=== PATIENT | male | born 1965 | race Caucasian/White ===

== ENCOUNTER 2019-10-24 13:45 | Inpatient (IN) ==
--- OUTSIDE RECORDS SUMMARY | 2019-10-24 13:49 | External Medical Summary | Continuity of Care Document ---
:1965 Author Name Jessica M.D., Provider Address Unavailable Unavailable , Care Team Providers Name Role Phone Unavailable Unavailable Unavailable LYDIA HOGAN Unavailable Unavailable Unavailable Unavailable Unavailable Problems Hypertrophy of nasal turbinates (478.0) (J34.3) Acquired deviated nasal septum (470) (J34.2) Type 2 diabetes mellitus (250.00) (E11.9) Allergies and Adverse Reactions Naproxen TABS (Allergy) Medications Nitrostat 0.4 MG Sublingual Tablet Sublingual , M.D. Refills: 0 Aspirin 81 MG TABS , M.D. Refills: 0 HumaLOG 100 UNIT/ML Subcutaneous Solution , M.D. Refills: 0 Lipitor 20 MG Oral Tablet , M.D. Refills: 0 Gemfibrozil 600 MG Oral Tablet , M.D. Refills: 0 Metoprolol Succinate ER 25 MG Oral Tablet Extended Release 2 4 Hour , M.D. Refills: 0 hydrALAZINE HCl - 25 MG Oral Tablet , M.D. Refills: 0 Effexor XR 150 MG Oral Capsule Extended Release 24 Hour , M. D. Refills: 0 Ambien 10 MG Oral Tablet , M.D. Refills: 0 oxyCODONE HCl - 5 MG Oral Capsule , M.D. Refills: 0 Procedures History of Hernia Repair Status: Complet ed History of Shoulder Surgery Status: Comp leted History of Ankle Repair Status: Complete d History of Cath Stent Placement Status: Completed Immunizations Immunizations not documented Plan of Treatment Planned Observations Planned Goals not documented Results No Known Results Results not documented
[2019-10-24 14:17] LABS: Basophils # (auto) 0.05 K/uL (0-0.2); Basophils % (auto) 0.4 %; Eosinophils # (auto) 0.23 K/uL (0-0.5); Eosinophils % (auto) 1.9 %; Hematocrit (blood only) 43.4 % (42-52); Hemoglobin 15.4 g/dL (14.0-18.0); Immature Granulocytes # (auto) 0.04 K/uL (0.00-0.02); Immature Granulocytes % (auto) 0.3 %; Lymphocytes # (auto) 1.93 K/uL (1.2-3.4); Lymphocytes % (auto) 15.9 %; Mean Corpuscular Hemoglobin 33.6 pg (25-34); Mean Corpuscular Hgb Conc 35.5 g/dL (32-36); Mean Corpuscular Volume 94.8 fL (80-100); Mean Platelet Volume 10.6 fL (7.4-10.4); Monocytes # (auto) 1.13 K/uL (0.11-0.59); Monocytes % (auto) 9.3 %; Neutrophils # (auto) 8.74 K/uL (1.4-6.5); Neutrophils % (auto) 72.2 %; Nucleated RBC # (auto) 0.02 K/uL (0-0); Nucleated RBC % (auto) 0.1 %; Platelet Count 177 K/uL (130-400); RDW Standard Deviation 44.6 fL (36.4-46.3); Red Blood Count 4.58 M/uL (4.7-6.1); White Blood Count 12.12 K/uL (4.8-10.8)
[2019-10-24] MEDS ORDERED: HYDROmorphone INJ 0.5 MG/0.5 ML SYR IV STA (14:18)
[2019-10-24] MEDS ORDERED: ONDANSETRON INJ 2 MG/ML 2 ML VIAL IV STA (14:18)
[2019-10-24] MEDS ORDERED: ALBUT/IPRATROP 3MG/0.5MG NEB 3 ML VIAL NEB STA (14:20)
[2019-10-24] MEDS ORDERED: SODIUM CHLORIDE 0.9% 1000ML 1,000 ML IV ONE (14:22)
[2019-10-24 14:25] LABS: Alanine Aminotransferase 19 U/L (12-78); Aspartate Aminotransferase 15 U/L (15-37); BUN Creatinine Ratio 13.3 (10-20); Blood Urea Nitrogen 18 mg/dl (7-18); Calcium 9.3 mg/dl (8.5-10.1); Carbon Dioxide 22 mmol/L (21-32); Chloride 103 mmol/L (98-107); Est GFR (African American) 66.8; Est GFR (Non-African American) 57.7; Glucose 140 mg/dl (70-99); Lipase 550 U/L (73-393); Potassium 3.5 mmol/L (3.5-5.1); Sodium 136 mmol/L (136-145)
[2019-10-24 14:28] LABS: Alkaline Phosphatase 115 U/L (45-117); Bilirubin,Total 0.5 mg/dl (0.2-1); Globulin 3.9 gm/dl (2.5-4.0); Total Protein 7.9 gm/dl (6.4-8.2)
--- NOTE | 2019-10-24 14:36 | XRay Report ---
XR chest 1V portable CLINICAL HISTORY: 54 years-old Male presenting with mild sob, abdominal pain. TECHNIQUE: Portable upright AP view of the chest was obtained. COMPARISON: 12/22/2009. FINDINGS: Borderline enlargement of the cardiac silhouette. Mildly coarsened lung markings. Faint reticular bas ilar opacities may be present. No other focal opacity. No large effusion or pneumothorax. Lungs and p leural spaces clear. Osseous structures normal. Upper abdomen normal. IMPRESSION: 1. Faint basilar reticular infiltrates may be present versus artifact relating to vasculature and po rtable technique. Consider PA and lateral views for further assessment if there is clinical concern. 2. No focal infiltrate to suggest pneumonia. 3. Borderline cardiomegaly. ACT 112: Negative or not required by law. Electronically signed by: Deion Hill M.D. 10/24/2019 2:34 PM
[2019-10-24 14:59] LABS: Troponin I < 0.015 ng/ml (0-0.045)
[2019-10-24] MEDS ORDERED: IOVERSOL 100ml IV PRN (15:03)
[2019-10-24] MEDS ORDERED: HYDROmorphone INJ 1 MG/ML SYRINGE IV STA (15:17)
[2019-10-24] MEDS ORDERED: METOCLOPRAMIDE HCL INJ 5 MG/ML 2 ML VIAL IV STA (15:18)
--- NOTE | 2019-10-24 15:22 | CT Scan Report ---
ABDOMEN AND PELVIS CT WITH IV CONTRAST CT DOSE: 408.05 mGy.cm HISTORY: Generalized abdominal pain, n/v, pancreatitis TECHNIQUE: Multiaxial CT images of the abdomen and pelvis were performed following the use of intrave nous contrast. A dose lowering technique was utilized adhering to the principles of ALARA. COMPARISON STUDY: Abdomen and pelvis CT 12/24/2009. FINDINGS: The lung bases are clear. No pneumoperitoneum. No pneumatosis. Old, healed left-sided rib f ractures. No suspicious lytic or blastic osseous lesions. The liver, spleen, right adrenal gland, and kidneys are unremarkable. No hydronephrosis. There are 2 date stones within the gallbladder. No gall bladder wall thickening. The punctate calcification within the anterior pancreatic head. Mild edema a nd inflammatory change surrounding the pancreatic head consistent with acute pancreatitis. The main p ortal vein and splenic vein are patent. No evidence for pancreatic necrosis at this time. No loculate d fluid collections identified. The bladder is mildly distended. No bladder wall thickening. No evide nce for bowel obstruction. Normal appendix. No bowel wall thickening. IMPRESSION: 1. Acute pancreatitis involving the pancreatic head. No evidence for pancreatic necrosis or loculated peripancreatic fluid collections. 2. Cholelithiasis. 3. No bowel wall thickening or obstruction. 4. Normal appendix. 5. Distended bladder. ACT 112: Negative or not required by law. Electronically signed by: Baldemar Jorge M.D. 10/24/2019 3:21 PM
[2019-10-24] MEDS: NICOTINE 21 MG/24 HR TDSY TD SCH (17:31)
--- NOTE | 2019-10-24 17:38 | Emergency Department Note ---
Entered by Odette Sherman acting as a scribe for History of Present Illness General Chief complaint: Abdominal Pain Stated complaint: abd pain Time Seen by Provider: 10/24/19 14:13 Source: patient Mode of arrival: EMS History of Present Illness Onset (ago): day(s) 3 Location: abdomen Radiation: back Severity: severe and similar to prior episodes Pain Consistency: + other (worsening) Maximum Pain Intensity: 7 Quality: + other (abdominal pain ) Exacerbated By: + eating Associated symptoms: + cough, + loss of appetite, + nausea/vomiting, + shortness of breath and + other (Positive abdominal pain, back pain. Negative recent falls, abnormal bowel movements. ); no chest pain Treatments prior to arrival: other (morphine) The patient is a 54 year old male presenting to the Emergency Department via EMS complaining of worsening abdominal pain starting 3 days ago. The patient reports that he has severe abdominal pain that is radiating to his back. He states that he has lost his appetite and when he tries to eat food his abdominal pain worsens. He explains that he is nauseous and vomited. He notes that he is short of breath and has a cough. He adds that he has experienced these symptoms before and at that time he was diagnosed with pancreatitis. He states that he has been taking Ibuprofen at home which hasnt improved his abdominal pain. He explains that he received X from [facility] [employer]CH[employer]IC[employer]. He notes that he regularly smokes cigarettes and drinks alcohol. 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 The patient denies chest pain, recent falls, abnormal bowel movements and recent travel. Home Medications Home Medications Medication Instructions Recorded Confirmed Type albuterol sulfate [ProAir HFA] 2 puff INHALATION Q4H PRN 10/24/19 10/24/19 History aspirin 81 mg PO QAM 10/24/19 10/24/19 History bupropion HCl 300 mg PO QAM 10/24/19 10/24/19 History fluticasone propionate [Flonase 2 spray INTRANASAL DAILY PRN 10/24/19 10/24/19 History Allergy Relief] gemfibrozil 600 mg PO BID 10/24/19 10/24/19 History hydralazine 25 mg PO BID 10/24/19 10/24/19 History insulin aspart U-100 [Novolog See Rx Instructions .ROUTE .COMPLEX 10/24/19 10/24/19 History Flexpen U-100 Insulin] insulin glargine [Lantus Solostar 16 unit SUBCUT QAM 10/24/19 10/24/19 History U-100 Insulin] loratadine 10 mg PO DAILY PRN 10/24/19 10/24/19 History losartan 100 mg PO QAM 10/24/19 10/24/19 History metoprolol tartrate 50 mg PO BID 10/24/19 10/24/19 History rosuvastatin 40 mg PO DAILY 10/24/19 10/24/19 History trazodone 50 mg PO HS 10/24/19 10/24/19 History Allergies Allergy/AdvReac Type Severity Reaction Status Date / Time naproxen Allergy Unknown Hives Verified 10/24/19 16:09 tramadol Allergy Unknown Unknown Verified 10/24/19 16:09 Past Med/Surg History Medical History (Updated 10/24/19 @ 15:47 by Odette Sherman) COPD (chronic obstructive pulmonary disease) Depression GERD (gastroesophageal reflux disease) History of pancreatitis Surgical History History of nasal septoplasty Social History Feels Safe at Home: Yes Smoking Status: Heavy tobacco smoker Review of Systems See HPI for pertinent positives & negatives. and A total of 10 systems reviewed and were otherwise negative Physical Exam Vital Signs Vital Signs - 24 hr 10/24/19 14:02 10/24/19 14:50 10/24/19 15:31 Temperature 36.8 C Temperature Source Oral Pulse Rate 70 Pulse Rate [Radial] 66 83 Respiratory Rate 22 17 20 Respiratory Effort / Characteristics Non-Labored Spontaneous Non-Labored Spontaneous Non-Labored Spontaneous Respiratory Depth Normal Normal Respiratory Pattern Regular Blood Pressure 136/85 Blood Pressure [Right Arm] 138/88 Blood Pressure Mean 102 Blood Pressure Mean [Right Arm] 104 Blood Pressure Position Lying Blood Pressure Position [Right Arm] Lying Pulse Oximetry 95 97 96 Oxygen Delivery Method Room Air Room Air Room Air Sepsis Recent Fever Within 48 Hours No Sepsis Action Taken by Nursing No Action Required GENERAL: Patient appears fatigued. Awake, alert but appears uncomfortable HENT: Normocephalic, atraumatic. EYES: Normal conjunctiva. Sclera non-icteric. RESPIRATORY: Coarse lungs sounds with slight wheeze. Normal respiratory effort. CARDIAC: Normal rate. Normal rhythm. Extremities warm and well perfused. GI: Diffuse abdominal tenderness. Soft, non-distended. RECTAL: Deferred. MUSCULOSKELETAL: Atraumatic. Chest examination reveals no tenderness. LOWER EXTREMITIES: Calves are equal size bilaterally and non-tender. No edema NEURO: Normal sensorium. No sensory or motor deficits noted. No facial droop. SKIN: Warm and dry. No jaundice noted. Course Course 1416: The patient was evaluated in room C11B, and a complete history and physical examination were performed. 1531: I updated the patient on his imaging studies at this time. 1544: I discussed the patient's case with Cecille Sommer PA-C. Dr. [facility]. Administered Medications Ioversol (Optiray 320 100ml) 93 ml IV ONCE PRN PRN Reason: Interaction Checking Stop: 10/28/19 15:02 Last Admin: 10/24/19 15:03 Dose: 93 ml Documented by: [id number] Nicotine (Nicoderm Cq) 21 mg TD QAM ROSALES Stop: 11/23/19 17:14 Last Admin: 10/24/19 17:31 Dose: 21 mg Documented by: [id number] Discontinued Medications Albuterol (Duoneb) 3 ml NEB NOW STA Stop: 10/24/19 14:21 Last Admin: 10/24/19 14:49 Dose: 3 ml Documented by: [id number] Hydromorphone HCl (Dilaudid) 0.5 mg IV NOW STA Stop: 10/24/19 14:19 Last Admin: 10/24/19 14:30 Dose: 0.5 mg Documented by: [id number] Hydromorphone HCl (Dilaudid) 1 mg IV NOW STA Stop: 10/24/19 15:18 Last Admin: 10/24/19 15:28 Dose: 1 mg Documented by: [id number] Sodium Chloride (Nss 1000ml) 1,000 mls @ 999 mls/hr IV .Q1H1M ONE Stop: 10/24/19 15:22 Last Infusion: 10/24/19 15:34 Dose: 0 mls/hr Documented by: [id number] Admin: 10/24/19 14:30 Dose: 999 mls/hr Documented by: [id number] Metoclopramide HCl (Reglan) 10 mg IV NOW STA Stop: 10/24/19 15:19 Last Admin: 10/24/19 15:28 Dose: 10 mg Documented by: [id number] Ondansetron HCl (Zofran) 4 mg IV NOW STA Stop: 10/24/19 14:19 Last Admin: 10/24/19 14:30 Dose: 4 mg Documented by: [id number] Medical Decision Making Differential Diagnosis Differential diagnoses includes but is not limited to gastritis, peptic ulcer disease, GERD, gallbladder disease, pancreatitis, small bowel obstruction, acute coronary syndrome, pericarditis, ischemic bowel, irritable bowel disease, irritable bowel syndrome, appendicitis, diverticulitis, malignancy, hernia, urinary tract infection, torsion, perforation, trauma, infectious. Medical Records Attestation: I reviewed the patient's medical records. Home Medications Current Medication List: was personally reviewed by me Laboratory Data Attestation: I reviewed the patient's lab results. Result diagrams: 10/24/19 13:50 10/24/19 13:50 Lab Results 10/24/19 10/24/19 10/24/19 Range/Units 13:50 13:50 13:50 WBC 12.12 H (4.8-10.8) K/uL RBC 4.58 L (4.7-6.1) M/uL Hgb 15.4 (14.0-18.0) g/dL Hct 43.4 (42-52) % MCV 94.8 (80-100) fL MCH 33.6 (25-34) pg MCHC 35.5 (32-36) g/dL RDW Std Deviation 44.6 (36.4-46.3) fL RDW Coeff of Sonia 13.0 (11.5-14.5) % Plt Count 177 (130-400) K/uL MPV 10.6 H (7.4-10.4) fL Immature Gran % (Auto) 0.3 % Neut % (Auto) 72.2 % Lymph % (Auto) 15.9 % [place] % (Auto) 9.3 % Eos % (Auto) 1.9 % Baso % (Auto) 0.4 % Immature Gran # (Auto) 0.04 H (0.00-0.02) K/uL Neut # (Auto) 8.74 H (1.4-6.5) K/uL Lymph # (Auto) 1.93 (1.2-3.4) K/uL [place] # (Auto) 1.13 H (0.11-0.59) K/uL Eos # (Auto) 0.23 (0-0.5) K/uL Baso # (Auto) 0.05 (0-0.2) K/uL Absolute Nucleated RBC 0.02 H (0-0) K/uL Nucleated RBC % (auto) 0.1 % Sodium 136 (136-145) mmol/L Potassium 3.5 (3.5-5.1) mmol/L Chloride 103 (98-107) mmol/L Carbon Dioxide 22 (21-32) mmol/L Anion Gap 10.0 (3-11) BUN 18 (7-18) mg/dl Creatinine 1.37 (0.6-1.4) mg/dl Est Cr Clr Drug Dosing 57.0 ml/min Est GFR ( Amer) 66.8 Est GFR (Non-Af Amer) 57.7 BUN/Creatinine Ratio 13.3 (10-20) Glucose 140 H (70-99) mg/dl Calcium 9.3 (8.5-10.1) mg/dl Total Bilirubin 0.5 (0.2-1) mg/dl AST 15 (15-37) U/L ALT 19 (12-78) U/L Alkaline Phosphatase 115 (45-117) U/L Troponin I < 0.015 Cancelled (0-0.045) ng/ml Total Protein 7.9 (6.4-8.2) gm/dl Albumin 4.0 (3.4-5.0) gm/dl Globulin 3.9 (2.5-4.0) gm/dl Albumin/Globulin Ratio 1.0 (0.9-2) Triglycerides (0-150) mg/dl Lipase 550 H (73-393) U/L Ethyl Alcohol mg/dL (0-3) mg/dl 10/24/19 10/24/19 Range/Units 15:55 15:55 WBC (4.8-10.8) K/uL RBC (4.7-6.1) M/uL Hgb (14.0-18.0) g/dL Hct (42-52) % MCV (80-100) fL MCH (25-34) pg MCHC (32-36) g/dL RDW Std Deviation (36.4-46.3) fL RDW Coeff of Sonia (11.5-14.5) % Plt Count (130-400) K/uL MPV (7.4-10.4) fL Immature Gran % (Auto) % Neut % (Auto) % Lymph % (Auto) % [place] % (Auto) % Eos % (Auto) % Baso % (Auto) % Immature Gran # (Auto) (0.00-0.02) K/uL Neut # (Auto) (1.4-6.5) K/uL Lymph # (Auto) (1.2-3.4) K/uL [place] # (Auto) (0.11-0.59) K/uL Eos # (Auto) (0-0.5) K/uL Baso # (Auto) (0-0.2) K/uL Absolute Nucleated RBC (0-0) K/uL Nucleated RBC % (auto) % Sodium (136-145) mmol/L Potassium (3.5-5.1) mmol/L Chloride (98-107) mmol/L Carbon Dioxide (21-32) mmol/L Anion Gap (3-11) BUN (7-18) mg/dl Creatinine (0.6-1.4) mg/dl Est Cr Clr Drug Dosing ml/min Est GFR ( Amer) Est GFR (Non-Af Amer) BUN/Creatinine Ratio (10-20) Glucose (70-99) mg/dl Calcium (8.5-10.1) mg/dl Total Bilirubin (0.2-1) mg/dl AST (15-37) U/L ALT (12-78) U/L Alkaline Phosphatase (45-117) U/L Troponin I (0-0.045) ng/ml Total Protein (6.4-8.2) gm/dl Albumin (3.4-5.0) gm/dl Globulin (2.5-4.0) gm/dl Albumin/Globulin Ratio (0.9-2) Triglycerides 402 H (0-150) mg/dl Lipase (73-393) U/L Ethyl Alcohol mg/dL 122.1 H (0-3) mg/dl Imaging Data Radiologist's Impression: Radiology results as stated below per my review and the radiologist's interpretation: ABDOMEN AND PELVIS CT WITH IV CONTRAST CT DOSE: 408.05 mGy.cm HISTORY: Generalized abdominal pain, n/v, pancreatitis TECHNIQUE: Multiaxial CT images of the abdomen and pelvis were performed following the use of intravenous contrast. A dose lowering technique was utilized adhering to the principles of ALARA. COMPARISON STUDY: Abdomen and pelvis CT 12/24/2009. FINDINGS: The lung bases are clear. No pneumoperitoneum. No pneumatosis. Old, healed left-sided rib fractures. No suspicious lytic or blastic osseous lesions. The liver, spleen, right adrenal gland, and kidneys are unremarkable. No hydronephrosis. There are 2 date stones within the gallbladder. No gallbladder wall thickening. The punctate calcification within the anterior pancreatic head. Mild edema and inflammatory change surrounding the pancreatic head consistent with acute pancreatitis. The main portal vein and splenic vein are patent. No evidence for pancreatic necrosis at this time. No loculated fluid collections identified. The bladder is mildly distended. No bladder wall thickening. No evidence for bowel obstruction. Normal appendix. No bowel wall thickening. IMPRESSION: 1. Acute pancreatitis involving the pancreatic head. No evidence for pancreatic necrosis or loculated peripancreatic fluid collections. 2. Cholelithiasis. 3. No bowel wall thickening or obstruction. 4. Normal appendix. 5. Distended bladder. ACT 112: Negative or not required by law. Electronically signed by: Baldemar Jorge M.D. 10/24/2019 3:21 PM XR chest 1V portable CLINICAL HISTORY: 54 years-old Male presenting with mild sob, abdominal pain. TECHNIQUE: Portable upright AP view of the chest was obtained. COMPARISON: 12/22/2009. FINDINGS: Borderline enlargement of the cardiac silhouette. Mildly coarsened lung markings. Faint reticular basilar opacities may be present. No other focal opacity. No large effusion or pneumothorax. Lungs and pleural spaces clear. Osseous structures normal. Upper abdomen normal. IMPRESSION: 1. Faint basilar reticular infiltrates may be present versus artifact relating to vasculature and portable technique. Consider PA and lateral views for further assessment if there is clinical concern. 2. No focal infiltrate to suggest pneumonia. 3. Borderline cardiomegaly. ACT 112: Negative or not required by law. Electronically signed by: Deion Hill M.D. 10/24/2019 2:34 PM ECG Data Attestation: I personally reviewed and interpreted this ECG as follows: Indication: + abdominal pain Rate (beats per minute): 66 Rhythm: + normal sinus ECG Intervals/blocks: + Incomplete right bundle branch block ECG [place]: + Normal ECG ST segments: no ST depression and no ST elevation ECG Findings: no PVCs Blood Pressure Blood Pressure Findings: Elevated blood pressure Blood Pressure Disposition: further management by hospitalist ROSE Nguyen Patient is a 54-year-old gentleman with a past medical history including CAD, pancreatitis, hypertension, GERD, depression, tobacco use presenting today via ambulance with severe upper and right-sided abdominal pain radiating to the back. No trauma reported or fevers. Decreased oral intake. Some nausea and vomiting. Pains been worsening over the past 4 to 5 days and pain in the back since last night. Again no trauma reported. Diffuse abdominal tenderness. States it feels similar to prior pancreatitis. Does drink alcohol regularly including earlier today. Basic labs, EKG, troponin, chest x-ray, CT scan of the abdomen pelvis are completed. Complains of some mild shortness of breath but also given hypoxic here. Chest x-ray obtained without evidence of pneumonia pneumothorax. Somewhat wheezing given a DuoNeb here. Likely related underlying smoking. Did discuss with EMS prior to arrival and they administered 7 1/2 mg of morphine. Given additional Dilaudid and Zofran here for symptom control. He is diffusely tender. Laboratory studies are reassuring and troponin lipase not significantly elevated. CT scans does show evidence of inflammation around the head of the pancreas for acute pancreatitis. Patient given additional pain and nausea medication including Reglan. Patient require admission for pain control of his pancreatitis peer discussed with the patient and [facility] hospitalist. Impression & Plan Pancreatitis Discharge Plan Visit Data Chief Complaint: Abdominal Pain Stated Complaint: abd pain ED Provider: Logan García Discharge Problem: Pancreatitis Patient Disposition: Being Evaluated by Hospitalist Discharge Instructions Interventions: ED Discharge Assessment Last Done: 10/24/19 17:14 Forms Stand Alone Forms: Call Back Authorization, [place] Prescriptions Prescriptions: No Action trazodone 50 mg Tablet 50 mg PO HS RF: 0 hydralazine 25 mg Tablet 25 mg PO BID RF: 0 aspirin 81 mg Tablet,Delayed Release (Dr/Ec) 81 mg PO QAM RF: 0 gemfibrozil 600 mg Tablet 600 mg PO BID RF: 0 metoprolol tartrate 50 mg Tablet 50 mg PO BID RF: 0 albuterol sulfate [ProAir HFA] 90 mcg/actuation Hfa Aerosol Inhaler 2 puff INHALATION Q4H PRN (Reason: Wheezing) RF: 0 losartan 100 mg Tablet 100 mg PO QAM RF: 0 fluticasone propionate [Flonase Allergy Relief] 50 mcg/actuation [place],Suspension 2 spray INTRANASAL DAILY PRN (Reason: Allergy Symptoms) RF: 0 loratadine 10 mg Tablet 10 mg PO DAILY PRN (Reason: Allergy Symptoms) RF: 0 insulin aspart U-100 [Novolog Flexpen U-100 Insulin] 100 unit/mL (3 mL) Insulin Pen See Rx Instructions .ROUTE .COMPLEX RF: 0 bupropion HCl 300 mg Tablet Extended Release 24 Hr 300 mg PO QAM RF: 0 Lantus Solostar U-100 Insulin 100 unit/mL (3 mL) Insulin Pen 16 unit SUBCUT QAM RF: 0 rosuvastatin 40 mg Tablet 40 mg PO DAILY RF: 0 Referrals Referrals: Jennifer Monroe MD [Primary Care Provider] - Discharge Problem: Pancreatitis Qualifiers: Chronicity: acute Pancreatitis type: unspecified pancreatitis type Acute pancreatitis complication: unspecified Qualified Code(s): K85.90 - Acute pancreatitis without necrosis or infection, unspecified The scribe's documentation has been prepared under my direction and personally reviewed by me in its entirety. I confirm that the note above accurately ref lects all work, treatment, procedures, and medical decision making performed by me.
--- NOTE | 2019-10-24 18:04 | History & Physical Report ---
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; at that time, pancreatitis was felt to be multifactorial secondary to chronic alcohol use, hypertriglyceridemia, medications including venlafaxine and statin -Patient reports drinking 3-4 beers per day however blood alcohol level noted to be 122, therefore suspect use is much higher -Lipase 550 -Triglycerides 402 -Patient had self stopped his statin for about 4 years, this was resumed 07/2019 -Suspect acute pancreatitis today secondary to alcohol use however hypertriglyceridemia and statin may also be contributing factors -Supportive care with n.p.o., IVF, pain and nausea control -GI consult, input appreciated (2) Alcohol abuse: -Patient reports drinking 3-4 beers per day however blood alcohol level noted to be 122, therefore suspect use is much higher -Given nausea, will start patient on alcohol withdrawal protocol with lorazepam -Banana bag daily (3) Dyslipidemia: (4) Hypertriglyceridemia: -Holding statin due to pancreatitis -Triglycerides noted be 402 -Continue gemfibrozil (5) DM type 1 (diabetes mellitus, type 1): -Hgb A1c 7.3 07/2019 -Managed on Lantus and NovoLog at home -Glycemic pharmacy consulted (6) CAD (coronary artery disease): -Appears stable, no reports of chest pain -Continue aspirin, beta-beni, ARB -Holding statin as above (7) Hypertension: -BP controlled, continue metoprolol, hydralazine, and losartan (8) Anxiety: -Continue bupropion and trazodone (9) Tobacco abuse: -Patient counseled regarding tobacco cessation -Nicotine patch (10) DVT prophylaxis: -SCDs, ambulate History of Present Illness Chief Complaint: Abdominal pain Primary Care Provider: Jennifer Monroe MD 54-year-old male who presents the ED for evaluation of abdominal pain. Patient reports he developed nausea and " nothing tasted good" about 5 days ago. Yesterday, he developed epigastric pain with radiation to the back. He reports symptoms are very similar to when he had pancreatitis in 2009. He had one episode of vomiting this morning however he attributes that to chronic coughing. Denies hematemesis or coffee-ground emesis. No diarrhea, bright bleeding per rectum, dark tarry stools. Denies fevers and chills. In 2009, patient had necrotizing pancreatitis which was felt to be multifactorial secondary to hypertriglyceridemia, alcohol use, and medications including venlafaxine and statin. Since then, venlafaxine has been discontinued, triglycerides were controlled, and patient cut back on his alcohol however has not abstained. He reports drinking 3-4 beers per day. About 3 months ago, it was discovered the patient had self stopped his statin for about 4 years, this was resumed in 07/2019. No chest pain or shortness of breath. Denies lightheadedness, dizziness, diaphoresis, syncopal events. Reports chronic urinary hesitancy which is unchanged baseline. In the ED, CT ABD/pelvis is showing acute pancreatitis involving the pancreatic head. No evidence of necrosis or fluid collection. Lipase is 550. No leukocytosis, patient afebrile. Hemodynamically stable. He was given IVF, IV Zofran, IV Reglan, 2 doses of IV Dilaudid. Allergies Allergy/AdvReac Type Severity Reaction Status Date / Time naproxen Allergy Unknown Hives Verified 10/24/19 16:09 tramadol Allergy Unknown Unknown Verified 10/24/19 16:09 Home Medications Home Medications Medication Instructions Recorded Confirmed Type albuterol sulfate [ProAir HFA] 2 puff INHALATION Q4H PRN 10/24/19 10/24/19 History aspirin 81 mg PO QAM 10/24/19 10/24/19 History bupropion HCl 300 mg PO QAM 10/24/19 10/24/19 History fluticasone propionate [Flonase 2 spray INTRANASAL DAILY PRN 10/24/19 10/24/19 History Allergy Relief] gemfibrozil 600 mg PO BID 10/24/19 10/24/19 History hydralazine 25 mg PO BID 10/24/19 10/24/19 History insulin aspart U-100 [Novolog See Rx Instructions .ROUTE .COMPLEX 10/24/19 10/24/19 History Flexpen U-100 Insulin] insulin glargine [Lantus Solostar 16 unit SUBCUT QAM 10/24/19 10/24/19 History U-100 Insulin] loratadine 10 mg PO DAILY PRN 10/24/19 10/24/19 History losartan 100 mg PO QAM 10/24/19 10/24/19 History metoprolol tartrate 50 mg PO BID 10/24/19 10/24/19 History rosuvastatin 40 mg PO DAILY 10/24/19 10/24/19 History trazodone 50 mg PO HS 10/24/19 10/24/19 History Past Med/Surg History Medical History Alcohol abuse Anxiety CAD (coronary artery disease) 2009-stenting to left circumflex Chronic pancreatitis Depression DM type 1 (diabetes mellitus, type 1) Dyslipidemia GERD (gastroesophageal reflux disease) Hypertension Hypertriglyceridemia SATYA (obstructive sleep apnea) Tobacco abuse Surgical History H/O hernia repair H/O shoulder surgery History of nasal septoplasty S/P rotator cuff repair Family History Mother Heart disease Social History Preferred Language: Luxembourgish Communication Ability: Effective Batch Unit Treater Required: No Beliefs That Will Affect Care: None Current Living Situation: Significant Other Other Information That Helps Us Care for You: No Feels Safe at Home: Yes Safety Concerns: Feels Safe At This Time Smoking Status: Current every day smoker Tobacco Type: cigarettes ; Cigarettes Per Day: 1.5 packs/day ; Tobacco Cessation Education Requested by Patient: No Hx Alcohol Use: Yes Alcohol type: beer Alcohol type Comment: 3-4 beers per day Hx Substance Use: No Review of Systems Review of Systems: ROS per HPI, all other systems reviewed and negative Physical Exam Constitutional: WD/WN, vitals as above Eyes: PERRL, conjunctivae normal, anicteric sclerae ENMT: external ear and nose normal, oropharynx normal Respiratory: normal respiratory effort, lungs clear to auscultation Cardiovascular: Rate/Rhythm: regular rate and regular rhythm Vessels: normal peripheral pulses Extremities: no edema Gastrointestinal (Abdomen): Inspection/Auscultation: normal bowel sounds Percussion/Palpation: + abdomen tender (Epigastric) and abdomen soft; no hepatosplenomegaly Musculoskeletal: no cyanosis or clubbing, extremities motor strength 5/5 Skin: no rashes, warm and dry Neurologic: PERRL, EOMI, accommodation nl, no face palsy, no dysarthria Psychiatric: A+Ox3, euthymic affect Results & Data Vital Signs (Past 12 Hours) Vital Signs Temp Pulse Pulse Resp BP BP Pulse Ox 10/24/19 15:31 83 20 138/88 96 10/24/19 14:50 66 17 97 10/24/19 14:02 36.8 C 70 22 136/85 95 Laboratory Results Short CBC 10/24/19 Range/Units 13:50 WBC 12.12 H (4.8-10.8) K/uL Hgb 15.4 (14.0-18.0) g/dL Hct 43.4 (42-52) % Plt Count 177 (130-400) K/uL BMP 10/24/19 13:50 Sodium 136 Potassium 3.5 Chloride 103 Carbon Dioxide 22 BUN 18 Creatinine 1.37 Glucose 140 H Calcium 9.3 Cardiac Enzymes 10/24/19 10/24/19 Range/Units 13:50 13:50 Troponin I < 0.015 Cancelled (0-0.045) ng/ml Liver Function 10/24/19 Range/Units 13:50 Total Bilirubin 0.5 (0.2-1) mg/dl AST 15 (15-37) U/L ALT 19 (12-78) U/L Alkaline Phosphatase 115 (45-117) U/L Albumin 4.0 (3.4-5.0) gm/dl Diagnostic Findings CXR IMPRESSION: 1. Faint basilar reticular infiltrates may be present versus artifact relating to vasculature and portable technique. Consider PA and lateral views for further assessment if there is clinical concern. 2. No focal infiltrate to suggest pneumonia. 3. Borderline cardiomegaly. CT ABD/PELVIS IMPRESSION: 1. Acute pancreatitis involving the pancreatic head. No evidence for pancreatic necrosis or loculated peripancreatic fluid collections. 2. Cholelithiasis. 3. No bowel wall thickening or obstruction. 4. Normal appendix. 5. Distended bladder. Code Status & VTE Plan VTE Prophylaxis Plan VTE Prophylaxis will be ordered: Yes Supervising Physician Co-Signing Physician Notes HISTORY: Record reviewed. Patient interviewed and examined. Care coordinated with MARGARITA Castillo. Please refer to her documentation for complete history. Briefly, 54-year-old male with history of necrotizing pancreatitis several years ago. Contributing factors thought to be alcohol, hypertriglyceridemia, possible medications. Continues to drink at least a few beers per day. Presented to ED with epigastric pain, nausea, vomiting. EXAM: General- no distress Lungs- clear to auscultation; no respiratory distress Cardiovascular- RRR; no murmur; no gallop; no JVD; no pretibial edema Abdomen- slightly distended, quiet bowel sounds, moderate epigastric tenderness without rebound or guarding Extremities- no cyanosis; no calf tenderness Neuro- alert, oriented Skin- warm & dry DATA: Hemoglobin 15.4, white count 12,120, platelet count 177,000. Normal electrolytes, BUN 18, creatinine 1.37, random glucose 140. Total bilirubin 0.5, AST 15, ALT 19, alkaline phosphatase 115. Lipase 550. Triglycerides 402. Other lab studies as noted. Chest x-ray demonstrated poor borderline cardiomegaly, faint basilar reticular infiltrates versus artifact. CT of abdomen and pelvis consistent with acute pancreatitis involving the pancreatic head, no necrosis or abscess, cholelithiasis noted, but no choledocholithiasis or evidence of cholecystitis. EKG performed at 1435 reviewed and demonstrated normal sinus rhythm at 70/ minute, right bundle branch block, possible age-indeterminate inferior infarct.. Tracing compared to 04/25/2016-no significant change. ASSESSMENT AND PLAN: Recurrent pancreatitis. Cholelithiasis noted on CT, without choledocholithiasis or dilatation of common bile duct. Most likely etiology is alcohol use, but consider gallstone pancreatitis, hypertriglyceridemia, or medications as other possible etiologies. IV fluids, bowel rest, analgesics, antiemetics. Consult GI. Patient states that he drinks about 3 beers per day. Blood alcohol level in ED 122 mg/per deciliter (obtained about 2 hours after presentation to ED). Counseling regarding hazards of ongoing alcohol consumption. Monitor for signs/symptoms of alcohol withdrawal. Please refer to MAYA Sommer's documentation for discussion of other issues. (1) Pancreatitis Acute pancreatitis complication: unspecified Chronicity: acute Pancreatitis type: unspecified pancreatitis type Qualified Code(s): K85.90 - Acute pancreatitis without necrosis or infection, unspecified
[2019-10-24] MEDS ORDERED: HYDROmorphone INJ 0.5 MG/0.5 ML SYR IV ONE (18:30)
[2019-10-24] MEDS ORDERED: PROMETHAZINE HCL 12.5 MG in SODIUM CHLORIDE 0.9% 50 ML IV PRN (19:22)
[2019-10-24] MEDS ORDERED: ATIVAN IV ALCOHOL WITHDRAWL IV PRN (19:22)
[2019-10-24] MEDS ORDERED: ACETAMINOPHEN 325 MG TAB PO PRN (19:22)
[2019-10-24] MEDS ORDERED: LORazepam 2 MG/4 ML VIAL IV PRN (19:22)
[2019-10-24] MEDS ORDERED: LORazepam 1 MG/2 ML VIAL IV PRN (19:22)
[2019-10-24] MEDS ORDERED: HYDROmorphone INJ 0.5 MG/0.5 ML SYR IV PRN (19:22)
[2019-10-24] MEDS ORDERED: LORazepam 3 MG/6 ML VIAL IV PRN (19:22)
[2019-10-24] MEDS ORDERED: PHARMACY GLYCEMIC MGMT CONSULT PRN (19:38)
[2019-10-24] MEDS ORDERED: GLUCOSE 10 TABS/TUBE PO PRN (20:15)
[2019-10-24] MEDS ORDERED: GLUCAGON FOR INJ 1 MG VIAL IM PRN (20:15)
[2019-10-24] MEDS ORDERED: GLUCOSE 40% GEL 15 GM TUBE PO PRN (20:15)
[2019-10-24] MEDS ORDERED: CARBOHYDRATES FOR HYPOGLYCEMIA PO PRN (20:15)
[2019-10-24] MEDS ORDERED: DEXTROSE 50% 50 ML SYRINGE IV PRN (20:15)
[2019-10-24] MEDS: HYDROmorphone INJ 0.5 MG/0.5 ML SYR IV PRN ×2 (20:48→23:20)
[2019-10-24] MEDS: MULTI-VITAMIN INFUSION 10 ML, THIAMINE HCL 100 MG, FOLIC ACID 1 MG in SODIUM CHLORIDE 0... IV SCH (20:48)
--- NOTE | 2019-10-24 21:06 | Pharmacy Report ---
Glycemic Control Consultation - Date of Service October 24, 2019 - Scope Scope: Glycemic Pharmacist consulted by MARGARITA Castillo on 10/24/2019 for glycemic control and to write orders per [facility] inpatient glycemic control protocol - Objective Weight: 68.5 kg Accuchecks BSG (last 24hrs): 10/24/19 10/24/19 13:50 20:16 Glucose 140 H POC Glucose 138 H Laboratory Data (last 24hrs): 10/24/19 13:50 Potassium 3.5 Carbon Dioxide 22 Anion Gap 10.0 Creatinine 1.37 Est Cr Clr Drug Dosing 57.0 - Recent Pertinent Medications Outpatient Anti-diabetic Regimen: * Lantus 16 units SQ QAM * Novolog 10 units with breakfast, 10 units with lunch, 12 units with dinner plus CF 50 for BSG > 150 * A1c = 7.3% (07/16/19) Risk Factors for Insulin Resistance: * IVF: * MVI + Thiamine + Folic Acid daily * LR at 200 cc/hr * Diet: * NPO - Assessment & Plan Assessment & Plan: ASSESSMENT: * 54 yo M admitted for pancreatitis * Patient is currently NPO PLAN FOR INPATIENT GLYCEMIC CONTROL: * Basal insulin * Lantus 10 units SQ BID (50-80% reduction for being NPO) * Bolus insulin * NovoLog per scale ACHS or Q6hrs while NPO * Goal Range: Low 110 mg/dL - High 140 mg/dL * Correction Factor: 35 mg/dL/unit * Nutritional / Prandial insulin per carb ratio of 1 unit per 11 grams CHO consumed DISCHARGE RECOMMENDATIONS: * Pending at this time * Please note that the plan above was derived based on current level of insulin resistance and hospital stress. These recommendations are appropriate for inpatient admission only. Plan of care upon discharge will need to be reassessed to avoid potential outpatient hypo/hyperglycemia. Thank you.
[2019-10-24] MEDS: INSULIN ASPART 100 UNITS/ML 3 ML PEN SC SCH (21:08)
[2019-10-24] MEDS: gemfibroziL 600 MG TAB PO SCH (21:22)
[2019-10-24] MEDS: METOPROLOL TARTRATE 50 MG TAB PO SCH (21:23)
[2019-10-24] MEDS: TRAZODONE HCL 50 MG TAB PO SCH (21:23)
[2019-10-24] MEDS: LACTATED RINGER'S 1,000 ML IV SCH (23:20)
[2019-10-25] MEDS: HYDROmorphone INJ 0.5 MG/0.5 ML SYR IV PRN ×3 (02:59→11:11)
[2019-10-25] MEDS: INSULIN ASPART 100 UNITS/ML 3 ML PEN SC SCH ×6 (03:27→20:12)
[2019-10-25] MEDS: LACTATED RINGER'S 1,000 ML IV SCH ×4 (04:29→16:15)
--- NOTE | 2019-10-25 06:14 | Electrocardiogram Report ---
Test Reason : Blood Pressure : / mmHG Vent. Rate : 066 BPM Atrial Rate : 066 BPM P-R Int : 144 ms QRS Dur : 110 ms QT Int : 460 ms P-R-T Axes : 023 -05 022 degrees QTc Int : 482 ms Poor data quality, interpretation may be adversely affected Normal sinus rhythm Incomplete right bundle branch block Possible Inferior infarct Abnormal ECG When compared with ECG of 25-APR-2016 09:37, No significant change was found Confirmed by Xavier Pugh ([id number]) on 10/25/2019 6:14:15 AM Referred By: ED Confirmed By:Xavier Pugh
[2019-10-25 07:09] LABS: Hematocrit (blood only) 39.3 % (42-52); Hemoglobin 13.5 g/dL (14.0-18.0); Mean Corpuscular Hemoglobin 32.8 pg (25-34); Mean Corpuscular Hgb Conc 34.4 g/dL (32-36); Mean Corpuscular Volume 95.6 fL (80-100); Mean Platelet Volume 10.3 fL (7.4-10.4); Platelet Count 113 K/uL (130-400); RDW Coefficient of Variation 13.1 % (11.5-14.5); RDW Standard Deviation 45.3 fL (36.4-46.3); Red Blood Count 4.11 M/uL (4.7-6.1); White Blood Count 8.71 K/uL (4.8-10.8)
[2019-10-25 07:48] LABS: Albumin Level 3.2 gm/dl (3.4-5.0); BUN Creatinine Ratio 12.3 (10-20); Calcium 8.7 mg/dl (8.5-10.1); Creatinine Clr Calc Pharmacy 76.5 ml/min; Est GFR (African American) 95.5; Est GFR (Non-African American) 82.4; Potassium 4.1 mmol/L (3.5-5.1)
[2019-10-25 07:56] LABS: Bilirubin,Total 0.7 mg/dl (0.2-1); Globulin 3.3 gm/dl (2.5-4.0); Total Protein 6.5 gm/dl (6.4-8.2)
[2019-10-25 08:04] LABS: Estimated Average Glucose 131 mg/dl; Hemoglobin A1C 6.2 % (4.5-5.6)
[2019-10-25] MEDS: ASPIRIN 81 MG ECTAB PO SCH (08:37)
[2019-10-25] MEDS: BuPROPion XL 300 MG TABCR PO SCH (08:37)
[2019-10-25] MEDS: LOSARTAN POTASSIUM 50 MG TAB PO SCH (08:37)
[2019-10-25] MEDS: METOPROLOL TARTRATE 50 MG TAB PO SCH ×2 (08:37→20:10)
[2019-10-25] MEDS: gemfibroziL 600 MG TAB PO SCH ×2 (08:38→20:10)
[2019-10-25] MEDS: INSULIN GLARGINE SOLOSTAR 100 UNITS/ML 3 ML PEN SC SCH (08:46)
--- NOTE | 2019-10-25 09:43 | Hospitalist Progress Note ---
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 clinically is improving. abdomen is soft and nontender to palpation, patient reports some mild pain above umbilicus. patient denies back pain today as back pain is resolved. -continue LR IV fluids, and start liquid diet, can transfer from telemetry to medical surgical arechiga on 10/25/2019 (2) Alcohol abuse: -Patient reports drinking 3-4 beers per day however blood alcohol level noted to be 122, therefore suspect use is much higher on admission -Patient was started on alcohol withdrawal protocol with lorazepam on admission; Banana bag -no clinical signs of alcohol withdrawal -patient counseled to cut down on alcohol use as this is risk factor for pancreatitis (3) Dyslipidemia: (4) Hypertriglyceridemia: -Holding statin due to pancreatitis -Triglycerides noted be 402 on presentation -Continue gemfibrozil -will recheck triglycerides (5) DM type 1 (diabetes mellitus, type 1): -Hgb A1c 7.3 07/2019 -Managed on Lantus and NovoLog at home -Glycemic pharmacy consulted (6) CAD (coronary artery disease): -Appears stable, no reports of chest pain -Continue aspirin, beta-beni, ARB -Holding statin as above (7) Hypertension: -BP controlled, continue metoprolol, hydralazine, and losartan (8) Anxiety: -Continue bupropion and trazodone (9) Tobacco abuse: -Patient counseled regarding tobacco cessation -Nicotine patch (10) DVT prophylaxis: -SCDs, ambulate Subjective abdomen is soft and nontender to palpation, patient reports some mild pain above umbilicus. patient denies back pain today as back pain is resolved. no chest pain. no shortness of breath. no nausea. no vomiting. no dizziness. no headache. Review of Systems Review of Systems: All systems reviewed & are unremarkable except as noted in HPI & below Physical Exam Constitutional: comfortable Eyes: PERRL, conjunctivae normal, anicteric sclerae EOM intact bilaterally ENMT: external ear and nose normal, oropharynx normal Neck: trachea midline, no thyromegaly Respiratory: normal respiratory effort, lungs clear to auscultation Cardiovascular: RRR, no murmur, no edema Gastrointestinal (Abdomen): Inspection/Auscultation: abdomen normal to inspection and normal bowel sounds Percussion/Palpation: abdomen soft abdomen is soft and nontender to palpation, patient reports some mild pain above umbilicus Musculoskeletal: no cyanosis or clubbing, extremities motor strength 5/5 Head/Neck/Chest: normocephalic and head atraumatic Neurologic: PERRL, EOMI, accommodation nl, no face palsy, no dysarthria CN's II-XI intact bilaterally Psychiatric: A+Ox3, euthymic affect Results & Data Vital Signs (Past 12 Hours) Vital Signs Temp Pulse Pulse Resp BP BP Pulse Ox 10/25/19 07:40 36.7 C 76 18 155/79 H 97 10/25/19 03:04 36.8 C 70 22 159/81 H 93 10/25/19 00:00 71 10/24/19 23:37 37.1 C 71 18 166/91 H 97 (1) Pancreatitis Acute pancreatitis complication: unspecified Chronicity: acute Pancreatitis type: unspecified pancreatitis type Qualified Code(s): K85.90 - Acute chung creatitis without necrosis or infection, unspecified
[2019-10-25] MEDS: NICOTINE 21 MG/24 HR TDSY TD SCH (09:50)
[2019-10-25] MEDS ORDERED: Nursing to Pharmacy Communication ONE (10:04)
--- NOTE | 2019-10-25 11:16 | Gastrointestinal Consultation ---
Date of Consultation October 25, 2019 Assessment & Plan (1) Pancreatitis: (2) Alcohol abuse: (3) Dyslipidemia: (4) Hypertriglyceridemia: Pt is a 54 y/o admitted with likely ETOH pancreatitis. Hx of necrotizing pancreatitis in 2009 w pseudocyst formation. Hasn't had any more pancreatitis e pisode since then till now. He continues to drink ETOH, smokes tobacco. Some non compliance with Crestor, on Gemfibrozil as well. Though has cholelithiasis, doesn't have any indication of biliary obstruction and LFTs are normal. He is clinically improved. - Lower LR IVF rate to 100ml/hr - CL diet, advance as tolerated to eventually low fat diet - ETOH & tobacco cessation advised - Symptomatic management with antiemetics and analgesics on prn basis otherwise - Please recall GI over the weekend as needed Attg add: I interviewed and examined pt, reviewed chart and labs. Pt is alcoholic with h/o pancreatitis now with upper abd pain, increased lipase, and imaging evidence of pancreatitis on admit. Mild hemoconcentration on admission. He is now much improved. LFT's WNL. On exam, abd is non tender but mildly distended. Alcoholic pancreatitis - He appears to have alcoholic pancreatitis (ddx = hyertriglyceridemia?). No evidence of biliary panc by labs. Cont fluids, diet as tolerated. Alcohol cessation, compliance with lipemic therapy encouraged. Please call with questions. History of Present Illness Reason for Consultation: Pancreatitis Requesting Physician: Dr. Mal Wall Attending Physician: Dr. Preston Ly History of Present Illness Pt is a 54 y/o male, who presented yesterday w c/o upper abd pain, nausea, poor appetite x 3 days. Denies any associated fever, chills, CP, SOB, bowel habit changes. He felt symptoms are similar to when he had pancreatitis episode back in 2009 (necrotizing pancreatitis 2/2 ETOH, hypertriglyceridemia, w pseudocysts formation). On eval, he is noted to have elevated Lipase and CT indication of acute pancreatitis involving pancreatic head w/o fluid collection or necrosis. LFTs are normal. He does have cholelithiasis. He admits to drink 2 beers a day + liquor "a few shots" a week. ETOH level 122 on admission. Smoke tobacco 1.5 PPD, denies any marijuana uses. New med includes Wellbutrin. He has hx of dyslipidemia, on Crestor and Gemfibrozil. He does admit to stop his Crestor for a while due to costs reasons but restarted it back in Jul 2019. He is doing well this AM, tolerating CL diet, denies much abd pain and no n/v overnight. Lipase had normalized. Allergies Allergy/AdvReac Type Severity Reaction Status Date / Time naproxen Allergy Unknown Hives Verified 10/24/19 16:09 tramadol Allergy Unknown Unknown Verified 10/24/19 16:09 Home Medications Home Medications Medication Instructions Recorded Confirmed Type albuterol sulfate [ProAir HFA] 2 puff INHALATION Q4H PRN 10/24/19 10/24/19 History aspirin 81 mg PO QAM 10/24/19 10/24/19 History bupropion HCl 300 mg PO QAM 10/24/19 10/24/19 History fluticasone propionate [Flonase 2 spray INTRANASAL DAILY PRN 10/24/19 10/24/19 History Allergy Relief] gemfibrozil 600 mg PO BID 10/24/19 10/24/19 History hydralazine 25 mg PO BID 10/24/19 10/24/19 History insulin aspart U-100 [Novolog See Rx Instructions .ROUTE .COMPLEX 10/24/19 10/24/19 History Flexpen U-100 Insulin] insulin glargine [Lantus Solostar 16 unit SUBCUT QAM 10/24/19 10/24/19 History U-100 Insulin] loratadine 10 mg PO DAILY PRN 10/24/19 10/24/19 History losartan 100 mg PO QAM 10/24/19 10/24/19 History metoprolol tartrate 50 mg PO BID 10/24/19 10/24/19 History rosuvastatin 40 mg PO DAILY 10/24/19 10/24/19 History trazodone 50 mg PO HS 10/24/19 10/24/19 History Patient History Medical History Alcohol abuse Anxiety CAD (coronary artery disease) 2009-stenting to left circumflex Chronic pancreatitis Depression DM type 1 (diabetes mellitus, type 1) Dyslipidemia GERD (gastroesophageal reflux disease) Hypertension Hypertriglyceridemia SATYA (obstructive sleep apnea) Tobacco abuse Surgical History H/O hernia repair H/O shoulder surgery History of nasal septoplasty S/P rotator cuff repair Family History Mother Heart disease Social History Preferred Language: Azeri Communication Ability: Effective Electrical Continuity Inspector Required: No Beliefs That Will Affect Care: None Current Living Situation: Significant Other Other Information That Helps Us Care for You: No Feels Safe at Home: Yes Safety Concerns: Feels Safe At This Time Smoking Status: Current every day smoker Tobacco Type: cigarettes ; Cigarettes Per Day: 1.5 packs/day ; Tobacco Cessation Education Requested by Patient: No Hx Alcohol Use: Yes Alcohol type: beer Alcohol type Comment: 3-4 beers per day Hx Substance Use: No Review of Systems Review of Systems: All systems reviewed & are unremarkable except as noted in HPI & below Physical Exam Constitutional: WD/WN, vitals as above well groomed, cooperative and comfortable Eyes: PERRL, conjunctivae normal, anicteric sclerae ENMT: external ear and nose normal, oropharynx normal Respiratory: normal respiratory effort, lungs clear to auscultation Cardiovascular: RRR, no murmur, no edema Gastrointestinal (Abdomen): normal bowel sounds, soft, nontender, no hepatosplenomegaly Skin: no rashes, warm and dry no jaundice Psychiatric: A+Ox3, euthymic affect Lymphatic: no lymphedema Results & Data Vital Signs (Past 12 Hours) Vital Signs Temp Pulse Pulse Pulse Resp BP BP 10/25/19 10:21 36.8 C 67 67 18 156/85 H 10/25/19 07:40 36.7 C 76 18 155/79 H 10/25/19 03:04 36.8 C 70 22 159/81 H 10/25/19 00:00 71 10/24/19 23:37 37.1 C 71 18 166/91 H Pulse Ox 10/25/19 10:21 100 10/25/19 07:40 97 10/25/19 03:04 93 10/25/19 00:00 10/24/19 23:37 97 (1) Pancreatitis Acute pancreatitis complication: unspecified Chronicity: acute Pancreatitis type: unspecified pancreatitis type Qualified Code(s): K85.90 - Acute pancreatitis without necrosis or infection, unspecified
[2019-10-25] MEDS ORDERED: PNEUMOCOCCAL Polysaccharide Vaccine 25mcg/0.5mL vial/Syr IM ONE (12:00)
--- NOTE | 2019-10-25 14:24 | Pharmacy Report ---
Pharmacy Glycemic Short Note 2 - Date of Service October 25, 2019 - Glycemic Short BSG Results (Last 24 hours): 10/24/19 10/24/19 10/25/19 13:50 20:16 03:01 Glucose 140 H POC Glucose 138 H 138 H 10/25/19 10/25/19 10/25/19 06:36 08:46 11:22 Glucose 119 H POC Glucose 115 H 103 H OUTPATIENT ANTIDIABETIC REGIMEN: * Lantus 16 units SQ QAM * Novolog 10 units with breakfast, 10 units with lunch, 12 units with dinner plus CF 50 for BSG > 150 * A1c = 7.3% (07/16/19) ASSESSMENT: * 54yo T1DM male admitted for pancreatitis * Outpatient control of DM seems reasonable based on A1c of 6.2%, however, this is down from 7.3% in July - patient may be experiencing hypoglycemia as an outpatient * Pt initially NPO therefore reduced outpatient basal insulin dose given this morning, {do not hold basal insulin for type 1DM} * Diet advanced this afternoon. May need to increase basal insulin dose tomorrow. Hesitant to give more today since patient may be experiencing hypo with outpatient dosing- dose reduction may be warranted in house with controlled CHO intake. Will re-evaluate tomorrow. * CF/CR per weight based dosing- will re-assess tomorrow after patient tolerates diet PLAN FOR INPATIENT GLYCEMIC CONTROL: * Basal insulin * Lantus 10 units SQ daily in AM - may need to increase tomorrow * Bolus insulin * NovoLog per scale ACHS or Q6hrs while NPO. Will do additional checks/coverage at 0000 & 0400 tonight since patient received reduced basal insulin dosing * Goal Range: Low 110 mg/dL - High 140 mg/dL * Correction Factor: 35 mg/dL/unit * Nutritional / Prandial insulin per carb ratio of 1 unit per 11 grams CHO consumed PLAN FOR DISCHARGE: * TBD
[2019-10-25] MEDS: bisacodyL 5 MG TABEC PO SCH (18:13)
[2019-10-25] MEDS: MULTI-VITAMIN INFUSION 10 ML, THIAMINE HCL 100 MG, FOLIC ACID 1 MG in SODIUM CHLORIDE 0... IV SCH (20:02)
[2019-10-25] MEDS: TRAZODONE HCL 50 MG TAB PO SCH (20:10)
[2019-10-26] MEDS: INSULIN ASPART 100 UNITS/ML 3 ML PEN SC SCH ×3 (00:20→08:19)
[2019-10-26] MEDS: LACTATED RINGER'S 1,000 ML IV SCH (04:23)
[2019-10-26 06:20] LABS: Basophils # (auto) 0.02 K/uL (0-0.2); Basophils % (auto) 0.3 %; Eosinophils # (auto) 0.11 K/uL (0-0.5); Eosinophils % (auto) 1.8 %; Hematocrit (blood only) 34.5 % (42-52); Hemoglobin 11.9 g/dL (14.0-18.0); Immature Granulocytes # (auto) 0.01 K/uL (0.00-0.02); Immature Granulocytes % (auto) 0.2 %; Lymphocytes # (auto) 0.93 K/uL (1.2-3.4); Lymphocytes % (auto) 14.8 %; Mean Corpuscular Hemoglobin 32.9 pg (25-34); Mean Corpuscular Hgb Conc 34.5 g/dL (32-36); Mean Corpuscular Volume 95.3 fL (80-100); Mean Platelet Volume 10.5 fL (7.4-10.4); Monocytes # (auto) 0.45 K/uL (0.11-0.59); Monocytes % (auto) 7.2 %; Neutrophils # (auto) 4.75 K/uL (1.4-6.5); Neutrophils % (auto) 75.7 %; Platelet Count 103 K/uL (130-400); RDW Standard Deviation 44.7 fL (36.4-46.3); Red Blood Count 3.62 M/uL (4.7-6.1); White Blood Count 6.27 K/uL (4.8-10.8)
[2019-10-26 06:54] LABS: Albumin Level 2.7 gm/dl (3.4-5.0); BUN Creatinine Ratio 9.4 (10-20); Calcium 8.8 mg/dl (8.5-10.1); Creatinine Clr Calc Pharmacy 72.9 ml/min; Est GFR (African American) 90.1; Est GFR (Non-African American) 77.7; Potassium 3.9 mmol/L (3.5-5.1)
[2019-10-26 06:57] LABS: Albumin Globulin Ratio 0.8 (0.9-2); Bilirubin,Total 0.4 mg/dl (0.2-1); Globulin 3.3 gm/dl (2.5-4.0)
[2019-10-26] MEDS: METOPROLOL TARTRATE 50 MG TAB PO SCH (07:44)
[2019-10-26] MEDS: BuPROPion XL 300 MG TABCR PO SCH (07:45)
[2019-10-26] MEDS: LOSARTAN POTASSIUM 50 MG TAB PO SCH (07:45)
[2019-10-26] MEDS: ASPIRIN 81 MG ECTAB PO SCH (07:45)
[2019-10-26] MEDS: bisacodyL 5 MG TABEC PO SCH (07:45)
[2019-10-26] MEDS: gemfibroziL 600 MG TAB PO SCH (07:46)
[2019-10-26] MEDS: NICOTINE 21 MG/24 HR TDSY TD SCH (07:46)
--- NOTE | 2019-10-26 07:47 | Hospitalist Progress Note ---
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 clinically is improving. abdomen is soft and nontender to palpation, patient reports some mild pain above umbilicus. patient denies back pain today as back pain is resolved; continue LR IV fluids, diet advanced and transferred from telemetry to medical surgical arechiga on 10/25/2019 -10/26/2019: Patient seen and examined in AM. no further abdominal pain. IV fluids stopped. Blood pressure still systolic of 160. Patient [facility]. Patient declines new medication changes to home regimen of blood pressure medications. Patient should be on low fat diet and to avoid smoking and avoid alcohol to prevent re-occurrence of acute pancreatitis and follow up with clinic doctors including primary care doctor for re-evaluation of blood pressure control (systolic blood pressure of 160s noted during hospital stay but patient prefers re-evaluation with primary care doctor before any new medication adjustments) 10/29/2019 9:40 AM Provider Dotty Freire MD Department Internal Medicine [facility] Any further outpatient management of recurrent pancreatitis can be referred to [facility] gastroenterology locally in [place] who have evaluated patient during the hospital stay Other appointments 11/05/2019 10:00 AM Provider MARGARITA Pink Department Pulmonary Medicine, [facility] 11/28/2019 8:30 AM Provider Jimmy Brown DO Department Cardiology [facility] Prescription of nicotine patches sent electronically to [facility] [address] [place] [id number] (2) Alcohol abuse: -Patient reports drinking 3-4 beers per day however blood alcohol level noted to be 122, therefore suspect use is much higher on admission -Patient was started on alcohol withdrawal protocol with lorazepam on admission; Banana bag -no clinical signs of alcohol withdrawal -patient counseled to cut down on alcohol use as this is risk factor for pancreatitis (3) Dyslipidemia: (4) Hypertriglyceridemia: -Holding statin due to pancreatitis during hospital stay -Triglycerides noted be 402 on presentation -Continue gemfibrozil -triglycerides have normalized with IV fluids -patient may resume statin (5) DM type 1 (diabetes mellitus, type 1): Diabetes mellitus Type 1 with terminal make up operator current use of insulin -Hgb A1c 7.3 07/2019 -Managed on Lantus and NovoLog at home -Glycemic pharmacy consulted during hospital stay -patient may resume home dose insulin on discharge (6) CAD (coronary artery disease): -Appears stable, no reports of chest pain -Continue aspirin, beta-beni, ARB -resume statin as outpatient (7) Hypertension: -metoprolol, hydralazine, and losartan (8) Anxiety: -Continue bupropion and trazodone (9) Tobacco abuse: -Patient counseled regarding tobacco cessation -Nicotine patch (10) DVT prophylaxis: -SCDs, ambulate Discharge Diagnosis: Alcohol abuse, Acute Pancreatitis (likely from alcohol induced pancreatitis and without infection and without necrosis), Diabetes mellitus Type 1 with residential current use of insulin, Hypertension, Coronary Artery Disease in [place] artery, Hypertriglyceridemia, Tobacco abuse Subjective Patient seen and examined in AM. no further abdominal pain. IV fluids stopped. Blood pressure still systolic of 160. Patient prefers hospital discharge and go to [facility] for re-evaluation of hypertension. Patient declines new medication changes to home regimen of blood pressure medications. no chest pain. no abdominal pain. no back pain. no dizziness. no lightheadedness. no shortness of breath. no nausea. no vomiting Review of Systems Review of Systems: All systems reviewed & are unremarkable except as noted in HPI & below Physical Exam Constitutional: comfortable Eyes: PERRL, conjunctivae normal, anicteric sclerae EOM intact bilaterally ENMT: external ear and nose normal, oropharynx normal Neck: trachea midline, no thyromegaly Respiratory: normal respiratory effort, lungs clear to auscultation Cardiovascular: RRR, no murmur, no edema Gastrointestinal (Abdomen): Inspection/Auscultation: abdomen normal to inspection and normal bowel sounds Percussion/Palpation: abdomen soft Musculoskeletal: no cyanosis or clubbing, extremities motor strength 5/5 Head/Neck/Chest: normocephalic and head atraumatic Neurologic: PERRL, EOMI, accommodation nl, no face palsy, no dysarthria CN's II-XI intact bilaterally Psychiatric: A+Ox3, euthymic affect Results & Data Vital Signs (Past 12 Hours) Vital Signs Temp Pulse Resp BP BP Pulse Ox 10/25/19 22:39 37.2 C 81 21 168/91 H 96 10/25/19 21:20 37.3 C 69 20 162/86 H 10/25/19 20:30 66 162/86 H 10/25/19 20:06 66 161/88 H (1) Pancreatitis Acute pancreatitis complication: unspecified Chronicity: acute Pancreatitis type: unspecified pancreatitis type Qualified Code(s): K85.90 - Acute pancreatitis without necrosis or infection, unspecified
--- NOTE | 2019-10-26 08:02 | Discharge Summary ---
Date of Service October 26, 2019 Admission HPI Per Admitting Provider 54-year-old male who presents the ED for evaluation of abdominal pain. Patient reports he developed nausea and " nothing tasted good" about 5 days ago. Yesterday, he developed epigastric pain with radiation to the back. He reports symptoms are very similar to when he had pancreatitis in 2009. He had one episode of vomiting this morning however he attributes that to chronic coughing. Denies hematemesis or coffee-ground emesis. No diarrhea, bright bleeding per rectum, dark tarry stools. Denies fevers and chills. In 2009, patient had necrotizing pancreatitis which was felt to be multifactorial secondary to hypertriglyceridemia, alcohol use, and medications including venlafaxine and statin. Since then, venlafaxine has been discontinued, triglycerides were controlled, and patient cut back on his alcohol however has not abstained. He reports drinking 3-4 beers per day. About 3 months ago, it was discovered the patient had self stopped his statin for about 4 years, this was resumed in 07/2019. No chest pain or shortness of breath. Denies lightheadedness, dizziness, diaphoresis, syncopal events. Reports chronic urinary hesitancy which is unchanged baseline. In the ED, CT ABD/pelvis is showing acute pancreatitis involving the pancreatic head. No evidence of necrosis or fluid collection. Lipase is 550. No leukocytosis, patient afebrile. Hemodynamically stable. He was given IVF, IV Zofran, IV Reglan, 2 doses of IV Dilaudid. Admission Exam Per Admitting Provider Constitutional: WD/WN, vitals as above Eyes: PERRL, conjunctivae normal, anicteric sclerae ENMT: external ear and nose normal, oropharynx normal Respiratory: normal respiratory effort, lungs clear to auscultation Cardiovascular: Rate/Rhythm: regular rate and regular rhythm Vessels: normal peripheral pulses Extremities: no edema Gastrointestinal (Abdomen): Inspection/Auscultation: normal bowel sounds Percussion/Palpation: + abdomen tender (Epigastric) and abdomen soft; no hepatosplenomegaly Musculoskeletal: no cyanosis or clubbing, extremities motor strength 5/5 Skin: no rashes, warm and dry Neurologic: PERRL, EOMI, accommodation nl, no face palsy, no dysarthria Psychiatric: A+Ox3, euthymic affect Principal Diagnosis Alcohol abuse, Acute Pancreatitis (likely from alcohol induced pancreatitis and without infection and without necrosis), Diabetes mellitus Type 1 with keno terminal operator current use of insulin, Hypertension, Coronary Artery Disease in [place] artery, Hypertriglyceridemia, Tobacco abuse Discharge Exam Constitutional comfortable Eyes PERRL, conjunctivae normal, anicteric sclerae EOM intact bilaterally ENMT external ear and nose normal, oropharynx normal Neck trachea midline, no thyromegaly Respiratory normal respiratory effort, lungs clear to auscultation Cardiovascular RRR, no murmur, no edema Gastrointestinal (Abdomen) Inspection/Auscultation: abdomen normal to inspection and normal bowel sounds Percussion/Palpation: abdomen soft Musculoskeletal no cyanosis or clubbing, extremities motor strength 5/5 Head/Neck/Chest: normocephalic and head atraumatic Neurologic PERRL, EOMI, accommodation nl, no face palsy, no dysarthria CN's II-XI intact bilaterally Psychiatric A+Ox3, euthymic affect Discharge Data Allergies Allergy/AdvReac Type Severity Reaction Status Date / Time naproxen Allergy Unknown Hives Verified 10/24/19 16:09 tramadol Allergy Unknown Unknown Verified 10/24/19 16:09 Consultations 10/24/19 15:45 ED Decision to Admit Stat 10/24/19 19:22 Consult Gastroenterology Routine Ordered Studies 10/24/19 14:18 CT abd pelvis IV con only Stat Hospital Course (1) Pancreatitis: Acute Pancreatitis (likely from alcohol induced pancreatitis and without infection and without necrosis) -Patient presenting from home with reports of nausea and epigastric pain and back pain -In the ED, CT ABD/pelvis showing signs of acute pancreatitis, no signs of necrosis or fluid collection -History of chronic pancreatitis 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 clinically is improving. abdomen is soft and nontender to palpation, patient reports some mild pain above umbilicus. patient denies back pain today as back pain is resolved; continue LR IV fluids, diet advanced and transferred from telemetry to medical surgical arechiga on 10/25/2019 -10/26/2019: Patient seen and examined in AM. no further abdominal pain. IV fluids stopped. Blood pressure still systolic of 160. Patient prefers hospital discharge and go to [facility] for re-evaluation of hypertension. Patient declines new medication changes to home regimen of blood pressure medications. Patient should be on low fat diet and to avoid smoking and avoid alcohol to prevent re-occurrence of acute pancreatitis and follow up with clinic doctors including primary care doctor for re-evaluation of blood pressure control (systolic blood pressure of 160s noted during hospital stay but patient prefers re-evaluation with primary care doctor before any new medication adjustments) 10/29/2019 9:40 AM Provider Dotty Freire MD Department Internal Medicine [facility] Any further outpatient management of recurrent pancreatitis can be referred to [facility] gastroenterology locally in [place] who have evaluated patient during the hospital stay Other appointments 11/05/2019 10:00 AM Provider MARGARITA Pink Department Pulmonary Medicine, [facility] 11/28/2019 8:30 AM Provider Jimmy Brown DO Department Cardiology [facility] Prescription of nicotine patches sent electronically to [facility] [address] [place] [id number] (2) Alcohol abuse: -Patient reports drinking 3-4 beers per day however blood alcohol level noted to be 122, therefore suspect use is much higher on admission -Patient was started on alcohol withdrawal protocol with lorazepam on admission; Banana bag -no clinical signs of alcohol withdrawal -patient counseled to cut down on alcohol use as this is risk factor for pancreatitis (3) Dyslipidemia: (4) Hypertriglyceridemia: -Holding statin due to pancreatitis during hospital stay -Triglycerides noted be 402 on presentation -Continue gemfibrozil -triglycerides have normalized with IV fluids -patient may resume statin (5) DM type 1 (diabetes mellitus, type 1): Diabetes mellitus Type 1 with fdc current use of insulin -Hgb A1c 7.3 07/2019 -Managed on Lantus and NovoLog at home -Glycemic pharmacy consulted during hospital stay -patient may resume home dose insulin on discharge (6) CAD (coronary artery disease): -Appears stable, no reports of chest pain -Continue aspirin, beta-beni, ARB -resume statin as outpatient (7) Hypertension: -metoprolol, hydralazine, and losartan (8) Anxiety: -Continue bupropion and trazodone (9) Tobacco abuse: -Patient counseled regarding tobacco cessation -Nicotine patch (10) DVT prophylaxis: -SCDs, ambulate Discharge Diagnosis: Alcohol abuse, Acute Pancreatitis (likely from alcohol induced pancreatitis and without infection and without necrosis), Diabetes mellitus Type 1 with keno terminal operator current use of insulin, Hypertension, Coronary Artery Disease in [place] artery, Hypertriglyceridemia, Tobacco abuse Total Time Total Time Spent Total Time Spent (In Minutes): 40 minutes Total Time Includes: Examination of the Patient, Discharge Planning, Medication Reconciliation and Communication With Other Providers Discharge Plan Discharge Items Patient Disposition: Home - Self-Care Reason For Visit: PANCREATITIS Discharge Diagnosis: Alcohol abuse, Acute Pancreatitis (likely from alcohol induced pancreatitis and without infection and without necrosis), Diabetes mellitus Type 1 with fdc current use of insulin, Hypertension, Coronary Artery Disease in [place] artery, Hypertriglyceridemia, Tobacco abuse Condition on Discharge: Good Activity: Resume your previous activity Non-emergency contact: Primary Care Provider Call non-emergency contact if: you have any medication questions Follow-up/Referrals: Jennifer Monroe MD [Primary Care Provider] - Diet: Low Fat Addtl Attending Provider Instructions: Patient should be on low fat diet and to avoid smoking and avoid alcohol to prevent re-occurrence of acute pancreatitis and follow up with clinic doctors including primary care doctor for re-evaluation of blood pressure control (systolic blood pressure of 160s noted during hospital stay but patient prefers re-evaluation with primary care doctor before any new medication adjustments) 10/29/2019 9:40 AM Provider Dotty Freire MD Department Internal Medicine [facility] Any further outpatient management of recurrent pancreatitis can be referred to [facility] gastroenterology locally in [place] who have evaluated patient during the hospital stay Other appointments 11/05/2019 10:00 AM Provider MARGARITA Pink Department Pulmonary Medicine, [facility] 11/28/2019 8:30 AM Provider Jimmy Brown DO Department Cardiology [facility] Prescription of nicotine patches sent electronically to [facility] [address] [place] [address], [place] [id number] Pending Studies at Discharge: No Stand-Alone Forms: Call Back Authorization, My [facility], Smoking Cessation Medications and DC Order Prescriptions: New nicotine [Nicoderm CQ] 21 mg/24 hr Patch 24 Hour 21 mg transdermal QAM 30 Days Qty: 30 RF: 0 Continued trazodone 50 mg Tablet 50 mg PO HS RF: 0 hydralazine 25 mg Tablet 25 mg PO BID RF: 0 aspirin 81 mg Tablet,Delayed Release (Dr/Ec) 81 mg PO QAM RF: 0 gemfibrozil 600 mg Tablet 600 mg PO BID RF: 0 metoprolol tartrate 50 mg Tablet 50 mg PO BID RF: 0 albuterol sulfate [ProAir HFA] 90 mcg/actuation Hfa Aerosol Inhaler 2 puff INHALATION Q4H PRN (Reason: Wheezing) RF: 0 losartan 100 mg Tablet 100 mg PO QAM RF: 0 fluticasone propionate [Flonase Allergy Relief] 50 mcg/actuation [place],Suspension 2 spray INTRANASAL DAILY PRN (Reason: Allergy Symptoms) RF: 0 loratadine 10 mg Tablet 10 mg PO DAILY PRN (Reason: Allergy Symptoms) RF: 0 insulin aspart U-100 [Novolog Flexpen U-100 Insulin] 100 unit/mL (3 mL) Insulin Pen See Rx Instructions .ROUTE .COMPLEX RF: 0 bupropion HCl 300 mg Tablet Extended Release 24 Hr 300 mg PO QAM RF: 0 Lantus Solostar U-100 Insulin 100 unit/mL (3 mL) Insulin Pen 16 unit SUBCUT QAM RF: 0 rosuvastatin 40 mg Tablet 40 mg PO DAILY RF: 0 Discharge Orders: Discharge Order (Routine); Ordered 10/26/19 Ordered By: Mal Wall Admission Data Admit Date/Time: 10/24/19 16:35 Attending Provider: Mal Wall Admit Provider: Cristi Alfredo Primary Care Provider: Jennifer Monroe Other Providers: Cristi Alfredo ; Preston Ly
[2019-10-26] MEDS: INSULIN GLARGINE SOLOSTAR 100 UNITS/ML 3 ML PEN SC SCH (08:17)
[2019-10-26] MEDS ORDERED: POLYETHYLENE (MIRALAX) 17 GM PACK PO SCH (09:00)
== END 2019-10-26 09:40 | disposition home or self-care (01) | DRG 440 ==
LOC: ED 13:45 → SUATTDRO 16:35 → 2S 16:35 → 4W 10-25 09:19

== ENCOUNTER 2020-02-28 12:53 | Inpatient (IN) ==
[~2020-02-28 12:53] MED LIST: FOLIC ACID 1 MG in SYRINGE 9.8 ML IV SCH
--- NOTE | 2020-02-28 13:14 | Emergency Department Note ---
Impression & Plan Alcohol withdrawal, Acute alcoholic gastritis, Metabolic acidosis, Dehydration, Acute renal insufficiency, Ketosis ED Provider Note NAME: AMARI KAYE AGE: 54 SEX: M ARRIVES VIA: Ambulance INFORMANT: Patient, ED PROVIDER(S): Santosh Leblanc MD CHIEF COMPLAINT: Cough, nausea and vomiting PLAN: Disposition: Admit MEDICAL DECISION MAKING: The patient is a pleasant 54-year-old gentleman with a past medical history of CAD, hyperlipidemia, pancreatitis, IDDM 1, tobacco use abuse, alcohol abuse/dependence who presents emergency department with constellation of complaints including cough with posttussive emesis as well as nausea and vomiting without any bloody emesis but does report sometimes it appears dark brown but this is in the setting of his smoking, report of upper abdominal pain and cramping with poor oral intake. Patient did have a negative COVID-19 test done 2 days ago. The patient reports he only has several beers and 2 shots of hard liquor a day and denies any history of alcohol withdrawal but cannot remember the last time he is gone more than several days without drinking any alcohol. On arrival the patient is tremulous and uncomfortable appearing, afebrile, tachycardic with hypertension in the 170s/90s and vital signs otherwise stable. Patient appears clinically dry. He has mild upper abdominal discomfort without discrete tenderness. He is mildly tremulous on exam. EKG without overt acute ischemia. Chest x-ray negative for acute process. WBC 14.7, nonspecific in the setting of the patient's nausea and vomiting. Hemoglobin and platelets within normal limits. INR 1.0. VBG with mild alkalo sis likely secondary to hyperventilation in the setting of alcohol withdrawal. Chemistry with bicarb of 20 and anion gap of 13 with creatinine of 1.5 consistent with the patient's clinically dry appearance. Knees and 1.7 and electrolytes LFTs otherwise unremarkable. Troponin negative/undetectable. Lipase within normal limits. Beta hydroxybutyrate 8.2 in the setting of the patient's poor oral intake and diabetes, given no significant anion gap unlikely to represent DKA at this time CT abdomen pelvis was performed and demonstrates evidence of esophagitis and otherwise no acute process. Given the patient's metabolic abnormalities in the setting of his persistent symptoms and evidence of alcohol withdrawal and mild metabolic acidosis reasonable admit the patient for further management. Patient was somewhat improved appearing however still exhibiting tremulousness and tachycardia after IV Ativan and so repeat dose of 2 mg was provided in addition to close monitoring on CIWA. Additionally the patient was given IV fluid hydration including banana bag and additional thiamine. Patient is agreeable with this. Resident, Dr. Mendosa, discussed the case with Ana Cristina Castillo, [facility] who will evaluate the patient for admission. This patient was managed with the assistance of resident, Dr. Mendosa. I discussed the case with the resident, examined the patient, and confirm the findings and plan as documented in this note. Triage Nursing notes reviewed and agree them. Prior medical records reviewed Vital Signs: reviewed and remarkable for hypertension. Differential diagnosis: Viral syndrome, otitis, pharyngitis, pneumonia, influenza, meningitis, urinary tract infection, sepsis, bacteremia, as well as other pathologies. ER treatment provided: See below. Diagnostics interpreted by me: ECG: Sinus tachycardia with occasional PVCs, 103 bpm, left axis deviation, incomplete right bundle branch block, ST abnormalities but no overt ST elevation or depression, QTC 497, QRS 102. Cardiac Monitoring: An order for continuous cardiac monitoring was placed and demonstrated sinus tachycardia, 1 to 3 bpm, occasional PVCs. Laboratory studies: See below Imaging studies: XR chest 1V portable CLINICAL HISTORY: 54 years-old Male presenting with shortness of breath, cough. TECHNIQUE: Portable upright AP view of the chest was obtained. COMPARISON: 10/24/2019. FINDINGS: Cardiac silhouette mildly enlarged. Slightly decreased prominence of lung markings at the lung bases. Minimal bibasilar opacities may be present though these are less prominent than on prior. No pleural effusion or pneumothorax. Degenerative changes of the thoracic spine. IMPRESSION: 1. Minimal if any bibasilar atelectasis. No convincing evidence of acute cardiopulmonary disease. 2. Mild cardiomegaly may be present. -- ABDOMEN AND PELVIS CT WITHOUT CONTRAST CT DOSE: 576.48 mGycm HISTORY: Acute nausea and vomiting 2 weeks nausea/vomiting TECHNIQUE: Multiaxial CT images of the abdomen and pelvis were performed without contrast. A dose lowering technique was utilized adhering to the principles of ALARA. COMPARISON STUDY: CT abdomen and pelvis 10/24/2019 FINDINGS: Clear lung bases. No pneumatosis or pneumoperitoneum. The imaged inferior cardiac chambers are unremarkable. A few calcifications are again noted involving the pancreatic head. 1.3 cm left adrenal gland lesion with Hounsfield unit of 16 is indeterminate and unchanged in size. Mild adrenal gland hyperplasia. Mild gallbladder distention with cholelithiasis. No definite gallbladder wall thickening or pericholecystic fluid. Unremarkable appearance of the liver. 1.3 cm hypodense focus of the left hepatic lobe adjacent to the falciform ligament is unchanged and suggests probable focal fatty infiltration. Mild nonspecific bilateral perinephric stranding. No renal or ureteral calculi. Moderate urinary bladder distention. There is mild prostamegaly. Moderate c alcified plaque of the abdominal aorta. Nonspecific distal esophageal wall thickening with mild periesophageal stranding. There is no bowel obstruction. Normal appendix. No ascites or mesenteric inflammation. The soft tissues are unremarkable. Bones appear intact. IMPRESSION: 1. Distal esophageal wall thickening with mild periesophageal inflammation is suspicious for esophagitis. These findings could be correlated with endoscopy. 2. No bowel obstruction or bowel wall thickening. Normal appendix. 3. Cholelithiasis. 4. Moderate urinary bladder distention with prostamegaly. 5. Additional findings as above. Consultation(s): Ana Cristina Castillo, with Dr. Wall [facility] hospitalist who will evaluate the patient for admission. HPI: The patient is a pleasant 54-year-old gentleman with a past medical history of CAD, hyperlipidemia, pancreatitis, IDDM 1, tobacco use abuse, alcohol abuse/dependence who presents emergency department with constellation of complaints including cough with posttussive emesis as well as nausea and vomitin g without any bloody emesis but does report sometimes it appears dark brown but this is in the setting of his smoking, report of upper abdominal pain and cramping with poor oral intake. Patient did have a negative COVID-19 test done 2 days ago. The patient reports he only has several beers and 2 shots of hard liquor a day and denies any history of alcohol withdrawal but cannot remember the last time he is gone more than several days without drinking any alcohol. ROS: See above HPI for pertinent positives & negatives. A total of 10 systems reviewed and were otherwise negative. PAST MEDICAL HISTORY:See Below PAST SURGICAL HISTORY:See Below FAMILY HISTORY:See Below SOCIAL HISTORY:See Below HOME MEDICATIONS:See Below ALLERGIES:See Below VITALS:See Below PHYSICAL EXAMINATION: GENERAL: Awake, alert, fatigued uncomfortable appearing-appearing, in no dis tress HENT: Normocephalic, atraumatic. Oropharynx with dry mucous membranes and otherwise unremarkable. EYES: Normal conjunctiva. Sclera non-icteric. EOMI. No nystamgus. PEARRL. NECK: Supple. No nuchal rigidity. FROM. No JVD. RESPIRATORY: Clear to auscultation. CARDIAC: Tachycardic rate, normal rhythm. Extremities warm and well perfused. Pulses equal. ABDOMEN: Soft, non-distended. Mild epigastric discomfort without discrete tenderness to palpation. No rebound or guarding. No masses. RECTAL: Deferred. MUSCULOSKELETAL: Chest examination reveals no tenderness. The back is symmetrical on inspection without obvious abnormality. There is no CVA tenderness to palpation. No joint edema. LOWER EXTREMITIES: Calves are equal size bilaterally and non-tender. No edema. No discoloration. NEURO: Normal sensorium. No sensory or motor deficits noted. Mildly tremulous. 5/5 strength and SILT x 4 extremities. Intact [id number]. SKIN: No rash or jaundice noted. ED COURSE: Critical Care: I have personally spent greater than 75 minutes of critical care time in the direct management of this patient. This includes bedside care, interpretation of diagnostic studies, and testing, discussion with consultants, patient, and family members, and other required patient management activities. This 75 minutes is in excess of all separately billable procedures. 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 Beliefs That Will Affect Care: None Current Living Situation: Significant Other Feels Safe at Home: Yes Smoking Status: Current every day smoker Tobacco Type: cigarettes ; Cigarettes Per Day: 1.5 packs/day ; Hx Alcohol Use: Yes Alcohol type: beer Alcohol type Comment: 3-4 beers per day Hx Substance Use: No Allergies Allergies Allergy/AdvReac Type Severity Reaction Status Date / Time naproxen Allergy Unknown Hives Verified 10/24/19 16:09 tramadol Allergy Unknown Unknown Verified 10/24/19 16:09 Home Meds Home Medications Medication Instructions Recorded Confirmed Lantus Solostar U-100 Insulin 16 unit SUBCUT DAILY 10/24/19 02/28/20 albuterol sulfate [ProAir HFA] 2 puff INHALATION Q4H PRN 10/24/19 02/28/20 aspirin 81 mg PO DAILY 10/24/19 02/28/20 bupropion HCl 300 mg PO HS 10/24/19 02/28/20 gemfibrozil 600 mg PO BID 10/24/19 02/28/20 hydralazine 25 mg PO QID 10/24/19 02/28/20 insulin aspart U-100 [Novolog See Rx Instructions .ROUTE .COMPLEX 10/24/19 02/28/20 Flexpen U-100 Insulin] losartan 100 mg PO DAILY 10/24/19 02/28/20 metoprolol tartrate 50 mg PO BID 10/24/19 02/28/20 rosuvastatin 40 mg PO DAILY 10/24/19 02/28/20 trazodone 50 mg PO HS 10/24/19 02/28/20 amoxicillin-pot clavulanate 1 tab PO BID 02/28/20 02/28/20 benzonatate 100 mg PO TID PRN 02/28/20 02/28/20 ondansetron HCl 4 mg PO UD PRN 02/28/20 02/28/20 sertraline 25 mg PO DAILY 02/28/20 02/28/20 Results & Data (ED) Vital Signs Vital Signs - 24 hr 02/28/20 13:16 02/28/20 13:58 02/28/20 15:02 Temperature 37.0 C Temperature Source Oral Pulse Rate 102 H 101 H 110 H Pulse Rate from SpO2 Sensor 102 H Respiratory Rate 20 14 Respiratory Depth Normal Blood Pressure 181/102 H 164/102 H 177/99 H Blood Pressure Mean 128 113 125 Blood Pressure Position Lying Pulse Oximetry 99 98 Oxygen Delivery Method Room Air Sepsis Recent Fever Within 48 Hours No Sepsis Action Taken by Nursing No Action Required 02/28/20 15:05 Temperature Temperature Source Pulse Rate 108 H Pulse Rate from SpO2 Sensor Respiratory Rate Respiratory Depth Blood Pressure Blood Pressure Mean Blood Pressure Position Pulse Oximetry Oxygen Delivery Method Sepsis Recent Fever Within 48 Hours Sepsis Action Taken by Nursing Laboratory Data Attestation: I reviewed the patient's lab results. Result diagrams: 02/28/20 13:00 02/28/20 13:00 Lab Results 02/28/20 02/28/20 02/28/20 Range/Units 13:00 13:00 13:00 WBC 14.79 H (4.8-10.8) K/uL RBC 4.32 L (4.7-6.1) M/uL Hgb 14.3 (14.0-18.0) g/dL Hct 40.4 L (42-52) % MCV 93.5 (80-100) fL MCH 33.1 (25-34) pg MCHC 35.4 (32-36) g/dL RDW Std Deviation 45.6 (36.4-46.3) fL RDW Coeff of Sonia 13.2 (11.5-14.5) % Plt Count 181 (130-400) K/uL MPV 10.3 (7.4-10.4) fL Immature Gran % (Auto) 0.3 % Neut % (Auto) 89.6 % Lymph % (Auto) 4.3 % Waller % (Auto) 5.4 % Eos % (Auto) 0.3 % Baso % (Auto) 0.1 % Immature Gran # (Auto) 0.04 H (0.00-0.02) K/uL Neut # (Auto) 13.25 H (1.4-6.5) K/uL Lymph # (Auto) 0.63 L (1.2-3.4) K/uL Waller # (Auto) 0.80 H (0.11-0.59) K/uL Eos # (Auto) 0.05 (0-0.5) K/uL Baso # (Auto) 0.02 (0-0.2) K/uL PT (9.0-12.0) Seconds INR (0.9-1.1) VBG pH (7.36-7.41) VBG pCO2 (38-50) mmHg VBG pO2 mmHg VBG HCO3 mmol/L VBG O2 Saturation % VBG Base Excess mEq/L Barometric Pressure mm/Hg Sodium 138 (136-145) mmol/L Potassium 3.6 (3.5-5.1) mmol/L Chloride 105 (98-107) mmol/L Carbon Dioxide 20 L (21-32) mmol/L Anion Gap 13.0 H (3-11) BUN 20 H (7-18) mg/dl Creatinine 1.52 H (0.6-1.4) mg/dl Est Cr Clr Drug Dosing 51.3 ml/min Est GFR ( Amer) 58.9 Est GFR (Non-Af Amer) 50.8 BUN/Creatinine Ratio 12.9 (10-20) Glucose 113 H (70-99) mg/dl Osmolality (280-300) mOsm/kg Calcium 9.0 (8.5-10.1) mg/dl Phosphorus 2.6 (2.5-4.9) mg/dl Magnesium 1.7 L (1.8-2.4) mg/dl Total Bilirubin 0.5 (0.2-1) mg/dl AST 20 (15-37) U/L ALT 18 (12-78) U/L Alkaline Phosphatase 122 H (45-117) U/L Troponin I < 0.015 (0-0.045) ng/ml Total Protein 7.6 (6.4-8.2) gm/dl Albumin 3.6 (3.4-5.0) gm/dl Globulin 4.0 (2.5-4.0) gm/dl Albumin/Globulin Ratio 0.9 (0.9-2) Lipase 148 (73-393) U/L Folate (>5.38) ng/ml Beta-Hydroxybutyric Acd 8.26 H (0.2-2.81) mg/dl 02/28/20 02/28/20 02/28/20 Range/Units 13:00 13:00 14:31 WBC (4.8-10.8) K/uL RBC (4.7-6.1) M/uL Hgb (14.0-18.0) g/dL Hct (42-52) % MCV (80-100) fL MCH (25-34) pg MCHC (32-36) g/dL RDW Std Deviation (36.4-46.3) fL RDW Coeff of Sonia (11.5-14.5) % Plt Count (130-400) K/uL MPV (7.4-10.4) fL Immature Gran % (Auto) % Neut % (Auto) % Lymph % (Auto) % Waller % (Auto) % Eos % (Auto) % Baso % (Auto) % Immature Gran # (Auto) (0.00-0.02) K/uL Neut # (Auto) (1.4-6.5) K/uL Lymph # (Auto) (1.2-3.4) K/uL Waller # (Auto) (0.11-0.59) K/uL Eos # (Auto) (0-0.5) K/uL Baso # (Auto) (0-0.2) K/uL PT 10.7 (9.0-12.0) Seconds INR 1.0 (0.9-1.1) VBG pH (7.36-7.41) VBG pCO2 (38-50) mmHg VBG pO2 mmHg VBG HCO3 mmol/L VBG O2 Saturation % VBG Base Excess mEq/L Barometric Pressure mm/Hg Sodium (136-145) mmol/L Potassium (3.5-5.1) mmol/L Chloride (98-107) mmol/L Carbon Dioxide (21-32) mmol/L Anion Gap (3-11) BUN (7-18) mg/dl Creatinine (0.6-1.4) mg/dl Est Cr Clr Drug Dosing ml/min Est GFR ( Amer) Est GFR (Non-Af Amer) BUN/Creatinine Ratio (10-20) Glucose (70-99) mg/dl Osmolality 295 (280-300) mOsm/kg Calcium (8.5-10.1) mg/dl Phosphorus (2.5-4.9) mg/dl Magnesium (1.8-2.4) mg/dl Total Bilirubin (0.2-1) mg/dl AST (15-37) U/L ALT (12-78) U/L Alkaline Phosphatase (45-117) U/L Troponin I (0-0.045) ng/ml Total Protein (6.4-8.2) gm/dl Albumin (3.4-5.0) gm/dl Globulin (2.5-4.0) gm/dl Albumin/Globulin Ratio (0.9-2) Lipase (73-393) U/L Folate > 24.00 (>5.38) ng/ml Beta-Hydroxybutyric Acd (0.2-2.81) mg/dl 02/28/20 Range/Units 14:31 WBC (4.8-10.8) K/uL RBC (4.7-6.1) M/uL Hgb (14.0-18.0) g/dL Hct (42-52) % MCV (80-100) fL MCH (25-34) pg MCHC (32-36) g/dL RDW Std Deviation (36.4-46.3) fL RDW Coeff of Sonia (11.5-14.5) % Plt Count (130-400) K/uL MPV (7.4-10.4) fL Immature Gran % (Auto) % Neut % (Auto) % Lymph % (Auto) % Waller % (Auto) % Eos % (Auto) % Baso % (Auto) % Immature Gran # (Auto) (0.00-0.02) K/uL Neut # (Auto) (1.4-6.5) K/uL Lymph # (Auto) (1.2-3.4) K/uL Waller # (Auto) (0.11-0.59) K/uL Eos # (Auto) (0-0.5) K/uL Baso # (Auto) (0-0.2) K/uL PT (9.0-12.0) Seconds INR (0.9-1.1) VBG pH 7.44 H (7.36-7.41) VBG pCO2 34 L (38-50) mmHg VBG pO2 30 mmHg VBG HCO3 23 mmol/L VBG O2 Saturation < 60.0 % VBG Base Excess -0.7 mEq/L Barometric Pressure 729.3 mm/Hg Sodium (136-145) mmol/L Potassium (3.5-5.1) mmol/L Chloride (98-107) mmol/L Carbon Dioxide (21-32) mmol/L Anion Gap (3-11) BUN (7-18) mg/dl Creatinine (0.6-1.4) mg/dl Est Cr Clr Drug Dosing ml/min Est GFR ( Amer) Est GFR (Non-Af Amer) BUN/Creatinine Ratio (10-20) Glucose (70-99) mg/dl Osmolality (280-300) mOsm/kg Calcium (8.5-10.1) mg/dl Phosphorus (2.5-4.9) mg/dl Magnesium (1.8-2.4) mg/dl Total Bilirubin (0.2-1) mg/dl AST (15-37) U/L ALT (12-78) U/L Alkaline Phosphatase (45-117) U/L Troponin I (0-0.045) ng/ml Total Protein (6.4-8.2) gm/dl Albumin (3.4-5.0) gm/dl Globulin (2.5-4.0) gm/dl Albumin/Globulin Ratio (0.9-2) Lipase (73-393) U/L Folate (>5.38) ng/ml Beta-Hydroxybutyric Acd (0.2-2.81) mg/dl Administered Medications Discontinued Medications Sodium Chloride (Nss 1000ml) 1,000 mls @ 999 mls/hr IV .Q1H1M ROSALES Stop: 02/28/20 14:30 Last Infusion: 02/28/20 15:14 Dose: 0 mls/hr Documented by: [id number] Admin: 02/28/20 14:08 Dose: 999 mls/hr Documented by: [id number] Multivitamins 10 ml/ Thiamine HCl 100 mg/ Folic Acid 1 mg/Sodium Chloride 1,011.2 mls @ 500 mls/hr IV .Q2H2M ONE Stop: 02/28/20 15:29 Last Infusion: 02/28/20 16:31 Dose: 0 mls/hr Documented by: [id number] Admin: 02/28/20 14:27 Dose: 500 mls/hr Documented by: [id number] Folic Acid 1 mg/ Syringe 10 mls @ 5 mls/min IV QAM ROSALES Stop: 03/29/20 08:59 Last Admin: 02/28/20 14:21 Dose: 5 mls/min Documented by: [id number] Thiamine HCl 300 mg/ Syringe 12 mls @ 2 mls/min IV TID [facility] Stop: 02/29/20 09:05 Last Admin: 02/28/20 14:32 Dose: Not Given Documented by: [id number] Prochlorperazine 10 mg/ (Syringe) 10 mls @ 5 mls/min IV UD PRN PRN Reason: Nausea And Vomiting Stop: 03/29/20 13:45 Last Admin: 02/28/20 14:08 Dose: 5 mls/min Documented by: [id number] Thiamine HCl 300 mg/ Sodium (Chloride) 53 mls @ 210 mls/hr IV ONE ONE Stop: 02/28/20 14:15 Last Infusion: 02/28/20 14:39 Dose: 0 mls/hr Documented by: [id number] Admin: 02/28/20 14:23 Dose: 210 mls/hr Documented by: [id number] Lorazepam (Ativan) 1 mg in 2 mls @ 2 mls/min IV ONE PRN; Protocol PRN Reason: EtoH Withdrawal AWSS 6-10 Stop: 03/29/20 13:58 Last Admin: 02/28/20 14:10 Dose: 2 mls/min Documented by: [id number] Lorazepam (Ativan) 2 mg in 4 mls @ 4 mls/min IV NOW STA Stop: 02/28/20 15:51 Last Admin: 02/28/20 16:01 Dose: 4 mls/min Documented by: [id number] Magnesium Sulfate/Dextrose (Magnesium Sulfate / D5w) 1 gm in 100 mls @ 200 mls/hr IV Q30M ROSALES Stop: 02/28/20 16:49 Last Admin: 02/28/20 18:31 Dose: 200 mls/hr Documented by: [id number] Infusion: 02/28/20 16:31 Dose: 0 mls/hr Documented by: [id number] Admin: 02/28/20 16:01 Dose: 200 mls/hr Documented by: [id number] Lorazepam (Ativan) Confirm Administered Dose 2 mg .ROUTE .STK-MED ONE Stop: 02/28/20 14:03 Last Admin: 02/28/20 14:11 Dose: Not Given Documented by: [id number] Prochlorperazine (Compazine) Confirm Administered Dose 10 mg .ROUTE .STK-MED ONE Stop: 02/28/20 14:07 Last Admin: 02/28/20 14:11 Dose: Not Given Documented by: [id number] Blood Pressure Blood Pressure Findings: Elevated blood pressure Blood Pressure Disposition: further management by hospitalist Discharge Plan Visit Data *Final* Discharge Date/Time: 02/28/20 17:24 Chief Complaint: Illness ED Provider: Santosh Leblanc ED Midlevel Provider: Deion Mendosa Discharge Problem: Alcohol withdrawal, Acute alcoholic gastritis, Metabolic acidosis, Dehydration, Acute renal insufficiency, Ketosis Patient Disposition: Admitted As Inpatient Discharge Instructions Interventions: ED Discharge Assessment Last Done: 02/28/20 17:24 Discharge Problem: Alcohol withdrawal Qualifiers: Complication of substance-induced condition: with unspecified complication Qualified Code(s): F10.239 - Alcohol dependence with withdrawal, unspecified Acute alcoholic gastritis Qualifiers: Gastritis bleeding: without bleeding Qualified Code(s): K29.20 - Alcoholic gastritis without bleeding
[2020-02-28 13:20] LABS: Basophils # (auto) 0.02 K/uL (0-0.2); Basophils % (auto) 0.1 %; Eosinophils # (auto) 0.05 K/uL (0-0.5); Eosinophils % (auto) 0.3 %; Hematocrit (blood only) 40.4 % (42-52); Hemoglobin 14.3 g/dL (14.0-18.0); Immature Granulocytes # (auto) 0.04 K/uL (0.00-0.02); Immature Granulocytes % (auto) 0.3 %; Lymphocytes # (auto) 0.63 K/uL (1.2-3.4); Lymphocytes % (auto) 4.3 %; Mean Corpuscular Hemoglobin 33.1 pg (25-34); Mean Corpuscular Hgb Conc 35.4 g/dL (32-36); Mean Corpuscular Volume 93.5 fL (80-100); Mean Platelet Volume 10.3 fL (7.4-10.4); Monocytes % (auto) 5.4 %; Neutrophils # (auto) 13.25 K/uL (1.4-6.5); Neutrophils % (auto) 89.6 %; Platelet Count 181 K/uL (130-400); RDW Coefficient of Variation 13.2 % (11.5-14.5); RDW Standard Deviation 45.6 fL (36.4-46.3); Red Blood Count 4.32 M/uL (4.7-6.1); White Blood Count 14.79 K/uL (4.8-10.8)
[2020-02-28] MEDS ORDERED: MULTI-VITAMIN INFUSION 10 ML, THIAMINE HCL 100 MG, FOLIC ACID 1 MG in SODIUM CHLORIDE 0... IV ONE (13:28)
[2020-02-28] MEDS ORDERED: SODIUM CHLORIDE 0.9% 1000ML 1,000 ML IV SCH (13:30)
[2020-02-28 13:43] LABS: Albumin Globulin Ratio 0.9 (0.9-2); Albumin Level 3.6 gm/dl (3.4-5.0); BUN Creatinine Ratio 12.9 (10-20); Bilirubin,Total 0.5 mg/dl (0.2-1); Creatinine Clr Calc Pharmacy 51.3 ml/min; Est GFR (African American) 58.9; Est GFR (Non-African American) 50.8; Potassium 3.6 mmol/L (3.5-5.1); Total Protein 7.6 gm/dl (6.4-8.2)
[2020-02-28] MEDS ORDERED: PROCHLORPERAZINE 10 MG in SYRINGE 8 ML IV PRN (13:46)
[2020-02-28] MEDS ORDERED: LORazepam 1 MG/2 ML VIAL IV PRN (13:59)
[2020-02-28] MEDS ORDERED: THIAMINE HCL 300 MG in SODIUM CHLORIDE 0.9% 50 ML IV ONE (14:00)
[2020-02-28] MEDS ORDERED: THIAMINE HCL 300 MG in SYRINGE 9 ML IV SCH (14:00)
[2020-02-28 14:02] LABS: Prothrombin Time 10.7 Seconds (9.0-12.0)
[2020-02-28] MEDS ORDERED: LORazepam 2 MG/4 ML VIAL ONE (14:02)
[2020-02-28] MEDS ORDERED: PROCHLORPERAZINE 5 MG/ML 2 ML VIAL ONE (14:06)
[2020-02-28 14:13] LABS: Beta-Hydroxybutyrate 8.26 mg/dl (0.2-2.81); Lipase 148 U/L (73-393); Magnesium 1.7 mg/dl (1.8-2.4); Phosphorus 2.6 mg/dl (2.5-4.9); Troponin I < 0.015 ng/ml (0-0.045)
--- NOTE | 2020-02-28 14:13 | XRay Report ---
XR chest 1V portable CLINICAL HISTORY: 54 years-old Male presenting with shortness of breath, cough. TECHNIQUE: Portable upright AP view of the chest was obtained. COMPARISON: 10/24/2019. FINDINGS: Cardiac silhouette mildly enlarged. Slightly decreased prominence of lung markings at the lung bases. Minimal bibasilar opacities may be present though these are less prominent than on prior. No pleural effusion or pneumothorax. Degenerative changes of the thoracic spine. IMPRESSION: 1. Minimal if any bibasilar atelectasis. No convincing evidence of acute cardiopulmonary disease. 2. Mild cardiomegaly may be present. ACT 112: Negative or not required by law. Electronically signed by: Deion Hill M.D. 02/28/2020 2:11 PM
[2020-02-28] MEDS ORDERED: LANTUS PER UNIT CHARGE SQ STA (14:41)
[2020-02-28 14:47] LABS: Base Excess VBG -0.7 mEq/L; HCO3 VBG 23 mmol/L; Oxygen Saturation VBG < 60.0 %; PCO2 VBG 34 mmHg (38-50); PO2 VBG 30 mmHg; pH VBG 7.44 (7.36-7.41)
--- NOTE | 2020-02-28 15:12 | CT Scan Report ---
ABDOMEN AND PELVIS CT WITHOUT CONTRAST CT DOSE: 576.48 mGycm HISTORY: Acute nausea and vomiting 2 weeks nausea/vomiting TECHNIQUE: Multiaxial CT images of the abdomen and pelvis were performed without contrast. A dose lo wering technique was utilized adhering to the principles of ALARA. COMPARISON STUDY: CT abdomen and pelvis 10/24/2019 FINDINGS: Clear lung bases. No pneumatosis or pneumoperitoneum. The imaged inferior cardiac chambers are unrema rkable. A few calcifications are again noted involving the pancreatic head. 1.3 cm left adrenal gland lesion with Hounsfield unit of 16 is indeterminate and unchanged in size. Mild adrenal gland hyperpl ana paula. Mild gallbladder distention with cholelithiasis. No definite gallbladder wall thickening or per icholecystic fluid. Unremarkable appearance of the liver. 1.3 cm hypodense focus of the left hepatic lobe adjacent to the falciform ligament is unchanged and suggests probable focal fatty infiltration. Mild nonspecific bilateral perinephric stranding. No renal or ureteral calculi. Moderate urinary blad kacy distention. There is mild prostamegaly. Moderate calcified plaque of the abdominal aorta. Nonspec ific distal esophageal wall thickening with mild periesophageal stranding. There is no bowel obstruct ion. Normal appendix. No ascites or mesenteric inflammation. The soft tissues are unremarkable. Bones appear intact. IMPRESSION: 1. Distal esophageal wall thickening with mild periesophageal inflammation is suspicious for esophagi tis. These findings could be correlated with endoscopy. 2. No bowel obstruction or bowel wall thickening. Normal appendix. 3. Cholelithiasis. 4. Moderate urinary bladder distention with prostamegaly. 5. Additional findings as above. ACT 112: Negative or not required by law. The above report was generated using voice recognition software. It may contain grammatical, syntax o r spelling errors. Electronically signed by: Epifanio Ceron M.D. 02/28/2020 3:10 PM
--- NOTE | 2020-02-28 15:12 | Emergency Department Note ---
ED Visit Note I contributed to the care of this patient under the supervision of . See his note for full documentation. . Resident Activity Tracking Resident Involvement: Resident Care Provided Care Provided: Adult ED
[2020-02-28] MEDS ORDERED: LORazepam 2 MG/4 ML VIAL IV STA (15:50)
[2020-02-28] MEDS: MAGNESIUM SULFATE / D5W 1 GM/100 ML BAG IV SCH ×2 (16:01→18:31)
--- NOTE | 2020-02-28 16:53 | History & Physical Report ---
Date of Service February 28, 2020 Assessment & Plan (1) Esophagitis: -admit to med/surg with tele -patient presenting from home with cough and what seems to be post tussive emesis -CT abd/pelvis suggesting distal esophagitis -chronic alcohol use likely contributing as well -clear liquids, NPO after midnight for possible procedure -start IV PPI, Nystatin (2) Bronchitis: -CXR negative for acute pulmonary findings -conitnue Augmentin as prescribed as an outpatient (3) Alcohol abuse: -drinks 3-4 beers and 2-3 shots/day -last drink last evening around 5pm -banana bag, alcohol withdrawal protocol with gabapentin (4) CAD (coronary artery disease): -stable, no reports of chest pain -continue ASA, statin, and beta beni (5) DM type 1 (diabetes mellitus, type 1): -hgb a1c 6.2 10/2019 -managed with Novolog and Lantus at home -glycemic pharmacy consult (6) Hypertension: -BP elevated, early alcohol withdrawal possibly contributing -continue losartan, metoprolol, and hydralazine (7) Dyslipidemia: (8) Hypertriglyceridemia: -continue statin and gemfibrozil (9) Anxiety: -continue home meds (10) DVT prophylaxis: -SCDs for now History of Present Illness Chief Complaint: Cough, Nausea/Vomiting Primary Care Provider: Jennifer Monroe MD 54 year old male with PMH DM type I, CAD, pancreatitis, alcohol abuse, and other problems listed below who presents to the ED with reports of persistent cough, nausea, and vomiting. Patient reports symptoms have been present for two weeks. He was tested for COVID-19 on 02/24 which was negative. Patient was given Augmentin and tessalon pearls a couple of days ago and reports some improvement. Patient reports vomiting mostly associated with severe coughing episodes, some not associated with coughing. Reports cough has been productive for white/yellow sputum. Denies hematemesis and coffee ground emesis. No abdominal pain or diarrhea. Appetite has been poor. Reports blood sugars have been well controlled. Denies chest pain and shortness of breath. No fevers or chills. Denies lightheadedness, dizziness, diaphoresis, and syncopal events. No urinary symptoms. In the ED, patient is hypertensive and slightly tachycardic. Labs are remarkable for WBC 14K and creat 1.5 (up from baseline ~ 1.0). Patient was given folic acid, lorazapem 1mg IV X 2, IV Mg+, banana bag, IV prochlorperazine, IV Thiamine. CXR negative for acute cardiopulmonary findings. CT abd/pelvis suggestting distal esophagitis. Allergies Allergy/AdvReac Type Severity Reaction Status Date / Time naproxen Allergy Unknown Hives Verified 10/24/19 16:09 tramadol Allergy Unknown Unknown Verified 10/24/19 16:09 Home Medications Home Medications Medication Instructions Recorded Confirmed Type Lantus Solostar U-100 Insulin 16 unit SUBCUT DAILY 10/24/19 02/28/20 History albuterol sulfate [ProAir HFA] 2 puff INHALATION Q4H PRN 10/24/19 02/28/20 History aspirin 81 mg PO DAILY 10/24/19 02/28/20 History bupropion HCl 300 mg PO HS 10/24/19 02/28/20 History gemfibrozil 600 mg PO BID 10/24/19 02/28/20 History hydralazine 25 mg PO QID 10/24/19 02/28/20 History insulin aspart U-100 [Novolog See Rx Instructions .ROUTE .COMPLEX 10/24/19 02/28/20 History Flexpen U-100 Insulin] losartan 100 mg PO DAILY 10/24/19 02/28/20 History metoprolol tartrate 50 mg PO BID 10/24/19 02/28/20 History rosuvastatin 40 mg PO DAILY 10/24/19 02/28/20 History trazodone 50 mg PO HS 10/24/19 02/28/20 History amoxicillin-pot clavulanate 1 tab PO BID 02/28/20 02/28/20 History benzonatate 100 mg PO TID PRN 02/28/20 02/28/20 History ondansetron HCl 4 mg PO UD PRN 02/28/20 02/28/20 History sertraline 25 mg PO DAILY 02/28/20 02/28/20 History Past Med/Surg History Medical History Alcohol abuse Anxiety CAD (coronary artery disease) 2009-stenting to left circumflex Chronic pancreatitis Depression DM type 1 (diabetes mellitus, type 1) Dyslipidemia GERD (gastroesophageal reflux disease) Hypertension Hypertriglyceridemia SATYA (obstructive sleep apnea) Tobacco abuse Surgical History H/O hernia repair H/O shoulder surgery History of nasal septoplasty S/P rotator cuff repair Family History Mother Heart disease Social History Preferred Language: Albanian Communication Ability: Effective Clean Out Driller Helper Required: No Beliefs That Will Affect Care: None Current Living Situation: Significant Other Feels Safe at Home: Yes Smoking Status: Current every day smoker Tobacco Type: cigarettes ; Cigarettes Per Day: 1.5 packs/day ; Hx Alcohol Use: Yes Alcohol type: beer Alcohol type Comment: 3-4 beers per day Hx Substance Use: No Review of Systems Review of Systems: ROS per HPI, all other systems reviewed and negative Physical Exam Constitutional: WD/WN, vitals as above Eyes: PERRL, conjunctivae normal, anicteric sclerae ENMT: external ear and nose normal, oropharynx normal Respiratory: normal respiratory effort, lungs clear to auscultation + cough (dry, non productive ) Cardiovascular: Rate/Rhythm: regular rhythm; + abnormal rate (slightly tachycardic) Vessels: normal peripheral pulses Extremities: no edema Gastrointestinal (Abdomen): normal bowel sounds, soft, nontender, no hepatosplenomegaly Musculoskeletal: no cyanosis or clubbing, extremities motor strength 5/5 Skin: no rashes, warm and dry Neurologic: PERRL, EOMI, accommodation nl, no face palsy, no dysarthria Psychiatric: A+Ox3, euthymic affect Results & Data Results & Data ([facility]) Vital Signs (Past 12 Hours) Vital Signs Temp Pulse Resp BP Pulse Ox 02/28/20 15:05 108 H 02/28/20 15:02 110 H 177/99 H 02/28/20 13:58 101 H 14 164/102 H 98 02/28/20 13:16 37.0 C 102 H 20 181/102 H 99 Laboratory Results Short CBC 02/28/20 Range/Units 13:00 WBC 14.79 H (4.8-10.8) K/uL Hgb 14.3 (14.0-18.0) g/dL Hct 40.4 L (42-52) % Plt Count 181 (130-400) K/uL BMP 02/28/20 13:00 Sodium 138 Potassium 3.6 Chloride 105 Carbon Dioxide 20 L BUN 20 H Creatinine 1.52 H Glucose 113 H Calcium 9.0 Cardiac Enzymes 02/28/20 Range/Units 13:00 Troponin I < 0.015 (0-0.045) ng/ml Liver Function 02/28/20 Range/Units 13:00 Total Bilirubin 0.5 (0.2-1) mg/dl AST 20 (15-37) U/L ALT 18 (12-78) U/L Alkaline Phosphatase 122 H (45-117) U/L Albumin 3.6 (3.4-5.0) gm/dl Diagnostic Findings CXR IMPRESSION: 1. Minimal if any bibasilar atelectasis. No convincing evidence of acute cardiopulmonary disease. 2. Mild cardiomegaly may be present. CT ABD/PELVIS IMPRESSION: 1. Distal esophageal wall thickening with mild periesophageal inflammation is suspicious for esophagitis. These findings could be correlated with endoscopy. 2. No bowel obstruction or bowel wall thickening. Normal appendix. 3. Cholelithiasis. 4. Moderate urinary bladder distention with prostamegaly. 5. Additional findings as above. Code Status & VTE Plan Code Status Patient is a full code as per my discussion with him. VTE Prophylaxis Plan VTE Prophylaxis will be ordered: Yes Supervising Physician Co-Signing Physician Notes I, Dr. Mal Wall, have seen and examined the patient Nikita Bolton with nurse practitioner and would like to comment that On Physical Exam General: no acute distress Neck: no tenderness of the neck on palpation Heart: regular rate Lungs: clear to auscultation, no wheezing Abdomen: soft, nontender, positive bowel sounds Extremities: moves the extremities ASSESSMENT AND PLAN ESOPHAGITIS ALCOHOL ABUSE TOBACCO USE BRONCHITIS HYPERTENSION TYPE 1 DIABETES MELLITUS ACUTE KIDNEY INJURY -This is a patient with chronic and tobacco use who presents with throat pain. Given his history of alcohol use or smoking, and while there is strong possibility of esophagitis as per CT scan and will request gastroenterology consult to see if any role of direct visualization to rule out other possibilities such as esophageal varices or chris or tumor. Patient to be given PPI, cepacol throat spray, oral nystatin. bronchitis and coughing could get better by smoking cessation but patient does not appear to be ready to cut back on tobacco use -agree with other assessment and plans as per nurse practitioner including management of Type 1 diabetes mellitus and treatment of Acute Kidney Injury with IV fluids and monitor the hypertension with blood pressure medications - My colleague Dr. Schilling will be taking over the care of the patient as hospitalist starting on 02/29/2020
[2020-02-28] MEDS ORDERED: ATIVAN IV ALCOHOL WITHDRAWL IV PRN (18:22)
[2020-02-28] MEDS ORDERED: LORazepam 3 MG/6 ML VIAL IV PRN (18:22)
[2020-02-28] MEDS ORDERED: CHLORASEPTIC 1.4% SOLN 180 ML BTL MT PRN (18:22)
[2020-02-28] MEDS ORDERED: GABAPENTIN 1200MG ALCOHOL WITHDRAWAL LOAD PO STA (18:22)
[2020-02-28] MEDS ORDERED: ACETAMINOPHEN 325 MG TAB PO PRN (18:22)
[2020-02-28] MEDS ORDERED: LORazepam 2 MG/4 ML VIAL IV PRN (18:22)
[2020-02-28] MEDS ORDERED: PHARMACY GLYCEMIC MGMT CONSULT PRN (18:39)
[2020-02-28] MEDS ORDERED: LABETALOL HCL IV 5 MG/ML 20ML IV STA (18:42)
[2020-02-28] MEDS ORDERED: LABETALOL HCL IV 5 MG/ML 20ML IV PRN (18:43)
[2020-02-28 18:45] LABS: Appearance Urine Cloudy (Clear); Bacteria Urine Automated Negative (Negative); Bilirubin Urine Negative (Negative); Blood Urine 1+ (Negative); Color Urine Yellow; Epithelial Cell Urine Auto >30 /lpf (0-5); Glucose Urine UA Trace (Negative); Ketones Urine 1+ (Negative); Leukocyte Esterase Urine Negative (Negative); Nitrite Urine Negative (Negative); Protein Urine 2+ (Negative); RBC Urine Automated 0-4 /hpf (0-4); Specific Gravity Urine 1.019 (1.000-1.030); Urobilinogen Urine Negative (Negative)
[2020-02-28] MEDS ORDERED: GABAPENTIN 600 MG TAB PO SCH (18:45)
[2020-02-28] MEDS: PANTOprazole 40 MG in SYRINGE 0 ML IV SCH (19:33)
[2020-02-28] MEDS: NYSTATIN SUSP 500,000 U/5 ML UDC PO SCH ×2 (19:33→20:20)
[2020-02-28] MEDS: SODIUM CHLORIDE 0.9% 1000ML 1,000 ML IV SCH (19:34)
[2020-02-28] MEDS: AMOXICILLIN/CLAVULANATE 875 MG TAB PO SCH (19:51)
[2020-02-28] MEDS ORDERED: GLUCAGON FOR INJ 1 MG VIAL IM PRN (20:45)
[2020-02-28] MEDS ORDERED: DEXTROSE 50% 50 ML SYRINGE IV PRN (20:45)
[2020-02-28] MEDS ORDERED: CARBOHYDRATES FOR HYPOGLYCEMIA PO PRN (20:45)
[2020-02-28] MEDS ORDERED: GLUCOSE 10 TABS/TUBE PO PRN (20:45)
[2020-02-28] MEDS ORDERED: GLUCOSE 40% GEL 15 GM TUBE PO PRN (20:45)
[2020-02-28] MEDS: TRAZODONE HCL 50 MG TAB PO SCH (21:50)
[2020-02-28] MEDS: NICOTINE 21 MG/24 HR TDSY TD SCH (21:50)
[2020-02-28] MEDS: BuPROPion XL 300 MG TABCR PO SCH (21:50)
[2020-02-28] MEDS: gemfibroziL 600 MG TAB PO SCH (21:50)
[2020-02-28] MEDS: METOPROLOL TARTRATE 50 MG TAB PO SCH (21:50)
[2020-02-29] MEDS: GABAPENTIN 600 MG TAB PO SCH ×4 (00:24→20:39)
[2020-02-29] MEDS: INSULIN ASPART 100 UNITS/ML 3 ML PEN SC SCH ×6 (00:34→19:59)
[2020-02-29] MEDS: SODIUM CHLORIDE 0.9% 1000ML 1,000 ML IV SCH ×2 (05:14→15:49)
[2020-02-29 05:58] LABS: Hematocrit (blood only) 34.5 % (42-52); Hemoglobin 11.5 g/dL (14.0-18.0); Mean Corpuscular Hemoglobin 32.5 pg (25-34); Mean Corpuscular Hgb Conc 33.3 g/dL (32-36); Mean Corpuscular Volume 97.5 fL (80-100); Mean Platelet Volume 9.5 fL (7.4-10.4); Platelet Count 112 K/uL (130-400); RDW Coefficient of Variation 13.5 % (11.5-14.5); RDW Standard Deviation 48.2 fL (36.4-46.3); Red Blood Count 3.54 M/uL (4.7-6.1)
[2020-02-29 06:22] LABS: Calcium 7.8 mg/dl (8.5-10.1); Creatinine Clr Calc Pharmacy 62.9 ml/min; Est GFR (African American) 75.4; Magnesium 2.4 mg/dl (1.8-2.4); Potassium 3.6 mmol/L (3.5-5.1)
[2020-02-29 07:03] LABS: Estimated Average Glucose 126 mg/dl
[2020-02-29] MEDS: PANTOprazole 40 MG in SYRINGE 0 ML IV SCH (08:20)
[2020-02-29] MEDS: NYSTATIN SUSP 500,000 U/5 ML UDC PO SCH ×4 (08:20→20:40)
[2020-02-29] MEDS: AMOXICILLIN/CLAVULANATE 875 MG TAB PO SCH ×2 (08:21→17:44)
[2020-02-29] MEDS: SERTRALINE HCL 50 MG TABLET PO SCH (08:22)
[2020-02-29] MEDS: METOPROLOL TARTRATE 50 MG TAB PO SCH ×2 (08:22→20:38)
[2020-02-29] MEDS: ROSUVASTATIN CALCIUM 20 MG TAB PO SCH (08:22)
[2020-02-29] MEDS: ASPIRIN 81 MG ECTAB PO SCH (08:23)
[2020-02-29] MEDS: LOSARTAN POTASSIUM 50 MG TAB PO SCH (08:23)
[2020-02-29] MEDS: gemfibroziL 600 MG TAB PO SCH ×2 (08:24→20:40)
[2020-02-29] MEDS ORDERED: MULTI-VITAMIN INFUSION 10 ML, THIAMINE HCL 100 MG, FOLIC ACID 1 MG in SODIUM CHLORIDE 0... IV SCH (09:00)
[2020-02-29] MEDS ORDERED: INSULIN GLARGINE SOLOSTAR 100 UNITS/ML 3 ML PEN SC SCH (09:00)
[2020-02-29] MEDS: MULTI-VITAMIN INFUSION 10 ML, THIAMINE HCL 100 MG, FOLIC ACID 1 MG in SODIUM CHLORIDE 0... IV SCH (09:11)
[2020-02-29] MEDS: BENZONATATE 100 MG CAPSULE PO PRN ×2 (09:18→20:52)
--- NOTE | 2020-02-29 09:50 | Pharmacy Report ---
Glycemic Control Consultation - Date of Service February 29, 2020 - Scope Scope: Glycemic Pharmacist consulted for glycemic control and to write orders per [facility] inpatient glycemic control protocol. - Objective Weight: 69.7 kg Accuchecks BSG (last 24hrs): 02/28/20 02/28/20 02/28/20 13:00 18:19 20:18 Glucose 113 H POC Glucose 137 H 179 H 02/29/20 02/29/20 02/29/20 00:29 05:44 06:08 Glucose 94 POC Glucose 94 95 02/29/20 07:39 Glucose POC Glucose 99 Laboratory Data (last 24hrs): 02/28/20 02/28/20 02/28/20 13:00 13:00 13:00 Potassium 3.6 Carbon Dioxide 20 L Anion Gap 13.0 H Creatinine 1.52 H Est Cr Clr Drug Dosing 51.3 Osmolality 295 Beta-Hydroxybutyric Acd 8.26 H 02/29/20 05:44 Potassium 3.6 Carbon Dioxide 24 Anion Gap 6.0 Creatinine 1.24 Est Cr Clr Drug Dosing 62.9 Osmolality Beta-Hydroxybutyric Acd HbA1c: Hemoglobin A1c 6.0 % (4.5-5.6) H 02/29/20 05:44 - Recent Pertinent Medications Outpatient Anti-diabetic Regimen: * Lantus 16 units daily * Novolog sliding scale * A1c = 6 % 02/29/20 Risk Factors for Insulin Resistance: * Infection: PO Augmentin * Diet: NPO - Assessment & Plan Assessment & Plan: ASSESSMENT: * 54 year old male with PMH DM type I, CAD, pancreatitis, alcohol abuse, admitted with persistent cough, nausea, and vomiting x 2 weeks. He was tested for COVID-19 on 02/24 which was negative. Patient was given Augmentin and tessalon pearls a couple of days ago and reports some improvement. * Patient had 16 units of Lantus yesterday WET END TESTER, NPO today, reduced dose in half. CF/CR based on patient's previous admission, and stressors, patient euglycemic. PLAN FOR INPATIENT GLYCEMIC CONTROL: * Basal insulin * Lantus 8 units SQ QAM today for NPO status * Bolus insulin * NovoLog per scale ACHS or Q6hrs while NPO * Goal Range: Low 110 mg/dL - High 140 mg/dL * Correction Factor: 35 mg/dL/unit * Nutritional / Prandial insulin per carb ratio of 1 unit per 11 grams CHO consumed * Please note that the plan above was derived based on current level of insulin resistance and hospital stress. These recommendations are appropriate for inpatient admission only. Plan of care upon discharge will need to be reassessed to avoid potential outpatient hypo/hyperglycemia. Thank you.
[2020-02-29] MEDS ORDERED: LORazepam 1 MG/2 ML VIAL IV STA (10:09)
--- NOTE | 2020-02-29 10:46 | Electrocardiogram Report ---
Test Reason : Blood Pressure : / mmHG Vent. Rate : 103 BPM Atrial Rate : 103 BPM P-R Int : 136 ms QRS Dur : 102 ms QT Int : 380 ms P-R-T Axes : 067 -30 046 degrees QTc Int : 497 ms Sinus tachycardia with occasional Premature ventricular complexes Possible Left atrial enlargement Left axis deviation Incomplete right bundle branch block Inferior infarct (cited on or before 23-DEC-2009) Abnormal ECG When compared with ECG of 24-OCT-2019 14:35, Premature ventricular complexes are now Present Vent. rate has increased BY 37 BPM Confirmed by Pacheco Chavez ([id number]) on 02/29/2020 10:45:46 AM Referred By: REFERRED SELF Confirmed By:Cyril Chavez
--- NOTE | 2020-02-29 13:53 | Gastrointestinal Consultation ---
Date of Consultation February 29, 2020 Assessment & Plan (1) GERD (gastroesophageal reflux disease): No dysphagia or alarm symptoms, In view of CT scan findings, he will need EGD electively as OP along with EUS as previously recommended few months ago when he was admitted with pancreatitis. Diet as tolerated. PO PPI BID. Recall GI if needed. History of Present Illness Attending Physician: Annita Blandon MD 54 years old male patient with CAD, DM, DLP, Recent Alcoholic pancreatitis few months ago, presented with nausea and cough, had CT scan abdomen in the ED showing gallstones and thickening of the distal esophagus suggestive of esophagitis, he feels fine now and denies any symptoms other than his respiratory symptoms related to his bronchitis. No diarrhea, constipation, fever or rectal bleeding. No prior EGD. Allergies Allergy/AdvReac Type Severity Reaction Status Date / Time naproxen Allergy Unknown Hives Verified 10/24/19 16:09 tramadol Allergy Unknown Unknown Verified 10/24/19 16:09 Home Medications Home Medications Medication Instructions Recorded Confirmed Type Lantus Solostar U-100 Insulin 16 unit SUBCUT DAILY 10/24/19 02/28/20 History albuterol sulfate [ProAir HFA] 2 puff INHALATION Q4H PRN 10/24/19 02/28/20 History aspirin 81 mg PO DAILY 10/24/19 02/28/20 History bupropion HCl 300 mg PO HS 10/24/19 02/28/20 History gemfibrozil 600 mg PO BID 10/24/19 02/28/20 History hydralazine 25 mg PO QID 10/24/19 02/28/20 History insulin aspart U-100 [Novolog See Rx Instructions .ROUTE .COMPLEX 10/24/19 02/28/20 History Flexpen U-100 Insulin] losartan 100 mg PO DAILY 10/24/19 02/28/20 History metoprolol tartrate 50 mg PO BID 10/24/19 02/28/20 History rosuvastatin 40 mg PO DAILY 10/24/19 02/28/20 History trazodone 50 mg PO HS 10/24/19 02/28/20 History amoxicillin-pot clavulanate 1 tab PO BID 02/28/20 02/28/20 History benzonatate 100 mg PO TID PRN 02/28/20 02/28/20 History ondansetron HCl 4 mg PO UD PRN 02/28/20 02/28/20 History sertraline 25 mg PO DAILY 02/28/20 02/28/20 History Patient History Medical History Alcohol abuse Anxiety CAD (coronary artery disease) 2009-stenting to left circumflex Chronic pancreatitis Depression DM type 1 (diabetes mellitus, type 1) Dyslipidemia GERD (gastroesophageal reflux disease) Hypertension Hypertriglyceridemia SATYA (obstructive sleep apnea) Tobacco abuse Surgical History H/O hernia repair H/O shoulder surgery History of nasal septoplasty S/P rotator cuff repair Family History Mother Heart disease Social History Preferred Language: Indonesian Communication Ability: Effective Imaging Analyst Required: No Beliefs That Will Affect Care: None Current Living Situation: Significant Other Other Information That Helps Us Care for You: No Feels Safe at Home: Yes Safety Concerns: Feels Safe At This Time Smoking Status: Current every day smoker Tobacco Type: cigarettes ; Cigarettes Per Day: 1.5 packs/day ; Do You Dip or Chew Tobacco: No ; Second Hand Exposure: Yes ; Tobacco Cessation Education Requested by Patient: No Hx Alcohol Use: Yes Alcohol type: beer Alcohol type Comment: 3-4 beers per day Hx Substance Use: No Review of Systems Constitutional: no fever, no chills, no fatigue and no weight loss Eyes: no eye pain and no worsening vision Ear, Nose, Mouth, Throat: no tinnitus, no dizziness, no nasal discharge and no epistaxis Respiratory: no cough, no dyspnea, no dyspnea on exertion and no wheezing Cardiovascular: no chest pain, no orthopnea, no palpitations and no edema Gastrointestinal: as per Subjective / HPI Musculoskeletal: no stiffness and no myalgia Neurologic: no localized weakness, no paralysis, no tremor(s) and no headache(s) Endocrine: no polydipsia and no polyuria Hematologic / Lymphatic: no easy bleeding and no night sweats Physical Exam Constitutional: + well hydrated, cooperative and comfortable Eyes: PERRL, conjunctivae normal, anicteric sclerae ENMT: external ear and nose normal, oropharynx normal Neck: normal visual inspection and trachea midline Respiratory: normal respiratory effort, lungs clear to auscultation Auscultation: no wheezes Cardiovascular: RRR, no murmur, no edema Gastrointestinal (Abdomen): normal bowel sounds, soft, nontender, no hepatosplenomegaly Musculoskeletal: no cyanosis or clubbing, extremities motor strength 5/5 Skin: no rashes, warm and dry Neurologic: awake; no focal motor deficits Motor/Sensory: no tremor Results & Data ([facility]) Vital Signs (Past 12 Hours) Vital Signs Temp Pulse Pulse Resp BP Pulse Ox 02/29/20 11:57 36.8 C 65 18 143/84 H 100 02/29/20 07:23 36.5 C 71 18 144/73 H 92 02/29/20 06:14 36.5 C 64 16 153/87 H 98 02/29/20 04:08 65 18 98 02/29/20 03:03 36.4 C L 60 18 141/89 H 100 02/29/20 02:00 36.3 C L 61 16 152/85 H 99 Laboratory Results Laboratory Results - last 24 hr 02/28/20 02/28/20 02/28/20 13:00 13:00 13:00 WBC RBC Hgb Hct MCV MCH MCHC RDW Std Deviation RDW Coeff of Sonia Plt Count MPV PT 10.7 INR 1.0 VBG pH VBG pCO2 VBG pO2 VBG HCO3 VBG O2 Saturation VBG Base Excess Barometric Pressure Sodium Potassium Chloride Carbon Dioxide Anion Gap BUN Creatinine Est Cr Clr Drug Dosing Est GFR ( Amer) Est GFR (Non-Af Amer) BUN/Creatinine Ratio Glucose POC Glucose Estimat Average Glucose Hemoglobin A1c Osmolality 295 Calcium Phosphorus 2.6 Magnesium 1.7 L Troponin I < 0.015 Lipase 148 Folate Beta-Hydroxybutyric Acd 8.26 H Urine Color Urine Appearance Urine pH Ur Specific [place] Urine Protein Urine Glucose (UA) Urine Ketones Urine Blood Urine Nitrite Urine Bilirubin Urine Urobilinogen Ur Leukocyte Esterase Urine WBC (Auto) Urine RBC (Auto) U Hyaline Cast (Auto) U Epithel Cells (Auto) Urine Bacteria (Auto) Ur Renal Epithelial Cell Granular Casts WBC Casts Ethyl Alcohol mg/dL Hepatitis C Ab Screen 02/28/20 02/28/20 02/28/20 14:31 14:31 14:31 WBC RBC Hgb Hct MCV MCH MCHC RDW Std Deviation RDW Coeff of Sonia Plt Count MPV PT INR VBG pH 7.44 H VBG pCO2 34 L VBG pO2 30 VBG HCO3 23 VBG O2 Saturation < 60.0 VBG Base Excess -0.7 Barometric Pressure 729.3 Sodium Potassium Chloride Carbon Dioxide Anion Gap BUN Creatinine Est Cr Clr Drug Dosing Est GFR ( Amer) Est GFR (Non-Af Amer) BUN/Creatinine Ratio Glucose POC Glucose Estimat Average Glucose Hemoglobin A1c Osmolality Calcium Phosphorus Magnesium Troponin I Lipase Folate > 24.00 Beta-Hydroxybutyric Acd Urine Color Urine Appearance Urine pH Ur Specific [place] Urine Protein Urine Glucose (UA) Urine Ketones Urine Blood Urine Nitrite Urine Bilirubin Urine Urobilinogen Ur Leukocyte Esterase Urine WBC (Auto) Urine RBC (Auto) U Hyaline Cast (Auto) U Epithel Cells (Auto) Urine Bacteria (Auto) Ur Renal Epithelial Cell Granular Casts WBC Casts Ethyl Alcohol mg/dL Hepatitis C Ab Screen Neg 02/28/20 02/28/20 02/28/20 16:25 18:14 18:19 WBC RBC Hgb Hct MCV MCH MCHC RDW Std Deviation RDW Coeff of Sonia Plt Count MPV PT INR VBG pH VBG pCO2 VBG pO2 VBG HCO3 VBG O2 Saturation VBG Base Excess Barometric Pressure Sodium Potassium Chloride Carbon Dioxide Anion Gap BUN Creatinine Est Cr Clr Drug Dosing Est GFR ( Amer) Est GFR (Non-Af Amer) BUN/Creatinine Ratio Glucose POC Glucose 137 H Estimat Average Glucose Hemoglobin A1c Osmolality Calcium Phosphorus Magnesium Troponin I Lipase Folate Beta-Hydroxybutyric Acd Urine Color Yellow Urine Appearance Cloudy A Urine pH 5.0 Ur Specific [place] 1.019 Urine Protein 2+ H Urine Glucose (UA) Trace H Urine Ketones 1+ H Urine Blood 1+ H Urine Nitrite Negative Urine Bilirubin Negative Urine Urobilinogen Negative Ur Leukocyte Esterase Negative Urine WBC (Auto) 1-5 Urine RBC (Auto) 0-4 U Hyaline Cast (Auto) 5-10 H U Epithel Cells (Auto) >30 H Urine Bacteria (Auto) Negative Ur Renal Epithelial Cell Not Reportable Granular Casts 1-5 H WBC Casts 1-5 H Ethyl Alcohol mg/dL < 3.0 Hepatitis C Ab Screen 02/28/20 02/29/20 02/29/20 20:18 00:29 05:44 WBC 6.00 RBC 3.54 L Hgb 11.5 L Hct 34.5 L MCV 97.5 MCH 32.5 MCHC 33.3 RDW Std Deviation 48.2 H RDW Coeff of Sonia 13.5 Plt Count 112 L MPV 9.5 PT INR VBG pH VBG pCO2 VBG pO2 VBG HCO3 VBG O2 Saturation VBG Base Excess Barometric Pressure Sodium Potassium Chloride Carbon Dioxide Anion Gap BUN Creatinine Est Cr Clr Drug Dosing Est GFR ( Amer) Est GFR (Non-Af Amer) BUN/Creatinine Ratio Glucose POC Glucose 179 H 94 Estimat Average Glucose Hemoglobin A1c Osmolality Calcium Phosphorus Magnesium Troponin I Lipase Folate Beta-Hydroxybutyric Acd Urine Color Urine Appearance Urine pH Ur Specific [place] Urine Protein Urine Glucose (UA) Urine Ketones Urine Blood Urine Nitrite Urine Bilirubin Urine Urobilinogen Ur Leukocyte Esterase Urine WBC (Auto) Urine RBC (Auto) U Hyaline Cast (Auto) U Epithel Cells (Auto) Urine Bacteria (Auto) Ur Renal Epithelial Cell Granular Casts WBC Casts Ethyl Alcohol mg/dL Hepatitis C Ab Screen 02/29/20 02/29/20 02/29/20 05:44 05:44 06:08 WBC RBC Hgb Hct MCV MCH MCHC RDW Std Deviation RDW Coeff of Sonia Plt Count MPV PT INR VBG pH VBG pCO2 VBG pO2 VBG HCO3 VBG O2 Saturation VBG Base Excess Barometric Pressure Sodium 141 Potassium 3.6 Chloride 111 H Carbon Dioxide 24 Anion Gap 6.0 BUN 17 Creatinine 1.24 Est Cr Clr Drug Dosing 62.9 Est GFR ( Amer) 75.4 Est GFR (Non-Af Amer) 65.0 BUN/Creatinine Ratio 14.0 Glucose 94 POC Glucose 95 Estimat Average Glucose 126 Hemoglobin A1c 6.0 H Osmolality Calcium 7.8 L Phosphorus Magnesium 2.4 Troponin I Lipase Folate Beta-Hydroxybutyric Acd Urine Color Urine Appearance Urine pH Ur Specific [place] Urine Protein Urine Glucose (UA) Urine Ketones Urine Blood Urine Nitrite Urine Bilirubin Urine Urobilinogen Ur Leukocyte Esterase Urine WBC (Auto) Urine RBC (Auto) U Hyaline Cast (Auto) U Epithel Cells (Auto) Urine Bacteria (Auto) Ur Renal Epithelial Cell Granular Casts WBC Casts Ethyl Alcohol mg/dL Hepatitis C Ab Screen 02/29/20 02/29/20 07:39 11:37 WBC RBC Hgb Hct MCV MCH MCHC RDW Std Deviation RDW Coeff of Sonia Plt Count MPV PT INR VBG pH VBG pCO2 VBG pO2 VBG HCO3 VBG O2 Saturation VBG Base Excess Barometric Pressure Sodium Potassium Chloride Carbon Dioxide Anion Gap BUN Creatinine Est Cr Clr Drug Dosing Est GFR ( Amer) Est GFR (Non-Af Amer) BUN/Creatinine Ratio Glucose POC Glucose 99 77 Estimat Average Glucose Hemoglobin A1c Osmolality Calcium Phosphorus Magnesium Troponin I Lipase Folate Beta-Hydroxybutyric Acd Urine Color Urine Appearance Urine pH Ur Specific [place] Urine Protein Urine Glucose (UA) Urine Ketones Urine Blood Urine Nitrite Urine Bilirubin Urine Urobilinogen Ur Leukocyte Esterase Urine WBC (Auto) Urine RBC (Auto) U Hyaline Cast (Auto) U Epithel Cells (Auto) Urine Bacteria (Auto) Ur Renal Epithelial Cell Granular Casts WBC Casts Ethyl Alcohol mg/dL Hepatitis C Ab Screen
[2020-02-29] MEDS: LORazepam 1 MG/2 ML VIAL IV PRN ×2 (18:27→21:03)
--- NOTE | 2020-02-29 19:37 | Hospitalist Progress Note ---
Date of Service February 29, 2020 Assessment & Plan (1) Esophagitis: -presented with cough , followed by post tussive emesis symptom has resolved -CT abd/pelvis suggesting distal esophagitis -appreciate input from GI recommends out pt EGD and EUS ok to advance diet , PPI change to po 40 mg BID (2) Bronchitis: -CXR negative for acute pulmonary findings -conitnue Augmentin as prescribed as an outpatient improvement of cough no fever or chills (3) Alcohol abuse: -drinks 3-4 beers and 2-3 shots/day -no sign of alcohol withdrawal -banana bag, alcohol withdrawal protocol with gabapentin (4) CAD (coronary artery disease): -stable, no reports of chest pain -continue ASA, statin, and beta beni (5) DM type 1 (diabetes mellitus, type 1): -hgb a1c 6.2 10/2019 -managed with Novolog and Lantus at home -glycemic pharmacy consult -appreciated (6) Hypertension: - -continue losartan, metoprolol, and hydralazine (7) Dyslipidemia: (8) Hypertriglyceridemia: -continue statin and gemfibrozil (9) Anxiety: -continue home meds (10) DVT prophylaxis: -SCDs for now DISPOSITION : discharge home in next 1-2 days when medically stable Admission and Anticipated Discharge Date Admission Date: February 28, 2020 Subjective no episode of hematemesis or coughing out blood no nausea or vomiting no abdominal pain diet advanced , tolerating well Physical Exam Constitutional: WD/WN, vitals as above + ill appearing; no acute distress Eyes: PERRL, conjunctivae normal, anicteric sclerae ENMT: external ear and nose normal, oropharynx normal Neck: trachea midline, no thyromegaly Respiratory: normal respiratory effort, lungs clear to auscultation Cardiovascular: RRR, no murmur, no edema Gastrointestinal (Abdomen): normal bowel sounds, soft, nontender, no hepatosplenomegaly Musculoskeletal: no cyanosis or clubbing, extremities motor strength 5/5 Skin: no rashes, warm and dry Neurologic: PERRL, EOMI, accommodation nl, no face palsy, no dysarthria Psychiatric: A+Ox3, euthymic affect Results & Data Results & Data ([facility]) Vital Signs (Past 12 Hours) Vital Signs Temp Pulse Pulse Resp BP Pulse Ox 02/29/20 19:34 88 18 99 05/16/20 19:00 36.6 C 80 19 147/81 H 99 02/29/20 16:08 36.6 C 63 18 145/84 H 98 02/29/20 11:57 36.8 C 65 18 143/84 H 100
[2020-02-29] MEDS: NICOTINE 21 MG/24 HR TDSY TD SCH (20:37)
[2020-02-29] MEDS: BuPROPion XL 300 MG TABCR PO SCH (20:38)
[2020-02-29] MEDS: PANTOprazole 40 MG TAB PO SCH (20:39)
[2020-02-29] MEDS: TRAZODONE HCL 50 MG TAB PO SCH (20:39)
[2020-03-01] MEDS: SODIUM CHLORIDE 0.9% 1000ML 1,000 ML IV SCH ×3 (01:00→12:02)
[2020-03-01] MEDS: LORazepam 1 MG/2 ML VIAL IV PRN ×4 (02:39→21:22)
[2020-03-01] MEDS: GABAPENTIN 600 MG TAB PO SCH ×2 (05:27→17:53)
--- NOTE | 2020-03-01 08:50 | Pharmacy Report ---
Pharmacy Glycemic Short Note 2 - Date of Service March 01, 2020 - Glycemic Short BSG Results (Last 24 hours): 02/29/20 02/29/20 02/29/20 11:37 15:48 19:41 POC Glucose 77 108 H 99 03/01/20 07:30 POC Glucose 151 H OUTPATIENT ANTIDIABETIC REGIMEN: * Lantus 16 units daily * Novolog sliding scale * A1c = 6 % 02/29/20 ASSESSMENT: 03/01/20 * Blood sugars ranging 73-151mg/dl over past 24 hours, patient eating diet, will resume home basal dose. 02/29/20 * 54 year old male with PMH DM type I, CAD, pancreatitis, alcohol abuse, admitted with persistent cough, nausea, and vomiting x 2 weeks. He was tested for COVID-19 on 02/24 which was negative. Patient was given Augmentin and tessalon pearls a couple of days ago and reports some improvement. * Patient had 16 units of Lantus yesterday [employer], NPO today, reduced dose in half. CF/CR based on patient's previous admission, and stressors, patient euglycemic . PLAN FOR INPATIENT GLYCEMIC CONTROL: * Basal insulin * Lantus 16 units SQ QAM * Bolus insulin * NovoLog per scale ACHS or Q6hrs while NPO * Goal Range: Low 110 mg/dL - High 140 mg/dL * Correction Factor: 35 mg/dL/unit * Nutritional / Prandial insulin per carb ratio of 1 unit per 11 grams CHO consumed PLAN FOR DISCHARGE: * A1c 6%, continue outpatient regimen.
[2020-03-01] MEDS: PANTOprazole 40 MG TAB PO SCH ×2 (09:10→20:43)
[2020-03-01] MEDS: METOPROLOL TARTRATE 50 MG TAB PO SCH ×2 (09:10→20:43)
[2020-03-01] MEDS: SERTRALINE HCL 50 MG TABLET PO SCH (09:11)
[2020-03-01] MEDS: LOSARTAN POTASSIUM 50 MG TAB PO SCH (09:12)
[2020-03-01] MEDS: ROSUVASTATIN CALCIUM 20 MG TAB PO SCH (09:12)
[2020-03-01] MEDS: AMOXICILLIN/CLAVULANATE 875 MG TAB PO SCH ×2 (09:13→17:50)
[2020-03-01] MEDS: ASPIRIN 81 MG ECTAB PO SCH (09:13)
[2020-03-01] MEDS: NYSTATIN SUSP 500,000 U/5 ML UDC PO SCH ×4 (09:14→20:42)
[2020-03-01] MEDS: gemfibroziL 600 MG TAB PO SCH ×2 (09:14→20:42)
[2020-03-01] MEDS: BENZONATATE 100 MG CAPSULE PO PRN (09:16)
[2020-03-01] MEDS: INSULIN ASPART 100 UNITS/ML 3 ML PEN SC SCH ×4 (09:18→21:34)
[2020-03-01] MEDS: INSULIN GLARGINE SOLOSTAR 100 UNITS/ML 3 ML PEN SC SCH (09:19)
[2020-03-01] MEDS: MULTI-VITAMIN INFUSION 10 ML, THIAMINE HCL 100 MG, FOLIC ACID 1 MG in SODIUM CHLORIDE 0... IV SCH (09:53)
--- NOTE | 2020-03-01 18:40 | Hospitalist Progress Note ---
Date of Service March 01, 2020 Assessment & Plan (1) Esophagitis: -presented with cough , followed by post tussive emesis symptom has resolved -CT abd/pelvis suggesting distal esophagitis -appreciate input from GI recommends out pt EGD and EUS ok to advance diet , PPI change to po 40 mg BID (2) Bronchitis: -CXR negative for acute pulmonary findings -conitnue Augmentin as prescribed as an outpatient improvement of cough no fever or chills (3) Alcohol abuse: -drinks 3-4 beers and 2-3 shots/day -no sign of alcohol withdrawal -on , alcohol withdrawal protocol with gabapentin (4) CAD (coronary artery disease): -stable, no reports of chest pain -continue ASA, statin, and beta beni (5) DM type 1 (diabetes mellitus, type 1): -hgb a1c 6.2 10/2019 -managed with Novolog and Lantus at home -glycemic pharmacy consult -appreciated (6) Hypertension: - -continue losartan, metoprolol, and hydralazine (7) Dyslipidemia: (8) Hypertriglyceridemia: -continue statin and gemfibrozil (9) Anxiety: pt reports of severe anxiety episodes /panic attack required PRN ativan pt is counselled due to addiction risk he will not be prescribed any BDZ on discharge willing to D/w Psych for option adjusting his antidpressants to help with anxiety episodes Psych eval requested (10) DVT prophylaxis: -SCDs for now DISPOSITION : discharge home tomorrow after Psych consult Admission and Anticipated Discharge Date Admission Date: February 28, 2020 Subjective no complain of nausea /vomiting cough has improved complains of intermittent panic attack and anxiety mentions he gets these episodes at home as well intermittent Ativan helps no s/s of ETOH withdrawl Physical Exam Constitutional: WD/WN, vitals as above + ill appearing; no acute distress Eyes: PERRL, conjunctivae normal, anicteric sclerae ENMT: external ear and nose normal, oropharynx normal Neck: trachea midline, no thyromegaly Respiratory: normal respiratory effort, lungs clear to auscultation Cardiovascular: RRR, no murmur, no edema Gastrointestinal (Abdomen): normal bowel sounds, soft, nontender, no hepatosplenomegaly Musculoskeletal: no cyanosis or clubbing, extremities motor strength 5/5 Skin: no rashes, warm and dry Neurologic: PERRL, EOMI, accommodation nl, no face palsy, no dysarthria Psychiatric: A+Ox3, euthymic affect Results & Data Results & [facility] ([facility]) Vital Signs (Past 12 Hours) Vital Signs Temp Pulse Resp BP BP Pulse Ox 03/01/20 16:02 76 18 152/83 H 96 03/01/20 11:55 36.8 C 65 18 161/89 H 100 03/01/20 07:21 36.4 C L 58 L 18 158/80 H 96
[2020-03-01] MEDS ORDERED: ALBUTEROL HFA 8 GM INHALER INH PRN (19:20)
[2020-03-01] MEDS: NICOTINE 21 MG/24 HR TDSY TD SCH (20:42)
[2020-03-01] MEDS: TRAZODONE HCL 50 MG TAB PO SCH (20:42)
[2020-03-01] MEDS: BuPROPion XL 300 MG TABCR PO SCH (20:43)
[2020-03-02] MEDS: GABAPENTIN 600 MG TAB PO SCH (05:27)
[2020-03-02] MEDS: LORazepam 1 MG/2 ML VIAL IV PRN ×3 (05:28→17:51)
[2020-03-02] MEDS: METOPROLOL TARTRATE 50 MG TAB PO SCH ×2 (07:37→19:55)
[2020-03-02] MEDS: ASPIRIN 81 MG ECTAB PO SCH (07:37)
[2020-03-02] MEDS: ROSUVASTATIN CALCIUM 20 MG TAB PO SCH (07:37)
[2020-03-02] MEDS: PANTOprazole 40 MG TAB PO SCH ×2 (07:37→19:57)
[2020-03-02] MEDS: LOSARTAN POTASSIUM 50 MG TAB PO SCH (07:37)
[2020-03-02] MEDS: SERTRALINE HCL 50 MG TABLET PO SCH (07:38)
[2020-03-02] MEDS: NYSTATIN SUSP 500,000 U/5 ML UDC PO SCH ×4 (07:38→19:54)
[2020-03-02] MEDS: AMOXICILLIN/CLAVULANATE 875 MG TAB PO SCH ×2 (07:38→16:55)
[2020-03-02] MEDS: INSULIN GLARGINE SOLOSTAR 100 UNITS/ML 3 ML PEN SC SCH (08:35)
[2020-03-02] MEDS: INSULIN ASPART 100 UNITS/ML 3 ML PEN SC SCH ×4 (08:36→20:31)
[2020-03-02] MEDS: gemfibroziL 600 MG TAB PO SCH ×2 (08:39→19:55)
--- NOTE | 2020-03-02 11:40 | Psychiatric Consultation ---
Date of Consultation March 02, 2020 Impression / Recommendations Impression Dr. Beti Majano was directly involved in review and discussion of the patient's case and participated in medical decision making regarding treatment recommendations. RECOMMENDATIONS: 03/02 - Pt does report non-specific anxiety at baseline, admitting to episodes of anxiety awaking him from sleep (described as panic attacks, though patient reports SOB with this anxiety and utilizes a CPAP at night). Pt is requesting medication adjustments to assist with anxiety. Reiterated that lorazepam is utilized to manage withdrawal symptoms and that the medication would not be prescribed on discharge. - Given somewhat complex antidepressant medication history, and potential for discharge as early as today, would suggest that any changes to his current regimen occur in the outpatient setting with the providers who are most familiar with his clinical history and response to treatment. - Considerations include: - Reduction in dosage of bupropion - as this medication can contribute to increased anxiety; there is also consider that this medication can increase seizure risk by lowering seizure threshold, which is especially in the setting of alcohol abuse/withdrawal. - Further titration of sertraline beyond low-dose of 25mg or trial of an alternative SSRI/SNRI. Pt reports only other trial of medication was venlafaxine in the past. - In regard to poor sleep and racing thoughts at night, patient may benefit from titration of trazodone to 100mg qHS. - Pt reports he believes he is allergic to hydroxyzine (reporting throat swelling, though not listed on allergy list). Would not endorse continuation of lorazepam outside of utilizing for alcohol withdrawal, given addictive potential of the medication and concern for abuse. - Inpatient D&A rehabilitation was recommended, and patient declined. He admits he is interested in "slowing down" with regard to alcohol use, but is declining referrals for outpatient D&A counseling, IOP, or outpatient psychiatric medication management. - He denies active SI or other safety concerns at this time. No indication for inpatient psychiatric hospitalization. Please reach out to our service with any additional questions or updates. Risk Factors Assessment Do You Have Access To A Gun?: Yes Psych History Identifying Data 54-year-old male admitted medically on 02/28/2020 after presenting to the ED with complaints of cough, nausea, and vomiting. Pt has been treated on the medical floor for esophagitis, bronchitis, and symptoms of alcohol withdrawal. Psychiatric consultation was requested to evaluate patient for anxiety after patient admitted to panic attacks. Chief Complaint "Not too bad now. I was coughing real bad before, throwing up." History of Present Illness Nikita Bolton is a 54-year-old male admitted medically on 02/28/2020 after presenting to the ED with complaints of cough, nausea, and vomiting. Pt has been treated for bronchitis and esophagitis. PMH is also significant for GERD, hypertension, CAD, dyslipidemia, T1DM, and history of pancreatitis. While hospitalized, the patient began to demonstrate symptoms of alcohol withdrawal and has been treated for that with a gabapentin taper and prn lorazepam. Psychiatric consultation was requested to evaluate patient for anxiety after he had disclosed episodes of panic/severe anxiety. Pt was cooperative with psychiatric evaluation. He states that he is feeling better at this point in his stay, admitting his cough and nausea has improved." Pt states he sought out a COVID-19 test when these symptoms first presented; however, the test was negative. Pt states he has been hospitalized in the past for pancreatitis and was concerned about his symptoms. Pt states "I do think this stuff has a lot to do with my drinking." Pt admits to drinking 3-4 beers and 2-3 shots every day after work. On his days off, he reports consuming 4-5 beer and "a few" shots as early as 7:00am - then repeating this amount of consumption in the afternoon after a brief nap. Pt states he has been drinking in this pattern for the past 6 years, and states he alcohol use was heavier prior to that as "I was still going out to bars 6 or 7 years ago, I don't do that anymore." Pt denies history of withdrawal, stating he would occasionally go a few days without drinking, but would consume alcohol again once he began to notice tremors of his hands. Pt denies history of inpatient D&A rehabilitation or outpatient D&A treatment. Pt does endorse what he believes to be anxiety, admitting to stressors of work, finances, his physical health, and recent changes surrounding COVID-19 restrictions. Pt states that he also experiences anxiety that wakes him from sleep. He describes these episodes as shortness of breath from panic attacks that occur in the middle of the night. Pt does admit to utilizing a CPAP, which has helped to improve his sleep. Pt denies any concerns related to his appetite. Pt states that he has been working with his PCP for medication adjustments. He states he had been on 200mg of sertraline in the past, but that this medication was discontinued and replaced with bupropion about 7-8 months ago. Pt states the medication was not particularly helpful, so a low-dose of sertraline was added again. Pt states the trazodone has been helpful to improve his sleep, but still reports only sleeping about 6-7 hours a night. Pt does state that the medication he has been receiving here (lorazepam) has been helpful for anxiety, but was reminded again that the medication is being utilized for alcohol withdrawal and would not be provided to him on discharge. Pt believes he is allergic to hydroxyzine as well. We discussed several medication adjustments; however, patient reported he is hopeful for discharge home today. This provider suggested the considerations be forwarded to his PCP, whom the patient states he is scheduled to see on 03/04/2020 for hospital follow- up visit. Pt denies SI, HI, SIB, A/V hallucinations, paranoia, kaleb/hypomania, other symptoms more suggestive of a bipolar presentation, OCD, PTSD, eating disorder, and other specific psychiatric symptoms. Past Psychiatric History Outpatient Services: Medications are being prescribed by the patient's PCP. Previous Psych Admissions: Denied Do You Have Access To A Gun?: Yes History of Previous Suicide Attempt: Yes (reports cutting his wrists in the "80's" ) Past Medication Trials: Per patient report: 1. Zoloft 2. Effexor 3. Wellbutrin 4. Trazodone Allergies Allergy/AdvReac Type Severity Reaction Status Date / Time naproxen Allergy Unknown Hives Verified 10/24/19 16:09 tramadol Allergy Unknown Unknown Verified 10/24/19 16:09 Home Medications Home Medications Medication Instructions Recorded Confirmed Type Lantus Solostar U-100 Insulin 16 unit SUBCUT DAILY 10/24/19 02/28/20 History albuterol sulfate [ProAir HFA] 2 puff INHALATION Q4H PRN 10/24/19 02/28/20 History aspirin 81 mg PO DAILY 10/24/19 02/28/20 History bupropion HCl 300 mg PO HS 10/24/19 02/28/20 History gemfibrozil 600 mg PO BID 10/24/19 02/28/20 History hydralazine 25 mg PO QID 10/24/19 02/28/20 History insulin aspart U-100 [Novolog See Rx Instructions .ROUTE .COMPLEX 10/24/19 02/28/20 History Flexpen U-100 Insulin] losartan 100 mg PO DAILY 10/24/19 02/28/20 History metoprolol tartrate 50 mg PO BID 10/24/19 02/28/20 History rosuvastatin 40 mg PO DAILY 10/24/19 02/28/20 History trazodone 50 mg PO HS 10/24/19 02/28/20 History amoxicillin-pot clavulanate 1 tab PO BID 02/28/20 02/28/20 History benzonatate 100 mg PO TID PRN 02/28/20 02/28/20 History ondansetron HCl 4 mg PO UD PRN 02/28/20 02/28/20 History sertraline 25 mg PO DAILY 02/28/20 02/28/20 History Family History Pt denies known family history of mental health conditions. Substance Abuse History Pt admits to smoking tobacco. He endorses overuse of alcohol. Generally, patient reports consuming 3-4 beers and 2-3 shots of liquor after coming home from work. On his days off, patient states he may begin drinking as early as 7:00am. Pt states he will drink 4-5 beers and "a few" shots, take a 2 hour nap, and then repeat the same amount in the afternoon/evening. Pt admits to having stopped drinking for "a few days" in the past, but would begin drinking again after developing tremors. Pt denies history of inpatient rehab or outpatient D&A treatment. Pt denies use of illicit substances. Personal History Living Arrangements: Home (with girlfriend) Highest Grade Completed: High School Graduate and Some College Marital Status: Living w/ Signif. Other Number Of Children: 2 sons Beliefs That Will Affect Care: None History of Legal Problems: denied Psychological Trauma History Comment: denied Patient History Medical History Alcohol abuse Anxiety CAD (coronary artery disease) 2009-stenting to left circumflex Chronic pancreatitis Depression DM type 1 (diabetes mellitus, type 1) Dyslipidemia GERD (gastroesophageal reflux disease) Hypertension Hypertriglyceridemia SATYA (obstructive sleep apnea) Tobacco abuse Surgical History H/O hernia repair H/O shoulder surgery History of nasal septoplasty S/P rotator cuff repair Family History Mother Heart disease Social History Preferred Language: Telugu Communication Ability: Effective 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 Beliefs That Will Affect Care: None Current Living Situation: Significant Other Other Information That Helps Us Care for You: No Feels Safe at Home: Yes Safety Concerns: Feels Safe At This Time Smoking Status: Current every day smoker Tobacco Type: cigarettes ; Cigarettes Per Day: 1.5 packs/day ; Do You Dip or Chew Tobacco: No ; Second Hand Exposure: Yes ; Tobacco Cessation Education Requested by Patient: No Hx Alcohol Use: Yes Alcohol type: beer Alcohol type Comment: 3-4 beers per day Hx Substance Use: No Physical Exam Psychiatric: Orientation: alert, oriented x 3 and cooperative Apperance: appropriately dressed, appropriately groomed and appeared stated age Eye Contact: good eye contact Motor Behavior: + tremor tremor in hands most notably, but fine tremor also intermittently observed to affect his entire upper body. Speech: normal rate/rhythm/volume of speech Affect: + blunted affect; no anxious affect Mood: + anxious mood Thought Process: goal directed thought process, clear/coherent thought process and + concrete thought process Thought Content: reality based without delusions; no hopelessness and no worthlessness Suicidal Thoughts: denies suicidal thoughts, denies suicidal plan and denies suicidal intent Homicidal Thoughts: denies homicidal thoughts Hallucinations: no auditory hallucinations and no visual hallucinations Cognition: attention grossly intact and language grossly intact Insight: + fair insight Judgement: + fair judgement Vital Signs (Past 24 Hours): Last Vital Signs Temp 36.4 C L 03/02/20 10:00 Pulse 66 03/02/20 10:00 Resp 20 03/02/20 10:00 BP 156/84 H 03/02/20 10:00 Pulse Ox 100 03/02/20 10:00 Review of Systems Constitutional: reports difficulty sleeping Cardiovascular: denied Respiratory: denied Gastrointestinal: denied Neurological: denied Psychiatric: denies symptoms other than stated above Total of at least 10 systems reviewed, pertinent positives as above and in HPI. Results & Data (PSY) Medications Administered Amoxicillin/Clavulanate Potassium (Augmentin 875mg) 1 tab PO BIDM [facility]; Protocol Stop: 03/06/20 19:59 Last Admin: 03/02/20 07:38 Dose: 1 tab Documented by: [id number] Admin: 03/01/20 17:50 Dose: 1 tab Documented by: [id number] Admin: 03/01/20 09:13 Dose: 1 tab Documented by: [id number] Admin: 02/29/20 17:44 Dose: 1 tab Documented by: [id number] Admin: 02/29/20 08:21 Dose: 1 tab Documented by: [id number] Admin: 02/28/20 19:51 Dose: 1 tab Documented by: [id number] Aspirin (Ecotrin Ectab) 81 mg PO DAILY [facility] Stop: 03/30/20 08:59 Last Admin: 03/02/20 07:37 Dose: 81 mg Documented by: [id number] Admin: 03/01/20 09:13 Dose: 81 mg Documented by: [id number] Admin: 02/29/20 08:23 Dose: 81 mg Documented by: [id number] Benzonatate (Tessalon Perle) 100 mg PO TID PRN PRN Reason: Cough Stop: 03/29/20 18:21 Last Admin: 03/01/20 09:16 Dose: 100 mg Documented by: [id number] Admin: 02/29/20 20:52 Dose: 100 mg Documented by: [id number] Admin: 02/29/20 09:18 Dose: 100 mg Documented by: [id number] Bupropion HCl (Wellbutrin-Xl) 300 mg PO HS [facility] Stop: 03/29/20 20:59 Last Admin: 03/01/20 20:43 Dose: 300 mg Documented by: [id number] Admin: 02/29/20 20:38 Dose: 300 mg Documented by: [id number] Admin: 02/28/20 21:50 Dose: 300 mg Documented by: [id number] Gemfibrozil (Lopid) 600 mg PO BID [facility] Stop: 03/29/20 20:59 Last Admin: 03/02/20 08:39 Dose: 600 mg Documented by: [id number] Admin: 03/01/20 20:42 Dose: 600 mg Documented by: [id number] Admin: 03/01/20 09:14 Dose: 600 mg Documented by: [id number] Admin: 02/29/20 20:40 Dose: 600 mg Documented by: [id number] Admin: 02/29/20 08:24 Dose: 600 mg Documented by: [id number] Admin: 02/28/20 21:50 Dose: 600 mg Documented by: [id number] Hydralazine HCl (Apresoline) 25 mg PO QID [facility] Stop: 03/29/20 18:21 Last Admin: 03/02/20 07:37 Dose: 25 mg Documented by: [id number] Admin: 03/01/20 20:43 Dose: 25 mg Documented by: [id number] Admin: 03/01/20 17:51 Dose: 25 mg Documented by: [id number] Admin: 03/01/20 12:34 Dose: 25 mg Documented by: [id number] Admin: 03/01/20 09:13 Dose: 25 mg Documented by: [id number] Admin: 02/29/20 20:40 Dose: 25 mg Documented by: [id number] Admin: 02/29/20 17:43 Dose: 25 mg Documented by: [id number] Admin: 02/29/20 13:05 Dose: 25 mg Documented by: [id number] Admin: 02/29/20 08:21 Dose: 25 mg Documented by: [id number] Admin: 02/28/20 20:21 Dose: Not Given Documented by: [id number] Admin: 02/28/20 19:50 Dose: 25 mg Documented by: [id number] Lorazepam (Ativan) 1 mg in 2 mls @ 2 mls/min IV UD PRN; Protocol PRN Reason: EtOH Withdrawl AWSS Score 6,7 Stop: 03/29/20 18:21 Last Admin: 03/02/20 05:28 Dose: 2 mls/min Documented by: [id number] Admin: 03/01/20 21:22 Dose: 2 mls/min Documented by: [id number] Admin: 03/01/20 15:25 Dose: 2 mls/min Documented by: [id number] Admin: 03/01/20 09:52 Dose: 2 mls/min Documented by: [id number] Admin: 03/01/20 02:39 Dose: 2 mls/min Documented by: [id number] Admin: 02/29/20 21:03 Dose: 1 mls/min Documented by: [id number] Admin: 02/29/20 18:27 Dose: 2 mls/min Documented by: [id number] Lorazepam (Ativan) 2 mg in 4 mls @ 4 mls/min IV UD PRN; Protocol PRN Reason: EtOH Withdrawl AWSS Score 8,9 Stop: 03/29/20 18:21 Last Admin: 02/29/20 14:24 Dose: 4 mls/min Documented by: [id number] Lorazepam (Ativan) 1 mg in 2 mls @ 2 mls/min IV Q8 PRN PRN Reason: Anxiety Stop: 03/31/20 18:29 Last Admin: 03/02/20 11:26 Dose: 2 mls/min Documented by: [id number] Insulin Aspart (Novolog Flexpen) 0 units SC ACHS [facility]; Protocol Stop: 03/30/20 13:59 Last Admin: 03/02/20 08:36 Dose: 8 units Documented by: [id number] Cosigned by: [id number] Admin: 03/01/20 21:34 Dose: Not Given Documented by: [id number] Cosigned by: [id number] Admin: 03/01/20 17:54 Dose: 6 units Documented by: [id number] Cosigned by: [id number] Admin: 03/01/20 12:33 Dose: 6 units Documented by: [id number] Cosigned by: [id number] Admin: 03/01/20 09:18 Dose: 6 units Documented by: [id number] Cosigned by: [id number] Admin: 02/29/20 19:59 Dose: Not Given Documented by: [id number] Cosigned by: [id number] Admin: 02/29/20 17:46 Dose: 6 units Documented by: [id number] Cosigned by: [id number] Admin: 02/29/20 16:07 Dose: Not Given Documented by: [id number] Cosigned by: [id number] Insulin Glargine ([facility]us Solostar Pen) [facility] [place]; Protocol Stop: 03/31/20 08:59 Last Admin: 03/02/20 08:35 Dose: 16 units Documented by: [id number] Cosigned by: [id number] Admin: 03/01/20 09:19 Dose: 16 units Documented by: [id number] Cosigned by: [id number] Labetalol HCl (Normodyne) 5 mg IV Q8H PRN PRN Reason: SYSTOLIC BP >160 Stop: 03/29/20 18:42 Last Admin: 03/01/20 03:50 Dose: 5 mg Documented by: [id number] Cosigned by: [id number] Losartan Potassium (Cozaar) 100 mg PO DAILY [facility] Stop: 03/30/20 08:59 Last Admin: 03/02/20 07:37 Dose: 100 mg Documented by: [id number] Admin: 03/01/20 09:12 Dose: 100 mg Documented by: [id number] Admin: 02/29/20 08:23 Dose: 100 mg Documented by: [id number] Metoprolol Tartrate (Lopressor) 50 mg PO BID [facility] Stop: 03/29/20 20:59 Last Admin: 03/02/20 07:37 Dose: 50 mg Documented by: [id number] Admin: 03/01/20 20:43 Dose: 50 mg Documented by: [id number] Admin: 03/01/20 09:10 Dose: 50 mg Documented by: [id number] Admin: 02/29/20 20:38 Dose: 50 mg Documented by: [id number] Admin: 02/29/20 08:22 Dose: 50 mg Documented by: [id number] Admin: 02/28/20 21:50 Dose: 50 mg Documented by: [id number] Miscellaneous (Remove Nicoderm Patch) 1 ea N/A DAILY@2058 [facility] Stop: 03/30/20 20:58 Last Admin: 03/01/20 20:42 Dose: 1 ea Documented by: [id number] Admin: 02/29/20 20:40 Dose: 1 ea Documented by: [id number] Nicotine (Nicoderm Cq) 21 mg TD HS [facility] Stop: 03/29/20 20:34 Last Admin: 03/01/20 20:42 Dose: 21 mg Documented by: [id number] Admin: 02/29/20 20:37 Dose: 21 mg Documented by: [id number] Admin: 02/28/20 21:50 Dose: 21 mg Documented by: [id number] Nystatin (Mycostatin) 5 ml PO QID [facility] Stop: 03/09/20 18:21 Last Admin: 03/02/20 07:38 Dose: 5 ml Documented by: [id number] Admin: 03/01/20 20:42 Dose: 5 ml Documented by: [id number] Admin: 03/01/20 17:50 Dose: 5 ml Documented by: [id number] Admin: 03/01/20 12:34 Dose: 5 ml Documented by: [id number] Admin: 03/01/20 09:14 Dose: 5 ml Documented by: [id number] Admin: 02/29/20 20:40 Dose: 5 ml Documented by: [id number] Admin: 02/29/20 17:43 Dose: 5 ml Documented by: [id number] Admin: 02/29/20 13:33 Dose: 5 ml Documented by: [id number] Admin: 02/29/20 08:20 Dose: 5 ml Documented by: [id number] Admin: 02/28/20 20:20 Dose: Not Given Documented by: [id number] Admin: 02/28/20 19:33 Dose: 5 ml Documented by: [id number] Pantoprazole Sodium (Protonix) 40 mg PO BID [facility] Stop: 03/30/20 20:59 Last Admin: 03/02/20 07:37 Dose: 40 mg Documented by: [id number] Admin: 03/01/20 20:43 Dose: 40 mg Documented by: [id number] Admin: 03/01/20 09:10 Dose: 40 mg Documented by: [id number] Admin: 02/29/20 20:39 Dose: 40 mg Documented by: [id number] Rosuvastatin Calcium (Crestor) 40 mg PO DAILY [facility] Stop: 03/30/20 08:59 Last Admin: 03/02/20 07:37 Dose: 40 mg Documented by: [id number] Admin: 03/01/20 09:12 Dose: 40 mg Documented by: [id number] Admin: 02/29/20 08:22 Dose: 40 mg Documented by: [id number] Sertraline HCl (Zoloft) 25 mg PO DAILY [facility] Stop: 03/30/20 08:59 Last Admin: 03/02/20 07:38 Dose: 25 mg Documented by: [id number] Admin: 03/01/20 09:11 Dose: 25 mg Documented by: [id number] Admin: 02/29/20 08:22 Dose: 25 mg Documented by: [id number] Trazodone HCl (Desyrel) 50 mg PO HS [facility] Stop: 03/29/20 20:59 Last Admin: 03/01/20 20:42 Dose: 50 mg Documented by: [id number] Admin: 02/29/20 20:39 Dose: 50 mg Documented by: [id number] Admin: 02/28/20 21:50 Dose: 50 mg Documented by: [id number] Coding Level of Care Code 60284 U Intl Hosp Care Lvl 2
--- NOTE | 2020-03-02 17:15 | Hospitalist Progress Note ---
Date of Service March 02, 2020 Assessment & Plan (1) Alcohol withdrawal: noted to have tremors , anxiety attack continue to assess withdrawal protocol and PRN ativan as needed for symptom control due to addictive potential and ETOH abuse pt should not be discharged on any BDZ or narcotics ordered for tele monitoring (2) Esophagitis: -presented with cough , followed by post tussive emesis symptom has resolved -CT abd/pelvis suggesting distal esophagitis -appreciate input from GI recommends out pt EGD and EUS tolerating solid diet no complain of nausea /vomiting PPI change to po 40 mg BID (3) Bronchitis: -CXR negative for acute pulmonary findings -conitnue Augmentin as prescribed as an outpatient improvement of cough no fever or chills (4) Alcohol abuse: -drinks 3-4 beers and 2-3 shots/day - -on , alcohol withdrawal protocol with gabapentin (5) CAD (coronary artery disease): -stable, no reports of chest pain -continue ASA, statin, and beta beni (6) DM type 1 (diabetes mellitus, type 1): -hgb a1c 6.2 10/2019 -managed with Novolog and Lantus at home -glycemic pharmacy consult -appreciated (7) Hypertension: - -continue losartan, metoprolol, and hydralazine (8) Dyslipidemia: (9) Hypertriglyceridemia: -continue statin and gemfibrozil (10) Anxiety: pt reports of severe anxiety episodes /panic attack required PRN ativan pt is counselled due to addiction risk he will not be prescribed any BDZ on discharge Psych eval appreciated Zoloft dose increased to 50 mg daily /decrease dose of wellbutrin to 150 Trazodone 100 mg hs continue to monitor no suicidal ideation SATYA : uses CPAP at night nocturnal pulse oximetry to assess night time 02 need FULL CODE DISPOSITION: discharge home when medically stable (11) DVT prophylaxis: -SCDs for now DISPOSITION : discharge home tomorrow after Psych consult Admission and Anticipated Discharge Date Admission Date: February 28, 2020 Subjective complains of panic attack visible tremors noted no hallucination /delusion or confusion Review of Systems Review of Systems: All systems reviewed & are unremarkable except as noted in HPI & below Physical Exam Constitutional: WD/WN, vitals as above + ill appearing; no acute distress Eyes: PERRL, conjunctivae normal, anicteric sclerae ENMT: external ear and nose normal, oropharynx normal Neck: trachea midline, no thyromegaly Respiratory: normal respiratory effort, lungs clear to auscultation Cardiovascular: RRR, no murmur, no edema Gastrointestinal (Abdomen): normal bowel sounds, soft, nontender, no hepatosplenomegaly Musculoskeletal: no cyanosis or clubbing, extremities motor strength 5/5 Skin: no rashes, warm and dry Neurologic: PERRL, EOMI, accommodation nl, no face palsy, no dysarthria Psychiatric: A+Ox3, euthymic affect Results & Data Results & Data ([facility]) Vital Signs (Past 12 Hours) Vital Signs Temp Pulse Resp BP BP Pulse Ox 03/02/20 16:18 36.6 C 75 18 123/88 100 03/02/20 14:00 37.2 C 68 18 153/80 H 98 03/02/20 10:00 36.4 C L 66 20 156/84 H 100 03/02/20 08:06 37.2 C 61 18 131/77 96 (1) Alcohol withdrawal Complication of substance-induced condition: with unspecified complication Qualified Code(s): F10.239 - Alcohol dependence with withdrawal, unspecified
[2020-03-02] MEDS: BENZONATATE 100 MG CAPSULE PO PRN (19:27)
[2020-03-02] MEDS: TRAZODONE HCL 100 MG TAB PO SCH (19:58)
[2020-03-02] MEDS: NICOTINE 21 MG/24 HR TDSY TD SCH (20:30)
[2020-03-02] MEDS ORDERED: BuPROPion XL 150 MG TABCR PO SCH (21:00)
[2020-03-03] MEDS ORDERED: CALCIUM CARBONATE 500 MG CHEWABLE TAB PO PRN (00:10)
[2020-03-03] MEDS: LORazepam 1 MG/2 ML VIAL IV PRN (03:39)
[2020-03-03 05:49] LABS: Basophils # (auto) 0.02 K/uL (0-0.2); Basophils % (auto) 0.2 %; Eosinophils # (auto) 0.11 K/uL (0-0.5); Eosinophils % (auto) 1.4 %; Hematocrit (blood only) 32.9 % (42-52); Hemoglobin 11.2 g/dL (14.0-18.0); Immature Granulocytes # (auto) 0.02 K/uL (0.00-0.02); Immature Granulocytes % (auto) 0.2 %; Lymphocytes # (auto) 1.15 K/uL (1.2-3.4); Lymphocytes % (auto) 14.3 %; Mean Corpuscular Hemoglobin 32.7 pg (25-34); Mean Corpuscular Volume 95.9 fL (80-100); Mean Platelet Volume 10.3 fL (7.4-10.4); Monocytes # (auto) 0.58 K/uL (0.11-0.59); Monocytes % (auto) 7.2 %; Neutrophils # (auto) 6.15 K/uL (1.4-6.5); Neutrophils % (auto) 76.7 %; Platelet Count 120 K/uL (130-400); RDW Coefficient of Variation 13.6 % (11.5-14.5); RDW Standard Deviation 47.1 fL (36.4-46.3); Red Blood Count 3.43 M/uL (4.7-6.1); White Blood Count 8.03 K/uL (4.8-10.8)
[2020-03-03] MEDS ORDERED: GABAPENTIN 600 MG TAB PO SCH (06:00)
[2020-03-03 06:22] LABS: BUN Creatinine Ratio 10.3 (10-20); Calcium 8.9 mg/dl (8.5-10.1); Creatinine Clr Calc Pharmacy 61.9 ml/min; Est GFR (African American) 73.9; Est GFR (Non-African American) 63.8; Magnesium 1.8 mg/dl (1.8-2.4); Potassium 3.7 mmol/L (3.5-5.1)
[2020-03-03] MEDS: gemfibroziL 600 MG TAB PO SCH ×2 (07:55→20:17)
[2020-03-03] MEDS: SERTRALINE HCL 50 MG TABLET PO SCH (07:55)
[2020-03-03] MEDS: ASPIRIN 81 MG ECTAB PO SCH (07:56)
[2020-03-03] MEDS: METOPROLOL TARTRATE 50 MG TAB PO SCH ×2 (07:56→20:17)
[2020-03-03] MEDS: AMOXICILLIN/CLAVULANATE 875 MG TAB PO SCH ×2 (07:57→17:06)
[2020-03-03] MEDS: ROSUVASTATIN CALCIUM 20 MG TAB PO SCH (07:58)
[2020-03-03] MEDS: LOSARTAN POTASSIUM 50 MG TAB PO SCH (07:58)
[2020-03-03] MEDS: NYSTATIN SUSP 500,000 U/5 ML UDC PO SCH ×4 (07:59→20:17)
[2020-03-03] MEDS: PANTOprazole 40 MG TAB PO SCH ×2 (07:59→20:27)
[2020-03-03] MEDS: BENZONATATE 100 MG CAPSULE PO PRN (08:01)
[2020-03-03] MEDS ORDERED: ONDANSETRON INJ 2 MG/ML 2 ML VIAL IV PRN (08:23)
[2020-03-03] MEDS ORDERED: POLYETHYLENE (MIRALAX) 17 GM PACK PO PRN (08:23)
[2020-03-03] MEDS ORDERED: POLYETHYLENE (MIRALAX) 17 GM PACK PO ONE (08:25)
[2020-03-03] MEDS: INSULIN GLARGINE SOLOSTAR 100 UNITS/ML 3 ML PEN SC SCH (08:43)
[2020-03-03] MEDS: INSULIN ASPART 100 UNITS/ML 3 ML PEN SC SCH ×4 (08:44→20:20)
[2020-03-03] MEDS: BuPROPion XL 150 MG TABCR PO SCH (09:28)
--- NOTE | 2020-03-03 16:42 | Hospitalist Progress Note ---
Date of Service March 03, 2020 Assessment & Plan (1) Alcohol withdrawal: noted to have tremors , anxiety attack continue to assess withdrawal protocol and PRN ativan as needed for symptom control due to addictive potential and ETOH abuse pt should not be discharged on any BDZ or narcotics ordered for tele monitoring (2) Esophagitis: -presented with cough , followed by post tussive emesis symptom has resolved -CT abd/pelvis suggesting distal esophagitis -appreciate input from GI recommends out pt EGD and EUS tolerating solid diet no complain of nausea /vomiting PPI change to po 40 mg BID (3) Bronchitis: -CXR negative for acute pulmonary findings -conitnue Augmentin as prescribed as an outpatient improvement of cough no fever or chills (4) Alcohol abuse: -drinks 3-4 beers and 2-3 shots/day - -on , alcohol withdrawal protocol with gabapentin (5) CAD (coronary artery disease): -stable, no reports of chest pain -continue ASA, statin, and beta beni (6) DM type 1 (diabetes mellitus, type 1): -hgb a1c 6.2 10/2019 -managed with Novolog and Lantus at home -glycemic pharmacy consult -appreciated (7) Hypertension: - -continue losartan, metoprolol, and hydralazine (8) Dyslipidemia: (9) Hypertriglyceridemia: -continue statin and gemfibrozil (10) Anxiety: pt reports of severe anxiety episodes /panic attack required PRN ativan pt is counselled due to addiction risk he will not be prescribed any BDZ on discharge Psych eval appreciated Zoloft dose increased to 50 mg daily /decrease dose of wellbutrin to 150 Trazodone 100 mg hs continue to monitor no suicidal ideation SATYA : uses CPAP at night nocturnal pulse oximetry to assess night time 02 need FULL CODE DISPOSITION: discharge home when medically stable (11) DVT prophylaxis: -SCDs for now DISPOSITION : discharge home tomorrow after Psych consult Admission and Anticipated Discharge Date Admission Date: February 28, 2020 Subjective complains of nausea , abdominal pain anxiety and tremor improved no fever or chills Physical Exam Constitutional: WD/WN, vitals as above + ill appearing; no acute distress Eyes: PERRL, conjunctivae normal, anicteric sclerae ENMT: external ear and nose normal, oropharynx normal Neck: trachea midline, no thyromegaly Respiratory: normal respiratory effort, lungs clear to auscultation Cardiovascular: RRR, no murmur, no edema Gastrointestinal (Abdomen): normal bowel sounds, soft, nontender, no hepatosplenomegaly Musculoskeletal: no cyanosis or clubbing, extremities motor strength 5/5 Skin: no rashes, warm and dry Neurologic: PERRL, EOMI, accommodation nl, no face palsy, no dysarthria Psychiatric: A+Ox3, euthymic affect Results & Data Results & Data ([facility]) Vital Signs (Past 12 Hours) Vital Signs Temp Pulse Pulse Resp BP Pulse Ox 03/03/20 15:24 36.8 C 64 18 147/83 H 96 03/03/20 14:20 68 03/03/20 11:14 37.1 C 64 18 175/90 H 97 03/03/20 09:01 60 161/84 H 03/03/20 06:45 37.0 C 66 18 184/90 H 99 (1) Alcohol withdrawal Complication of substance-induced condition: with unspecified complication Qualified Code(s): F10.239 - Alcohol dependence with withdrawal, unspecified
[2020-03-03] MEDS: TRAZODONE HCL 100 MG TAB PO SCH (20:18)
[2020-03-03] MEDS: NICOTINE 21 MG/24 HR TDSY TD SCH (20:20)
[2020-03-04] MEDS: AMOXICILLIN/CLAVULANATE 875 MG TAB PO SCH (07:46)
[2020-03-04] MEDS: PANTOprazole 40 MG TAB PO SCH (07:46)
[2020-03-04] MEDS: NYSTATIN SUSP 500,000 U/5 ML UDC PO SCH (07:46)
[2020-03-04] MEDS: SERTRALINE HCL 50 MG TABLET PO SCH (07:47)
[2020-03-04] MEDS: BuPROPion XL 150 MG TABCR PO SCH (07:48)
[2020-03-04] MEDS: ROSUVASTATIN CALCIUM 20 MG TAB PO SCH (07:48)
[2020-03-04] MEDS: gemfibroziL 600 MG TAB PO SCH (07:49)
[2020-03-04] MEDS: METOPROLOL TARTRATE 50 MG TAB PO SCH (07:49)
[2020-03-04] MEDS: LOSARTAN POTASSIUM 50 MG TAB PO SCH (07:49)
[2020-03-04] MEDS: ASPIRIN 81 MG ECTAB PO SCH (07:50)
[2020-03-04] MEDS: INSULIN GLARGINE SOLOSTAR 100 UNITS/ML 3 ML PEN SC SCH (08:41)
[2020-03-04] MEDS: INSULIN ASPART 100 UNITS/ML 3 ML PEN SC SCH ×2 (08:44→12:37)
--- NOTE | 2020-03-04 12:12 | Discharge Summary ---
Date of Service March 04, 2020 Admission HPI Per Admitting Provider 54 year old male with PMH DM type I, CAD, pancreatitis, alcohol abuse, and other problems listed below who presents to the ED with reports of persistent cough, nausea, and vomiting. Patient reports symptoms have been present for two weeks. He was tested for COVID-19 on 02/24 which was negative. Patient was given Augmentin and tessalon pearls a couple of days ago and reports some improvement. Patient reports vomiting mostly associated with severe coughing episodes, some not associated with coughing. Reports cough has been productive for white/yellow sputum. Denies hematemesis and coffee ground emesis. No abdominal pain or diarrhea. Appetite has been poor. Reports blood sugars have been well controlled. Denies chest pain and shortness of breath. No fevers or chills. Denies lightheadedness, dizziness, diaphoresis, and syncopal events. No urinary symptoms. In the ED, patient is hypertensive and slightly tachycardic. Labs are remarkable for WBC 14K and creat 1.5 (up from baseline ~ 1.0). Patient was given folic acid, lorazapem 1mg IV X 2, IV Mg+, banana bag, IV prochlorperazine, IV Thiamine. CXR negative for acute cardiopulmonary findings. CT abd/pelvis suggestting distal esophagitis. Admission Exam Per Admitting Provider Constitutional: WD/WN, vitals as above Eyes: PERRL, conjunctivae normal, anicteric sclerae ENMT: external ear and nose normal, oropharynx normal Respiratory: normal respiratory effort, lungs clear to auscultation + cough (dry, non productive ) Cardiovascular: Rate/Rhythm: regular rhythm; + abnormal rate (slightly tachycardic) Vessels: normal peripheral pulses Extremities: no edema Gastrointestinal (Abdomen): normal bowel sounds, soft, nontender, no hepatosplenomegaly Musculoskeletal: no cyanosis or clubbing, extremities motor strength 5/5 Skin: no rashes, warm and dry Neurologic: PERRL, EOMI, accommodation nl, no face palsy, no dysarthria Psychiatric: A+Ox3, euthymic affect Principal Diagnosis ESOPHAGITIS /ALCOHOL ABUSE / TONG Alcohol withdrawal Anxiety Discharge Exam Constitutional: Middle-aged male sitting up in bed, in no acute distress, WD/WN Vital signs: Blood pressure 114/71, heart rate 59, respirations 20/min , temperature 36.4 C, O2 sats 92% on room air Eyes: EOMI, PERRL, conjunctivae normal, anicteric sclerae ENMT: external ear and nose normal, oropharynx normal Neck: trachea midline, no thyromegaly Respiratory: normal respiratory effort, lungs clear to auscultation b/l, no wheezing, rhonchi or crackles noted Cardiovascular: RRR, no murmur, no edema Gastrointestinal (Abdomen): normal bowel sounds, soft, nontender to palpation, nondistended Musculoskeletal: no cyanosis or clubbing, extremities motor strength 5/5 Skin: no rashes, warm and dry Neurologic: PERRL, EOMI, accommodation nl, no face palsy, no dysarthria, moves extremities spontaneously Psychiatric: A+Ox3, euthymic affect Discharge Data Allergies Allergy/AdvReac Type Severity Reaction Status Date / Time naproxen Allergy Unknown Hives Verified 10/24/19 16:09 tramadol Allergy Unknown Unknown Verified 10/24/19 16:09 Consultations 02/28/20 15:30 ED Decision to Admit Stat 02/28/20 18:22 Consult Gastroenterology Routine 03/01/20 18:33 Consult Psychiatry Routine Ordered Studies 02/28/20 13:46 CT abd pelvis wo con Stat IMPRESSION: 1. Distal esophageal wall thickening with mild periesophageal inflammation is suspicious for esophagitis. These findings could be correlated with endoscopy. 2. No bowel obstruction or bowel wall thickening. Normal appendix. 3. Cholelithiasis. 4. Moderate urinary bladder distention with prostamegaly. CXR 02/28/20 IMPRESSION: 1. Minimal if any bibasilar atelectasis. No convincing evidence of acute cardiopulmonary disease. 2. Mild cardiomegaly may be present. Hospital Course (1) Alcohol withdrawal: noted to have tremors , anxiety attack - on withdrawal protocol and PRN ativan as needed for symptom control - due to addictive potential and ETOH abuse pt should not be discharged on any BDZ or narcotics - tele monitoring -Discussed with the patient and nursing, currently no signs or symptoms of alco hol withdrawal, patient denies any hallucinations, vital signs normal, patient is inquiring about going home -Counseled pt about alcohol abstinence, patient agrees to be abstinent from alcohol -Advised to discuss further with primary care provider regarding psychiatry/psychology counseling and follow-up (2) Esophagitis: - presented with cough, followed by post tussive emesis - symptom has resolved -CT abd/pelvis suggesting distal esophagitis -appreciate input from GI - recommends out pt EGD and EUS - pt is tolerating solid diet - no complain of nausea /vomiting - PPI change to po 40 mg BID (3) Bronchitis: -CXR negative for acute pulmonary findings -cont. Augmentin as prescribed as an outpatient - improvement of cough - no fever or chills (4) Alcohol abuse: -drinks 3-4 beers and 2-3 shots/day -while inpt, alcohol withdrawal protocol with gabapentin -Currently no signs or symptoms of alcohol withdrawal, plan to discharge patient home today -Recommend continued outpatient counseling -Counseled patient on alcohol abstinence while inpatient (5) CAD (coronary artery disease): -stable, no reports of chest pain -continue ASA, statin, and beta beni (6) DM type 1 (diabetes mellitus, type 1): -hgb a1c 6.2 % 10/2019 -managed with Novolog and Lantus at home (7) Hypertension: -continue losartan, metoprolol, and hydralazine (8) Dyslipidemia: (9) Hypertriglyceridemia: -continue statin and gemfibrozil (10) Anxiety: pt reported severe anxiety episodes /panic attack required PRN ativan pt counselled due to addiction risk he will not be prescribed any BDZ on discharge Psychiatry consulted Zoloft dose increased to 50 mg daily /decrease dose of wellbutrin to 150 mg daily Trazodone 100 mg hs - no suicidal ideation -Currently feels well, denies any anxiety, says the medication change seems to be helpful, plan to discharge home with his SATYA : uses CPAP at night nocturnal pulse oximetry obtained, no need for supplemental O2 FULL CODE DISPOSITION: discharge home today with his Follow-up with primary care provider on March 06 Total Time Total Time Spent Total Time Spent (In Minutes): 40 Total Time Includes: Examination of the Patient, Discharge Planning, Medication Reconciliation and Communication With Other Providers Discharge Plan Discharge Items Patient Disposition: Home - Self-Care Reason For Visit: TONG,ESOPHAGITIS Discharge Diagnosis: ESOPHAGITIS /ALCOHOL ABUSE / TONG Alcohol withdrawal Anxiety Activity: Resume your previous activity Non-emergency contact: Primary Care Provider Call non-emergency contact if: you have any medication questions Follow-up/Referrals: Jennifer Monroe MD [Primary Care Provider] - 03/06/20 9:00 am (03/06/2020 9:00 AM Dotty Freire MD Internal Medicine [facility] ) Diet: Heart Healthy Addtl Attending Provider Instructions: Follow up with your primary care doctor on March 06. Complete abstinence from alcohol is crucial for you. Discuss with your primary care doctor if you would benefit from further psychiatry/psychology evaluation and counseling. You were evaluated by psychiatry here, for your anxiety, and it was recommended that Zoloft is increased to 50 mg daily, Wellbutrin decreased to 150 mg daily and trazodone increased to 100 mg nightly. For further evaluation of your esophagitis, you will need to follow-up with the gastroenterology, plan for outpatient EGD and EUS studies. Take pantoprazole 40 mg twice a day until instructed differently from gastroenterology or primary care doctor. Discuss with the primary care provider at your next appointment when it is appro priate for you to return to work. Do not recommend to return to work until you see your primary care doctor. Pending Studies at Discharge: Yes Stand-Alone Forms: My [facility], Work/School Release (Inpt), Smoking Cessation Medications and DC Order Prescriptions: New bupropion HCl 150 mg Tablet Extended Release 24 Hr 150 mg PO QAM 10 Days Qty: 10 RF: 0 sertraline 50 mg Tablet 50 mg PO DAILY 10 Days Qty: 10 RF: 0 pantoprazole 40 mg Tablet,Delayed Release (Dr/Ec) 40 mg PO BID 30 Days Qty: 60 RF: 0 trazodone 100 mg Tablet 100 mg PO HS 10 Days Qty: 10 RF: 0 Continued ondansetron HCl 4 mg tablet 4 mg PO UD PRN (Reason: Nausea) RF: 0 benzonatate 100 mg capsule 100 mg PO TID PRN (Reason: Cough) RF: 0 amoxicillin-pot clavulanate 875-125 mg tablet 1 tab PO BID RF: 0 hydralazine 25 mg Tablet 25 mg PO QID RF: 0 aspirin 81 mg Tablet,Delayed Release (Dr/Ec) 81 mg PO DAILY RF: 0 gemfibrozil 600 mg Tablet 600 mg PO BID RF: 0 metoprolol tartrate 50 mg Tablet 50 mg PO BID RF: 0 albuterol sulfate [ProAir HFA] 90 mcg/actuation Hfa Aerosol Inhaler 2 puff INHALATION Q4H PRN (Reason: Wheezing) RF: 0 losartan 100 mg Tablet 100 mg PO DAILY RF: 0 insulin aspart U-100 [Novolog Flexpen U-100 Insulin] 100 unit/mL (3 mL) Insulin Pen See Rx Instructions .ROUTE .COMPLEX RF: 0 Lantus Solostar U-100 Insulin 100 unit/mL (3 mL) Insulin Pen 16 unit SUBCUT DAILY RF: 0 rosuvastatin 40 mg Tablet 40 mg PO DAILY RF: 0 Discontinued sertraline 25 mg tablet 25 mg PO DAILY RF: 0 trazodone 50 mg Tablet 50 mg PO HS RF: 0 bupropion HCl 300 mg Tablet Extended Release 24 Hr 300 mg PO HS RF: 0 Discharge Orders: Discharge Order (Routine); Ordered 03/04/20 Ordered By: Hernando Curtis/Other Patient Handouts: Alcoholism Resources, Addiction Alcohol, Anxiety Disorder Admission Data Admit Date/Time: 02/28/20 16:04 Attending Provider: Hernando Melendez Admit Provider: Mal Wall Primary Care Provider: Jennifer Monroe Other Providers: Mal Wall ; Susie Stevens ; Beti Majano ; Annita Blandon
--- NOTE | 2020-03-04 12:23 | Hospitalist Progress Note ---
Date of Service March 04, 2020 Assessment & Plan (1) Alcohol withdrawal: noted to have tremors , anxiety attack - on withdrawal protocol and PRN ativan as needed for symptom control - due to addictive potential and ETOH abuse pt should not be discharged on any BDZ or narcotics - tele monitoring -Discussed with the patient and nursing, currently no signs or symptoms of alcohol withdrawal, patient denies any hallucinations, vital signs normal, patient is inquiring about going home -Counseled pt about alcohol abstinence, patient agrees to be abstinent from alcohol -Advised to discuss further with primary care provider regarding psychiatry/psychology counseling and follow-up (2) Esophagitis: -presented with cough , followed by post tussive emesis - symptom has resolved -CT abd/pelvis suggesting distal esophagitis -appreciate input from GI - recommends out pt EGD and EUS - pt is tolerating solid diet - no complain of nausea /vomiting - PPI change to po 40 mg BID (3) Bronchitis: -CXR negative for acute pulmonary findings -cont. Augmentin as prescribed as an outpatient - improvement of cough - no fever or chills (4) Alcohol abuse: -drinks 3-4 beers and 2-3 shots/day -while inpt, alcohol withdrawal protocol with gabapentin -Currently no signs or symptoms of alcohol withdrawal, plan to discharge patient home today -Recommend continued outpatient counseling -Counseled patient on alcohol abstinence while inpatient (5) CAD (coronary artery disease): -stable, no reports of chest pain -continue ASA, statin, and beta beni (6) DM type 1 (diabetes mellitus, type 1): -hgb a1c 6.2 10/2019 -managed with Novolog and Lantus at home -glycemic pharmacy consult -appreciated (7) Hypertension: -continue losartan, metoprolol, and hydralazine (8) Dyslipidemia: (9) Hypertriglyceridemia: -continue statin and gemfibrozil (10) Anxiety: pt reported severe anxiety episodes /panic attack required PRN ativan pt counselled due to addiction risk he will not be prescribed any BDZ on discharge Psychiatry eval appreciated Zoloft dose increased to 50 mg daily /decrease dose of wellbutrin to 150 mg daily Trazodone 100 mg hs continue to monitor no suicidal ideation -Currently feels well, denies any anxiety, says the medication change seems to be helpful, plan to discharge home with his SATYA : uses CPAP at night nocturnal pulse oximetry obtained, no need for supplemental O2 FULL CODE DISPOSITION: discharge home today with his Follow-up with primary care provider on March 06 Admission and Anticipated Discharge Date Admission Date: February 28, 2020 Subjective No acute events overnight. Patient is sitting up in bed, in no acute distress, inquiring about going home. He denies any tremors, hallucinations visual or tactile. No nausea or vomiting, tolerates diet well. Also denies any abdominal pain, fevers chills, cough, shortness of breath or chest pain. Says that previously he had bad cough but that has resolved now. States that his will be picking him up earlier if possible as she has to go to work. Discussed alcohol cessation and follow-up with primary care provider as well as follow-up with gastroenterology. Patient is aware and understands. Plans to follow-up with primary care doctor this Monday and agrees to alcohol abstinence. Discussed medication changes by psychiatry, patient is well aware as well, tolerated changes well. Review of Systems Review of Systems: All systems reviewed & are unremarkable except as noted in HPI & below Constitutional: no fever and no chills Respiratory: no cough and no dyspnea Cardiovascular: no chest pain, no palpitations and no edema Gastrointestinal: no abdominal pain, no nausea and no vomiting Genitourinary: no dysuria Neurologic: no tremor(s) Psychiatric: no hallucinations, no auditory hallucinations and no tactile hallucinations Physical Exam Physical Exam: Constitutional: Middle-aged male sitting up in bed, in no acute distress, WD/WN Eyes: EOMI, PERRL, conjunctivae normal, anicteric sclerae ENMT: external ear and nose normal, oropharynx normal Neck: trachea midline, no thyromegaly Respiratory: normal respiratory effort, lungs clear to auscultation b/l, no wheezing, rhonchi or crackles noted Cardiovascular: RRR, no murmur, no edema Gastrointestinal (Abdomen): normal bowel sounds, soft, nontender to palpation, nondistended Musculoskeletal: no cyanosis or clubbing, extremities motor strength 5/5 Skin: no rashes, warm and dry Neurologic: PERRL, EOMI, accommodation nl, no face palsy, no dysarthria, moves extremities spontaneously Psychiatric: A+Ox3, euthymic affect Results & Data Results & Data ([facility]) Vital Signs (Past 12 Hours) Vital Signs Temp Pulse Resp BP BP Pulse Ox 03/04/20 11:44 36.4 C L 59 L 20 114/71 92 03/04/20 07:23 37.1 C 63 20 153/84 H 93 03/04/20 03:41 37.1 C 75 20 114/62 98 Laboratory Results 03/04/20 03/04/20 03/03/20 Range/Units 11:45 07:35 20:08 POC Glucose 164 H 171 H 150 H (70-99) mg/dl 03/03/20 Range/Units 16:34 POC Glucose 205 H (70-99) mg/dl Medications Administered Current Inpatient Medications Acetaminophen (Tylenol) 650 mg PO Q4H PRN PRN Reason: pain/fever Stop: 03/29/20 18:21 Last Admin: 03/02/20 15:32 Dose: 650 mg Documented by: Albuterol (Ventolin Hfa) 2 puffs INH Q4H PRN; Protocol PRN Reason: Wheezing Stop: 03/31/20 19:19 Amoxicillin/Clavulanate Potassium (Augmentin 875mg) 1 tab PO BIDM [facility]; Protocol Stop: 03/06/20 19:59 Last Admin: 03/04/20 07:46 Dose: 1 tab Documented by: Aspirin (Ecotrin Ectab) 81 mg PO DAILY [facility] Stop: 03/30/20 08:59 Last Admin: 03/04/20 07:50 Dose: 81 mg Documented by: Benzonatate (Tessalon Perle) 100 mg PO TID PRN PRN Reason: Cough Stop: 03/29/20 18:21 Last Admin: 03/03/20 08:01 Dose: 100 mg Documented by: Bupropion HCl (Wellbutrin-Xl) 150 mg PO QAM [facility] Stop: 04/02/20 08:59 Last Admin: 03/04/20 07:48 Dose: 150 mg Documented by: Calcium Carbonate (Tums) 500 mg PO BID PRN PRN Reason: Indigestion Stop: 04/02/20 00:09 Last Admin: 03/03/20 00:53 Dose: 500 mg Documented by: Dextrose (Dextrose 50%) 25 - 50 ml IV UD PRN; Protocol PRN Reason: Hypoglycemia Protocol Stop: 03/29/20 20:44 Gemfibrozil (Lopid) 600 mg PO BID [facility] Stop: 03/29/20 20:59 Last Admin: 03/04/20 07:49 Dose: 600 mg Documented by: Glucagon (Glucagen) 1 mg IM UD PRN; Protocol PRN Reason: Hypoglycemia Protocol Stop: 03/29/20 20:44 Glucose (Glucose 40%) 15 - 30 gm PO UD PRN; Protocol PRN Reason: Hypoglycemia Protocol Stop: 03/29/20 20:44 Glucose (Dex4 Glucose) 4 - 8 tabs PO UD PRN; Protocol PRN Reason: Hypoglycemia Protocol Stop: 03/29/20 20:44 Hydralazine HCl (Apresoline) 25 mg PO QID [facility] Stop: 03/29/20 18:21 Last Admin: 03/04/20 07:48 Dose: 25 mg Documented by: Lorazepam (Ativan) 1 mg in 2 mls @ 2 mls/min IV UD PRN; Protocol PRN Reason: EtOH Withdrawl AWSS Score 6,7 Stop: 03/29/20 18:21 Last Admin: 03/02/20 17:51 Dose: 2 mls/min Documented by: Lorazepam (Ativan) 2 mg in 4 mls @ 4 mls/min IV UD PRN; Protocol PRN Reason: EtOH Withdrawl AWSS Score 8,9 Stop: 03/29/20 18:21 Last Admin: 02/29/20 14:24 Dose: 4 mls/min Documented by: Lorazepam (Ativan) 3 mg in 6 mls @ 4 mls/min IV ONCE PRN; Protocol PRN Reason: EtOH Withdrawl AWSS Score >=10 Stop: 03/29/20 18:21 Lorazepam (Ativan) 1 mg in 2 mls @ 2 mls/min IV Q8 PRN PRN Reason: Anxiety Stop: 03/31/20 18:29 Last Admin: 03/03/20 03:39 Dose: 2 mls/min Documented by: Insulin Aspart (Novolog Flexpen) 0 units SC ACHS [facility]; Protocol Stop: 03/30/20 13:59 Last Admin: 03/04/20 08:44 Dose: 4 units Documented by: Insulin Glargine (Lantus Solostar Pen) [facility] [place]; Protocol Stop: 03/31/20 08:59 Last Admin: 03/04/20 08:41 Dose: 16 units Documented by: Labetalol HCl (Normodyne) 5 mg IV Q8H PRN PRN Reason: SYSTOLIC BP >160 Stop: 03/29/20 18:42 Last Admin: 03/01/20 03:50 Dose: 5 mg Documented by: Losartan Potassium (Cozaar) 100 mg PO DAILY [facility] Stop: 03/30/20 08:59 Last Admin: 03/04/20 07:49 Dose: 100 mg Documented by: Metoprolol Tartrate (Lopressor) 50 mg PO BID [facility] Stop: 03/29/20 20:59 Last Admin: 03/04/20 07:49 Dose: 50 mg Documented by: Miscellaneous (Carbohydrates For Hypoglycemia) 15 - 30 gm PO UD PRN PRN Reason: Hypoglycemia Treatment Stop: 03/29/20 20:44 Miscellaneous (Remove Nicoderm Patch) 1 ea N/A DAILY@2058 [facility] Stop: 03/30/20 20:58 Last Admin: 03/03/20 20:19 Dose: 1 ea Documented by: Nicotine (Nicoderm Cq) 21 mg TD HS [facility] Stop: 03/29/20 20:34 Last Admin: 03/03/20 20:20 Dose: 21 mg Documented by: Nystatin (Mycostatin) 5 ml PO QID [facility] Stop: 03/09/20 18:21 Last Admin: 03/04/20 07:46 Dose: 5 ml Documented by: Ondansetron HCl (Zofran) 4 mg IV Q6H PRN PRN Reason: Nausea Stop: 04/02/20 08:22 Last Admin: 03/03/20 08:52 Dose: 4 mg Documented by: Pantoprazole Sodium (Protonix) 40 mg PO BID [facility] Stop: 03/30/20 20:59 Last Admin: 03/04/20 07:46 Dose: 40 mg Documented by: Phenol (Chloraseptic 1.4% [place]) 2 sprays MT Q2H PRN PRN Reason: throat pain Stop: 03/29/20 18:21 Polyethylene Glycol (Miralax Powder Packet) 17 gm PO DAILY PRN PRN Reason: Constipation Stop: 04/02/20 08:22 Rosuvastatin Calcium (Crestor) 40 mg PO DAILY [facility] Stop: 03/30/20 08:59 Last Admin: 03/04/20 07:48 Dose: 40 mg Documented by: Sertraline HCl (Zoloft) 50 mg PO DAILY [facility] Stop: 04/02/20 08:59 Last Admin: 03/04/20 07:47 Dose: 50 mg Documented by: Trazodone HCl (Desyrel) 100 mg PO [facility] Stop: 04/01/20 20:59 Last Admin: 03/03/20 20:18 Dose: 100 mg Documented by: (1) Alcohol withdrawal Complication of substance-induced condition: with unspecified complication Qualified Code(s): F10.239 - Alcohol dependence with withdrawal, unspecified
== END 2020-03-04 13:53 | disposition home or self-care (01) | DRG 202 ==
LOC: ED 12:53 → SUATTDRO 16:04 → 2N 16:04

== ENCOUNTER 2020-03-25 10:33 | Inpatient (IN) ==
[2020-03-25] MEDS ORDERED: SODIUM CHLORIDE 0.9% 1000ML 1,000 ML IV ONE ×2 (11:46→14:24)
[2020-03-25] MEDS ORDERED: METOCLOPRAMIDE HCL INJ 5 MG/ML 2 ML VIAL IV ONE (11:46)
[2020-03-25] MEDS ORDERED: DiphenhydrAMINE HCL 50 MG/ML VIAL IV STA (11:46)
[2020-03-25 12:03] LABS: Basophils # (auto) 0.01 K/uL (0-0.2); Basophils % (auto) 0.1 %; Eosinophils # (auto) 0.04 K/uL (0-0.5); Eosinophils % (auto) 0.3 %; Hematocrit (blood only) 36.3 % (42-52); Hemoglobin 13.5 g/dL (14.0-18.0); Immature Granulocytes # (auto) 0.07 K/uL (0.00-0.02); Immature Granulocytes % (auto) 0.5 %; Lymphocytes # (auto) 0.21 K/uL (1.2-3.4); Lymphocytes % (auto) 1.5 %; Mean Corpuscular Hemoglobin 32.7 pg (25-34); Mean Corpuscular Hgb Conc 37.2 g/dL (32-36); Mean Corpuscular Volume 87.9 fL (80-100); Mean Platelet Volume 10.6 fL (7.4-10.4); Monocytes # (auto) 0.22 K/uL (0.11-0.59); Monocytes % (auto) 1.6 %; Neutrophils # (auto) 13.22 K/uL (1.4-6.5); Platelet Count 146 K/uL (130-400); RDW Coefficient of Variation 12.8 % (11.5-14.5); RDW Standard Deviation 41.4 fL (36.4-46.3); Red Blood Count 4.13 M/uL (4.7-6.1); White Blood Count 13.77 K/uL (4.8-10.8)
[2020-03-25 12:13] LABS: INR 0.9 (0.9-1.1); Partial Thromboplastin Ratio 0.9; Partial Thromboplastin Time 24.5 Seconds (21.0-31.0); Prothrombin Time 9.9 Seconds (9.0-12.0)
[2020-03-25 12:25] LABS: D Dimer 2490 ug/L FEU (0-500)
--- NOTE | 2020-03-25 12:34 | XRay Report ---
CHEST AND ABDOMEN 2 VIEWS HISTORY: epigastric pain. Vomiting. COMPARISON: Chest 02/28/2020. Abdomen and pelvis CT 02/28/2020. FINDINGS: The lungs are clear. The heart is normal in size. No pleural effusions. No pneumothorax. Ol d, healed left lower rib fractures. No pneumoperitoneum. No pneumatosis. A few nondilated gas-filled loops of large and small bowel are seen throughout the abdomen. No evidence for bowel obstruction. Ca lcifications within the left deep pelvis favor phleboliths. There are 2 calcifications within the rig ht upper quadrant measuring 3 mm. These are consistent with gallstones. No definite renal or ureteral calculi. IMPRESSION: No acute cardiopulmonary process. No evidence for bowel obstruction. Cholelithiasis. ACT 112: Negative or not required by law. Electronically signed by: Baldemar Jorge M.D. 03/25/2020 12:33 PM
[2020-03-25 12:39] LABS: Alanine Aminotransferase 18 U/L (12-78); Albumin Level 3.1 gm/dl (3.4-5.0); Alkaline Phosphatase 155 U/L (45-117); Aspartate Aminotransferase 32 U/L (15-37); BUN Creatinine Ratio 6.7 (10-20); Bilirubin Direct 0.1 mg/dl (0-0.2); Bilirubin,Total 0.3 mg/dl (0.2-1); Blood Urea Nitrogen 81 mg/dl (7-18); Calcium 7.7 mg/dl (8.5-10.1); Carbon Dioxide 14 mmol/L (21-32); Chloride 87 mmol/L (98-107); Creatinine Clr Calc Pharmacy 6.5 ml/min; Est GFR (African American) 4.8; Est GFR (Non-African American) 4.2; Glucose 49 mg/dl (70-99); Lipase 23630 U/L (73-393); Potassium 3.7 mmol/L (3.5-5.1); Sodium 122 mmol/L (136-145); Total Protein 7.1 gm/dl (6.4-8.2); Troponin I < 0.015 ng/ml (0-0.045)
[2020-03-25] MEDS ORDERED: LORazepam 1 MG/2 ML VIAL IV STA ×2 (12:44→15:35)
[2020-03-25] MEDS ORDERED: DEXTROSE 50% 50 ML SYRINGE IV ONE ×3 (12:45→17:28)
--- NOTE | 2020-03-25 12:47 | Emergency Department Note ---
History of Present Illness General Chief complaint: Abdominal Pain Time Seen by Provider: 03/25/20 11:28 History of Present Illness Provider complaint: Abdominal pain Onset (ago): week(s) 1 Location: abdomen Severity: severe Pain Consistency: + constant Maximum Pain Intensity: 9 Current Pain Intensity: 9 Quality: + stabbing and + sharp Relieved By: + none Exacerbated By: + none Associated symptoms: + nausea/vomiting; no chest pain, no cough, no fever/chills, no headaches and no shortness of breath 54-year-old male presents emergency department abdominal pain. Pain is located in the epigastric area. He describes pain as stabbing and sharp 9 out of 10. No radiation. He does report nausea and vomiting. No hematemesis, coffee- ground emesis, or bilious vomiting. No melena hematochezia. No fevers. No cough. No chest pain or difficulty breathing. No headaches. No loss of taste or smell. No hematuria or dysuria. Patient was tested for COVID-19 on February 27 and did test negative. Patient states he is not been drinking alcohol recently. Home Medications Home Medications Medication Instructions Recorded Confirmed Type Lantus Solostar U-100 Insulin 16 unit SUBCUT DAILY 10/24/19 03/25/20 History albuterol sulfate [ProAir HFA] 2 puff INHALATION Q4H PRN 10/24/19 03/25/20 History aspirin 81 mg PO QAM 10/24/19 03/25/20 History gemfibrozil 600 mg PO BID 10/24/19 03/25/20 History hydralazine 25 mg PO QID 10/24/19 03/25/20 History insulin aspart U-100 [Novolog 1 unit SUBCUT DIRECTED 10/24/19 03/25/20 History Flexpen U-100 Insulin] losartan 100 mg PO QAM 10/24/19 03/25/20 History metoprolol tartrate 50 mg PO BID 10/24/19 03/25/20 History rosuvastatin 40 mg PO PM 10/24/19 03/25/20 History benzonatate 100 mg PO TID PRN 02/28/20 03/25/20 History ondansetron HCl 4 mg PO UD PRN 02/28/20 03/25/20 History pantoprazole 40 mg PO BID 30 Days #60 tab 03/04/20 03/25/20 Rx Allergies Allergy/AdvReac Type Severity Reaction Status Date / Time naproxen Allergy Unknown Hives Verified 03/25/20 11:22 tramadol Allergy Unknown Unknown Verified 03/25/20 11:22 moxifloxacin [From Avelox] AdvReac Unknown Verified 03/25/20 15:53 ramipril AdvReac Unknown Verified 03/25/20 15:53 Past Med/Surg History Medical History Alcohol abuse Anxiety CAD (coronary artery disease) 2009-stenting to left circumflex Chronic pancreatitis Depression DM type 1 (diabetes mellitus, type 1) Dyslipidemia GERD (gastroesophageal reflux disease) Hypertension Hypertriglyceridemia SATYA (obstructive sleep apnea) Tobacco abuse Surgical History H/O hernia repair H/O shoulder surgery History of nasal septoplasty S/P rotator cuff repair Family History Mother Heart disease Social History (Updated 03/25/20 @ 15:55 by Ne Person PA-C) Preferred Language: Angolan Communication Ability: Effective 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 Beliefs That Will Affect Care: None Current Living Situation: Significant Other Other Information That Helps Us Care for You: No Feels Safe at Home: Yes Safety Concerns: Feels Safe At This Time Smoking Status: Current every day smoker Tobacco Type: cigarettes ; Years Smoked: 25 ; Cigarettes Per Day: 20 ; Do You Dip or Chew Tobacco: No ; Second Hand Exposure: Yes ; Hx Alcohol Use: Yes Alcohol type: beer, wine and hard liquor Alcohol type Comment: 6 beers/day Hx Substance Use: No Review of Systems A total of 10 systems reviewed and were otherwise negative Physical Exam Vital Signs Vital Signs - 24 hr 03/25/20 10:40 03/25/20 10:42 03/25/20 10:44 Temperature 36.6 C Temperature Source Oral Pulse Rate 66 67 66 Pulse Rate from SpO2 Sensor 66 66 Respiratory Rate 15 18 16 Blood Pressure 140/88 140/88 Blood Pressure Mean 98 105 Pulse Oximetry 100 100 100 Oxygen Delivery Method Room Air Sepsis Recent Fever Within 48 Hours No Sepsis New/Unexplained Change in Mental Status No Sepsis Action Taken by Nursing No Action Required 03/25/20 10:51 03/25/20 11:00 03/25/20 11:04 Temperature Temperature Source Pulse Rate 66 65 Pulse Rate from SpO2 Sensor 66 64 Respiratory Rate 13 17 Blood Pressure 135/85 Blood Pressure Mean 95 Pulse Oximetry 100 100 100 Oxygen Delivery Method Room Air Sepsis Recent Fever Within 48 Hours Sepsis New/Unexplained Change in Mental Status Sepsis Action Taken by Nursing 03/25/20 11:05 03/25/20 11:30 03/25/20 11:37 Temperature Temperature Source Pulse Rate 64 63 65 Pulse Rate from SpO2 Sensor 64 Respiratory Rate 16 18 16 Blood Pressure 151/98 H Blood Pressure Mean 118 Pulse Oximetry 100 Oxygen Delivery Method Sepsis Recent Fever Within 48 Hours Sepsis New/Unexplained Change in Mental Status Sepsis Action Taken by Nursing 03/25/20 11:40 03/25/20 12:54 03/25/20 13:00 Temperature Temperature Source Pulse Rate 87 85 Pulse Rate from SpO2 Sensor Respiratory Rate 18 16 Blood Pressure Blood Pressure Mean Pulse Oximetry 95 Oxygen Delivery Method Room Air Sepsis Recent Fever Within 48 Hours Sepsis New/Unexplained Change in Mental Status Sepsis Action Taken by Nursing 03/25/20 13:42 03/25/20 13:52 03/25/20 14:00 Temperature Temperature Source Pulse Rate 84 81 77 Pulse Rate from SpO2 Sensor 80 77 Respiratory Rate 22 16 17 Blood Pressure 116/75 124/78 Blood Pressure Mean 79 86 Pulse Oximetry 100 100 Oxygen Delivery Method Sepsis Recent Fever Within 48 Hours Sepsis New/Unexplained Change in Mental Status Sepsis Action Taken by Nursing 03/25/20 14:01 03/25/20 14:30 03/25/20 14:31 Temperature Temperature Source Pulse Rate 76 80 79 Pulse Rate from SpO2 Sensor 76 Respiratory Rate 20 21 17 Blood Pressure 130/80 Blood Pressure Mean 95 Pulse Oximetry 100 Oxygen Delivery Method Sepsis Recent Fever Within 48 Hours Sepsis New/Unexplained Change in Mental Status Sepsis Action Taken by Nursing 03/25/20 15:00 03/25/20 15:01 03/25/20 15:30 Temperature Temperature Source Pulse Rate 90 90 92 H Pulse Rate from SpO2 Sensor Respiratory Rate 20 21 15 Blood Pressure 151/97 H 153/89 H Blood Pressure Mean 122 109 Pulse Oximetry 98 Oxygen Delivery Method Room Air Sepsis Recent Fever Within 48 Hours Sepsis New/Unexplained Change in Mental Status Sepsis Action Taken by Nursing 03/25/20 15:31 03/25/20 16:00 03/25/20 16:01 Temperature Temperature Source Pulse Rate 91 H 89 88 Pulse Rate from SpO2 Sensor Respiratory Rate 13 19 18 Blood Pressure 132/81 Blood Pressure Mean 85 Pulse Oximetry Oxygen Delivery Method Sepsis Recent Fever Within 48 Hours Sepsis New/Unexplained Change in Mental Status Sepsis Action Taken by Nursing 03/25/20 16:30 03/25/20 16:31 Temperature Temperature Source Pulse Rate 92 H 91 H Pulse Rate from SpO2 Sensor Respiratory Rate 19 23 Blood Pressure 131/80 Blood Pressure Mean 98 Pulse Oximetry Oxygen Delivery Method Sepsis Recent Fever Within 48 Hours Sepsis New/Unexplained Change in Mental Status Sepsis Action Taken by Nursing Physical Exam GENERAL: He is oriented to person, place, and time. He appears well-developed and well-nourished. He does not appear distressed. HENT: Exam performed. - Head: Normocephalic and atraumatic. - Right Ear: External ear normal. No mastoid tenderness. - Left Ear: External ear normal. No mastoid tenderness. - Mouth/Throat: The oropharynx is clear and moist. No trismus in the jaw. No dental abscesses or uvula swelling. No oropharyngeal exudate or tonsillar abscesses. EYES: Conjunctivae and EOM are normal. Pupils are equal, round, and reactive to light. Right eye exhibits no discharge. Left eye exhibits no discharge. No scleral icterus. NECK: Normal range of motion. Neck supple. No JVD present. No spinous process tenderness present. No carotid bruit present. No rigidity. No tracheal deviation and normal range of motion present. No Brudzinski's sign and no Kernig's sign noted. CV: Normal rate, regular rhythm, normal heart sounds and intact distal pulses. There is no peripheral edema. Palpable radial pulses bue. PULM/CHEST: Effort normal and breath sounds normal. No respiratory distress. No stridor. He has no wheezes. He has no rales. - Chest Wall: He exhibits no tenderness. ABD: The abdomen is soft. Bowel sounds are normal. He has no distension. No mass is present. There is tenderness to palpation of the epigastric area. There is no rebound, no guarding, no Martin's sign and no tenderness at McBurney's point. Rovsig negative. MUSC/SKEL: Normal range of motion. There is no peripheral edema, tenderness or deformity. LYMPH: No cervical adenopathy. NEURO: He is alert and oriented to person, place, and time. He has normal str ength. No cranial nerve deficit or sensory deficit. Coordination and gait normal. GCS eye subscore is 4. GCS verbal subscore is 5. GCS motor subscore is 6. Cerebellar tests wnl. SKIN: Skin is warm and dry. He is not diaphoretic. PSYCH: He has a normal mood and affect. Behavior is normal. Judgment and thought content normal. Course Course 1130: The patient was evaluated in room C3. A complete history and physical exam was performed. 1245: Critical lab reports given to me by nursing. Patient's creatinine is 12. Sodium 122. Glucose 49. Lipase 23,630. D-dimer 2490. Patient is not a dialysis patient. Given the patient's elevated creatinine level, no CT of the chest will be performed at this time. Patient not tachycardic or hypoxic, PE less likely. Patient is now reporting that he is having bad tinnitus in both ears. He does state that he takes ibuprofen regularly but states he only took 2 tablets each day for last 2 days. He does state he drinks alcohol quite a bit. We will conduct serum salicylate, Tylenol, osmolality, and alcohol level. Patient will be given 1 amp of D50. He also be given 1 mg of Ativan as he is starting to shake possibly due to DTs. 1427: Vital signs stable. CT shows no obstruction. Serum osmolality still pending. Salicylate level within normal limits. Spoke with Dr. Sousa nephrology who agrees that there is no need to emergently dialyze this patient's potassium was within normal limits, BUN is less than 100, and the patient is making urine. He recommends continued fluid hydration as well as adding on a CK. Discussed with Ne De La Paz who states to admit to Dr. Trinidad. 1530: Vital signs stable. Patient's osmolar gap is within normal limits. Administered Medications Discontinued Medications Aspirin (Aspirin) 324 mg PO NOW STA Stop: 03/25/20 14:51 Last Admin: 03/25/20 15:46 Dose: Not Given Documented by: [id number] Dextrose (Dextrose 50%) Confirm Administered Dose 50 ml IV .STK-MED ONE Stop: 03/25/20 12:46 Last Admin: 03/25/20 12:48 Dose: Not Given Documented by: [id number] Dextrose (Dextrose 50%) 50 ml IV NOW ONE Stop: 03/25/20 12:46 Last Admin: 03/25/20 12:48 Dose: 50 ml Documented by: [id number] Diphenhydramine HCl (Benadryl) 25 mg IV NOW STA Stop: 03/25/20 11:47 Last Admin: 03/25/20 11:52 Dose: 25 mg Documented by: [id number] Sodium Chloride (Nss 1000ml) 1,000 mls @ 999 mls/hr IV .Q1H1M ONE Stop: 03/25/20 12:46 Last Infusion: 03/25/20 14:43 Dose: 0 mls/hr Documented by: [id number] Admin: 03/25/20 11:52 Dose: 999 mls/hr Documented by: [id number] Lorazepam (Ativan) 1 mg in 2 mls @ 2 mls/min IV NOW STA Stop: 03/25/20 12:45 Last Admin: 03/25/20 12:47 Dose: 2 mls/min Documented by: [id number] Sodium Chloride (Nss 1000ml) 1,000 mls @ 999 mls/hr IV .Q1H1M ONE Stop: 03/25/20 15:24 Last Infusion: 03/25/20 15:46 Dose: 0 mls/hr Documented by: [id number] Admin: 03/25/20 14:43 Dose: 999 mls/hr Documented by: [id number] Lorazepam (Ativan) 1 mg in 2 mls @ 2 mls/min IV NOW STA Stop: 03/25/20 15:36 Last Admin: 03/25/20 15:44 Dose: 2 mls/min Documented by: [id number] Metoclopramide HCl (Reglan) 5 mg IV ONE ONE Stop: 03/25/20 11:47 Last Admin: 03/25/20 11:52 Dose: 5 mg Documented by: [id number] Critical Care Time Critical Care Time: Yes Total Critical Care Time: 125 I have personally spent greater than 125 minutes of critical care time in the direct management of this patient. This includes bedside care, interpretation of diagnostic studies, and testing, discussion with consultants, patient, and family members, and other required patient management activities. This 125 minutes is in excess of all separately billable procedures. Medical Decision Making Laboratory Data Result diagrams: 03/25/20 11:50 03/25/20 11:40 Lab Results 03/25/20 03/25/20 03/25/20 Range/Units 11:40 11:40 11:40 WBC (4.8-10.8) K/uL RBC (4.7-6.1) M/uL Hgb (14.0-18.0) g/dL Hct (42-52) % MCV (80-100) fL MCH (25-34) pg MCHC (32-36) g/dL RDW Std Deviation (36.4-46.3) fL RDW Coeff of Sonia (11.5-14.5) % Plt Count (130-400) K/uL MPV (7.4-10.4) fL Immature Gran % (Auto) % Neut % (Auto) % Lymph % (Auto) % [place] % (Auto) % Eos % (Auto) % Baso % (Auto) % Immature Gran # (Auto) (0.00-0.02) K/uL Neut # (Auto) (1.4-6.5) K/uL Lymph # (Auto) (1.2-3.4) K/uL Morgan # (Auto) (0.11-0.59) K/uL Eos # (Auto) (0-0.5) K/uL Baso # (Auto) (0-0.2) K/uL PT 9.9 (9.0-12.0) Seconds INR 0.9 (0.9-1.1) APTT 24.5 (21.0-31.0) Seconds PTT Ratio 0.9 D-Dimer 2490 H* (0-500) ug/L FEU Sodium 122 L (136-145) mmol/L Potassium 3.7 (3.5-5.1) mmol/L Chloride 87 L (98-107) mmol/L Carbon Dioxide 14 L (21-32) mmol/L Anion Gap 21.0 H (3-11) BUN 81 H (7-18) mg/dl Creatinine 12.00 H* (0.6-1.4) mg/dl Est Cr Clr Drug Dosing 6.5 ml/min Est GFR ( Amer) 4.8 Est GFR (Non-Af Amer) 4.2 BUN/Creatinine Ratio 6.7 L (10-20) Glucose 49 L* (70-99) mg/dl POC Glucose (70-99) mg/dl Osmolality (280-300) mOsm/kg Lactate (0.4-2.0) mmol/L Calcium 7.7 L (8.5-10.1) mg/dl Phosphorus (2.5-4.9) mg/dl Magnesium (1.8-2.4) mg/dl Total Bilirubin 0.3 (0.2-1) mg/dl Direct Bilirubin 0.1 (0-0.2) mg/dl AST 32 (15-37) U/L ALT 18 (12-78) U/L Alkaline Phosphatase 155 H (45-117) U/L Total Creatine Kinase 122 (39-308) U/L Troponin I < 0.015 (0-0.045) ng/ml Total Protein 7.1 (6.4-8.2) gm/dl Albumin 3.1 L (3.4-5.0) gm/dl Lipase 61247 H (73-393) U/L Urine Color Urine Appearance (Clear) Urine pH (4.5-7.5) Ur Specific [place] (1.000-1.030) Urine Protein (Negative) Urine Glucose (UA) (Negative) Urine Ketones (Negative) Urine Blood (Negative) Urine Nitrite (Negative) Urine Bilirubin (Negative) Urine Urobilinogen (Negative) Ur Leukocyte Esterase (Negative) Urine RBC (0-4) /hpf Urine WBC (0-5) /hpf Ur Epithelial Cells (0-5) /lpf Urine Bacteria (Negative) Granular Casts (0) /lpf Urine Osmolality (500-800) mOsm/kg Ur Random Sodium mmol/L Salicylates (2.8-20) mg/dl Acetaminophen (10-30) ug/ml Ethyl Alcohol mg/dL (0-3) mg/dl COVID-19 PCR (Negative) 03/25/20 03/25/20 03/25/20 Range/Units 11:40 11:50 11:50 WBC 13.77 H (4.8-10.8) K/uL RBC 4.13 L (4.7-6.1) M/uL Hgb 13.5 L (14.0-18.0) g/dL Hct 36.3 L (42-52) % MCV 87.9 (80-100) fL MCH 32.7 (25-34) pg MCHC 37.2 H (32-36) g/dL RDW Std Deviation 41.4 (36.4-46.3) fL RDW Coeff of Sonia 12.8 (11.5-14.5) % Plt Count 146 (130-400) K/uL MPV 10.6 H (7.4-10.4) fL Immature Gran % (Auto) 0.5 % Neut % (Auto) 96.0 % Lymph % (Auto) 1.5 % Morgan % (Auto) 1.6 % Eos % (Auto) 0.3 % Baso % (Auto) 0.1 % Immature Gran # (Auto) 0.07 H (0.00-0.02) K/uL Neut # (Auto) 13.22 H (1.4-6.5) K/uL Lymph # (Auto) 0.21 L (1.2-3.4) K/uL Morgan # (Auto) 0.22 (0.11-0.59) K/uL Eos # (Auto) 0.04 (0-0.5) K/uL Baso # (Auto) 0.01 (0-0.2) K/uL PT (9.0-12.0) Seconds INR (0.9-1.1) APTT (21.0-31.0) Seconds PTT Ratio D-Dimer (0-500) ug/L FEU Sodium (136-145) mmol/L Potassium (3.5-5.1) mmol/L Chloride (98-107) mmol/L Carbon Dioxide (21-32) mmol/L Anion Gap (3-11) BUN (7-18) mg/dl Creatinine (0.6-1.4) mg/dl Est Cr Clr Drug Dosing ml/min Est GFR ( Amer) Est GFR (Non-Af Amer) BUN/Creatinine Ratio (10-20) Glucose (70-99) mg/dl POC Glucose (70-99) mg/dl Osmolality (280-300) mOsm/kg Lactate 1.0 (0.4-2.0) mmol/L Calcium (8.5-10.1) mg/dl Phosphorus 8.6 H (2.5-4.9) mg/dl Magnesium 2.1 (1.8-2.4) mg/dl Total Bilirubin (0.2-1) mg/dl Direct Bilirubin (0-0.2) mg/dl AST (15-37) U/L ALT (12-78) U/L Alkaline Phosphatase (45-117) U/L Total Creatine Kinase (39-308) U/L Troponin I (0-0.045) ng/ml Total Protein (6.4-8.2) gm/dl Albumin (3.4-5.0) gm/dl Lipase (73-393) U/L Urine Color Urine Appearance (Clear) Urine pH (4.5-7.5) Ur Specific [place] (1.000-1.030) Urine Protein (Negative) Urine Glucose (UA) (Negative) Urine Ketones (Negative) Urine Blood (Negative) Urine Nitrite (Negative) Urine Bilirubin (Negative) Urine Urobilinogen (Negative) Ur Leukocyte Esterase (Negative) Urine RBC (0-4) /hpf Urine WBC (0-5) /hpf Ur Epithelial Cells (0-5) /lpf Urine Bacteria (Negative) Granular Casts (0) /lpf Urine Osmolality (500-800) mOsm/kg Ur Random Sodium mmol/L Salicylates (2.8-20) mg/dl Acetaminophen (10-30) ug/ml Ethyl Alcohol mg/dL (0-3) mg/dl COVID-19 PCR (Negative) 03/25/20 03/25/20 03/25/20 Range/Units 12:54 12:54 12:54 WBC (4.8-10.8) K/uL RBC (4.7-6.1) M/uL Hgb (14.0-18.0) g/dL Hct (42-52) % MCV (80-100) fL MCH (25-34) pg MCHC (32-36) g/dL RDW Std Deviation (36.4-46.3) fL RDW Coeff of Sonia (11.5-14.5) % Plt Count (130-400) K/uL MPV (7.4-10.4) fL Immature Gran % (Auto) % Neut % (Auto) % Lymph % (Auto) % Morgan % (Auto) % Eos % (Auto) % Baso % (Auto) % Immature Gran # (Auto) (0.00-0.02) K/uL Neut # (Auto) (1.4-6.5) K/uL Lymph # (Auto) (1.2-3.4) K/uL Morgan # (Auto) (0.11-0.59) K/uL Eos # (Auto) (0-0.5) K/uL Baso # (Auto) (0-0.2) K/uL PT (9.0-12.0) Seconds INR (0.9-1.1) APTT (21.0-31.0) Seconds PTT Ratio D-Dimer (0-500) ug/L FEU Sodium (136-145) mmol/L Potassium (3.5-5.1) mmol/L Chloride (98-107) mmol/L Carbon Dioxide (21-32) mmol/L Anion Gap (3-11) BUN (7-18) mg/dl Creatinine (0.6-1.4) mg/dl Est Cr Clr Drug Dosing ml/min Est GFR ( Amer) Est GFR (Non-Af Amer) BUN/Creatinine Ratio (10-20) Glucose (70-99) mg/dl POC Glucose (70-99) mg/dl Osmolality 285 (280-300) mOsm/kg Lactate (0.4-2.0) mmol/L Calcium (8.5-10.1) mg/dl Phosphorus (2.5-4.9) mg/dl Magnesium (1.8-2.4) mg/dl Total Bilirubin (0.2-1) mg/dl Direct Bilirubin (0-0.2) mg/dl AST (15-37) U/L ALT (12-78) U/L Alkaline Phosphatase (45-117) U/L Total Creatine Kinase (39-308) U/L Troponin I (0-0.045) ng/ml Total Protein (6.4-8.2) gm/dl Albumin (3.4-5.0) gm/dl Lipase (73-393) U/L Urine Color Urine Appearance (Clear) Urine pH (4.5-7.5) Ur Specific [place] (1.000-1.030) Urine Protein (Negative) Urine Glucose (UA) (Negative) Urine Ketones (Negative) Urine Blood (Negative) Urine Nitrite (Negative) Urine Bilirubin (Negative) Urine Urobilinogen (Negative) Ur Leukocyte Esterase (Negative) Urine RBC (0-4) /hpf Urine WBC (0-5) /hpf Ur Epithelial Cells (0-5) /lpf Urine Bacteria (Negative) Granular Casts (0) /lpf Urine Osmolality (500-800) mOsm/kg Ur Random Sodium mmol/L Salicylates < 1.7 L (2.8-20) mg/dl Acetaminophen < 2 L (10-30) ug/ml Ethyl Alcohol mg/dL < 3.0 (0-3) mg/dl COVID-19 PCR (Negative) 03/25/20 03/25/20 03/25/20 Range/Units 13:02 13:26 13:26 WBC (4.8-10.8) K/uL RBC (4.7-6.1) M/uL Hgb (14.0-18.0) g/dL Hct (42-52) % MCV (80-100) fL MCH (25-34) pg MCHC (32-36) g/dL RDW Std Deviation (36.4-46.3) fL RDW Coeff of Sonia (11.5-14.5) % Plt Count (130-400) K/uL MPV (7.4-10.4) fL Immature Gran % (Auto) % Neut % (Auto) % Lymph % (Auto) % Morgan % (Auto) % Eos % (Auto) % Baso % (Auto) % Immature Gran # (Auto) (0.00-0.02) K/uL Neut # (Auto) (1.4-6.5) K/uL Lymph # (Auto) (1.2-3.4) K/uL Morgan # (Auto) (0.11-0.59) K/uL Eos # (Auto) (0-0.5) K/uL Baso # (Auto) (0-0.2) K/uL PT (9.0-12.0) Seconds INR (0.9-1.1) APTT (21.0-31.0) Seconds PTT Ratio D-Dimer (0-500) ug/L FEU Sodium (136-145) mmol/L Potassium (3.5-5.1) mmol/L Chloride (98-107) mmol/L Carbon Dioxide (21-32) mmol/L Anion Gap (3-11) BUN (7-18) mg/dl Creatinine (0.6-1.4) mg/dl Est Cr Clr Drug Dosing ml/min Est GFR ( Amer) Est GFR (Non-Af Amer) BUN/Creatinine Ratio (10-20) Glucose (70-99) mg/dl POC Glucose 182 H (70-99) mg/dl Osmolality (280-300) mOsm/kg Lactate (0.4-2.0) mmol/L Calcium (8.5-10.1) mg/dl Phosphorus (2.5-4.9) mg/dl Magnesium (1.8-2.4) mg/dl Total Bilirubin (0.2-1) mg/dl Direct Bilirubin (0-0.2) mg/dl AST (15-37) U/L ALT (12-78) U/L Alkaline Phosphatase (45-117) U/L Total Creatine Kinase (39-308) U/L Troponin I (0-0.045) ng/ml Total Protein (6.4-8.2) gm/dl Albumin (3.4-5.0) gm/dl Lipase (73-393) U/L Urine Color Red Urine Appearance Cloudy A (Clear) Urine pH 5.5 (4.5-7.5) Ur Specific [place] 1.010 (1.000-1.030) Urine Protein 2+ H (Negative) Urine Glucose (UA) Negative (Negative) Urine Ketones Negative (Negative) Urine Blood 3+ H (Negative) Urine Nitrite Negative (Negative) Urine Bilirubin Negative (Negative) Urine Urobilinogen Negative (Negative) Ur Leukocyte Esterase Negative (Negative) Urine RBC >30 H (0-4) /hpf Urine WBC >30 H (0-5) /hpf Ur Epithelial Cells 5-10 H (0-5) /lpf Urine Bacteria 1+ H (Negative) Granular Casts 1-5 H (0) /lpf Urine Osmolality 189 L (500-800) mOsm/kg Ur Random Sodium mmol/L Salicylates (2.8-20) mg/dl Acetaminophen (10-30) ug/ml Ethyl Alcohol mg/dL (0-3) mg/dl COVID-19 PCR (Negative) 06/10/20 06/10/20 06/10/20 Range/Units 13:26 13:53 15:48 WBC (4.8-10.8) K/uL RBC (4.7-6.1) M/uL Hgb (14.0-18.0) g/dL Hct (42-52) % MCV (80-100) fL MCH (25-34) pg MCHC (32-36) g/dL RDW Std Deviation (36.4-46.3) fL RDW Coeff of Sonia (11.5-14.5) % Plt Count (130-400) K/uL MPV (7.4-10.4) fL Immature Gran % (Auto) % Neut % (Auto) % Lymph % (Auto) % Morgan % (Auto) % Eos % (Auto) % Baso % (Auto) % Immature Gran # (Auto) (0.00-0.02) K/uL Neut # (Auto) (1.4-6.5) K/uL Lymph # (Auto) (1.2-3.4) K/uL Morgan # (Auto) (0.11-0.59) K/uL Eos # (Auto) (0-0.5) K/uL Baso # (Auto) (0-0.2) K/uL PT (9.0-12.0) Seconds INR (0.9-1.1) APTT (21.0-31.0) Seconds PTT Ratio D-Dimer (0-500) ug/L FEU Sodium (136-145) mmol/L Potassium (3.5-5.1) mmol/L Chloride (98-107) mmol/L Carbon Dioxide (21-32) mmol/L Anion Gap (3-11) BUN (7-18) mg/dl Creatinine (0.6-1.4) mg/dl Est Cr Clr Drug Dosing ml/min Est GFR ( Amer) Est GFR (Non-Af Amer) BUN/Creatinine Ratio (10-20) Glucose (70-99) mg/dl POC Glucose 154 H (70-99) mg/dl Osmolality (280-300) mOsm/kg Lactate (0.4-2.0) mmol/L Calcium (8.5-10.1) mg/dl Phosphorus (2.5-4.9) mg/dl Magnesium (1.8-2.4) mg/dl Total Bilirubin (0.2-1) mg/dl Direct Bilirubin (0-0.2) mg/dl AST (15-37) U/L ALT (12-78) U/L Alkaline Phosphatase (45-117) U/L Total Creatine Kinase (39-308) U/L Troponin I (0-0.045) ng/ml Total Protein (6.4-8.2) gm/dl Albumin (3.4-5.0) gm/dl Lipase (73-393) U/L Urine Color Urine Appearance (Clear) Urine pH (4.5-7.5) Ur Specific [place] (1.000-1.030) Urine Protein (Negative) Urine Glucose (UA) (Negative) Urine Ketones (Negative) Urine Blood (Negative) Urine Nitrite (Negative) Urine Bilirubin (Negative) Urine Urobilinogen (Negative) Ur Leukocyte Esterase (Negative) Urine RBC (0-4) /hpf Urine WBC (0-5) /hpf Ur Epithelial Cells (0-5) /lpf Urine Bacteria (Negative) Granular Casts (0) /lpf Urine Osmolality (500-800) mOsm/kg Ur Random Sodium 42 mmol/L Salicylates (2.8-20) mg/dl Acetaminophen (10-30) ug/ml Ethyl Alcohol mg/dL (0-3) mg/dl COVID-19 PCR NEGATIVE (Negative) Imaging Data Radiologist's Impression: ABDOMEN AND PELVIS CT WITHOUT CONTRAST CT DOSE: 841.25 mGycm HISTORY: Acute kidney injury with difficulty urinating tong difficulty urinating TECHNIQUE: Multiaxial CT images of the abdomen and pelvis were performed without contrast. A dose lowering technique was utilized adhering to the principles of ALARA. COMPARISON STUDY: CT abdomen and pelvis 02/28/2020 FINDINGS: Clear lung bases. No pneumatosis or pneumoperitoneum. The imaged inferior cardiac chambers are unremarkable. The spleen and right adrenal gland are unremarkable. Unchanged 1.3 center left adrenal gland lesion with Hounsfield unit of 19. Unremarkable appearance of the liver. Gallbladder distention with cholelithiasis. No definite biliary ductal dilation. Unchanged 8 mm linear calcification within the pancreatic head. There is moderate interstitial and peripancreatic edema with trace free fluid. No drainable fluid collection. No significant pancreatic ductal dilation. There is a prominent 1.4 x 0.9 cm lymph node within the abdominal right upper quadrant inferior to the gallbladder, image 183 of series 3. Mildly enlarged periportal lymph nodes measure up to 11 mm in short axis. Mild nonspecific bilateral perinephric stranding. Prostamegaly. Urinary bladder wall thickening suggestive of chronic bladder outlet obstruction. Calcified plaque of the abdominal aorta. Mild wall thickening of the duodenum. Fatty attenuating focus involves the third portion of the duodenum, 1.3 cm suggestive of a lipoma versus ingested material. No bowel obstruction. Mild wall thickening of the ascending colon is likely reactive. Normal appendix. Degenerative changes of the spine and pelvis. IMPRESSION: 1. Findings compatible with moderate acute pancreatitis. No acute peripancreatic fluid collection. 2. Cholelithiasis with gallbladder distention. No biliary ductal dilation or choledocholithiasis identified. There is an unchanged linear calcification within the pancreatic head. 3. Mild wall thickening of the duodenum and ascending colon is likely on a reactive basis. No bowel obstruction. 4. Additional findings as above. ACT 112: Negative or not required by law. The above report was generated using voice recognition software. It may contain grammatical, syntax or spelling errors. Electronically signed by: Epifanio Ceron M.D. 03/25/2020 2:03 PM Dictated: 03/25/20 1344 Transcribed: 03/25/20 1344 CHEST AND ABDOMEN 2 VIEWS HISTORY: epigastric pain. Vomiting. COMPARISON: Chest 02/28/2020. Abdomen and pelvis CT 02/28/2020. FINDINGS: The lungs are clear. The heart is normal in size. No pleural effusions. No pneumothorax. Old, healed left lower rib fractures. No pneumop eritoneum. No pneumatosis. A few nondilated gas-filled loops of large and small bowel are seen throughout the abdomen. No evidence for bowel obstruction. Calcifications within the left deep pelvis favor phleboliths. There are 2 calcifications within the right upper quadrant measuring 3 mm. These are consistent with gallstones. No definite renal or ureteral calculi. IMPRESSION: No acute cardiopulmonary process. No evidence for bowel obstruction. Cholelithiasis. ACT 112: Negative or not required by law. Electronically signed by: Baldemar Jorge M.D. 03/25/2020 12:33 PM Dictated: 03/25/20 1226 Transcribed: 03/25/20 1226 ECG Data Indication: + abdominal pain Rate (beats per minute): 65 Rhythm: + normal sinus ECG Intervals/blocks: + Normal QRS, + Prolonged QT and + Normal WA ECG ST segments: + Normal ST segments MDM Narrative 1130: The patient was evaluated in room C3. A complete history and physical exam was performed. 1245: Critical lab reports given to me by nursing. Patient's creatinine is 12. Sodium 122. Glucose 49. Lipase 23,630. D-dimer 2490. Patient is not a dialysis patient. Given the patient's elevated creatinine level, no CT of the chest will be performed at this time. Patient not tachycardic or hypoxic, PE less likely. Patient is now reporting that he is having bad tinnitus in both ears. He does state that he takes ibuprofen regularly but states he only took 2 tablets each day for last 2 days. He does state he drinks alcohol quite a bit. We will conduct serum salicylate, Tylenol, osmolality, and alcohol level. Patient will be given 1 amp of D50. He also be given 1 mg of Ativan as he is starting to shake possibly due to DTs. 1427: Vital signs stable. CT shows no obstruction. Serum osmolality still pending. Salicylate level within normal limits. Spoke with Dr. Sousa nephrology who agrees that there is no need to emergently dialyze this patient's potassium was within normal limits, BUN is less than 100, and the patient is making urine. He recommends continued fluid hydration as well as adding on a CK. Discussed with Ne De La Paz who states to admit to Dr. Trinidad. 1530: Vital signs stable. Patient's osmolar gap is within normal limits. Impression & Plan Pancreatitis, Alcohol abuse, Hypoglycemia, TONG (acute kidney injury), Prolonged QT interval Discharge Plan Visit Data Chief Complaint: Abdominal Pain ED Provider: Sonu Huerta Discharge Problem: Pancreatitis, Alcohol abuse, Hypoglycemia, TONG (acute kidney injury), Prolonged QT interval Patient Disposition: Admitted As Inpatient Forms Stand Alone Forms: My [facility] Prescriptions Prescriptions: No Action ondansetron HCl 4 mg tablet 4 mg PO UD PRN (Reason: Nausea) RF: 0 benzonatate 100 mg capsule 100 mg PO TID PRN (Reason: Cough) RF: 0 pantoprazole 40 mg Tablet,Delayed Release (Dr/Ec) 40 mg PO BID 30 Days Qty: 60 RF: 0 hydralazine 25 mg Tablet 25 mg PO QID RF: 0 aspirin 81 mg Tablet,Delayed Release (Dr/Ec) 81 mg PO QAM RF: 0 gemfibrozil 600 mg Tablet 600 mg PO BID RF: 0 metoprolol tartrate 50 mg Tablet 50 mg PO BID RF: 0 albuterol sulfate [ProAir HFA] 90 mcg/actuation Hfa Aerosol Inhaler 2 puff INHALATION Q4H PRN (Reason: Wheezing) RF: 0 losartan 100 mg Tablet 100 mg PO QAM RF: 0 insulin aspart U-100 [Novolog Flexpen U-100 Insulin] 100 unit/mL (3 mL) Insulin Pen 1 unit subcut DIRECTED RF: 0 Lantus Solostar U-100 Insulin 100 unit/mL (3 mL) Insulin Pen 16 unit SUBCUT DAILY RF: 0 rosuvastatin 40 mg Tablet 40 mg PO PM RF: 0 Referrals Referrals: Jennifer Monroe MD [Primary Care Provider] - Discharge Problem: Pancreatitis Qualifiers: Chronicity: acute Pancreatitis type: unspecified pancreatitis type Acute pancreatitis complication: unspecified Qualified Code(s): K85.90 - Acute pancreatitis without necrosis or infection, unspecified
[2020-03-25 13:48] LABS: Appearance Urine Cloudy (Clear); Bilirubin Urine Negative (Negative); Blood Urine 3+ (Negative); Color Urine Red; Glucose Urine UA Negative (Negative); Ketones Urine Negative (Negative); Leukocyte Esterase Urine Negative (Negative); Nitrite Urine Negative (Negative); Protein Urine 2+ (Negative); Urobilinogen Urine Negative (Negative); pH Urine 5.5 (4.5-7.5)
[2020-03-25 13:48] LABS: Acetaminophen < 2 ug/ml (10-30); Salicylate < 1.7 mg/dl (2.8-20)
[2020-03-25 13:54] LABS: Bacteria Urine 1+ (Negative); RBC Urine >30 /hpf (0-4); WBC Urine >30 /hpf (0-5)
--- NOTE | 2020-03-25 14:04 | CT Scan Report ---
ABDOMEN AND PELVIS CT WITHOUT CONTRAST CT DOSE: 841.25 mGycm HISTORY: Acute kidney injury with difficulty urinating elham difficulty urinating TECHNIQUE: Multiaxial CT images of the abdomen and pelvis were performed without contrast. A dose lo wering technique was utilized adhering to the principles of ALARA. COMPARISON STUDY: CT abdomen and pelvis 02/28/2020 FINDINGS: Clear lung bases. No pneumatosis or pneumoperitoneum. The imaged inferior cardiac chambers are unrema rkable. The spleen and right adrenal gland are unremarkable. Unchanged 1.3 center left adrenal gland lesion with Hounsfield unit of 19. Unremarkable appearance of the liver. Gallbladder distention with cholelithiasis. No definite biliary ductal dilation. Unchanged 8 mm linear calcification within the p ancreatic head. There is moderate interstitial and peripancreatic edema with trace free fluid. No brenda inable fluid collection. No significant pancreatic ductal dilation. There is a prominent 1.4 x 0.9 cm lymph node within the abdominal right upper quadrant inferior to the gallbladder, image 183 of serie s 3. Mildly enlarged periportal lymph nodes measure up to 11 mm in short axis. Mild nonspecific bilateral perinephric stranding. Prostamegaly. Urinary bladder wall thickening sugge stive of chronic bladder outlet obstruction. Calcified plaque of the abdominal aorta. Mild wall thick ening of the duodenum. Fatty attenuating focus involves the third portion of the duodenum, 1.3 cm sug gestive of a lipoma versus ingested material. No bowel obstruction. Mild wall thickening of the ascen ding colon is likely reactive. Normal appendix. Degenerative changes of the spine and pelvis. IMPRESSION: 1. Findings compatible with moderate acute pancreatitis. No acute peripancreatic fluid collection. 2. Cholelithiasis with gallbladder distention. No biliary ductal dilation or choledocholithiasis iden tified. There is an unchanged linear calcification within the pancreatic head. 3. Mild wall thickening of the duodenum and ascending colon is likely on a reactive basis. No bowel o bstruction. 4. Additional findings as above. ACT 112: Negative or not required by law. The above report was generated using voice recognition software. It may contain grammatical, syntax o r spelling errors. Electronically signed by: Epifanio Ceron M.D. 03/25/2020 2:03 PM
[2020-03-25] MEDS ORDERED: ASPIRIN CHEW 324 MG PO STA (14:50)
[2020-03-25 16:00] LABS: Magnesium 2.1 mg/dl (1.8-2.4); Phosphorus 8.6 mg/dl (2.5-4.9)
--- NOTE | 2020-03-25 16:06 | History & Physical Report ---
Date of Service March 25, 2020 Assessment & Plan (1) Pancreatitis: This is a 54-year-old male who has significant PMH of type 1 diabetes mellitus, CAD with history of stent, HTN, HLD, history of pancreatitis, alcohol abuse, SATYA on CPAP, depression with anxiety who presents to ED with complaint of abdominal pain and cough times several days. In ED patient remained hemodynamically stable. Lab work notable for leukocytosis 13.7, H&H 13.5 and 36.3, platelet 146, d-dimer 2490, sodium 122, K3.7, chloride 87, CO2 14, AG 21, BUN 81, creatinine 12, lactate 1.0, CK 122, lipase 23,630. CT scan abdomen pelvis concerning for moderate pancreatitis. ETOH level WNL. UA + rbc, protein, granular cast. He received 2L of IV while in ED along with 1mg IV ativan, reglan. Pt with acute pancreatitis likely in setting of alcoholism; however CT abd/pelvis revealed cholelithiasis with gallbladder distention. No biliary ductal dilation or choledocholithiasis identified therefore gallbladder pathology can't be ruled out admit to PCU continue NPO LR 200cc/hr antiemetics/pain control consult GI serial bmp q8hr repeat cbc, cmp, lipase in a.m. lipid panel in a.m. ETOH cessation recommended (2) Acute renal failure: baseline cr 1-1.5 bun/cr 81 and 12.0 today ARF likely 2/2 to poor po intake, vomiting and alcohol abuse continue IVF BMP q8hr obtain urine na, serum osm nephrology consulted (3) High anion gap metabolic acidosis: (4) Alcohol withdrawal: Patient with active alcohol withdrawal, last drink approximately 48 hours ago Placed on IV Ativan active protocol Unfortunately unable to use gabapentin given acute renal failure Monitor closely Placed on IV thiamine and folic acid until able to tolerate p.o. Likely will need discussion for alcohol rehab once more medically stable (5) Cough: pt reports dry cough for several days admits to SOB when he coughs no documented fever, lost of taste or smell he does have GI sx of N/V and loose stool - likely 2/2 to pancreatitis no +covid19 contacts given hx of cough and recent hospitalization will order rapid covid he did have outpt covid test 02/24 which was negative (6) Elevated d-dimer: d-dimer elevated 2,490 likely nonspecific and pt without c/o of chest pain, SOB, tachycardia will order VQ scan for completeness but low suspicion no ecg changes (7) DM type 1 (diabetes mellitus, type 1): Well-controlled type I diabetic Lantus/NovoLog as outpatient Given current n.p.o. status will consult glycemic pharmacist -appreciate their management Last A1c 6.0 on 02/29/2020 - given pt comorbidities with alcoholism may be too tightly controlled (8) CAD (coronary artery disease): History of BMS to left circumflex in 2009 On ASA, statin, metoprolol, losartan as outpatient Hold statin and losartan for now (9) Hypertension: Blood pressure elevated in ED, likely secondary to withdrawal Continue metoprolol, hydralazine with appropriate parameters Hold losartan given TONG (10) Esophagitis: Continue PPI twice daily (11) Dyslipidemia: hold statin and fibrate for now check lipid panel in am. CK WNL (12) Tobacco abuse: Nicotine patch ordered Encourage smoking cessation (13) DVT prophylaxis: SQ Heparin Disposition: admit to PCU, case management consulted, will need to discuss rehab when patient condition improves Follow up: PCP Dr. Monroe upon discharge Pt was seen and examined in collaboration with Dr. Schilling, please see addendum History of Present Illness Chief Complaint: Abdominal pain and cough times several days. Primary Care P elvia: Jennifer Monroe MD This is a 54-year-old male who has significant PMH of type 1 diabetes mellitus, CAD with history of stent, HTN, HLD, history of pancreatitis, alcohol abuse, SATYA on CPAP, depression with anxiety who presents to ED with complaint of abdominal pain and cough times several days. He states his symptoms started approximately 1 week ago. He complains of dry cough, epigastric abdominal pain, nausea, emesis of álvarez/white color, phonophobia, tinnitus, tremors, and intermittent chills/sweats. He admits to approximately, "100 episodes of vomiting yesterday," and 5-8 episodes of vomiting today. He is a chronic alcoholic and drinks 6 beers daily along with liquor and wine. His last alcoholic beverage was 1 beer 2 days ago. He has been unable to tolerate p.o. intake secondary to nausea and vomiting. He denies any documented fever, lightheadedness but does admit to dizziness. He further denies any chest pain, palpitations, hemoptysis, hematemesis, melena, hematochezia, dysuria, increased urgency or frequency with urination, hematuria. He does admit to a few episodes of loose stool yesterday along with shortness of breath when he coughs. He is a chronic 1 pack/day smoker. He denies any decrease in urine production. He denies any sick contacts with covid 19. Lives at home with his girlfriend. Denies loss of taste/smell. In ED patient remained hemodynamically stable. Lab work notable for leukocytosis 13.7, H&H 13.5 and 36.3, platelet 146, d-dimer 2490, sodium 122, K3.7, chloride 87, CO2 14, AG 21, BUN 81, creatinine 12, lactate 1.0, CK 122, lipase 23,630. CT scan abdomen pelvis concerning for moderate pancreatitis. ETOH level WNL. UA + rbc, protein, granular cast. He received 2L of IV while in ED along with 1mg IV ativan, reglan. Allergies Allergy/AdvReac Type Severity Reaction Status Date / Time naproxen Allergy Unknown Hives Verified 03/25/20 11:22 tramadol Allergy Unknown Unknown Verified 03/25/20 11:22 moxifloxacin [From Avelox] AdvReac Unknown Verified 03/25/20 15:53 ramipril AdvReac Unknown Verified 03/25/20 15:53 Home Medications Home Medications Medication Instructions Recorded Confirmed Type Lantus Solostar U-100 Insulin 16 unit SUBCUT DAILY 10/24/19 03/25/20 History albuterol sulfate [ProAir HFA] 2 puff INHALATION Q4H PRN 10/24/19 03/25/20 History aspirin 81 mg PO QAM 10/24/19 03/25/20 History gemfibrozil 600 mg PO BID 10/24/19 03/25/20 History hydralazine 25 mg PO QID 10/24/19 03/25/20 History insulin aspart U-100 [Novolog 1 unit SUBCUT DIRECTED 10/24/19 03/25/20 History Flexpen U-100 Insulin] losartan 100 mg PO QAM 10/24/19 03/25/20 History metoprolol tartrate 50 mg PO BID 10/24/19 03/25/20 History rosuvastatin 40 mg PO PM 10/24/19 03/25/20 History benzonatate 100 mg PO TID PRN 02/28/20 03/25/20 History ondansetron HCl 4 mg PO UD PRN 02/28/20 03/25/20 History pantoprazole 40 mg PO BID 30 Days #60 tab 03/04/20 03/25/20 Rx Past Med/Surg History Medical History Alcohol abuse Anxiety CAD (coronary artery disease) 2009-stenting to left circumflex Chronic pancreatitis Depression DM type 1 (diabetes mellitus, type 1) Dyslipidemia GERD (gastroesophageal reflux disease) Hypertension Hypertriglyceridemia SATYA (obstructive sleep apnea) Tobacco abuse Surgical History H/O hernia repair H/O shoulder surgery History of nasal septoplasty S/P rotator cuff repair Family History Mother Heart disease Social History (Updated 03/25/20 @ 15:55 by Ne Person PA-C) Preferred Language: Latvian Communication Ability: Effective Medical Technologist Chemistry Required: No Beliefs That Will Affect Care: None Current Living Situation: Significant Other Other Information That Helps Us Care for You: No Feels Safe at Home: Yes Safety Concerns: Feels Safe At This Time Smoking Status: Current every day smoker Tobacco Type: cigarettes ; Years Smoked: 25 ; Cigarettes Per Day: 20 ; Do You Dip or Chew Tobacco: No ; Second Hand Exposure: Yes ; Hx Alcohol Use: Yes Alcohol type: beer, wine and hard liquor Alcohol type Comment: 6 beers/day Hx Substance Use: No Review of Systems Review of Systems: All systems reviewed & are unremarkable except as noted in HPI & below Physical Exam Physical Exam: Please refer to Dr. Schilling addendum for details regarding assessment and plan. Results & Data Results & Data ([facility]) Vital Signs (Past 12 Hours) Vital Signs Temp Pulse Resp BP Pulse Ox 03/25/20 15:01 90 21 03/25/20 15:00 90 20 151/97 H 03/25/20 14:31 79 17 03/25/20 14:30 80 21 130/80 03/25/20 14:01 76 20 100 03/25/20 14:00 77 17 124/78 100 03/25/20 13:52 81 16 116/75 100 03/25/20 13:42 84 22 03/25/20 13:00 85 16 03/25/20 12:54 87 18 03/25/20 11:40 95 03/25/20 11:37 65 16 151/98 H 03/25/20 11:30 63 18 03/25/20 11:05 64 16 100 03/25/20 11:04 65 17 135/85 100 03/25/20 11:00 66 13 100 03/25/20 10:51 100 03/25/20 10:44 66 16 100 03/25/20 10:42 36.6 C 67 18 140/88 100 03/25/20 10:40 66 15 140/88 100 Laboratory Results Short CBC 03/25/20 Range/Units 11:50 WBC 13.77 H (4.8-10.8) K/uL Hgb 13.5 L (14.0-18.0) g/dL Hct 36.3 L (42-52) % Plt Count 146 (130-400) K/uL BMP 03/25/20 11:40 Sodium 122 L Potassium 3.7 Chloride 87 L Carbon Dioxide 14 L BUN 81 H Creatinine 12.00 H* Glucose 49 L* Calcium 7.7 L Cardiac Enzymes 03/25/20 03/25/20 Range/Units 11:40 11:40 Total Creatine Kinase 122 (39-308) U/L Troponin I < 0.015 (0-0.045) ng/ml Liver Function 03/25/20 Range/Units 11:40 Total Bilirubin 0.3 (0.2-1) mg/dl Direct Bilirubin 0.1 (0-0.2) mg/dl AST 32 (15-37) U/L ALT 18 (12-78) U/L Alkaline Phosphatase 155 H (45-117) U/L Albumin 3.1 L (3.4-5.0) gm/dl Urine 03/25/20 Range/Units 13:26 Urine Color Red Urine Appearance Cloudy A (Clear) Urine pH 5.5 (4.5-7.5) Ur Specific [place] 1.010 (1.000-1.030) Urine Protein 2+ H (Negative) Urine Glucose (UA) Negative (Negative) Diagnostic Findings CXR: IMPRESSION: No acute cardiopulmonary process. No evidence for bowel obstruction. Cholelithiasis. CT Abd/pelvis: IMPRESSION: 1. Findings compatible with moderate acute pancreatitis. No acute peripancreatic fluid collection. 2. Cholelithiasis with gallbladder distention. No biliary ductal dilation or choledocholithiasis identified. There is an unchanged linear calcification within the pancreatic head. 3. Mild wall thickening of the duodenum and ascending colon is likely on a reactive basis. No bowel obstruction. 4. Additional findings as above. Medications Administered Discontinued Medications Aspirin (Aspirin) 324 mg PO NOW STA Stop: 03/25/20 14:51 Last Admin: 03/25/20 15:46 Dose: Not Given Documented by: [id number] Dextrose (Dextrose 50%) Confirm Administered Dose 50 ml IV .STK-MED ONE Stop: 03/25/20 12:46 Last Admin: 03/25/20 12:48 Dose: Not Given Documented by: [id number] Dextrose (Dextrose 50%) 50 ml IV NOW ONE Stop: 03/25/20 12:46 Last Admin: 03/25/20 12:48 Dose: 50 ml Documented by: [id number] Diphenhydramine HCl (Benadryl) 25 mg IV NOW STA Stop: 03/25/20 11:47 Last Admin: 03/25/20 11:52 Dose: 25 mg Documented by: [id number] Sodium Chloride (Nss 1000ml) 1,000 mls @ 999 mls/hr IV .Q1H1M ONE Stop: 03/25/20 12:46 Last Infusion: 03/25/20 14:43 Dose: 0 mls/hr Documented by: [id number] Admin: 03/25/20 11:52 Dose: 999 mls/hr Documented by: [id number] Lorazepam (Ativan) 1 mg in 2 mls @ 2 mls/min IV NOW STA Stop: 03/25/20 12:45 Last Admin: 03/25/20 12:47 Dose: 2 mls/min Documented by: [id number] Sodium Chloride (Nss 1000ml) 1,000 mls @ 999 mls/hr IV .Q1H1M ONE Stop: 03/25/20 15:24 Last Infusion: 03/25/20 15:46 Dose: 0 mls/hr Documented by: [id number] Admin: 06/10/20 14:43 Dose: 999 mls/hr Documented by: [id number] Lorazepam (Ativan) 1 mg in 2 mls @ 2 mls/min IV NOW STA Stop: 03/25/20 15:36 Last Admin: 03/25/20 15:44 Dose: 2 mls/min Documented by: [id number] Metoclopramide HCl (Reglan) 5 mg IV ONE ONE Stop: 03/25/20 11:47 Last Admin: 03/25/20 11:52 Dose: 5 mg Documented by: [id number] ECG Rate (beats per minute): 65 Rhythm: normal sinus Findings: + Q waves (Inferior) and + prolonged QT (517ms) Code Status & VTE Plan Code Status Full Code VTE Prophylaxis Plan VTE Prophylaxis will be ordered: Yes Supervising Physician Co-Signing Physician Notes History significant for 54-year-old man with history of alcohol abuse, pancreatitis, DM who presented to ER complaining of abd pain, Nausea, vomiting and diarrhea over the past few days. Patient had not reported cough to ER provider and RN. However, he reported dry cough during our evaluation. Reported increased sensitivity to sound, tactile hallucinations, tremors, an episode of blacking out at home Last drink was a few days ago. Usually drinks at least 6 pack beer +/- liqor daily. On Physical exam General: Dehydrated, tremulous, no acute distress Eyes: PERRL, conjunctivae normal, not pale, anicteric sclerae, EOM intact bilaterally ENMT: Had tissue paper in both ears which he stated he put in to reduce sound sensitivity Respiratory: Normal respiratory effort, no respiratory distress, lungs clear to auscultation, no crackles and no wheezes Cardiovascular: Pulse is RRR.S1-2; no murmurs, no pedal edema Chest (Breasts): Chest: normal inspection of chest Gastrointestinal (Abdomen): Abdomen is not distended, soft,+epigastric tenderness, no guarding, no palpable hepatosplenomegaly, normal bowel sounds Musculoskeletal: No cyanosis or clubbing, all extremities motor strength 5/5 Skin: Some bruise over right shoulder blade and right knee (reported that was from fall when he blacked out at home. Denied any head trauma) Neurologic: Alert and oriented x 3, +Tremors, no focal motor or sensory deficits Psychiatric: Alert and oriented x 3, +mild anxiety Lab is significant for W[place] 13.7[place] [address], Na 122, Cr of 12 (from 1.26 on 03/03/20), bicarb of 14, Cl 87, Ca 7.7 (corrected for albumin is 8.4), Alk phos 155, Ethyl alcohol level of <3 CXR is unremarkable Abd/Pelvic CT show moderate acute pancreatitis, cholelithiasis with gall bladder distention -Acute pancreatitis -Hyponatremia -Acute kidney injury -Alcohol withdrawal Acute pancreatitis likely causes include alcohol. Gall stones are also a possibility considering CT scan findings IV LR 200cc/h Serum osm is 285. Get Urine osm Mild leukocytosis likely reactive. Monitor for now Due to report of dry cough, will get COVID19 test for rule out Monitor Na q8H to avoid precipitous rise Pain control Monitor Cr GI consult Nephrology consult May consider cholecystectomy based on CT findings D dimer is elevated. Low suspicion for PE. Can get VQ scan to rule out health practice manager consult for alcohol rehab. Patient stated he is considering this Alcohol withdrawal management per protocol. Hold gabapentin for now considering TONG and CrCl QTc is 517. Monitor and avoid QT prolonging meds NPO for now. Monitor blood glucose and manage with insulin per protocol Other plans as detailed in Ne Person's note (1) Alcohol withdrawal Complication of substance-induced condition: with unspecified complication Qualified Code(s): F10.239 - Alcohol dependence with withdrawal, unspecified (2) Pancreatitis Acute pancreatitis complication: unspecified Chronicity: acute Pancreatitis type: unspecified pancreatitis type Qualified Code(s): K85.90 - Acute pancreatitis without necrosis or infection, unspecified
--- NOTE | 2020-03-25 16:22 | Communication Note ---
Date of Service: March 25, 2020 History and physical exam performed by me. History significant for 54-year-old man with history of alcohol abuse, pancreatitis, DM who presented to ER complaining of abd pain, Nausea, vomiting and diarrhea over the past few days. Patient had not reported cough to ER provider and RN. However, he reported dry cough during our evaluation. Reported increased sensitivity to sound, tactile hallucinations, tremors, an episode of blacking out at home Last drink was a few days ago. Usually drinks at least 6 pack beer +/- liqor daily. On Physical exam General: Dehydrated, tremulous, no acute distress Eyes: PERRL, conjunctivae normal, not pale, anicteric sclerae, EOM intact bilaterally ENMT: Had tissue paper in both ears which he stated he put in to reduce sound sensitivity Respiratory: Normal respiratory effort, no respiratory distress, lungs clear to auscultation, no crackles and no wheezes Cardiovascular: Pulse is RRR.S1-2; no murmurs, no pedal edema Chest (Breasts): Chest: normal inspection of chest Gastrointestinal (Abdomen): Abdomen is not distended, soft,+epigastric tenderness, no guarding, no palpable hepatosplenomegaly, normal bowel sounds Musculoskeletal: No cyanosis or clubbing, all extremities motor strength 5/5 Skin: Some bruise over right shoulder blade and right knee (reported that was from fall when he blacked out at home. Denied any head trauma) Neurologic: Alert and oriented x 3, +Tremors, no focal motor or sensory deficits Psychiatric: Alert and oriented x 3, +mild anxiety Lab is significant for W[place] 13.7[place] [address], Na 122, Cr of 12 (from 1.26 on 03/03/20), bicarb of 14, Cl 87, Ca 7.7 (corrected for albumin is 8.4), Alk phos 155, Ethyl alcohol level of <3 CXR is unremarkable Abd/Pelvic CT show moderate acute pancreatitis, cholelithiasis with gall bladder distention -Acute pancreatitis -Hyponatremia -Acute kidney injury -Alcohol withdrawal Acute pancreatitis likely causes include alcohol. Gall stones are also a possibility considering CT scan findings IV LR 200cc/h Serum osm is 285. Get Urine osm Mild leukocytosis likely reactive. Monitor for now Due to report of dry cough, will get COVID19 test for rule out Monitor Na q8H to avoid precipitous rise Pain control Monitor Cr GI consult Nephrology consult May consider cholecystectomy based on CT findings D dimer is elevated. Low suspicion for PE. Can get VQ scan to rule out manager intelligence consult for alcohol rehab. Patient stated he is considering this Alcohol withdrawal management per protocol. Hold gabapentin for now considering TONG and CrCl QTc is 517. Monitor and avoid QT prolonging meds Other plans as detailed in Ne Person's note
[2020-03-25] MEDS ORDERED: D5W AND NSS 1,000 ML IV SCH ×2 (17:30→21:45)
[2020-03-25 17:49] LABS: BUN Creatinine Ratio 6.9 (10-20); Calcium 6.7 mg/dl (8.5-10.1); Creatinine Clr Calc Pharmacy 6.7 ml/min; Est GFR (Non-African American) 4.3; Potassium 3.7 mmol/L (3.5-5.1)
[2020-03-25] MEDS ORDERED: ACETAMINOPHEN 325 MG TAB PO PRN (18:06)
[2020-03-25] MEDS ORDERED: GLUCAGON FOR INJ 1 MG VIAL SQ PRN (18:06)
[2020-03-25] MEDS ORDERED: ATIVAN IV ALCOHOL WITHDRAWL IV PRN (18:06)
[2020-03-25] MEDS ORDERED: LORazepam 1 MG/2 ML VIAL IV PRN (18:06)
[2020-03-25] MEDS ORDERED: GLUCOSE 10 TABS/TUBE PO PRN (18:06)
[2020-03-25] MEDS ORDERED: GLUCOSE 40% GEL 15 GM TUBE PO PRN (18:06)
[2020-03-25] MEDS ORDERED: CARBOHYDRATES FOR HYPOGLYCEMIA PO PRN (18:06)
[2020-03-25] MEDS ORDERED: PHARMACY GLYCEMIC MGMT CONSULT PRN (18:25)
[2020-03-25] MEDS: OXYCODONE HCL IR 5 MG TAB (IMMEDIATE RELEASE) PO PRN (18:41)
[2020-03-25] MEDS: LACTATED RINGER'S 1,000 ML IV SCH ×2 (18:43→23:35)
[2020-03-25] MEDS: FOLIC ACID 1 MG in SYRINGE 9.8 ML IV SCH (19:11)
[2020-03-25] MEDS: THIAMINE HCL 100 MG in SYRINGE 9 ML IV SCH (19:11)
[2020-03-25] MEDS: NICOTINE 21 MG/24 HR TDSY TD SCH (19:12)
[2020-03-25] MEDS: DEXTROSE 50% 50 ML SYRINGE IV PRN (21:21)
[2020-03-25] MEDS ORDERED: PIPERACILL/TAZOBAC CONSULT ACTIVE PRN (21:39)
[2020-03-25] MEDS ORDERED: PIPERACILLIN/TAZOBACTAM 3.375 GM in DEXTROSE 5% 100 ML IV SCH (22:00)
[2020-03-25] MEDS: HEPARIN SOD 5,000 UNIT/0.5 ML VIAL SQ SCH (22:10)
[2020-03-25] MEDS: METOPROLOL TARTRATE 50 MG TAB PO SCH (22:10)
[2020-03-25] MEDS: PANTOprazole 40 MG TAB PO SCH (22:10)
[2020-03-25] MEDS ORDERED: SODI CHLOR 2.5MEQ/ML 14.6% 77 MEQ in DEXTROSE 10% 1,000 ML IV SCH (23:00)
[2020-03-25 23:04] LABS: BUN Creatinine Ratio 6.7 (10-20); Calcium 7.1 mg/dl (8.5-10.1); Creatinine Clr Calc Pharmacy 6.6 ml/min; Est GFR (African American) 4.9; Est GFR (Non-African American) 4.3; Potassium 3.7 mmol/L (3.5-5.1)
[2020-03-25] MEDS: PROMETHAZINE HCL 12.5 MG in SODIUM CHLORIDE 0.9% 50 ML IV PRN (23:29)
[2020-03-26] MEDS: OXYCODONE HCL IR 5 MG TAB (IMMEDIATE RELEASE) PO PRN ×2 (01:25→09:20)
[2020-03-26] MEDS: DEXTROSE 50% 50 ML SYRINGE IV PRN (04:40)
[2020-03-26] MEDS: PIPERACILLIN/TAZOBACTAM 3.375 GM in DEXTROSE 5% 100 ML IV SCH ×2 (04:57→18:15)
[2020-03-26] MEDS: LACTATED RINGER'S 1,000 ML IV SCH ×2 (05:52→12:57)
[2020-03-26] MEDS: HEPARIN SOD 5,000 UNIT/0.5 ML VIAL SQ SCH ×3 (05:53→21:02)
[2020-03-26] MEDS: INSULIN ASPART 100 UNITS/ML 3 ML PEN SC SCH ×3 (05:53→18:11)
--- NOTE | 2020-03-26 05:59 | Electrocardiogram Report ---
Test Reason : Blood Pressure : / mmHG Vent. Rate : 065 BPM Atrial Rate : 065 BPM P-R Int : 152 ms QRS Dur : 114 ms QT Int : 498 ms P-R-T Axes : 068 -11 011 degrees QTc Int : 517 ms Normal sinus rhythm Incomplete right bundle branch block Possible Inferior infarct (cited on or before 23-DEC-2009) Prolonged QT Abnormal ECG When compared with ECG of 28-FEB-2020 13:02, Premature ventricular complexes are no longer Present Vent. rate has decreased BY 38 BPM Inverted T waves have replaced nonspecific T wave abnormality in Inferior leads Confirmed by Xavier Pugh ([id number]) on 03/26/2020 5:58:51 AM Referred By: Confirmed By:Xavier Pugh
[2020-03-26] MEDS: PROMETHAZINE HCL 12.5 MG in SODIUM CHLORIDE 0.9% 50 ML IV PRN ×2 (06:06→22:38)
[2020-03-26 07:10] LABS: Albumin Globulin Ratio 0.7 (0.9-2); Albumin Level 2.3 gm/dl (3.4-5.0); BUN Creatinine Ratio 6.7 (10-20); Bilirubin,Total 0.3 mg/dl (0.2-1); Calcium 6.9 mg/dl (8.5-10.1); Creatinine Clr Calc Pharmacy 6.7 ml/min; Est GFR (Non-African American) 4.4; Globulin 3.3 gm/dl (2.5-4.0); Phosphorus 8.3 mg/dl (2.5-4.9); Potassium 3.8 mmol/L (3.5-5.1); Total Protein 5.6 gm/dl (6.4-8.2)
[2020-03-26 07:12] LABS: Hematocrit (blood only) 29.2 % (42-52); Hemoglobin 10.3 g/dL (14.0-18.0); Mean Corpuscular Hemoglobin 31.9 pg (25-34); Mean Corpuscular Hgb Conc 35.3 g/dL (32-36); Mean Corpuscular Volume 90.4 fL (80-100); Mean Platelet Volume 10.9 fL (7.4-10.4); Platelet Count 104 K/uL (130-400); RDW Standard Deviation 42.9 fL (36.4-46.3); Red Blood Count 3.23 M/uL (4.7-6.1); White Blood Count 13.71 K/uL (4.8-10.8)
[2020-03-26 07:13] LABS: Basophils # (auto) 0.01 K/uL (0-0.2); Basophils % (auto) 0.1 %; Eosinophils # (auto) 0.23 K/uL (0-0.5); Eosinophils % (auto) 1.7 %; Immature Granulocytes # (auto) 0.04 K/uL (0.00-0.02); Immature Granulocytes % (auto) 0.3 %; Lymphocytes # (auto) 0.41 K/uL (1.2-3.4); Monocytes # (auto) 0.64 K/uL (0.11-0.59); Monocytes % (auto) 4.7 %; Neutrophils # (auto) 12.38 K/uL (1.4-6.5); Neutrophils % (auto) 90.2 %; Platelet Estimate Decreased (Normal)
--- NOTE | 2020-03-26 08:32 | Nuclear Medicine Report ---
NM pul perfusion CLINICAL HISTORY: elevated dimer cough. Hypertension. Shortness of breath. COMPARISON STUDY: Chest x-ray dated 03/25/2020 FINDINGS: The patient was injected with 5.7 mCi of technetium 99m MAA. Anterior posterior and oblique imaging was performed. Ventilation studies are not being performed at this time due to the Covid-19 pandemic. There are small perfusion defects within the right lung peripherally as well as within the left lower lobe posteriorly. This examination is indeterminate for pulmonary embolism given the lack of a venti lation study. CT angiography could be obtained in follow-up as deemed clinically appropriate. IMPRESSION: 1. Indeterminate study with small nonspecific perfusion defects. Correlation with leg ultrasonography , or CT angiography could be obtained as deemed clinically appropriate ACT 112: Negative or not required by law. Electronically signed by: Truong Joshi M.D. 03/26/2020 8:31 AM
[2020-03-26] MEDS: METOPROLOL TARTRATE 50 MG TAB PO SCH ×2 (09:09→21:00)
[2020-03-26] MEDS: ASPIRIN 81 MG ECTAB PO SCH (09:10)
[2020-03-26] MEDS: PANTOprazole 40 MG TAB PO SCH ×2 (09:10→21:00)
[2020-03-26] MEDS: FOLIC ACID 1 MG in SYRINGE 9.8 ML IV SCH (09:12)
[2020-03-26] MEDS: THIAMINE HCL 100 MG in SYRINGE 9 ML IV SCH (09:12)
--- NOTE | 2020-03-26 09:30 | Gastrointestinal Consultation ---
Date of Consultation March 26, 2020 Assessment & Plan (1) Pancreatitis: (2) DM type 1 (diabetes mellitus, type 1): (3) Alcohol abuse: (4) ARF (acute renal failure): Pt is a 54 y/o male w hx of DM I, ongoing ETOH abuse, currently admitted w suspected ETOH pancreatitis, and ARF. Gallbladder in place w stones but w/o obvious signs of cholecystitis or choledocholithiasis - Keep NPO ; continue PPI - Continue IVF hydration w LR - Nephrology consulted, monitor UOP - Symptomatic management w antiemetics and analgesics prn - Plan for EUS eval in about 4-6 week's time (will postpone originally scheduled procedures on 03/31) Supervising Physician Co-Signing Physician Notes I have seen and examined the patient with MARGARITA Urbano whose note reflects our findings and plan. Patient with ETOH history and admission in December with pancreatitis in now with pancreatitis. Aggressive IVF hydration. Follow labs. Bowel rest. PRN analgesia and anti-emetics. Bladder problems per primary service. Abd mildly tender. History of Present Illness Reason for Consultation: Pancreatitis Requesting Physician: Dr. Annita Blandon Attending Physician: Dr. Madelin Alcocer History of Present Illness Pt is a 54 y/o male who presented yesterday w c/o coughin, n/v, abd pain. He reports last few weeks he was coughing so hard he may have some blood tinge in sputum. He was also having n/v, last episode this AM but denies any hematemesis, or coffee ground emesis. Having abd pain mostly on epigastric area. Bowels move regularly, last this AM w/o signs of dark tarry stools or rectal bleeding. On eval, he was noted to have leukocytosis, anemia, ARF w hyponatremia, hypocalcemia , hyperphosphotemia. LFTs normal, lipase up at 23K. CT abd/pelvis consistent w acute pancreatitis w/o flud collection. + gallstone w/o signs of cholecystitis, ductal dilation or choledocholithiasis. His Ddimer was up, VQ scan indeterminate He has hx of DM I on insulin. Last night had an episode of hypoglycemia, seizure episode and currently on D50. He has hx of ETOH abuse, continues to drink 6 pack a day. Last drink about a week ago. + cigarette use, denies any illegal substances. TG level 100s. Allergies Allergy/AdvReac Type Severity Reaction Status Date / Time naproxen Allergy Unknown Hives Verified 03/25/20 11:22 tramadol Allergy Unknown Unknown Verified 03/25/20 11:22 moxifloxacin [From Avelox] AdvReac Unknown Verified 03/25/20 15:53 ramipril AdvReac Unknown Verified 03/25/20 15:53 Home Medications Home Medications Medication Instructions Recorded Confirmed Type Lantus Solostar U-100 Insulin 16 unit SUBCUT DAILY 10/24/19 03/25/20 History albuterol sulfate [ProAir HFA] 2 puff INHALATION Q4H PRN 10/24/19 03/25/20 History aspirin 81 mg PO QAM 10/24/19 03/25/20 History gemfibrozil 600 mg PO BID 10/24/19 03/25/20 History hydralazine 25 mg PO QID 10/24/19 03/25/20 History insulin aspart U-100 [Novolog 1 unit SUBCUT DIRECTED 10/24/19 03/25/20 History Flexpen U-100 Insulin] losartan 100 mg PO QAM 10/24/19 03/25/20 History metoprolol tartrate 50 mg PO BID 10/24/19 03/25/20 History rosuvastatin 40 mg PO PM 10/24/19 03/25/20 History benzonatate 100 mg PO TID PRN 02/28/20 03/25/20 History ondansetron HCl 4 mg PO UD PRN 02/28/20 03/25/20 History pantoprazole 40 mg PO BID 30 Days #60 tab 03/04/20 03/25/20 Rx Patient History Medical History Alcohol abuse (Acute) Anxiety CAD (coronary artery disease) 2009-stenting to left circumflex Chronic pancreatitis Depression DM type 1 (diabetes mellitus, type 1) Dyslipidemia GERD (gastroesophageal reflux disease) Hypertension Hypertriglyceridemia SATYA (obstructive sleep apnea) Tobacco abuse Surgical History H/O hernia repair H/O shoulder surgery History of nasal septoplasty S/P rotator cuff repair Family History Mother Heart disease Social History Preferred Language: Yi Communication Ability: Effective Manager Animation Required: No Beliefs That Will Affect Care: None Current Living Situation: Significant Other Other Information That Helps Us Care for You: No Feels Safe at Home: Yes Safety Concerns: Feels Safe At This Time Smoking Status: Current every day smoker Tobacco Type: cigarettes ; Years Smoked: 25 ; Cigarettes Per Day: 20 ; Do You Dip or Chew Tobacco: No ; Second Hand Exposure: Yes ; Hx Alcohol Use: Yes Alcohol type: beer, wine and hard liquor Alcohol type Comment: 6 beers/day Hx Substance Use: No Review of Systems Review of Systems: All systems reviewed & are unremarkable except as noted in HPI & below Physical Exam Constitutional: WD/WN, vitals as above well groomed, cooperative and comfortable Eyes: PERRL, conjunctivae normal, anicteric sclerae ENMT: external ear and nose normal, oropharynx normal Respiratory: normal respiratory effort, lungs clear to auscultation Cardiovascular: RRR, no murmur, no edema Gastrointestinal (Abdomen): Inspection/Auscultation: + hypoactive bowel sounds Percussion/Palpation: + abdomen tender (upper abd ) and abdomen soft Skin: no rashes, warm and dry no jaundice Neurologic: No tremors on hands Psychiatric: A+Ox3, euthymic affect Genitourinary: Morales draining pink colored urine Lymphatic: no lymphedema Results & Data ([facility]) Vital Signs (Past 12 Hours) Vital Signs Temp Pulse Pulse Pulse Resp BP Pulse Ox 03/26/20 09:08 86 128/77 98 03/26/20 08:04 37.1 C 75 20 127/77 100 03/26/20 04:52 77 129/79 99 03/26/20 02:45 37.1 C 109 H 21 136/76 99 03/26/20 00:00 84 03/25/20 23:16 73 18 100 03/25/20 23:15 36.5 C 78 20 132/81 98 03/25/20 22:34 99 H 22 138/66 97 Pulse Ox 03/26/20 09:08 03/26/20 08:04 03/26/20 04:52 03/26/20 02:45 03/26/20 00:00 98 03/25/20 23:16 03/25/20 23:15 03/25/20 22:34 (1) Pancreatitis Acute pancreatitis complication: unspecified Chronicity: acute Pancreatitis type: unspecified pancreatitis type Qualified Code(s): K85.90 - Acute pancreatitis without necrosis or infection, unspecified
[2020-03-26] MEDS ORDERED: CALCIUM CHLORIDE 10% 1,000 MG in SODIUM CHLORIDE 0.9% 50 ML IV STA (11:11)
[2020-03-26] MEDS: LORazepam 2 MG/4 ML VIAL IV PRN ×3 (11:38→22:46)
[2020-03-26 11:59] LABS: BUN Creatinine Ratio 6.4 (10-20); Calcium 6.8 mg/dl (8.5-10.1); Creatinine Clr Calc Pharmacy 6.7 ml/min; Est GFR (Non-African American) 4.3; Potassium 4.7 mmol/L (3.5-5.1)
[2020-03-26] MEDS ORDERED: MoRPHine SULFATE 2 MG/ML CARP IV PRN (12:17)
--- NOTE | 2020-03-26 12:24 | Consultation Report ---
DATE OF CONSULTATION: 03/26/2020 NEPHROLOGY CONSULTATION NOTE REASON FOR CONSULT: Acute renal failure in a patient with pancreatitis. HISTORY OF PRESENT ILLNESS: The patient is a 54-year-old male who presented to the Emergency Department yesterday with nausea, poor appetite, abdominal pain which started about 2 weeks ago. He was also complaining of cough. He was taking ibuprofen most of the days few times. He was having some episodes of diarrhea. He does have history of smoking and history of alcohol use. The patient was discharged just recently from the hospital with the diagnoses of esophagitis and alcohol abuse as well as TONG. During that admission, he had reasonable renal function and on the day of discharge, which was 03/03/2020, his creatinine was actually 1.26. yesterday on the workup, he was found to have very elevated creatinine of 12 as well as findings of pancreatitis both on the CT scan as well as very elevated lipase. Since admission, he has received IV fluids with Ringer lactate and, with that, he is making some urine. However, creatinine has not changed much as of now and it is still 11.60. Overnight, the patient also had an episode of severe hypoglycemia with glucose dropping down to 26 and even had some seizure-like episode. After which, he was placed on 10% dextrose drip and had a Morales catheter placed. CT scan did not show any evidence of obstructive uropathy, but it appears he does have some prostate enlargement with bladder outlet obstruction. Despite very abnormal labs, his vital signs actually look fairly normal even now as well as at the time of admission. PAST MEDICAL AND SURGICAL HISTORY: Type 1 diabetes, history of alcohol abuse, history of acute renal failure, history of gallstone, coronary artery disease with stenting, depression, dyslipidemia, GERD, anxiety, depression, hypertriglyceridemia, obstructive sleep apnea, hernia surgery, shoulder surgery, nasal septoplasty, rotator cuff surgery. FAMILY HISTORY: Positive for heart disease in mother. No renal disease or dialysis. SOCIAL HISTORY: He lives with his girlfriend in his home. History of heavy alcohol use as well as current every day smoking. REVIEW OF SYSTEMS: Other than significant GI symptoms as detailed in HPI, 12 systems reviewed and is otherwise negative. ALLERGIES: LIST WAS REVIEWED FROM THE H AND P. HOME MEDICATIONS: List was also reviewed in detail. He does take losartan. He is not on any diuretics. On top of his prescription medication, he was also taking frequent ibuprofen for abdominal pain. PHYSICAL EXAMINATION: GENERAL: A middle-aged white male who does not appear to be in severe respiratory distress at this time. He does feel a little restless and is complaining a lot about Morales catheter hurting him. HEENT: Atraumatic, normocephalic. Mucous membrane is moist. NECK: Supple. No jugular venous distention. RESPIRATORY: Normal respiratory effort. Lungs clear to auscultation. CARDIOVASCULAR: Regular rate and rhythm. No murmur or gallop. ABDOMEN: Diffuse tenderness in the belly. EXTREMITIES: Show no edema. NEUROLOGICAL: No tremors. Awake, alert, oriented x3, moving all 4 extremities. VITAL SIGNS: Blood pressure 122/71, pulse 88, respiratory rate 20, temperature 36.9, 97% on room air. LABORATORY TESTS: From this morning show sodium 125, potassium 3.8, bicarbonate 16, chloride 95, anion gap 14, BUN 78, creatinine 11.6, calcium 6.9, phosphorus 8.3. CT scan of the abdomen was reviewed and shows nonspecific perinephric stranding, but no hydronephrosis. Findings of prostate enlargement with chronic bladder outlet obstruction. Main finding was pancreatitis. Chest x-ray does not show evidence of CHF. ASSESSMENT AND PLAN: 1. Acute pancreatitis: At this time, patient is n.p.o. and has been seen by Gastrointestinal. At this time, the plan is conservative management. 2. Acute renal failure: This is quite severe with a creatinine of around 12; however, it does not appear to be a simple case of volume depletion. He has been getting significant IV fluids already and so far creatinine has not gone down, most likely it started as volume depletion, but definitely progressed to acute tubular necrosis. He does not have any severe electrolyte imbalance or evidence of fluid overload. Does not need dialysis at this time. We can wait for the spontaneous renal recovery to happen in the coming days. Continue to maintain a good hemodynamic status with good blood pressure and oxygen. Avoid nephrotoxic agents including nonsteroidal anti-inflammatory drugs, angiotensin-converting enzyme, angiotensin-receptor blockers, or contrast agents. I did explain to the patient that there is a chance he may need dialysis in the coming days. At this time, he is complaining a lot about Morales catheter. As long as we can document urine output, it is not mandatory to have a Morales catheter. ----D/c Current iv fluids and use D5NS at 150/hr till tomorrow AM. If urine Does not grape picker will have to Lower the fluid rate to avoid going into Pulm edema with ATN. 3. Hypoglycemia: It is not unusual to have hypoglycemic episodes in the midst of renal failure given drastically decreased insulin clearance. Be very cautious with insulin use. use D5NS at 150/hr to give both salt and Dextrose. MTDD
[2020-03-26] MEDS: D5W AND NSS 1,000 ML IV SCH ×2 (12:56→19:15)
--- NOTE | 2020-03-26 14:28 | Pharmacy Report ---
Pharmacy Glycemic Short Note 2 - Date of Service March 26, 2020 - Glycemic Short BSG Results (Last 24 hours): 03/25/20 03/25/20 03/25/20 13:53 17:17 17:24 Glucose 40 L* POC Glucose 154 H 48 L* 03/25/20 03/25/20 03/25/20 17:52 18:03 21:18 Glucose POC Glucose 182 H 145 H 26 L* 03/25/20 03/25/20 03/25/20 21:27 21:42 22:16 Glucose POC Glucose 178 H 126 H 98 03/25/20 03/25/20 03/25/20 22:27 22:40 23:00 Glucose 64 L POC Glucose 79 89 03/26/20 03/26/20 03/26/20 00:12 00:59 02:04 Glucose POC Glucose 75 74 77 03/26/20 03/26/20 03/26/20 02:59 04:06 04:09 Glucose POC Glucose 74 67 L* 66 L* 03/26/20 03/26/20 03/26/20 04:37 04:39 04:57 Glucose POC Glucose 65 L* 59 L* 127 H 03/26/20 03/26/20 03/26/20 05:53 06:03 07:00 Glucose 68 L POC Glucose 87 81 03/26/20 03/26/20 03/26/20 07:56 11:00 11:32 Glucose 70 POC Glucose 82 82 OUTPATIENT ANTIDIABETIC REGIMEN: * Lantus 16 units SQ qAM * Novolog SS * A1c = 6% ASSESSMENT: * Nikita is a 54 yo T1DM admitted with pancreatitis, acute renal failure, and hypoglycemia * Patient's last dose of insulin was 6 AM (Lantus 16 units). He has received no insulin since time of admission due to persistent hypoglycemia. He was initially treated with a D10 infusion. This has been changed to D5NS @ 150 ml/hr. Patient is NPO. * Continue to hold basal insulin until evidence of BSG recovery is seen (BSG > 140 mg/dL x 2). When resumed, patient will require reduced doses until renal function returns to baseline. * Continue Novolog for correctional insulin only PLAN FOR INPATIENT GLYCEMIC CONTROL: * Basal insulin * hold * Bolus insulin * NovoLog per scale ACHS or Q6hrs while NPO * Goal Range: Low 120 mg/dL - High 160 mg/dL * Correction Factor: 35 mg/dL/unit PLAN FOR DISCHARGE: * A1c = 6% (02/29/20) * A1c indicates adequate glycemic control * d/c plan TBD
--- NOTE | 2020-03-26 17:03 | Hospitalist Progress Note ---
Date of Service March 26, 2020 Assessment & Plan (1) Pancreatitis: ETOH induced pancreatitis Lipase level > 23 k hx of ETOH abuse , multiple admissions in past with ETOH withdrawl GI eval appreciated cont supportive care with bowel rest , IV fluid strict abstinence from ETOH out pt EUS (2) Acute renal failure: ATN -acute tubular necrosis with oligoura presented with Cr > 12 due to poor po intake, vomiting and alcohol abuse for past several weeks ( pt was discharged from [facility] on 03/11 ) baseline cr 1-1.5 neurology consulted cont IVF for now caution for vol overload if urine out put still remains low , need to cut down IVF to prevent pulm edema , anasarca no indication for dialysis today monitor vol status closely HYPOGLYCEMIA : possible due to ATN causing poor clearance of Lantus -pt taken 16 U home dose prior to admission all hypoglycemics kept on hold IV with Dextrose pharmacy following for glycemic managment HYPONATREMIA : due to dehydration , chronic ETOH abuse IVF with NSS close follow up BMP to prevent rapid over correction nephrology following (3) High anion gap metabolic acidosis: due to ATN /renal failure cont IV fluids monitor electrolytes closely (4) Alcohol withdrawal: Patient with active alcohol withdrawal, last drink approximately 48 hours ago Placed on IV Ativan active protocol Unfortunately unable to use gabapentin given acute renal failure Monitor closely Placed on IV thiamine and folic acid until able to tolerate p.o. Likely will need discussion for alcohol rehab once more medically stable (5) Cough: pt reports dry cough for several days admits to SOB when he coughs no documented fever, lost of taste or smell he does have GI sx of N/V and loose stool - likely 2/2 to pancreatitis no +covid19 contacts given hx of cough and recent hospitalization will order rapid covid he did have outpt covid test 02/24 which was negative (6) Elevated d-dimer: d-dimer elevated 2,490 likely nonspecific and pt without c/o of chest pain, SOB, tachycardia VQ scan non conclusive can not do contrast study /CTA of chest low suspicion for PE/DVT (7) DM type 1 (diabetes mellitus, type 1): hypoglycemic episode noted due to ATN hold all hypoglycemics pharmacy following for glycemic managment (8) CAD (coronary artery disease): History of BMS to left circumflex in 2009 On ASA, statin, metoprolol, losartan as outpatient Hold statin-for pancreatitis /hold losartan for ATN (9) Hypertension: Continue metoprolol, hydralazine with appropriate parameters Hold losartan given TONG (10) Esophagitis: Continue PPI twice daily (11) Dyslipidemia: hold statin and fibrate-pancreatitis CK WNL (12) Tobacco abuse: Nicotine patch ordered Encourage smoking cessation (13) DVT prophylaxis: SQ Heparin Disposition: continue to monitor in PCU Admission and Anticipated Discharge Date Admission Date: March 25, 2020 Subjective complains of feeling weak and tired no complain of SOB or cough epigastric pain persists no nausea or vomiting no fever or chills Review of Systems Review of Systems: All systems reviewed & are unremarkable except as noted in HPI & below Physical Exam Constitutional: WD/WN, vitals as above + ill appearing Eyes: PERRL, conjunctivae normal, anicteric sclerae ENMT: external ear and nose normal, oropharynx normal Neck: trachea midline, no thyromegaly Respiratory: normal respiratory effort; no respiratory distress and no cough Auscultation: + crackles and + rales Cardiovascular: Extremities: + pedal edema and + edema Gastrointestinal (Abdomen): Percussion/Palpation: + abdomen tender, abdomen soft and + ascites Neurologic: PERRL, EOMI, accommodation nl, no face palsy, no dysarthria Psychiatric: Orientation: oriented x 3 Results & Data Results & Data ([facility]) Vital Signs (Past 12 Hours) Vital Signs Temp Pulse Resp BP Pulse Ox 03/26/20 15:27 36.8 C 82 20 128/70 96 03/26/20 12:52 36.7 C 85 18 113/61 99 03/26/20 11:38 36.9 C 88 20 122/71 97 03/26/20 09:08 86 128/77 98 03/26/20 08:04 37.1 C 75 20 127/77 100 (1) Alcohol withdrawal Complication of substance-induced condition: with unspecified complication Qualified Code(s): F10.239 - Alcohol dependence with withdrawal, unspecified (2) Pancreatitis Acute pancreatitis complication: unspecified Chronicity: acute Pancreatitis type: unspecified pancreatitis type Qualified Code(s): K85.90 - Acute pancreatitis without necrosis or infection, unspecified
[2020-03-26] MEDS: NICOTINE 21 MG/24 HR TDSY TD SCH (18:14)
[2020-03-26 18:19] LABS: BUN Creatinine Ratio 6.5 (10-20); Calcium 7.6 mg/dl (8.5-10.1); Creatinine Clr Calc Pharmacy 6.6 ml/min; Est GFR (African American) 4.9; Est GFR (Non-African American) 4.3; Potassium 3.8 mmol/L (3.5-5.1)
[2020-03-26] MEDS ORDERED: DEXTROSE 50% 50 ML SYRINGE IV STA (18:28)
[2020-03-26] MEDS ORDERED: DEXTROSE 50% 50 ML SYRINGE IV ONE (22:05)
--- NOTE | 2020-03-26 22:57 | Electrocardiogram Report ---
Test Reason : Blood Pressure : / mmHG Vent. Rate : 076 BPM Atrial Rate : 076 BPM P-R Int : 150 ms QRS Dur : 114 ms QT Int : 458 ms P-R-T Axes : 060 -13 006 degrees QTc Int : 515 ms Normal sinus rhythm Incomplete right bundle branch block Inferior infarct (cited on or before 23-DEC-2009) Prolonged QT Abnormal ECG When compared with ECG of 25-MAR-2020 10:58, No significant change was found Confirmed by Xavier Pugh ([id number]) on 03/26/2020 10:57:21 PM Referred By: REFERRED SELF Confirmed By:Xavier Pugh
[2020-03-27] MEDS ORDERED: DEXTROSE 50% 50 ML SYRINGE IV ONE (00:39)
[2020-03-27] MEDS: LORazepam 2 MG/4 ML VIAL IV PRN ×8 (00:57→19:48)
[2020-03-27] MEDS: D5W AND NSS 1,000 ML IV SCH ×2 (01:05→08:44)
[2020-03-27] MEDS ORDERED: ALBUTEROL HFA 8 GM INHALER INH PRN (02:27)
[2020-03-27] MEDS: LORazepam 3 MG/6 ML VIAL IV PRN (05:17)
[2020-03-27] MEDS: HEPARIN SOD 5,000 UNIT/0.5 ML VIAL SQ SCH (05:19)
[2020-03-27] MEDS: PIPERACILLIN/TAZOBACTAM 3.375 GM in DEXTROSE 5% 100 ML IV SCH (05:23)
[2020-03-27 06:23] LABS: Hematocrit (blood only) 27.6 % (42-52); Hemoglobin 9.8 g/dL (14.0-18.0); Mean Corpuscular Hemoglobin 32.3 pg (25-34); Mean Corpuscular Hgb Conc 35.5 g/dL (32-36); Mean Corpuscular Volume 91.1 fL (80-100); RDW Coefficient of Variation 13.4 % (11.5-14.5); RDW Standard Deviation 44.3 fL (36.4-46.3); Red Blood Count 3.03 M/uL (4.7-6.1); White Blood Count 9.46 K/uL (4.8-10.8)
[2020-03-27] MEDS: INSULIN ASPART 100 UNITS/ML 3 ML PEN SC SCH ×5 (06:40→20:53)
[2020-03-27 06:57] LABS: Mean Platelet Volume 10.8 fL (7.4-10.4); Platelet Count 96 K/uL (130-400); Platelet Estimate Decreased (Normal)
[2020-03-27] MEDS: METOPROLOL TARTRATE 50 MG TAB PO SCH ×2 (08:45→19:53)
[2020-03-27] MEDS: PANTOprazole 40 MG TAB PO SCH ×2 (08:46→19:53)
--- NOTE | 2020-03-27 09:30 | Gastroenterology Progress Note ---
Date of Service March 27, 2020 Assessment & Plan (1) Pancreatitis: (2) DM type 1 (diabetes mellitus, type 1): (3) Alcohol abuse: (4) ARF (acute renal failure): Pt is a 54 y/o male w hx of DM I, ongoing ETOH abuse, currently admitted w suspected ETOH pancreatitis, and ARF. Gallbladder in place w stones but w/o obvious signs of cholecystitis or choledocholithiasis Overnight RN reports mental status change - appears confused ? getting uremic. UOP low, santamaria in place w yellow urine now. No n/v, abd soft, though still operator brandy on palpation on upper abd areas - Primary team will order chem panel - Ok for CL diet, may continue to advance slowly as tolerated to low fat, diabetic diet eventually - Continue IVF hydration. - Nephrology following, will help decide if pt needs dialysis or not - Strict ETOH cessation; watch for withdrawal symptoms. - Symptomatic management w antiemetics and analgesics prn - No new GI plans, will sign off; pls recall prn. Plan for EUS eval in about 4-6 week's time (will postpone originally scheduled procedures on 03/31) Admission and Anticipated Discharge Date Admission Date: March 25, 2020 Supervising Physician Co-Signing Physician Notes I have seen and examined the patient with MARGARITA Urbano whose note reflects our findings and plan. Subjective Pt appears confused this AM though able to answer me questions, oriented to self, place time. He's not aware of why he's in hospital, said it's because he is "drinking" and he is asking repeatedly for food. He denies pain, n/v. UOP low, santamaria in place w yellow urine now instead of bloody. Chem panel this AM not ordered Review of Systems Review of Systems: All systems reviewed & are unremarkable except as noted in HPI & below Physical Exam Constitutional: WD/WN, vitals as above cooperative and comfortable Eyes: PERRL, conjunctivae normal, anicteric sclerae ENMT: external ear and nose normal, oropharynx normal Respiratory: normal respiratory effort, lungs clear to auscultation Cardiovascular: RRR, no murmur, no edema Gastrointestinal (Abdomen): Inspection/Auscultation: normal bowel sounds Percussion/Palpation: + abdomen tender (upper abd ) and abdomen soft Skin: no rashes, warm and dry no jaundice Psychiatric: Though A&O x 3, he appears to be confused at times. For example unaware of why he's in hospital and kept asking for some food. Mild tremors on fingers Lymphatic: no lymphedema Results & Data ([facility]) Vital Signs (Past 12 Hours) Vital Signs Temp Pulse Pulse Resp BP Pulse Ox 03/27/20 07:29 36.5 C 77 21 115/73 98 03/27/20 06:09 36.5 C 72 19 121/72 100 03/27/20 03:45 36.7 C 74 16 120/73 100 03/27/20 03:14 74 18 98 03/27/20 02:27 82 21 123/75 98 03/26/20 23:40 36.9 C 86 17 111/62 95 (1) Pancreatitis Acute pancreatitis complication: unspecified Chronicity: acute Pancreatitis type: unspecified pancreatitis type Qualified Code(s): K85.90 - Acute pancreatitis without necrosis or infection, unspecified
[2020-03-27 10:20] LABS: Alanine Aminotransferase 16 U/L (12-78); Albumin Level 2.1 gm/dl (3.4-5.0); Alkaline Phosphatase 106 U/L (45-117); Aspartate Aminotransferase 20 U/L (15-37); BUN Creatinine Ratio 6.4 (10-20); Bilirubin Direct < 0.1 mg/dl (0-0.2); Bilirubin,Total 0.2 mg/dl (0.2-1); Blood Urea Nitrogen 78 mg/dl (7-18); Calcium 7.1 mg/dl (8.5-10.1); Carbon Dioxide 15 mmol/L (21-32); Chloride 99 mmol/L (98-107); Creatinine Clr Calc Pharmacy 6.3 ml/min; Est GFR (African American) 4.7; Glucose 88 mg/dl (70-99); Magnesium 1.9 mg/dl (1.8-2.4); NT Pro B Type Natriuretic Pept 15978 pg/ml (0-900); Potassium 3.8 mmol/L (3.5-5.1); Sodium 128 mmol/L (136-145); Total Protein 5.5 gm/dl (6.4-8.2)
--- NOTE | 2020-03-27 10:25 | Hospitalist Progress Note ---
Date of Service March 27, 2020 Assessment & Plan (1) Acute renal failure: presented with ATN -acute tubular necrosis with oligoura presented with Cr > 12 due to poor po intake, vomiting and alcohol abuse for past several weeks ( pt was discharged from [facility] on 03/11 ) baseline cr 1-1.5 appreciate input from Nephrology pt was given IV fluid challenge -with minimum improvement of renal function cr 12.8 today with persistent metabolic acidosis with high anion gap IV fluid changed to Bco3 gtt after discussing with Nephrology rate reduced to 50 ml /hr pt may need dialysis during this hospital stay if not improvement of renal function in next few days VOLUME OVERLOAD /CHF : due to ATN with oliguria pt is approx 5 L positive volume Elevated BMP > 15 K , Cxray shows pulm congestion IVF rate reduced , ordered for Lasix 80 mg X1 ( per Nephro) ECHO to assess EF monitor vol status CONFUSION /METABOLIC ENCEPHALOPATHY : due to ETOH withdrawal monitor electrolytes closely for Uremia ammonia level , LFT -wnl monitor HYPOGLYCEMIA : possible due to ATN causing poor clearance of Lantus -pt taken 16 U home dose prior to admission all hypoglycemics kept on hold IVF with Dextrose pharmacy following for glycemic managment HYPONATREMIA : due to dehydration , chronic ETOH abuse close follow up BMP to prevent rapid over correction nephrology following (2) Pancreatitis: ETOH induced pancreatitis Lipase level > 23 k level improving with IVF hx of ETOH abuse , multiple admissions in past with ETOH withdrawl GI eval appreciated , ordered for clear liq diet strict abstinence from ETOH out pt EUS (3) High anion gap metabolic acidosis: due to ATN /renal failure ordered for Hco3 gtt Nephrology following monitor electrolytes closely (4) Alcohol withdrawal: Patient with active alcohol withdrawal, last drink approximately 48 hours ago Placed on IV Ativan active protocol Unfortunately unable to use gabapentin given acute renal failure Monitor closely Likely will need discussion for alcohol rehab once more medically stable (5) Cough: pt reports dry cough for several days admits to SOB when he coughs no documented fever, lost of taste or smell he does have GI sx of N/V and loose stool - likely 2/2 to pancreatitis COVID 19 -negative no evidence of infection , D/c Zosyn (6) Elevated d-dimer: d-dimer elevated 2,490 likely nonspecific and pt without c/o of chest pain, SOB, tachycardia VQ scan non conclusive can not do contrast study /CTA of chest /lower ext doppler to R/o DVT low suspicion for PE/DVT (7) DM type 1 (diabetes mellitus, type 1): hypoglycemic episode noted due to ATN hold all hypoglycemics pharmacy following for glycemic managment (8) CAD (coronary artery disease): History of BMS to left circumflex in 2009 hold Aspirin for thrombocytopenia on beta beni with holding parameter Hold statin-for pancreatitis /hold losartan for ATN (9) Hypertension: BP borderline low hold hydralazine Metoprolol with holding parameter Hold losartan given TONG (10) Esophagitis: Continue PPI twice daily (11) Dyslipidemia: hold statin and fibrate-pancreatitis CK WNL (12) Tobacco abuse: Nicotine patch ordered Encourage smoking cessation (13) DVT prophylaxis: hold SUB q heparin for low platelet count Disposition: continue to monitor in PCU Admission and Anticipated Discharge Date Admission Date: March 25, 2020 Subjective more confused today trying to climb out of bed oriented to person only on 2 L 02 via nasal canula vitals been stable so far urine out put remains low Morales draining pale yellow urine , Review of Systems Review of Systems: All systems reviewed & are unremarkable except as noted in HPI & below Constitutional: confused Psychiatric: + confusion Physical Exam Constitutional: WD/WN, vitals as above + ill appearing Eyes: PERRL, conjunctivae normal, anicteric sclerae ENMT: external ear and nose normal, oropharynx normal Neck: trachea midline, no thyromegaly Respiratory: normal respiratory effort; no respiratory distress and no cough Auscultation: + crackles and + rales Cardiovascular: Extremities: + pedal edema and + edema Gastrointestinal (Abdomen): Percussion/Palpation: + abdomen tender, abdomen soft and + ascites Psychiatric: Orientation: alert (confused ); + not oriented to place and + not oriented to time Results & Data Results & Data ([facility]) Vital Signs (Past 12 Hours) Vital Signs Temp Pulse Pulse Resp BP Pulse Ox 03/27/20 07:29 36.5 C 77 21 115/73 98 03/27/20 06:09 36.5 C 72 19 121/72 100 03/27/20 03:45 36.7 C 74 16 120/73 100 03/27/20 03:14 74 18 98 03/27/20 02:27 82 21 123/75 98 03/26/20 23:40 36.9 C 86 17 111/62 95 (1) Alcohol withdrawal Complication of substance-induced condition: with unspecified complication Qualified Code(s): F10.239 - Alcohol dependence with withdrawal, unspecified (2) Pancreatitis Acute pancreatitis complication: unspecified Chronicity: acute Pancreatitis type: unspecified pancreatitis type Qualified Code(s): K85.90 - Acute pancreatitis without necrosis or infection, unspecified
--- NOTE | 2020-03-27 10:26 | XRay Report ---
XR chest 1V portable CLINICAL HISTORY: Shortness of breath COMPARISON STUDY: 03/25/2020 FINDINGS: The heart is enlarged. There are bibasilar airspace opacities which were not present on the prior study. Trace pleural effusions are suspected.[ IMPRESSION: 1. Interval development of bilateral pulmonary airspace opacities. This could be secondary to a bilat eral pneumonia, atelectasis, or pulmonary infarction. Clinical and radiographic follow-up is recommen ded. ACT 112: Negative or not required by law. Electronically signed by: Truong Joshi M.D. 03/27/2020 10:25 AM
[2020-03-27] MEDS ORDERED: INSULIN ASPART 100 UNITS/ML 3 ML PEN SC SCH (10:50)
--- NOTE | 2020-03-27 10:55 | Pharmacy Report ---
Pharmacy Glycemic Short Note 2 - Date of Service March 27, 2020 - Glycemic Short BSG Results (Last 24 hours): 03/26/20 03/26/20 03/26/20 11:00 11:32 17:30 Glucose 70 63 L POC Glucose 82 03/26/20 03/26/20 03/26/20 18:10 18:50 20:49 Glucose POC Glucose 71 183 H 67 L* 03/26/20 03/27/20 03/27/20 22:52 00:09 01:11 Glucose POC Glucose 246 H 67 L* 192 H 03/27/20 03/27/20 03/27/20 05:28 07:33 09:37 Glucose POC Glucose 93 112 H 100 H 03/27/20 09:43 Glucose 88 POC Glucose OUTPATIENT ANTIDIABETIC REGIMEN: * Lantus 16 units SQ qAM * Novolog SS * A1c = 6% ASSESSMENT: 03/27: * Last episode of hypoglycemia was 03/27 @0009 (BSG = 67 mg/dL), however BSG remains below goal. * No improvement in Scr. Fluids have been switched to D5 with 150 meq bicarb @ 50 ml/hr. * Will continue to monitor for BSG recovery and initiate basal insulin very conservatively, when appropriate. * Patient ordered clear liquid diet. Will add loose carb ratio. 03/26: * Nikita is a 54 yo T1DM admitted with pancreatitis, acute renal failure, and hypoglycemia * Patient's last dose of insulin was 6/9 AM (Lantus 16 units). He has received no insulin since time of admission due to persistent hypoglycemia. He was initially treated with a D10 infusion. This has been changed to D5NS @ 150 ml/hr. Patient is NPO. * Continue to hold basal insulin until evidence of BSG recovery is seen (BSG > 140 mg/dL x 2). When resumed, patient will require reduced doses until renal function returns to baseline. * Continue Novolog for correctional insulin only PLAN FOR INPATIENT GLYCEMIC CONTROL: * Basal insulin * hold * Bolus insulin * NovoLog per scale ACHS or Q6hrs while NPO * Goal Range: Low 120 mg/dL - High 160 mg/dL * Correction Factor: 35 mg/dL/unit * Carb ratio: 1 unit for every 15 grams CHO PLAN FOR DISCHARGE: * A1c = 6% (02/29/20) * A1c indicates adequate glycemic control, however patient may be experiencing hypoglycemia at home * d/c plan TBD
[2020-03-27] MEDS ORDERED: FUROSEMIDE 80 MG in SYRINGE 0 ML IV ONE (11:00)
--- NOTE | 2020-03-27 11:24 | Ultrasound Report ---
BILATERAL LOWER EXTREMITY VENOUS DOPPLER CLINICAL HISTORY: elevated D dimer COMPARISON STUDY: No previous studies for comparison. TECHNIQUE: Sonography of the deep venous system of the bilateral lower extremities was performed. Co mpression and augmentation were evaluated. FINDINGS: The bilateral common femoral, superficial femoral and popliteal veins were compressible. A ugmentation was normal. Flow was shown within the deep calf vessels. IMPRESSION: No evidence of deep venous thrombus within the bilateral lower extremities. ACT 112: Negative or not required by law. Electronically signed by: Jh Park M.D. 03/27/2020 11:23 AM
[2020-03-27] MEDS: SODIUM BICARBONATE 8.4% 150 MEQ in DEXTROSE 5% 1,000 ML IV SCH (11:40)
[2020-03-27] MEDS ORDERED: Nursing to Pharmacy Communication SCH (12:45)
--- NOTE | 2020-03-27 15:42 | Progress Notes ---
DATE: 03/27/2020 SUBJECTIVE: The patient seems somewhat confused and agitated. He was swearing and being angry with the nursing staff. He did not appear to be in severe respiratory distress though. Denies nausea, vomiting and he says the abdominal pain is less. PHYSICAL EXAMINATION: VITAL SIGNS: Blood pressure is 113/74, pulse 70, temperature 36.5 degrees Celsius, 100% on 2 liter nasal cannula. HEENT: Mucous membranes moist. NECK: Supple. No jugular venous distention. CHEST: Bilateral decreased breath sounds, poor inspiratory effort. Chest x-ray done earlier today shows interval development of bilateral pulmonary airspace opacity which could be secondary to bilateral pneumonia versus pulmonary infarction versus pulmonary edema. He did get a venous duplex done which was also negative. CARDIOVASCULAR: S1 and S2, regular. ABDOMEN: Soft, nontender. EXTREMITIES: Shows no edema. LABORATORY TESTS: From this morning reviewed and shows hemoglobin 9.8, platelet count 96. Sodium 128, potassium 3.8, BUN up to 78, creatinine is up to 12.40, calcium 7.1. ProBNP was about 16,000. ASSESSMENT AND PLAN: A 54-year-old male admitted with a diagnosis of acute pancreatitis with acute renal failure. 1. Acute pancreatitis. The patient has now been advanced to clear liquid diet and seems to be tolerating it well so far. 2. Acute renal failure. This is quite severe with a creatinine of 12.4. This is secondary to acute tubular necrosis in the setting of acute pancreatitis. He has already received enough IV fluids and is showing evidence of congestive heart failure/fluid overload. Given this, we will cut down the fluid significantly to just plain bicarb drip at 50 mL per hour. This will give him glucose as well as some fluid, but this is mainly being used to maintain his blood glucose levels, which has been a challenge as he keeps going into hypoglycemic episodes. He does not need dialysis today. We can wait for the spontaneous renal recovery to happen in the coming 2-3 days. He is making urine and did make extra urine after the use of Lasix 80 mg 1 dose. Continue strict input and output. Continue daily labs. Dialysis decision will be made on a daily basis. Case was discussed in detail with the primary service.
[2020-03-27] MEDS: NICOTINE 21 MG/24 HR TDSY TD SCH (18:06)
[2020-03-28] MEDS: LORazepam 3 MG/6 ML VIAL IV PRN (01:33)
--- NOTE | 2020-03-28 06:13 | Electrocardiogram Report ---
Test Reason : Blood Pressure : / mmHG Vent. Rate : 073 BPM Atrial Rate : 073 BPM P-R Int : 154 ms QRS Dur : 122 ms QT Int : 454 ms P-R-T Axes : 074 000 022 degrees QTc Int : 500 ms Normal sinus rhythm Right bundle branch block Possible Septal infarct , age undetermined Cannot rule out Inferior infarct (cited on or before 23-DEC-2009) Abnormal ECG When compared with ECG of 26-MAR-2020 06:44, Septal infarct is now Present Confirmed by Xavier Pugh ([id number]) on 03/28/2020 6:12:48 AM Referred By: REFERRED SELF Confirmed By:Xavier Pugh
[2020-03-28 07:22] LABS: Hematocrit (blood only) 29.1 % (42-52); Hemoglobin 10.1 g/dL (14.0-18.0); Mean Corpuscular Hemoglobin 31.6 pg (25-34); Mean Corpuscular Hgb Conc 34.7 g/dL (32-36); Mean Corpuscular Volume 90.9 fL (80-100); Mean Platelet Volume 10.8 fL (7.4-10.4); Platelet Count 112 K/uL (130-400); RDW Coefficient of Variation 13.4 % (11.5-14.5); RDW Standard Deviation 44.6 fL (36.4-46.3); White Blood Count 8.86 K/uL (4.8-10.8)
[2020-03-28] MEDS: INSULIN ASPART 100 UNITS/ML 3 ML PEN SC SCH ×4 (07:37→20:18)
[2020-03-28] MEDS: PANTOprazole 40 MG TAB PO SCH ×2 (07:40→19:59)
[2020-03-28] MEDS: METOPROLOL TARTRATE 50 MG TAB PO SCH ×2 (07:41→19:59)
[2020-03-28] MEDS: LORazepam 2 MG/4 ML VIAL IV PRN ×4 (07:42→13:18)
[2020-03-28 08:02] LABS: BUN Creatinine Ratio 6.4 (10-20); Calcium 7.7 mg/dl (8.5-10.1); Creatinine Clr Calc Pharmacy 6.2 ml/min; Est GFR (African American) 4.6; Magnesium 1.9 mg/dl (1.8-2.4); Potassium 3.7 mmol/L (3.5-5.1)
[2020-03-28] MEDS: SODIUM BICARBONATE 8.4% 150 MEQ in DEXTROSE 5% 1,000 ML IV SCH (09:35)
--- NOTE | 2020-03-28 10:14 | Pharmacy Report ---
Pharmacy Glycemic Short Note 2 - Date of Service March 28, 2020 - Glycemic Short BSG Results (Last 24 hours): 03/27/20 03/27/20 03/27/20 09:43 11:46 16:03 Glucose 88 POC Glucose 101 H 103 H 03/27/20 03/28/20 03/28/20 20:45 06:45 07:21 Glucose 85 POC Glucose 121 H 267 H OUTPATIENT ANTIDIABETIC REGIMEN: * Lantus 16 units SQ qAM * Novolog SS * A1c = 6% ASSESSMENT: 03/28: * No hypoglycemia yesterday, fluids continue the same * BSGs yesterday all less than ~120 mg/dL * BSG this AM elevated 267 mg/dL - however BMP lab resulted as 85 mg/dL. Not clear if patient eating when BSG taken * Plan to await lunch time BSG - if remaining >140 will consider very small dose of basal insulin * BSG at lunch 102 - therefore will hold basal insulin for now 03/27: * Last episode of hypoglycemia was 03/27 @0009 (BSG = 67 mg/dL), however BSG remains below goal. * No improvement in Scr. Fluids have been switched to D5 with 150 meq bicarb @ 50 ml/hr. * Will continue to monitor for BSG recovery and initiate basal insulin very conservatively, when appropriate. * Patient ordered clear liquid diet. Will add loose carb ratio. 03/26: * Nikita is a 54 yo T1DM admitted with pancreatitis, acute renal failure, and hypoglycemia * Patient's last dose of insulin was 03/24 AM (Lantus 16 units). He has received no insulin since time of admission due to persistent hypoglycemia. He was initially treated with a D10 infusion. This has been changed to D5NS @ 150 ml/hr. Patient is NPO. * Continue to hold basal insulin until evidence of BSG recovery is seen (BSG > 140 mg/dL x 2). When resumed, patient will require reduced doses until renal function returns to baseline. * Continue Novolog for correctional insulin only PLAN FOR INPATIENT GLYCEMIC CONTROL: * Basal insulin * hold * Bolus insulin * NovoLog per scale ACHS or Q6hrs while NPO * Goal Range: Low 140 mg/dL - High 180 mg/dL * Correction Factor: 35 mg/dL/unit * Carb ratio: 1 unit for every 15 grams CHO PLAN FOR DISCHARGE: * A1c = 6% (02/29/20) * A1c indicates adequate glycemic control, however patient may be experiencing hypoglycemia at home * d/c plan TBD
[2020-03-28] MEDS ORDERED: FUROSEMIDE 80 MG in SYRINGE 0 ML IV ONE (15:30)
--- NOTE | 2020-03-28 15:56 | Progress Notes ---
DATE: 03/28/2020 SUBJECTIVE: Overnight, no new issues. He does not seem to be in any respiratory distress at this time. He seems more calm and quiet. Denies nausea, vomiting. He is tolerating the clear liquid diet fairly good. Made 1500 mL of urine yesterday. Still has Morales catheter. PHYSICAL EXAMINATION: GENERAL: Awake, alert, oriented x3. VITAL SIGNS: Blood pressure 150/81, pulse rate 59, temperature 36.8, 99% room air. HEENT: Mucous membranes moist. NECK: Supple. No jugular venous distention. CHEST: Bilateral clear to auscultation. CARDIOVASCULAR: S1, S2, regular. ABDOMEN: Soft, nontender. EXTREMITIES: Shows no edema. LABORATORY TESTS: From this morning as well as from time of admission reviewed in detail. Creatinine is very abnormal, but fairly stable this morning. BUN 80, creatinine 12.5, calcium 7.7, sodium 130, potassium 3.7, chloride 97, CO2 17. Hemoglobin 10.1. ASSESSMENT AND PLAN: A 54-year-old male admitted with acute pancreatitis with acute renal failure from acute tubular necrosis. Acute renal failure: This is quite severe with a creatinine of 12.5 secondary to acute tubular necrosis in the setting of acute pancreatitis. He has already received enough IV fluids and is showing evidence of some degree of CHF/fluid overload. We will continue the bicarb drip at 50 mL per hour, mainly to give some glucose as he has hypoglycemic episodes. I will give 1 more dose of Lasix 80 mg IV x1 today. Despite very abnormal creatinine, he does not need dialysis as creatinine has been stable now for about 2 days. Expect renal recovery in the coming days.
--- NOTE | 2020-03-28 16:06 | Hospitalist Progress Note ---
Date of Service March 28, 2020 Assessment & Plan (1) Acute renal failure: presented with ATN -acute tubular necrosis with oligoura presented with Cr > 12 due to poor po intake, vomiting and alcohol abuse for past several weeks ( pt was discharged from [facility] on 03/11 ) baseline cr 1-1.5 appreciate input from Nephrology improved urine output > 1900 ml with IV Lasix repeat Lasix dose today by Nephrology vol status stable no indication for dialysis at present ACUTE DECOMPENSATION OF CHF /DIASTOLIC HEART FAILURE ( HFpEF) presented with vol overload , pulm congestion , anasarca due to ATN with oliguria Elevated BMP > 15 K , Cxray shows pulm congestion ECHO shows EF 60% received IV fluid for ATN /Acute renal failure /rate of IV fluid has been reduced to 50 ml/hr given IV Lasix 80 mg X1 yesterday repeat dose today cont to monitor vol status CONFUSION /METABOLIC ENCEPHALOPATHY : due to ETOH withdrawal monitor electrolytes closely for Uremia ammonia level , LFT -wnl monitor HYPOGLYCEMIA : BSG in 100 ordered for regular diet / possible due to ATN causing poor clearance of Lantus -pt taken 16 U home dose prior to admission pharmacy following for glycemic managment HYPONATREMIA : Na leval gradually improving due to dehydration , chronic ETOH abuse close follow up BMP to prevent rapid over correction nephrology following (2) Pancreatitis: ETOH induced pancreatitis Lipase level > 23 k level improving with IVF hx of ETOH abuse , multiple admissions in past with ETOH withdrawl GI eval appreciated , ordered for clear liq diet tolerating well , will advance to low fat diet strict abstinence from ETOH out pt EUS (3) High anion gap metabolic acidosis: due to ATN /renal failure cont low dose Hco3 gtt Nephrology following monitor electrolytes closely (4) Alcohol withdrawal: Patient with active alcohol withdrawal, last drink approximately 48 hours ago Placed on IV Ativan active protocol Unfortunately unable to use gabapentin given acute renal failure Monitor closely Likely will need discussion for alcohol rehab once more medically stable (5) Cough: pt reports dry cough for several days admits to SOB when he coughs no documented fever, lost of taste or smell he does have GI sx of N/V and loose stool - likely 2/2 to pancreatitis COVID 19 -negative no evidence of infection , D/c Zosyn (6) Elevated d-dimer: d-dimer elevated 2,490 likely nonspecific and pt without c/o of chest pain, SOB, tachycardia VQ scan non conclusive can not do contrast study /CTA of chest /lower ext doppler negative for DVT low suspicion for PE/DVT (7) DM type 1 (diabetes mellitus, type 1): hypoglycemic episode noted due to ATN hold all hypoglycemics pharmacy following for glycemic managment (8) CAD (coronary artery disease): History of BMS to left circumflex in 2009 hold Aspirin for thrombocytopenia platelet count improved to 112 today will resume Aspirin 81 mg daily in am on beta beni with holding parameter Hold statin-for pancreatitis /hold losartan for ATN (9) Hypertension: BP stable Metoprolol with holding parameter Hold losartan given TONG (10) Esophagitis: Continue PPI twice daily (11) Dyslipidemia: hold statin and fibrate-pancreatitis CK WNL (12) Tobacco abuse: Nicotine patch ordered Encourage smoking cessation (13) DVT prophylaxis: platelet count improved high risk for DVT given acute illness ordered Sib q heparin Disposition: continue to monitor in PCU Admission and Anticipated Discharge Date Admission Date: March 25, 2020 Subjective sitting up on edge of bed eating dinner no complain Of SOB or orthopnea less confused today Review of Systems Review of Systems: All systems reviewed & are unremarkable except as noted in HPI & below Physical Exam Constitutional: WD/WN, vitals as above + ill appearing Eyes: PERRL, conjunctivae normal, anicteric sclerae ENMT: external ear and nose normal, oropharynx normal Neck: trachea midline, no thyromegaly Respiratory: normal respiratory effort; no respiratory distress and no cough Auscultation: + crackles and + rales Cardiovascular: Extremities: + pedal edema and + edema Gastrointestinal (Abdomen): Percussion/Palpation: + abdomen tender and abdomen soft Neurologic: PERRL, EOMI, accommodation nl, no face palsy, no dysarthria Psychiatric: Orientation: alert and oriented to person Results & Data Results & Data ([facility]) Vital Signs (Past 12 Hours) Vital Signs Temp Pulse Pulse Resp BP Pulse Ox 03/28/20 15:08 36.8 C 59 L 17 150/81 H 99 03/28/20 11:34 36.6 C 69 18 152/86 H 98 03/28/20 07:18 36.6 C 64 18 143/80 H 100 03/28/20 04:55 36.7 C 86 18 132/76 98 (1) Alcohol withdrawal Complication of substance-induced condition: with unspecified complication Qualified Code(s): F10.239 - Alcohol dependence with withdrawal, unspecified (2) Pancreatitis Acute pancreatitis complication: unspecified Chronicity: acute Pancreatitis type: unspecified pancreatitis type Qualified Code(s): K85.90 - Acute pancreatitis without necrosis or infection, unspecified
[2020-03-28 18:26] LABS: BUN Creatinine Ratio 6.9 (10-20); Calcium 7.8 mg/dl (8.5-10.1); Est GFR (African American) 4.4; Est GFR (Non-African American) 3.8; Potassium 3.7 mmol/L (3.5-5.1)
[2020-03-28] MEDS: NICOTINE 21 MG/24 HR TDSY TD SCH (18:32)
[2020-03-28] MEDS: PROMETHAZINE HCL 12.5 MG in SODIUM CHLORIDE 0.9% 50 ML IV PRN (20:01)
[2020-03-29] MEDS ORDERED: ONDANSETRON INJ 2 MG/ML 2 ML VIAL IV STA (00:45)
[2020-03-29 06:16] LABS: Hematocrit (blood only) 24.8 % (42-52); Hemoglobin 8.9 g/dL (14.0-18.0); Mean Corpuscular Hgb Conc 35.9 g/dL (32-36); Mean Corpuscular Volume 89.2 fL (80-100); Mean Platelet Volume 10.1 fL (7.4-10.4); Platelet Count 100 K/uL (130-400); RDW Coefficient of Variation 13.3 % (11.5-14.5); RDW Standard Deviation 43.8 fL (36.4-46.3); Red Blood Count 2.78 M/uL (4.7-6.1); White Blood Count 6.09 K/uL (4.8-10.8)
[2020-03-29 07:06] LABS: BUN Creatinine Ratio 6.8 (10-20); Calcium 7.9 mg/dl (8.5-10.1); Creatinine Clr Calc Pharmacy 6.2 ml/min; Est GFR (African American) 4.6; Potassium 3.6 mmol/L (3.5-5.1)
[2020-03-29] MEDS: INSULIN ASPART 100 UNITS/ML 3 ML PEN SC SCH ×4 (07:49→21:05)
[2020-03-29] MEDS: PANTOprazole 40 MG TAB PO SCH ×2 (07:53→20:35)
[2020-03-29] MEDS: METOPROLOL TARTRATE 50 MG TAB PO SCH ×2 (07:54→21:55)
--- NOTE | 2020-03-29 08:28 | Hospitalist Progress Note ---
Date of Service March 29, 2020 Assessment & Plan Admission and Anticipated Discharge Date Admission Date: March 25, 2020 Subjective ATTENDING ADDENDUM: lab reviewd : metabolic acidosis resolved ,Hco3 21 persisted high AG : 16 due to to hyponatremia/hypochloremia Hco3 gtt D/dimple urine out put > 3 L in past 24 hrs -due to post ATN diuresus nephrology following Annita Blandon MD Results & Data Results & Data ([facility]) Vital Signs (Past 12 Hours) Vital Signs Temp Pulse Pulse Resp BP BP Pulse Ox 03/29/20 07:45 5 L 122/76 03/29/20 04:06 36.9 C 75 18 132/78 95 03/29/20 00:03 75 03/28/20 23:11 36.4 C L 71 18 134/79 94 03/28/20 21:43 75 18 95
--- NOTE | 2020-03-29 13:58 | Pharmacy Report ---
Pharmacy Glycemic Short Note 2 - Date of Service March 29, 2020 - Glycemic Short BSG Results (Last 24 hours): 03/28/20 03/28/20 03/28/20 16:39 17:21 20:13 Glucose 107 H POC Glucose 108 H 163 H 03/29/20 03/29/20 03/29/20 06:02 07:26 11:44 Glucose 159 H POC Glucose 172 H 167 H OUTPATIENT ANTIDIABETIC REGIMEN: * Lantus 16 units SQ qAM * Novolog SS * A1c = 6% ASSESSMENT: 03/29: * Patient received total of 5 units of insulin yesterday, all correctional insulin * Fasting BSG this AM 159 mg/dL - this is higher than it has been the last several days * BSGs seem to be trending up today / appears patient eating more today too * Plan to add a very small scale for basal at HS if BSGs still >160 mg/dL 03/28: * No hypoglycemia yesterday, fluids continue the same * BSGs yesterday all less than ~120 mg/dL * BSG this AM elevated 267 mg/dL - however BMP lab resulted as 85 mg/dL. Not clear if patient eating when BSG taken * Plan to await lunch time BSG - if remaining >140 will consider very small dose of basal insulin * BSG at lunch 102 - therefore will hold basal insulin for now 03/27: * Last episode of hypoglycemia was 03/27 @0009 (BSG = 67 mg/dL), however BSG remains below goal. * No improvement in Scr. Fluids have been switched to D5 with 150 meq bicarb @ 50 ml/hr. * Will continue to monitor for BSG recovery and initiate basal insulin very conservatively, when appropriate. * Patient ordered clear liquid diet. Will add loose carb ratio. 03/26: * Nikita is a 54 yo T1DM admitted with pancreatitis, acute renal failure, and hypoglycemia * Patient's last dose of insulin was 03/24 AM (Lantus 16 units). He has received no insulin since time of admission due to persistent hypoglycemia. He was initially treated with a D10 infusion. This has been changed to D5NS @ 150 ml/hr. Patient is NPO. * Continue to hold basal insulin until evidence of BSG recovery is seen (BSG > 140 mg/dL x 2). When resumed, patient will require reduced doses until renal function returns to baseline. * Continue Novolog for correctional insulin only PLAN FOR INPATIENT GLYCEMIC CONTROL: * Basal insulin * scale for HS 0-5 units based upon BSG * Bolus insulin * NovoLog per scale ACHS or Q6hrs while NPO * Goal Range: Low 140 mg/dL - High 180 mg/dL * Correction Factor: 35 mg/dL/unit * Carb ratio: 1 unit for every 15 grams CHO PLAN FOR DISCHARGE: * A1c = 6% (02/29/20) * A1c indicates adequate glycemic control, however patient may be experiencing hypoglycemia at home * d/c plan TBD
[2020-03-29] MEDS: PROMETHAZINE HCL 12.5 MG in SODIUM CHLORIDE 0.9% 50 ML IV PRN (17:51)
--- NOTE | 2020-03-29 17:54 | Progress Notes ---
DATE: 03/29/2020 SUBJECTIVE: Overnight, no new issues. He did make a lot of urine yesterday, 3300 mL with 1 dose of Lasix. At this time, labs seems to be stable. Morales catheter removed. PHYSICAL EXAMINATION: GENERAL: Awake, alert, oriented x3. VITAL SIGNS: Blood pressure 153/71, 36.6 degrees Celsius, 94% on room air, pulse rate 66. HEENT: Mucous membranes moist. NECK: Supple. No jugular venous distention. CHEST: Bilateral clear to auscultation. CARDIOVASCULAR: S1, S2 regular. ABDOMEN: Soft, nontender. EXTREMITIES: Shows no edema. LABORATORY TESTS: From this morning shows hemoglobin 8.9, platelet count 100. Sodium 129, potassium 3.6, BUN 86, creatinine 12.5, bicarbonate 21. ASSESSMENT AND PLAN: A 54-year-old male admitted with acute pancreatitis with acute renal failure from acute tubular necrosis. Acute renal failure. This is quite severe with a creatinine of 12.5 secondary to acute tubular necrosis in the setting of acute pancreatitis. At this point, bicarbonate has almost normalized and he is no longer having hypoglycemic episode, so we can stop the IV fluid. He is drinking and eating fair amount which should be enough. He is diuresing on his own and I do not think he needs Lasix today. Despite very abnormal creatinine, he does not seem to be uremic and I am quite hopeful that he will recover in the coming days. [facility]ITALK[facility]
[2020-03-29] MEDS: NICOTINE 21 MG/24 HR TDSY TD SCH (18:19)
--- NOTE | 2020-03-29 19:07 | Hospitalist Progress Note ---
Date of Service March 29, 2020 Assessment & Plan (1) Acute renal failure: presented with ATN -acute tubular necrosis with oligoura presented with Cr > 12 due to poor po intake, vomiting and alcohol abuse for past several weeks ( pt was discharged from [facility] on 03/11 ) baseline cr 1-1.5 urine out put > 3 L in past 24 hrs -due to post ATN diuresus nephrology following hold lasix today ACUTE DECOMPENSATION OF CHF /DIASTOLIC HEART FAILURE ( HFpEF) presented with vol overload , pulm congestion , anasarca due to ATN with oliguria pn admission Elevated BMP > 15 K , Cxray shows pulm congestion ECHO shows EF 60% urine out put > 3 L today , clinically improved no SOB or orthopnea hold Lasix cont to monitor vol status CONFUSION /METABOLIC ENCEPHALOPATHY : resolved, mental status improved to approx baseline metabolic encephalopathy due to combination of ATN , uremia , ETOH abuse HYPOGLYCEMIA : resolved BSG stable now hypoglycemic episode on admission possible due to ATN causing poor clearance of Lantus -pt taken 16 U home dose prior to admission insulin [facility] pharmacy following for glycemic managment HYPONATREMIA : Na leval gradually improving due to dehydration , chronic ETOH abuse close follow up BMP to prevent rapid over correction nephrology following (2) Pancreatitis: ETOH induced pancreatitis Lipase level > 23 k level improving with IVF hx of ETOH abuse , multiple admissions in past with ETOH withdrawl GI eval appreciated , tolerating solid diet strict abstinence from ETOH out pt EUS (3) High anion gap metabolic acidosis: due to ATN metabolic acidosis resolved ,Hco3 21 persisted high AG : 16 due to to hyponatremia/hypochloremia Hco3 gtt D/dimple (4) Alcohol withdrawal: Patient with active alcohol withdrawal, last drink approximately 48 hours ago Placed on IV Ativan active protocol no evidence of active ETOH withdrwal Lik (5) DM type 1 (diabetes mellitus, type 1): hypoglycemic episode noted due to ATN hold all hypoglycemics pharmacy following for glycemic managment (6) CAD (coronary artery disease): History of BMS to left circumflex in 2009 on beta beni , resumed aspirin no complain of chest pain or SOB Hold statin-for pancreatitis /hold losartan for ATN (7) Hypertension: BP stable Metoprolol with holding parameter Hold losartan given TONG (8) Esophagitis: Continue PPI twice daily (9) Dyslipidemia: hold statin and fibrate-pancreatitis CK WNL (10) Tobacco abuse: Nicotine patch ordered Encourage smoking cessation (11) DVT prophylaxis: platelet count improved high risk for DVT given acute illness ordered Sib q heparin Disposition: transfer to Medical tele will need PT/OT eval prior to discharge Admission and Anticipated Discharge Date Admission Date: March 25, 2020 Subjective awake and alert conversing appropriately no complain of SOB or orthopnea no nausea or vomiting tolerating diet Physical Exam Constitutional: WD/WN, vitals as above + ill appearing Eyes: PERRL, conjunctivae normal, anicteric sclerae ENMT: external ear and nose normal, oropharynx normal Neck: trachea midline, no thyromegaly Respiratory: normal respiratory effort; no respiratory distress and no cough Auscultation: + crackles and + rales Gastrointestinal (Abdomen): Percussion/Palpation: abdomen soft Neurologic: PERRL, EOMI, accommodation nl, no face palsy, no dysarthria Psychiatric: A+Ox3, euthymic affect Results & Data Results & Data ([facility]) Vital Signs (Past 12 Hours) Vital Signs Temp Pulse Resp BP Pulse Ox 03/29/20 15:38 36.6 C 66 18 153/71 H 94 03/29/20 11:43 36.9 C 91 H 18 128/77 97 03/29/20 08:14 36.3 C L 76 18 135/80 99 03/29/20 07:45 5 L 122/76 (1) Alcohol withdrawal Complication of substance-induced condition: with unspecified complication Qualified Code(s): F10.239 - Alcohol dependence with withdrawal, unspecified (2) Pancreatitis Acute pancreatitis complication: unspecified Chronicity: acute Pancreatitis type: unspecified pancreatitis type Qualified Code(s): K85.90 - Acute pancreatitis without necrosis or infection, unspecified
[2020-03-29] MEDS ORDERED: NON-FORMULARY MEDICATION (Albuterol Hfa 2 PUFFS) INH PRN (20:29)
[2020-03-29] MEDS ORDERED: BENZONATATE 100 MG CAPSULE PO PRN (20:29)
[2020-03-29] MEDS: LANTUS PER UNIT CHARGE SQ SCH (21:05)
[2020-03-29] MEDS ORDERED: LORazepam 0.5 MG TAB PO STA (21:49)
[2020-03-30] MEDS ORDERED: LORazepam 1 MG TAB PO STA (01:19)
[2020-03-30 08:31] LABS: BUN Creatinine Ratio 6.8 (10-20); Calcium 8.4 mg/dl (8.5-10.1); Creatinine Clr Calc Pharmacy 6.3 ml/min; Est GFR (African American) 4.7; Magnesium 1.6 mg/dl (1.8-2.4); Potassium 3.7 mmol/L (3.5-5.1)
[2020-03-30] MEDS: INSULIN ASPART 100 UNITS/ML 3 ML PEN SC SCH ×4 (08:38→21:03)
[2020-03-30] MEDS ORDERED: INSULIN GLARGINE SOLOSTAR 100 UNITS/ML 3 ML PEN SC SCH (09:00)
[2020-03-30] MEDS: ASPIRIN 81 MG ECTAB PO SCH (09:32)
[2020-03-30] MEDS: PANTOprazole 40 MG TAB PO SCH ×2 (09:32→20:23)
--- NOTE | 2020-03-30 10:15 | Pharmacy Report ---
Glycemic Control Progress Note - Date of Service March 30, 2020 - Scope Glycemic Pharmacist consulted for glycemic control to write orders per [facility] inpatient glycemic control protocol. - Objective Accuchecks BSG(last 24 hours):: 03/29/20 03/29/20 03/29/20 11:44 16:07 20:22 Glucose POC Glucose 167 H 155 H 127 H 03/30/20 03/30/20 07:00 07:50 Glucose 119 H POC Glucose 143 H - Recent Pertinent Medications The patient is currently receiving: * Basal insulin: Lantus 0 units every -- hours * Correctional Insulin: Novolog Correction per scale ACHS Goal Range: Low 140 mg/dL - High 180 mg/dL Correction Factor: 30 mg/dL/unit * Prandial insulin: Per carb ratio of 1 unit per 15 grams CHO consumed - Outpatient Anti-Diabetic Meds Lantus 16 units QAM + Novolog - Assessment & Plan ASSESSMENT: * See progress note from 03/26/2020 for more background info, in short: * Pt receiving SQ basal bolus insulin regimen for hyperglycemia secondary to baseline DM (outpatient regimen on hold). * Patient is currently receiving an average of 10 units of insulin per day * 0 units of basal insulin * 10 units of prandial/correctional insulin * BSGs ranging 127 - 172 mg/dl over the past 24hrs * Changes needed to insulin regimen: * AM Fasting BSG = 143 mg/dl. This is in goal range for patient based on inpatient targets and co-morbidities. Patient has been receiving Novolog pretty regularly at meals now x 2 days. He is off dextrose infusion. Last dose of Lantus was 03/24/2020. At this point, concerned that BSGs will start to swing the other direction, i.e. hyperglycemia. Will give 3 units (divided 16 units by 5 days as that is how long that dose lasted). * Post-prandial BSGs are in range therefore no changes needed to CF/CR. Higher goal range kept with basal insulin addition. * Total daily dose = <15 units. PLAN FOR INPATIENT GLYCEMIC CONTROL: * START Lantus 3 units SQ qAM * Continuing correction factor of 30 mg/dl/unit * Continuing carb ratio of 1 unit per 15 grams CHO consumed * Continuing goal range of Low 140 mg/dL - High 180 mg/dL * Please note that the plan above was derived based on current level of insulin resistance and hospital stress. These recommendations are appropriate for inpatient admission only. Plan of care upon discharge will need to be reassessed to avoid potential outpatient hypo/hyperglycemia. Thank you.
[2020-03-30] MEDS: METOPROLOL TARTRATE 50 MG TAB PO SCH ×2 (11:13→20:22)
[2020-03-30] MEDS ORDERED: MAGNESIUM SULFATE / D5W 1 GM/100 ML BAG IV ONE (16:45)
[2020-03-30] MEDS: LORazepam 1 MG TAB PO PRN (16:46)
--- NOTE | 2020-03-30 17:30 | Hospitalist Progress Note ---
Date of Service March 30, 2020 Assessment & Plan (1) Acute renal failure: presented with ATN -acute tubular necrosis with oligoura presented with Cr > 12 due to poor po intake, vomiting and alcohol abuse for past several weeks ( pt was discharged from [facility] on 03/11 ) baseline cr 1-1.5 urine out put improved -due to post ATN diuresus nephrology following ACUTE DECOMPENSATION OF CHF /DIASTOLIC HEART FAILURE ( HFpEF) presented with vol overload , pulm congestion , anasarca due to ATN with oliguria pn admission Elevated BMP > 15 K , Cxray shows pulm congestion ECHO shows EF 60% improved urine out put with stable vol status no SOB or orthopnea hold Lasix cont to monitor vol status CONFUSION /METABOLIC ENCEPHALOPATHY : resolved, mental status improved to approx baseline metabolic encephalopathy due to combination of ATN , uremia , ETOH abuse HYPOGLYCEMIA : resolved BSG stable now hypoglycemic episode on admission possible due to ATN causing poor clearance of Lantus -pt taken 16 U home dose prior to admission insulin [facility] pharmacy following for glycemic managment HYPONATREMIA : Na leval gradually improving due to dehydration , chronic ETOH abuse close follow up BMP to prevent rapid over correction nephrology following (2) Pancreatitis: ETOH induced pancreatitis Lipase level > 23 k level improving with IVF hx of ETOH abuse , multiple admissions in past with ETOH withdrawl GI eval appreciated , tolerating solid diet strict abstinence from ETOH out pt EUS (3) High anion gap metabolic acidosis: due to ATN metabolic acidosis resolved ,Hco3 21 persisted high AG : 16 due to to hyponatremia/hypochloremia Hco3 gtt D/dimple (4) Alcohol withdrawal: Patient with active alcohol withdrawal, last drink approximately 48 hours ago Placed on IV Ativan active protocol no evidence of active ETOH withdrwal Lik (5) DM type 1 (diabetes mellitus, type 1): hypoglycemic episode noted due to ATN hold all hypoglycemics pharmacy following for glycemic managment (6) CAD (coronary artery disease): History of BMS to left circumflex in 2009 on beta beni , resumed aspirin no complain of chest pain or SOB Hold statin-for pancreatitis /hold losartan for ATN (7) Hypertension: BP stable Metoprolol with holding parameter Hold losartan given TONG (8) Esophagitis: Continue PPI twice daily (9) Dyslipidemia: hold statin and fibrate-pancreatitis CK WNL (10) Tobacco abuse: Nicotine patch ordered Encourage smoking cessation (11) DVT prophylaxis: platelet count improved high risk for DVT given acute illness ordered Sib q heparin Disposition: transfer to Medical tele will need PT/OT eval prior to discharge Admission and Anticipated Discharge Date Admission Date: March 25, 2020 Subjective doing well able to walk independetly no confusion , no cough or SOB Physical Exam Constitutional: WD/WN, vitals as above + ill appearing Eyes: PERRL, conjunctivae normal, anicteric sclerae ENMT: external ear and nose normal, oropharynx normal Neck: trachea midline, no thyromegaly Respiratory: normal respiratory effort; no respiratory distress and no cough Auscultation: + crackles and + rales Cardiovascular: Extremities: + pedal edema and + edema Gastrointestinal (Abdomen): Percussion/Palpation: abdomen soft Neurologic: PERRL, EOMI, accommodation nl, no face palsy, no dysarthria Psychiatric: A+Ox3, euthymic affect Orientation: alert and oriented to person Results & Data Results & Data ([facility]) Vital Signs (Past 12 Hours) Vital Signs Temp Pulse Pulse Resp BP Pulse Ox 03/30/20 16:16 37.0 C 57 L 20 162/83 H 97 03/30/20 11:23 37.0 C 59 L 18 159/83 H 97 03/30/20 10:38 61 155/86 H 03/30/20 07:50 63 03/30/20 07:36 36.7 C 64 18 155/78 H 95 (1) Pancreatitis Acute pancreatitis complication: unspecified Chronicity: acute Pancreatitis type: unspecified pancreatitis type Qualified Code(s): K85.90 - Acute pancreatitis without necrosis or infection, unspecified (2) Alcohol withdrawal Complication of substance-induced condition: with unspecified complication Qualified Code(s): F10.239 - Alcohol dependence with withdrawal, unspecified
--- NOTE | 2020-03-30 18:26 | Nephrology Progress Note ---
Date of Service March 30, 2020 Assessment & Plan (1) ARF (acute renal failure): baseline creatinine 1.1-1.5; presenting creatinine 12 on 03/25 in setting of EtOH pancreatitis, peak creatinine 13 on 03/28; down to 12.4 today. has had polyuria; no doreen uremia. on RA. at risk for EtoH w/drwal and on ativan protocol. had some hypoglycemic episodes early on so bicarb gtt was doubly useful initially; stopped yesterday and he actually had lasix earlier in admission; none today; none yesterday. electrolytes w/ some mild abnormalities in sodium, K. also ongoing elevated BUN; but MS seems ok as is volume status adn tolerating po; will continue to observe for now. finishing iv mag when I a rrived. lipase uptrending some pst 48 hrs but nothing like it was at admission. no indication for dialysis at this time; I hope he will avoid it but some concern at how long he has been plateau'd at 13; cont to observe -daily bmp; recheck mag in am and cbc (breanna to monitor anemia, plts) -cont strict I/O (2.8 L negative today) -monitor MS, po intake Present on Admission?: Yes Admission and Anticipated Discharge Date Admission Date: March 25, 2020 Subjective tolerated regular diet today; no N or abd pain so far and it's evening. mild sob w/ ambulation but he's been up and walking around unit w/o issue;no sob at rest. cont w/ frequent voids. Review of Systems Review of Systems: All systems reviewed & are unremarkable except as noted in HPI & below Physical Exam Constitutional: well developed, well nourished and comfortable; no acute distress on RA Eyes: EOM intact bilaterally ENMT: Ears: no external ear abnormality Nose: no external nose abnormality Mouth: + dry oral mucous membranes Neck: no nuchal rigidity Respiratory: normal respiratory effort Auscultation: + diminished lung sounds and + crackles (BL bases) Cardiovascular: Rate/Rhythm: regular rate and regular rhythm Extremities: no edema Gastrointestinal (Abdomen): Inspection/Auscultation: normal bowel sounds Percussion/Palpation: abdomen soft; abdomen nontender Musculoskeletal: Extremities: strength 5/5 throughout Skin: no rashes, warm and dry Neurologic: felton, fluent speech, no tremor Psychiatric: A+Ox3, euthymic affect Results & Data ([facility]) Vital Signs (Past 12 Hours) Vital Signs Temp Pulse Pulse Resp BP Pulse Ox 03/30/20 18:00 88 03/30/20 16:16 37.0 C 57 L 20 162/83 H 97 03/30/20 11:23 37.0 C 59 L 18 159/83 H 97 03/30/20 10:38 61 155/86 H 03/30/20 07:50 63 03/30/20 07:36 36.7 C 64 18 155/78 H 95 Laboratory Results 03/29/20 06:02 03/30/20 07:00
[2020-03-30] MEDS: NICOTINE 21 MG/24 HR TDSY TD SCH (20:21)
[2020-03-30] MEDS: LANTUS PER UNIT CHARGE SQ SCH (21:09)
[2020-03-31 06:01] LABS: Hematocrit (blood only) 25.3 % (42-52); Mean Corpuscular Hemoglobin 32.8 pg (25-34); Mean Corpuscular Hgb Conc 35.6 g/dL (32-36); Mean Corpuscular Volume 92.3 fL (80-100); Mean Platelet Volume 9.6 fL (7.4-10.4); Platelet Count 122 K/uL (130-400); RDW Coefficient of Variation 13.4 % (11.5-14.5); RDW Standard Deviation 45.4 fL (36.4-46.3); Red Blood Count 2.74 M/uL (4.7-6.1); White Blood Count 6.15 K/uL (4.8-10.8)
[2020-03-31 06:54] LABS: BUN Creatinine Ratio 8.2 (10-20); Calcium 8.3 mg/dl (8.5-10.1); Creatinine Clr Calc Pharmacy 6.7 ml/min; Est GFR (Non-African American) 4.3; Magnesium 1.9 mg/dl (1.8-2.4); Potassium 3.6 mmol/L (3.5-5.1)
[2020-03-31] MEDS: METOPROLOL TARTRATE 50 MG TAB PO SCH ×2 (08:01→20:14)
[2020-03-31] MEDS: PANTOprazole 40 MG TAB PO SCH ×2 (08:01→20:14)
[2020-03-31] MEDS: ASPIRIN 81 MG ECTAB PO SCH (08:01)
[2020-03-31] MEDS: INSULIN ASPART 100 UNITS/ML 3 ML PEN SC SCH ×4 (08:32→21:18)
[2020-03-31] MEDS ORDERED: INSULIN GLARGINE SOLOSTAR 100 UNITS/ML 3 ML PEN SC SCH (09:00)
--- NOTE | 2020-03-31 09:22 | Nephrology Progress Note ---
Date of Service March 31, 2020 Assessment & Plan (1) ARF (acute renal failure): baseline creatinine 1.1-1.5; presenting creatinine 12 on 03/25 in setting of EtOH pancreatitis, peak creatinine 13 on 03/28; down to 11.7 today. has had polyuria though this is resolving; no doreen uremia. on RA. at risk for EtoH w/drwal and on ativan protocol. had some hypoglycemic episodes early on so bicarb gtt was doubly useful initially; stopped 03/29 and he actually had lasix earlier in admission. electrolytes w/ some mild abnormalities in sodium, K. also ongoing elevated BUN; but MS seems ok as is volume status adn tolerating po; will continue to observe for now. finishing iv mag when I arrived. lipase uptrending some pst 48 hrs but nothing like it was at admission. no indication for dialysis at this time; I hope he will avoid it but some concern at how long he has been plateau'd at 13; cont to observe -platelet count is rebounding; hgb stable -mag remains near normal - recheck in am -daily bmp -cont strict I/O (900 mL negative today) -monitor MS, po intake -Uptrending BUN noted: Will start half-normal saline at 75 mL/hr and monitor -would like to see steady downtrend in bun, creat for at least a few days and to have creatinine out of double digits; he is clinically stable to slightly improved from a renal standpoint, however where his improvement to stall uremia could emerge quickly (2) Hypertension: Systolics running generally in the 150s and 160s. Complicated in part by alcohol withdrawal Continue benzodiazepine protocol Beta-beni and hydralazine at current doses appropriate for now Encourage ambulation and smoking cessation Present on Admission?: Yes Admission and Anticipated Discharge Date Admission Date: March 25, 2020 Subjective Continues to tolerate diet without nausea or abdominal pain; ambulating without difficulty in the hallway; no edema; no significant exertional dyspnea; urinary frequency continues but has slowed somewhat Review of Systems Review of Systems: All systems reviewed & are unremarkable except as noted in HPI & below Physical Exam Constitutional: well developed, well nourished and comfortable; no acute distress On room air, maneuvers readily for exam without assist Eyes: EOM intact bilaterally ENMT: Ears: no external ear abnormality Nose: no external nose abnormality Mouth: + dry oral mucous membranes Neck: no nuchal rigidity Respiratory: normal respiratory effort Auscultation: + diminished lung sounds Cardiovascular: Rate/Rhythm: regular rate and regular rhythm Extremities: no edema Gastrointestinal (Abdomen): Inspection/Auscultation: normal bowel sounds Percussion/Palpation: abdomen soft; abdomen nontender Musculoskeletal: Extremities: strength 5/5 throughout Skin: no rashes, warm and dry Neurologic: Moves all extremities, fluent speech, no tremor Psychiatric: A+Ox3, euthymic affect Results & Data ([facility]) Vital Signs (Past 12 Hours) Vital Signs Temp Pulse Pulse Resp BP Pulse Ox 03/31/20 07:40 37.0 C 55 L 18 168/81 H 97 03/31/20 04:46 36.6 C 57 L 18 147/73 H 95 03/31/20 00:45 69 03/31/20 00:07 37.0 C 62 20 139/69 95 03/30/20 22:22 65 19 96 Laboratory Results 03/31/20 05:45 03/31/20 05:45
--- NOTE | 2020-03-31 10:45 | Pharmacy Report ---
Glycemic Control Progress Note - Date of Service March 31, 2020 - Scope Glycemic Pharmacist consulted for glycemic control to write orders per [facility] inpatient glycemic control protocol. - Objective Accuchecks BSG(last 24 hours):: 03/30/20 03/30/20 03/30/20 11:43 16:38 20:56 Glucose POC Glucose 182 H 184 H 199 H 03/31/20 03/31/20 05:45 07:24 Glucose 219 H POC Glucose 219 H - Recent Pertinent Medications The patient is currently receiving: * Basal insulin: Lantus 3 units every 24 hours * Correctional Insulin: Novolog Correction per scale ACHS Goal Range: Low 140 mg/dL - High 180 mg/dL Correction Factor: 30 mg/dL/unit * Prandial insulin: Per carb ratio of 1 unit per 15 grams CHO consumed - Outpatient Anti-Diabetic Meds Lantus 16 units daily + Novolog - Assessment & Plan ASSESSMENT: * See progress note from 03/25/2020 for more background info, in short: * Pt receiving SQ basal bolus insulin regimen for hyperglycemia secondary to baseline DM (outpatient regimen on hold). Patient's kidney function has started to improve slightly. * Patient is currently receiving an average of 17 units of insulin per day * 3 units of basal insulin * 14 units of prandial/correctional insulin * BSGs ranging 143 - 199 mg/dl over the past 24hrs * Changes needed to insulin regimen: * AM Fasting BSG = 219 mg/dl. This is above goal range for patient based on inpatient targets and co-morbidities. Basal insulin will be doubled to 6 units (received 3 additional correctional units yesterday on top of 3 units of basal). Will add a scale for this evening if BSG > 250 mg/dL. Concern to become too aggressive as patient's kidney function is not improved that much and he had significant hypoglycemia at the beginning of the hospitalization. * Post-prandial BSGs are in range therefore no changes needed to CF/CR. * Total daily dose = ? units. Likely to change as kidney function changes. PLAN FOR INPATIENT GLYCEMIC CONTROL: * Increasing Lantus to 6 units SQ qAM plus Lantus 5 units if BSG > 250 mg/dL * Continuing correction factor of 30 mg/dl/unit * Continuing carb ratio of 1 unit per 15 grams CHO consumed * Continuing goal range of Low 140 mg/dL - High 180 mg/dL * Please note that the plan above was derived based on current level of insulin resistance and hospital stress. These recommendations are appropriate for inpatient admission only. Plan of care upon discharge will need to be reassessed to avoid potential outpatient hypo/hyperglycemia. Thank you.
[2020-03-31] MEDS: SODIUM CHLORIDE 0.45 % 1,000 ML IV SCH (12:40)
[2020-03-31] MEDS: LORazepam 1 MG TAB PO PRN ×2 (14:07→21:39)
--- NOTE | 2020-03-31 15:39 | Hospitalist Progress Note ---
Date of Service March 31, 2020 Assessment & Plan (1) Acute renal failure: presented with ATN -acute tubular necrosis with oligoura presented with Cr > 12 due to poor po intake, vomiting and alcohol abuse for past several weeks ( pt was discharged from [facility] on 03/11 ) baseline cr 1-1.5 urine out put improved -due to post ATN diuresus nephrology following worsening of cr noted > 11 today started on low rate IVF by nephrology vol status remains stable pt dose not have any S/S of uremia follow BMP closely ACUTE DECOMPENSATION OF CHF /DIASTOLIC HEART FAILURE ( HFpEF) presented with vol overload , pulm congestion , anasarca resolved, vol status stable , no SOB , RODRIGUEZ , improvement of lower ext edema and anasarca due to ATN with oliguria pn admission Elevated BMP > 15 K , Cxray shows pulm congestion ECHO shows EF 60% improved urine out put with stable vol status CONFUSION /METABOLIC ENCEPHALOPATHY : resolved, mental status improved to approx baseline metabolic encephalopathy due to combination of ATN , uremia , ETOH abuse TYPE 1 DM: on admission was having hypoglycemic events BSG stable now hypoglycemic episode on admission possible due to ATN causing poor clearance of Lantus -pt taken 16 U home dose prior to admission insulin [facility] pharmacy following for glycemic managment HYPONATREMIA : Na 135 due to dehydration , chronic ETOH abuse nephrology following (2) Pancreatitis: ETOH induced pancreatitis Lipase level > 23 k level improving with IVF hx of ETOH abuse , multiple admissions in past with ETOH withdrawl GI eval appreciated , tolerating solid diet strict abstinence from ETOH out pt EUS (3) High anion gap metabolic acidosis: due to ATN metabolic acidosis resolved ,Hco3: 21 high AG : 16 due to to hyponatremia/hypochloremia Hco3 gtt D/dimple (4) Alcohol withdrawal: hx of ETOH abuse /admitted with intoxication Placed on IV Ativan active protocol no evidence of active ETOH withdrwal (5) DM type 1 (diabetes mellitus, type 1): hypoglycemic episode noted due to ATN hold all hypoglycemics pharmacy following for glycemic managment (6) CAD (coronary artery disease): History of BMS to left circumflex in 2009 on beta beni , resumed aspirin no complain of chest pain or SOB Hold statin-for pancreatitis /hold losartan for ATN (7) Hypertension: BP stable Metoprolol with holding parameter Hold losartan given TONG (8) Esophagitis: Continue PPI twice daily (9) Dyslipidemia: hold statin and fibrate-pancreatitis CK WNL (10) Tobacco abuse: Nicotine patch ordered Encourage smoking cessation (11) DVT prophylaxis: platelet count improved high risk for DVT given acute illness ordered Sib q heparin Disposition: continued hospital stay due to renal failure expected to be discharged home when medically stable Girlfriend /significant other updated over phone Admission and Anticipated Discharge Date Admission Date: March 25, 2020 Subjective less short of breath today was able to walk on hallway twice without any RODRIGUEZ no confusion , mental status at baseline reports of occasional anxiety , no s/p ETOH withdrawl vitals been stable Review of Systems Review of Systems: All systems reviewed & are unremarkable except as noted in HPI & below Physical Exam Constitutional: WD/WN, vitals as above + ill appearing Eyes: PERRL, conjunctivae normal, anicteric sclerae ENMT: external ear and nose normal, oropharynx normal Neck: trachea midline, no thyromegaly Respiratory: normal respiratory effort; no respiratory distress and no cough Gastrointestinal (Abdomen): Percussion/Palpation: abdomen soft Neurologic: PERRL, EOMI, accommodation nl, no face palsy, no dysarthria Psychiatric: A+Ox3, euthymic affect Orientation: alert and oriented to person Results & Data Results & Data ([facility]) Vital Signs (Past 12 Hours) Vital Signs Temp Pulse Pulse Resp BP Pulse Ox 03/31/20 15:07 62 03/31/20 12:08 36.9 C 62 18 158/76 H 96 03/31/20 07:40 37.0 C 55 L 18 168/81 H 97 03/31/20 07:30 60 03/31/20 04:46 36.6 C 57 L 18 147/73 H 95 (1) Alcohol withdrawal Complication of substance-induced condition: with unspecified complication Qualified Code(s): F10.239 - Alcohol dependence with withdrawal, unspecified (2) Pancreatitis Acute pancreatitis complication: unspecified Chronicity: acute Pancreatitis type: unspecified pancreatitis type Qualified Code(s): K85.90 - Acute pancreatitis without necrosis or infection, unspecified
[2020-03-31] MEDS: NICOTINE 21 MG/24 HR TDSY TD SCH (19:49)
[2020-03-31] MEDS ORDERED: INSULIN GLARGINE SOLOSTAR 100 UNITS/ML 3 ML PEN SQ SCH ×2 (21:00)
[2020-04-01] MEDS: SODIUM CHLORIDE 0.45 % 1,000 ML IV SCH ×2 (01:10→12:41)
[2020-04-01 06:58] LABS: BUN Creatinine Ratio 9.7 (10-20); Calcium 8.3 mg/dl (8.5-10.1); Est GFR (African American) 7.1; Est GFR (Non-African American) 6.2; Potassium 3.5 mmol/L (3.5-5.1)
[2020-04-01] MEDS: ASPIRIN 81 MG ECTAB PO SCH (08:18)
[2020-04-01] MEDS: METOPROLOL TARTRATE 50 MG TAB PO SCH (08:18)
[2020-04-01] MEDS: PANTOprazole 40 MG TAB PO SCH ×2 (08:19→20:02)
[2020-04-01] MEDS: INSULIN ASPART 100 UNITS/ML 3 ML PEN SC SCH ×4 (08:21→20:45)
[2020-04-01] MEDS: LORazepam 1 MG TAB PO PRN ×2 (09:46→23:20)
[2020-04-01] MEDS ORDERED: INSULIN GLARGINE SOLOSTAR 100 UNITS/ML 3 ML PEN SC ONE (12:00)
--- NOTE | 2020-04-01 13:17 | Pharmacy Report ---
Glycemic Control Progress Note - Date of Service April 01, 2020 - Scope Glycemic Pharmacist consulted for glycemic control to write orders per [facility] inpatient glycemic control protocol. - Objective Accuchecks BSG(last 24 hours):: 03/31/20 03/31/20 04/01/20 17:03 21:04 05:59 Glucose 170 H POC Glucose 212 H 297 H 04/01/20 04/01/20 04/01/20 07:36 11:33 11:35 Glucose POC Glucose 177 H 311 H* 315 H* - Recent Pertinent Medications The patient is currently receiving: * Basal insulin: Lantus 6 units in the morning and 5 units in the evening * Correctional Insulin: Novolog Correction per scale ACHS Goal Range: Low 140 mg/dL - High 180 mg/dL Correction Factor: 30 mg/dL/unit * Prandial insulin: Per carb ratio of 1 unit per 15 grams CHO consumed - Outpatient Anti-Diabetic Meds Lantus 16 units SQ daily plus Novolog - Assessment & Plan ASSESSMENT: * See progress note from 03/25/2020 for more background info, in short: * Pt receiving SQ basal bolus insulin regimen for hyperglycemia secondary to baseline DM (outpatient regimen on hold). Patient's kidney injury is resolving now. * Patient is currently receiving an average of 31 units of insulin per day * 11 units of basal insulin * 21 units of prandial/correctional insulin * BSGs ranging 212 - 297 mg/dl over the past 24hrs * Changes needed to insulin regimen: * AM Fasting BSG = 177 mg/dl. This is in goal range for patient based on inpatient targets and co-morbidities. The patient received 11 units yesterday with still some correctional given. Patient's fasting is coming down nicely. Will increase to Lantus 13 units (only slightly lower than home dose of 16 units) plus give at lunch to decrease risk of stacking. * Post-prandial BSGs were relatively stable but did tend to go up after meals. I think his carbohydrate coverage is not enough .... tightened CR to 12. * Total daily dose = 40 units. Increased regimen. PLAN FOR INPATIENT GLYCEMIC CONTROL: * Increasing Lantus to 13 units SQ HS * Continuing correction factor of 30 mg/dl/unit * TIGHTENING carb ratio to 1 unit per 12 grams CHO consumed * Continuing goal range of Low 140 mg/dL - High 180 mg/dL * Please note that the plan above was derived based on current level of insulin resistance and hospital stress. These recommendations are appropriate for inpatient admission only. Plan of care upon discharge will need to be reassessed to avoid potential outpatient hypo/hyperglycemia. Thank you.
--- NOTE | 2020-04-01 13:24 | Nephrology Progress Note ---
Date of Service April 01, 2020 Assessment & Plan (1) ARF (acute renal failure): baseline creatinine 1.1-1.5; presenting creatinine 12 on 03/25 in setting of EtOH pancreatitis, peak creatinine 13 on 03/28; down to 8.7 today. has had polyuria though this has resolved; no doreen uremia. on RA. has now passed window for EtoH w/drwal. had some hypoglycemic episodes early on so bicarb gtt was doubly useful initially; stopped 03/29 and he actually had lasix earlier in admission. electrolytes w/ some mild abnormalities in sodium, K. also ongoing elevated BUN but improving; but MS seems ok as is volume status and tolerating po. lipase further uptrending some pst 48 hrs but nothing like it was at admission. no indication for dialysis at this time; I hope he will avoid it but some concern improvement may stall -- today is first real day of improvement; cont to observe -platelet count is rebounding; hgb stable -mag remains near normal - recheck in am -daily bmp -cont strict I/O (so far today 500 ml pos) -monitor MS, po intake >>cont half-normal saline at 75 mL/hr and monitor -would like to see steady downtrend in bun, creat for at least a few days ; he is clinically improved from a renal standpoint, however where his improvement to stall uremia could emerge quickly (2) Hypertension: Systolics running generally in the 150s and 160s. Complicated in part by alcohol withdrawal, though out of window for this now increased metoprolol to 75 mg bid cont hydralazine at current dose for now -started amlodipine 5 mg hs as well Encourage ambulation and smoking cessation Admission and Anticipated Discharge Date Admission Date: March 25, 2020 Subjective feeling/doing ok; no sob, tolerating liquid diet (tray does not look like regular one); no n or abd pain, no edema, ambulating; no voiding issues Review of Systems Review of Systems: All systems reviewed & are unremarkable except as noted in HPI & below Physical Exam Constitutional: well developed, well nourished and comfortable; no acute distress Eyes: EOM intact bilaterally ENMT: Ears: no external ear abnormality Nose: no external nose abnormality Mouth: + dry oral mucous membranes Neck: no nuchal rigidity Respiratory: normal respiratory effort Auscultation: + diminished lung s ounds Cardiovascular: Rate/Rhythm: regular rate and regular rhythm Extremities: no edema Gastrointestinal (Abdomen): Inspection/Auscultation: normal bowel sounds Percussion/Palpation: abdomen soft; abdomen nontender Musculoskeletal: Extremities: strength 5/5 throughout Skin: no rashes, warm and dry Neurologic: felton, fluent speech, no tremor Psychiatric: A+Ox3, euthymic affect Results & Data ([facility]) Vital Signs (Past 12 Hours) Vital Signs Temp Pulse Pulse Resp BP BP Pulse Ox 04/01/20 11:42 36.6 C 66 16 167/85 H 98 04/01/20 08:40 36.9 C 68 16 149/85 H 98 04/01/20 08:21 36.9 C 66 16 149/85 H 95 04/01/20 07:33 66 04/01/20 04:00 36.9 C 58 L 18 144/67 H 95 Laboratory Results 03/31/20 05:45 04/01/20 05:59
--- NOTE | 2020-04-01 18:19 | Hospitalist Progress Note ---
Date of Service April 01, 2020 Assessment & Plan (1) Acute renal failure: presented with ATN -acute tubular necrosis with oligoura presented with Cr > 12 due to poor po intake, vomiting and alcohol abuse for past several weeks ( pt was discharged from [facility] on 03/11 ) baseline cr 1-1.5 urine out put improved -due to post ATN diuresus nephrology following worsening of cr noted > 11 today started on low rate IVF by nephrology vol status remains stable pt dose not have any S/S of uremia follow BMP closely ACUTE DECOMPENSATION OF CHF /DIASTOLIC HEART FAILURE ( HFpEF) presented with vol overload , pulm congestion , anasarca resolved, vol status stable , no SOB , RODRIGUEZ , improvement of lower ext edema and anasarca due to ATN with oliguria pn admission Elevated BMP > 15 K , Cxray shows pulm congestion ECHO shows EF 60% improved urine out put with stable vol status CONFUSION /METABOLIC ENCEPHALOPATHY : resolved, mental status improved to approx baseline metabolic encephalopathy due to combination of ATN , uremia , ETOH abuse TYPE 1 DM: on admission was having hypoglycemic events BSG stable now hypoglycemic episode on admission possible due to ATN causing poor clearance of Lantus -pt taken 16 U home dose prior to admission insulin [facility] pharmacy following for glycemic managment HYPONATREMIA : Na 135 due to dehydration , chronic ETOH abuse nephrology following (2) Pancreatitis: ETOH induced pancreatitis Lipase level > 23 k level improving with IVF hx of ETOH abuse , multiple admissions in past with ETOH withdrawl GI eval appreciated , tolerating solid diet strict abstinence from ETOH out pt EUS (3) High anion gap metabolic acidosis: due to ATN metabolic acidosis resolved ,Hco3: 21 high AG : 16 due to to hyponatremia/hypochloremia Hco3 gtt D/dimple (4) Alcohol withdrawal: hx of ETOH abuse /admitted with intoxication Placed on IV Ativan active protocol no evidence of active ETOH withdrwal (5) DM type 1 (diabetes mellitus, type 1): hypoglycemic episode noted due to ATN hold all hypoglycemics pharmacy following for glycemic managment (6) CAD (coronary artery disease): History of BMS to left circumflex in 2009 on beta beni , resumed aspirin no complain of chest pain or SOB Hold statin-for pancreatitis /hold losartan for ATN (7) Hypertension: BP stable Metoprolol with holding parameter Hold losartan given TONG (8) Esophagitis: Continue PPI twice daily (9) Dyslipidemia: hold statin and fibrate-pancreatitis CK WNL (10) Tobacco abuse: Nicotine patch ordered Encourage smoking cessation (11) DVT prophylaxis: platelet count improved high risk for DVT given acute illness ordered Sib q heparin Disposition: continued hospital stay due to renal failure expected to be discharged home when medically stable Girlfriend /significant other updated over phone Admission and Anticipated Discharge Date Admission Date: March 25, 2020 Subjective Pt was seen and examined Lying in bed with no distress Pt said that he feels ok Denies any chest pain, palpitation, dizziness and SOB Physical Exam Physical Exam: General- No acute distress Head- atraumatic Eyes- PERRL, EOMI, ENT- oropharynx clear Neck- supple, no JVD Lungs- clear to auscultation Heart- regular rhythm; no murmur Abdomen- normal bowel sounds, soft, nontender Extremities- no calf tenderness Neuro- alert, oriented x 3; PERRL, EOMI; no facial palsy; no dysarthria Skin- warm & dry Results & Data Results & Data ([facility]) Vital Signs (Past 12 Hours) Vital Signs Temp Pulse Pulse Resp BP BP Pulse Ox 04/01/20 16:00 36.9 C 66 18 148/74 H 97 04/01/20 15:09 67 04/01/20 11:42 36.6 C 66 16 167/85 H 98 04/01/20 08:40 36.9 C 68 16 149/85 H 98 04/01/20 08:21 36.9 C 66 16 149/85 H 95 04/01/20 07:33 66 (1) Alcohol withdrawal Complication of substance-induced condition: with unspecified complication Qualified Code(s): F10.239 - Alcohol dependence with withdrawal, unspecified (2) Pancreatitis Acute pancreatitis complication: unspecified Chronicity: acute Pancreatitis type: unspecified pancreatitis type Qualified Code(s): K85.90 - Acute pa ncreatitis without necrosis or infection, unspecified
[2020-04-01] MEDS: NICOTINE 21 MG/24 HR TDSY TD SCH (19:56)
[2020-04-01] MEDS: METOPROLOL TARTRATE 25 MG TAB PO SCH (20:01)
[2020-04-01] MEDS: AMLODIPINE BESYLATE 5 MG TAB PO SCH (20:02)
[2020-04-02] MEDS: SODIUM CHLORIDE 0.45 % 1,000 ML IV SCH ×2 (01:11→13:01)
[2020-04-02 07:21] LABS: BUN Creatinine Ratio 12.4 (10-20); Calcium 8.2 mg/dl (8.5-10.1); Creatinine Clr Calc Pharmacy 13.6 ml/min; Est GFR (African American) 11.8; Est GFR (Non-African American) 10.2; Potassium 3.6 mmol/L (3.5-5.1)
[2020-04-02] MEDS: ASPIRIN 81 MG ECTAB PO SCH (08:07)
[2020-04-02] MEDS: INSULIN ASPART 100 UNITS/ML 3 ML PEN SC SCH ×4 (08:07→21:07)
[2020-04-02] MEDS: PANTOprazole 40 MG TAB PO SCH ×2 (08:07→20:10)
[2020-04-02] MEDS: METOPROLOL TARTRATE 25 MG TAB PO SCH ×2 (08:07→20:11)
[2020-04-02] MEDS ORDERED: INSULIN GLARGINE SOLOSTAR 100 UNITS/ML 3 ML PEN SC SCH (09:00)
[2020-04-02] MEDS: LORazepam 1 MG TAB PO PRN ×2 (10:18→19:25)
--- NOTE | 2020-04-02 12:12 | Nephrology Progress Note ---
Date of Service April 02, 2020 Assessment & Plan (1) ARF (acute renal failure): baseline creatinine 1.1-1.5; presenting creatinine 12 on 03/25 in setting of EtOH pancreatitis, peak creatinine 13 on 03/28; down to 5.7 today. has had polyuria though this has resolved; no doreen uremia. on RA. has now passed window for EtoH w/sandro. had some hypoglycemic episodes early on so bicarb gtt was doubly useful initially; stopped 03/29 and he actually had lasix earlier in admission. electrolytes w/ some mild abnormalities in sodium, K. also ongoing elevated BUN but improving. lipase further uptrending some pst 48 hrs but nothing like it was at admission. no indication for dialysis at this time; I hope he will avoid it but some concern improvement may stall --he continues to respond very well to IV fluids; cont to observe -platelet count is rebounding; hgb stable -mag remains near normal - recheck in am -daily bmp -cont strict I/O (so far today 1800 ml pos) -monitor MS, po intake >>cont half-normal saline at 75 mL/hr and monitor -will give K po 20 mEq x one -would like to see steady downtrend in bun, creat for at least a few days and have this maintained off IVF; he is clinically improved from a renal standpoint, however were his improvement to stall uremia could emerge quickly; also remains IVF dependent (2) Hypertension: Systolics running generally in the 150s and 160s. Complicated in part by alcohol withdrawal, though out of window for this now on 04/01 increased metoprolol to 75 mg bid cont hydralazine at current dose for now -started amlodipine 5 mg hs as well 04/01 -no medication changes today Encourage ambulation and smoking cessation care coordinated w/ Dr Kumar Admission and Anticipated Discharge Date Admission Date: March 25, 2020 Subjective Continued improvement in renal function with IV fluids. Patient ambulating, eating well without nausea. No exertional dyspnea or dyspnea at rest. Denies edema. Does tell me he is having trouble initiating a urine stream and finds that the flow is quite slow: States that it takes him 4 minutes to make approximately 50 mL urine. These urinary concerns are new Review of Systems Review of Systems: All systems reviewed & are unremarkable except as noted in HPI & below Physical Exam Constitutional: well developed, well nourished and comfortable; no acute distress Eyes: EOM intact bilaterally ENMT: Ears: no external ear abnormality Nose: no external nose abnormality Mouth: + dry oral mucous membranes Neck: no nuchal rigidity Respiratory: normal respiratory effort Auscultation: + diminished lung sounds Cardiovascular: Rate/Rhythm: regular rate and regular rhythm Extremities: no edema Gastrointestinal (Abdomen): Inspection/Auscultation: normal bowel sounds Percussion/Palpation: abdomen soft; abdomen nontender Musculoskeletal: Extremities: strength 5/5 throughout Skin: no rashes, warm and dry Neurologic: Moves all extremities fluent speech Psychiatric: A+Ox3, euthymic affect Results & Data ([facility]) Vital Signs (Past 12 Hours) Vital Signs Temp Pulse Pulse Resp BP Pulse Ox 04/02/20 11:22 36.9 C 59 L 16 156/85 H 98 04/02/20 09:00 71 04/02/20 07:14 36.8 C 68 16 144/63 H 95 04/02/20 05:00 37.1 C 71 20 121/67 94 04/02/20 02:03 70 Laboratory Results 03/31/20 05:45 04/02/20 06:10
--- NOTE | 2020-04-02 12:12 | Pharmacy Report ---
Pharmacy Glycemic Short Note 2 - Date of Service April 02, 2020 - Glycemic Short BSG Results (Last 24 hours): 04/01/20 04/01/20 04/02/20 16:24 20:26 06:10 Glucose 183 H POC Glucose 262 H 192 H 04/02/20 04/02/20 07:34 11:30 Glucose POC Glucose 207 H 233 H OUTPATIENT ANTIDIABETIC REGIMEN: * Lantus 16 units SQ qAM * Novolog SS * A1c = 6% ASSESSMENT: 04/02 * Patient received total of 36 units of insulin yesterday, of which 13 were basal insulin * PO intake continues and we have been slowing titrating basal insulin back up * Fasting BSG 207 this AM - increased basal to 15 units daily (takes 16 units at home) * Plan to adjust goal range slightly today, and tighten CR PLAN FOR INPATIENT GLYCEMIC CONTROL: * Basal insulin * 15 units daily * Bolus insulin * NovoLog per scale ACHS or Q6hrs while NPO * Goal Range: Low 120 mg/dL - High 160 mg/dL * Correction Factor: 35 mg/dL/unit * Carb ratio: 1 unit for every 10 grams CHO PLAN FOR DISCHARGE: * A1c = 6% (02/29/20) * A1c indicates adequate glycemic control, however patient may be experiencing hypoglycemia at home * d/c plan TBD
[2020-04-02] MEDS ORDERED: POTASSIUM CHLORIDE 20 MEQ TABCR PO ONE (12:30)
[2020-04-02] MEDS: NICOTINE 21 MG/24 HR TDSY TD SCH (19:21)
--- NOTE | 2020-04-02 19:38 | Hospitalist Progress Note ---
Date of Service April 02, 2020 Assessment & Plan (1) Acute renal failure: Mostly due to vomiting and poor oral intake Creatinine on admission 12 nephrology on board Continue IVF as per nephrology recommendation Creatinine continue to trend down 5.7 today Avoid nephrotoxic agents Continue monitor BMP ACUTE DECOMPENSATION OF CHF /DIASTOLIC HEART FAILURE ( HFpEF) CXR showed Interval development of bilateral pulmonary airspace opacities. ProBNP on admission above 15K ECHO showed subtle hypokinesis of the posterior wall base with otherwise normal LV wall motion and systolic function. EF 60 to 65 % Good urinary output Clinically improved significantly CONFUSION /METABOLIC ENCEPHALOPATHY : metabolic encephalopathy due to combination of ATN , uremia , ETOH abuse Resolved (2) Pancreatitis: ETOH induced pancreatitis Lipase level > 23 K on admission Lipase trending down with IVF GI eval appreciated tolerating solid diet Counseling on alcohol cessation Will need outpatient EUS stable (3) High anion gap metabolic acidosis: due to ATN from vomiting metabolic acidosis resolved ,Hco3: 21 high AG : 16 due to to hyponatremia/hypochloremia Hco3 gtt D/dimple (4) Alcohol withdrawal: Completed gabapentin alcohol withdrawal protocol No signs of alcohol withdrawal or DT Counseling on smoking cessation Continue (5) DM type 1 (diabetes mellitus, type 1): Had few episodes of Hypoglycemic noted due to ATN pharmacy on board for glycemic management Continue monitor BS (6) CAD (coronary artery disease): History of BMS to left circumflex in 2009 Continue beta beni and aspirin Continue to hold statin-for pancreatitis Losartan on hold due to ARF (7) Hypertension: BP has been fluctuated Continue Hydralazine and Metoprolol r Continue to hold losartan given TONG Continue monitor BP (8) Esophagitis: Continue PPI twice daily (9) Dyslipidemia: Continue to hold statin and fibrate-pancreatitis CK WNL (10) Tobacco abuse: Nicotine patch ordered Encourage smoking cessation (11) DVT prophylaxis: On SCDs due to low platelet Disposition: Plan to discharge tomorrow Admission and Anticipated Discharge Date Admission Date: March 25, 2020 Subjective Pt was seen and examined Lying in bed with no distress eating lunch Pt said that he is taking alittle bit longer to start to urinate He said that once he starts to urinate, the stream is fine He is very anxious to go home Denies any chest pain, palpitation, dizziness, abdominal pain an SOB Physical Exam Physical Exam: General- No acute distress Head- atraumatic Eyes- PERRL, EOMI, ENT- oropharynx clear Neck- supple, no JVD Lungs- clear to auscultation Heart- regular rhythm; no murmur Abdomen- normal bowel sounds, soft, nontender Extremities- no calf tenderness Neuro- alert, oriented x 3; PERRL, EOMI; no facial palsy; no dysarthria Skin- warm & dry Results & Data Results & Data ([facility]) Vital Signs (Past 12 Hours) Vital Signs Temp Pulse Pulse Resp BP Pulse Ox 04/02/20 16:00 36.7 C 61 18 138/73 98 04/02/20 15:28 69 04/02/20 11:22 36.9 C 59 L 16 156/85 H 98 04/02/20 09:00 71 (1) Alcohol withdrawal Complication of substance-induced condition: with unspecified complication Qualified Code(s): F10.239 - Alcohol dependence with withdrawal, unspecified (2) Pancreatitis Acute pancreatitis complication: unspecified Chronicity: acute Pancreatitis type: unspecified pancreatitis type Qualified Code(s): K85.90 - Acute pancreatitis without necrosis or infection, unspecified
[2020-04-02] MEDS: AMLODIPINE BESYLATE 5 MG TAB PO SCH (20:11)
[2020-04-02] MEDS: TAMSULOSIN HCL 0.4 MG CAP PO SCH (21:06)
[2020-04-03] MEDS: SODIUM CHLORIDE 0.45 % 1,000 ML IV SCH ×2 (01:00→11:51)
[2020-04-03] MEDS: ASPIRIN 81 MG ECTAB PO SCH (07:52)
[2020-04-03] MEDS: METOPROLOL TARTRATE 25 MG TAB PO SCH ×2 (07:53→20:26)
[2020-04-03] MEDS: PANTOprazole 40 MG TAB PO SCH ×2 (07:53→20:27)
[2020-04-03] MEDS: INSULIN ASPART 100 UNITS/ML 3 ML PEN SC SCH ×4 (08:12→20:33)
[2020-04-03 08:36] LABS: BUN Creatinine Ratio 12.4 (10-20); Calcium 8.2 mg/dl (8.5-10.1); Creatinine Clr Calc Pharmacy 18.6 ml/min; Est GFR (African American) 17.3; Est GFR (Non-African American) 14.9; Potassium 3.8 mmol/L (3.5-5.1)
[2020-04-03] MEDS ORDERED: INSULIN GLARGINE SOLOSTAR 100 UNITS/ML 3 ML PEN SC SCH (09:00)
[2020-04-03] MEDS: LORazepam 1 MG TAB PO PRN ×2 (10:01→18:51)
--- NOTE | 2020-04-03 12:37 | Pharmacy Report ---
Pharmacy Glycemic Short Note 2 - Date of Service April 03, 2020 - Glycemic Short BSG Results (Last 24 hours): 04/02/20 04/02/20 04/03/20 16:46 20:53 07:20 Glucose 163 H POC Glucose 139 H 181 H 04/03/20 04/03/20 07:34 12:08 Glucose POC Glucose 173 H 200 H OUTPATIENT ANTIDIABETIC REGIMEN: * Lantus 16 units SQ qAM * Novolog SS * A1c = 6% ASSESSMENT: 04/03 * Patient received total of 35 units of insulin yesterday, of which 15 were basal insulin * Fasting BSG ~173 mg/dl - slightly higher than goal but not at steady state with dosing * Continue same CF/CR for now ; adjusted BSG goal 110-140 04/02 * Patient received total of 36 units of insulin yesterday, of which 13 were basal insulin * PO intake continues and we have been slowing titrating basal insulin back up * Fasting BSG 207 this AM - increased basal to 15 units daily (takes 16 units at home) * Plan to adjust goal range slightly today, and tighten CR PLAN FOR INPATIENT GLYCEMIC CONTROL: * Basal insulin * 15 units daily * Bolus insulin * NovoLog per scale ACHS or Q6hrs while NPO * Goal Range: Low 110 mg/dL - High 140 mg/dL * Correction Factor: 35 mg/dL/unit * Carb ratio: 1 unit for every 10 grams CHO PLAN FOR DISCHARGE: * A1c = 6% (02/29/20) * A1c indicates adequate glycemic control, however patient may be experiencing hypoglycemia at home * d/c plan TBD
--- NOTE | 2020-04-03 14:24 | Nephrology Progress Note ---
Date of Service April 03, 2020 Assessment & Plan (1) ARF (acute renal failure): baseline creatinine 1.1-1.5; presenting creatinine 12 on 03/25 in setting of EtOH pancreatitis, peak creatinine 13 on 03/28; down to 4.2 today. has had polyuria though this has resolved; no doreen uremia. on RA. has now passed window for EtoH w/sandro. had some hypoglycemic episodes early on so bicarb gtt was doubly useful initially; stopped 03/29 and he actually had lasix earlier in admission. electrolytes w/ some mild abnormalities in sodium, K. also ongoing elevated BUN but improving. lipase further uptrending some pst 48 hrs but nothing like it was at admission. no indication for dialysis at this time; I hope he will avoid it but some concern improvement may stall --he continues to respond very well to IV fluids; cont to observe -platelet count is rebounding; hgb stable -mag remains near normal - recheck in am -daily bmp -cont strict I/O -monitor MS, po intake >>cont half-normal saline at 75 mL/hr and monitor -would like to see steady downtrend in bun, creat for at least a few days and have this maintained off IVF; he is clinically improved from a renal standpoint, however were his improvement to stall uremia could emerge quickly; also remains IVF dependent>> recommend stop IV fluids this evening and reassess creatinine, chemistries including magnesium tomorrow morning (2) Hypertension: Systolics bounce around 130s to 150s. Complicated in part by alcohol withdrawal, though out of window for this now on 04/01 increased metoprolol to 75 mg bid cont hydralazine at current dose for now -started amlodipine 5 mg hs as well 04/01 -no medication changes today Encourage ambulation and smoking cessation care coordinated w/ Dr Kumar Admission and Anticipated Discharge Date Admission Date: March 25, 2020 Subjective Feeling and doing reasonably well. Continues to ambulate. No exertional dyspnea. No edema. Voiding symptoms improved with Flomax added last evening. Denies issues with p.o. intake Review of Systems Review of Systems: All systems reviewed & are unremarkable except as noted in HPI & below Physical Exam Constitutional: well developed, well nourished and comfortable; no acute distress Ambulatory without assist; lying flat on room air when I see him Eyes: EOM intact bilaterally ENMT: Ears: no external ear abnormality Nose: no external nose abnormality Mouth: + dry oral mucous membranes Neck: no nuchal rigidity Respiratory: normal respiratory effort Auscultation: + diminished lung sounds Cardiovascular: Rate/Rhythm: regular rate and regular rhythm Extremities: no edema Gastrointestinal (Abdomen): Inspection/Auscultation: normal bowel sounds Percussion/Palpation: abdomen soft; abdomen nontender Musculoskeletal: Extremities: strength 5/5 throughout Skin: no rashes, warm and dry Neurologic: Moves all extremities, fluent speech, no tremor Psychiatric: A+Ox3, euthymic affect Results & Data ([facility]) Vital Signs (Past 12 Hours) Vital Signs Temp Pulse Pulse Resp BP BP Pulse Ox 04/03/20 11:42 36.6 C 63 18 130/56 L 99 04/03/20 09:35 68 04/03/20 07:23 36.8 C 62 18 147/76 H 97 04/03/20 04:00 36.9 C 66 20 125/63 96 Laboratory Results 03/31/20 05:45 04/03/20 07:20
--- NOTE | 2020-04-03 18:10 | Hospitalist Progress Note ---
Date of Service April 03, 2020 Assessment & Plan (1) Acute renal failure: Mostly due to vomiting and poor oral intake Creatinine on admission 12 nephrology on board Continue IVF as per nephrology recommendation Creatinine continue to trend down 4.19 today Case discussed with nephrology and recommended to check BMP later if creatinine continue to improve in next BMP, will d/c IVF and monitor for tonight Avoid nephrotoxic agents Continue monitor BMP ACUTE DECOMPENSATION OF CHF /DIASTOLIC HEART FAILURE ( HFpEF) CXR showed Interval development of bilateral pulmonary airspace opacities. ProBNP on admission above 15K ECHO showed subtle hypokinesis of the posterior wall base with otherwise normal LV wall motion and systolic function. EF 60 to 65 % Good urinary output Clinically improved significantly CONFUSION /METABOLIC ENCEPHALOPATHY : metabolic encephalopathy due to combination of ATN , uremia , ETOH abuse Resolved (2) Pancreatitis: ETOH induced pancreatitis Lipase level > 23 K on admission Lipase trending down with IVF GI eval appreciated tolerating solid diet Counseling on alcohol cessation Will need outpatient EUS stable (3) High anion gap metabolic acidosis: due to ATN from vomiting metabolic acidosis resolved ,Hco3: 21 high AG : 16 due to to hyponatremia/hypochloremia Resolved (4) Alcohol withdrawal: Completed gabapentin alcohol withdrawal protocol No signs of alcohol withdrawal or DT Counseling on smoking cessation Continue (5) DM type 1 (diabetes mellitus, type 1): Had few episodes of Hypoglycemic noted due to ATN pharmacy on board for glycemic management Continue monitor BS (6) CAD (coronary artery disease): History of BMS to left circumflex in 2009 Continue beta beni and aspirin Continue to hold statin-for pancreatitis Losartan on hold due to ARF (7) Hypertension: BP has been fluctuated Continue Hydralazine and Metoprolol r Continue to hold losartan given TONG Continue monitor BP (8) Esophagitis: Continue PPI twice daily (9) Dyslipidemia: Continue to hold statin and fibrate-pancreatitis CK WNL (10) Tobacco abuse: Nicotine patch ordered Encourage smoking cessation (11) DVT prophylaxis: On SCDs due to low platelet Disposition: Plan to discharge tomorrow Admission and Anticipated Discharge Date Admission Date: March 25, 2020 Subjective Pt was seen and examined Sitting in bed with no distress Pt said that he feels much better He said that he started to urinate better He is very anxious to go home today Denies any chest pain, palpitation, dizziness and SOB Physical Exam Physical Exam: General- No acute distress Head- atraumatic Eyes- PERRL, EOMI, ENT- oropharynx clear Neck- supple, no JVD Lungs- clear to auscultation Heart- regular rhythm; no murmur Abdomen- normal bowel sounds, soft, nontender Extremities- no calf tenderness Neuro- alert, oriented x 3; PERRL, EOMI; no facial palsy; no dysarthria Skin- warm & dry Results & Data Results & Data ([place]) Vital Signs (Past 12 Hours) Vital Signs Temp Pulse Pulse Resp BP BP Pulse Ox 04/03/20 15:54 66 04/03/20 15:29 36.8 C 67 22 133/75 95 04/03/20 11:42 36.6 C 63 18 130/56 L 99 04/03/20 09:35 68 04/03/20 07:23 36.8 C 62 18 147/76 H 97 (1) Alcohol withdrawal Complication of substance-induced condition: with unspecified complication Qualified Code(s): F10.239 - Alcohol dependence with withdrawal, unspecified (2) Pancreatitis Acute pancreatitis complication: unspecified Chronicity: acute Pancreatitis type: unspecified pancreatitis type Qualified Code(s): K85.90 - Acute pancreatitis without necrosis or infection, unspecified
[2020-04-03] MEDS: NICOTINE 21 MG/24 HR TDSY TD SCH (18:53)
[2020-04-03 19:00] LABS: BUN Creatinine Ratio 13.6 (10-20); Calcium 7.8 mg/dl (8.5-10.1); Creatinine Clr Calc Pharmacy 19.5 ml/min; Est GFR (African American) 18.3; Est GFR (Non-African American) 15.8; Magnesium 1.1 mg/dl (1.8-2.4)
[2020-04-03] MEDS: MAGNESIUM SULFATE / D5W 1 GM/100 ML BAG IV SCH ×2 (20:25→22:24)
[2020-04-03] MEDS: TAMSULOSIN HCL 0.4 MG CAP PO SCH (20:26)
[2020-04-03] MEDS: AMLODIPINE BESYLATE 5 MG TAB PO SCH (20:26)
[2020-04-04 07:24] LABS: BUN Creatinine Ratio 15.4 (10-20); Calcium 8.3 mg/dl (8.5-10.1); Creatinine Clr Calc Pharmacy 23.9 ml/min; Est GFR (African American) 23.3; Est GFR (Non-African American) 20.1; Magnesium 1.6 mg/dl (1.8-2.4)
[2020-04-04] MEDS ORDERED: MAGNESIUM SULFATE / D5W 1 GM/100 ML BAG IV ONE (08:00)
[2020-04-04] MEDS: PANTOprazole 40 MG TAB PO SCH (08:28)
[2020-04-04] MEDS: METOPROLOL TARTRATE 25 MG TAB PO SCH (08:28)
[2020-04-04] MEDS: ASPIRIN 81 MG ECTAB PO SCH (08:28)
[2020-04-04] MEDS: INSULIN ASPART 100 UNITS/ML 3 ML PEN SC SCH ×2 (08:30→12:31)
[2020-04-04] MEDS ORDERED: INSULIN GLARGINE SOLOSTAR 100 UNITS/ML 3 ML PEN SC SCH (09:00)
--- NOTE | 2020-04-04 09:29 | Nephrology Progress Note ---
Date of Service April 04, 2020 Assessment & Plan (1) ARF (acute renal failure): baseline creatinine 1.1-1.5; presenting creatinine 12 on 03/25 in setting of EtOH pancreatitis, peak creatinine 13 on 03/28; down to 4.2 today. has had polyuria though this has resolved; no doreen uremia. on RA. has now passed window for EtoH w/sandro. had some hypoglycemic episodes early on so bicarb gtt was doubly useful initially; stopped 03/29 and he actually had lasix earlier in admission. electrolytes w/ some mild abnormalities in sodium, K. also ongoing elevated BUN but improving. lipase further uptrending some pst 48 hrs but nothing like it was at admission. no indication for dialysis at this time; I hope he will avoid it but some concern improvement may stall --he continues to respond very well to IV fluids; cont to observe -platelet count is rebounding; hgb stable -mag dropped > as below (2) Hypertension: Systolics bounce around 120s to 130s past 24-36 hr. Complicated in part by alcohol withdrawal on admission, though out of window for this now on 04/01 increased metoprolol to 75 mg bid cont hydralazine at current dose for now -started amlodipine 5 mg hs as well 04/01 -no medication changes today Encourage ambulation and smoking cessation (3) Hypomagnesemia: mag 1.1 last evening up to1.6 this am. ? cause; no diarrhea. -getting iv mag today -recommend d/c on once daily po supplement and will monitor as OP Discharge recommendations (d/c summary updated) -discharge on magnesium oxide 400 mg po daily -for blood pressure medications at discharge, recommend 5 mg amlodipine hs, hydralazine 25 mg qid, metoprolol 75 mg po bid -continue to hold losartan at discharge -needs bmp and mag check weekly x 4 weeks which nephrology will order -needs to see Dr Robin or BLANCA Trejo w/in 4-6 wks in [facility]; possible that this may be a telemedicine visit care coordinated w/ Dr Kumar Present on Admission?: No Admission and Anticipated Discharge Date Admission Date: March 25, 2020 Subjective seen at 1245 just prior to his d/c today; eating lunch; feeling well; denies voidign challenges, n/v, dyspnea or chest pain w/ exertion or at rest, edema Review of Systems Review of Systems: All systems reviewed & are unremarkable except as noted in HPI & below Physical Exam Constitutional: well developed, well nourished and comfortable; no acute distress Eyes: EOM intact bilaterally ENMT: Ears: no external ear abnormality Nose: no external nose abnormality Mouth: + dry oral mucous membranes Neck: no nuchal rigidity Respiratory: normal respiratory effort Auscultation: + diminished lung sounds Cardiovascular: Rate/Rhythm: regular rate and regular rhythm Extremities: no edema Gastrointestinal (Abdomen): Inspection/Auscultation: normal bowel sounds Percussion/Palpation: abdomen soft; abdomen nontender Musculoskeletal: Extremities: strength 5/5 throughout Skin: no rashes, warm and dry Neurologic: [place], fluent speech, no tremor Psychiatric: A+Ox3, euthymic affect Results & Data ([facility]) Vital Signs (Past 12 Hours) Vital Signs Temp Pulse Pulse Resp BP Pulse Ox 04/04/20 07:55 36.8 C 63 16 142/76 H 97 04/04/20 07:00 66 04/04/20 04:18 37.3 C 65 17 124/65 97 04/04/20 01:15 69 04/03/20 23:15 36.9 C 67 17 124/67 95 Laboratory Results 03/31/20 05:45 04/04/20 06:25 Mag 1.1 last evening; 1.7 this am
--- NOTE | 2020-04-04 13:28 | Hospitalist Progress Note ---
Date of Service April 04, 2020 Assessment & Plan (1) Acute renal failure: Mostly due to vomiting and poor oral intake Creatinine on admission 12 nephrology on board Continue IVF as per nephrology recommendation Creatinine continue to trend down 3.27 today Case discussed with nephrology that recommended to continue to hold losartan Ok from Nephrology to discharge home today Check BMP weekly x 4 Follow up with nephrology in 4 to 6 weeks Avoid nephrotoxic agents ACUTE DECOMPENSATION OF CHF /DIASTOLIC HEART FAILURE ( HFpEF) CXR showed Interval development of bilateral pulmonary airspace opacities. ProBNP on admission above 15K ECHO showed subtle hypokinesis of the posterior wall base with otherwise normal LV wall motion and systolic function. EF 60 to 65 % Good urinary output Clinically improved significantly CONFUSION /METABOLIC ENCEPHALOPATHY : metabolic encephalopathy due to combination of ATN , uremia , ETOH abuse Resolved (2) Pancreatitis: ETOH induced pancreatitis Lipase level > 23 K on admission Lipase trending down with IVF GI eval appreciated tolerating solid diet Counseling on alcohol cessation Will need outpatient EUS stable (3) High anion gap metabolic acidosis: due to ATN from vomiting metabolic acidosis resolved ,Hco3: 21 high AG : 16 due to to hyponatremia/hypochloremia Resolved (4) Alcohol withdrawal: Completed gabapentin alcohol withdrawal protocol No signs of alcohol withdrawal or DT Counseling on smoking cessation Refused to go to alcohol rehab therapy Stable (5) DM type 1 (diabetes mellitus, type 1): Most recent Hba1c 6 Had few episodes of Hypoglycemic noted due to ATN pharmacy on board for glycemic management case discussed with pharmacy that recommended to decrease Lantus to 14 units on discharge Continue monitor BS (6) CAD (coronary artery disease): History of BMS to left circumflex in 2009 Continue beta beni and aspirin Statin resume on discharge Losartan on hold due to ARF (7) Hypertension: BP stable Continue Hydralazine 25mg QID Metoprolol increased to 75mg BID Continue Norvac 5 mg daily Continue to hold losartan given TONG Continue monitor BP (8) Esophagitis: Continue PPI twice daily (9) Dyslipidemia: Statin and fibrate resume on discharge CK WNL (10) Tobacco abuse: Nicotine patch ordered Counseling on smoking cessation Urinary Hesitancy Possible related to recent santamaria cath Continue flomax for now Clinically improves (11) DVT prophylaxis: On SCDs due to low platelet Disposition: Discharge home today Admission and Anticipated Discharge Date Admission Date: March 25, 2020 Subjective Pt was seen and examined Lying in bed with no distress Pt said that he feels fine He is very anxious to discharge home today He continues refused alcohol rehab treatment Denies any chest pain, palpitation, dizziness and SOB Physical Exam Physical Exam: General- No acute distress Head- atraumatic Eyes- PERRL, EOMI, ENT- oropharynx clear Neck- supple, no JVD Lungs- clear to auscultation Heart- regular rhythm; no murmur Abdomen- normal bowel sounds, soft, nontender Extremities- no calf tenderness Neuro- alert, oriented x 3; PERRL, EOMI; no facial palsy; no dysarthria Skin- warm & dry Results & Data Results & Data ([facility]) Vital Signs (Past 12 Hours) Vital Signs Temp Pulse Pulse Resp BP BP Pulse Ox 04/04/20 12:58 36.9 C 96 H 18 142/76 H 130/69 95 04/04/20 11:31 36.9 C 96 H 18 130/69 95 04/04/20 07:55 36.8 C 63 16 142/76 H 97 04/04/20 07:00 66 04/04/20 04:18 37.3 C 65 17 124/65 97 (1) Alcohol withdrawal Complication of substance-induced condition: with unspecified complication Qualified Code(s): F10.239 - Alcohol dependence with withdrawal, unspecified (2) Pancreatitis Acute pancreatitis complication: unspecified Chronicity: acute Pancreatitis type: unspecified pancreatitis type Qualified Code(s): K85.90 - Acute pancreatitis without necrosis or infection, unspecified
--- NOTE | 2020-04-05 09:00 | Discharge Summary ---
Date of Service April 04, 2020 Admission HPI Per Admitting Provider This is a 54-year-old male who has significant PMH of type 1 diabetes mellitus, CAD with history of stent, HTN, HLD, history of pancreatitis, alcohol abuse, SATYA on CPAP, depression with anxiety who presents to ED with complaint of abdominal pain and cough times several days. He states his symptoms started approximately 1 week ago. He complains of dry cough, epigastric abdominal pain, nausea, emesis of álvarez/white color, phonophobia, tinnitus, tremors, and intermittent chills/sweats. He admits to approximately, "100 episodes of vomiting yesterday," and 5-8 episodes of vomiting today. He is a chronic alcoholic and drinks 6 beers daily along with liquor and wine. His last alcoholic beverage was 1 beer 2 days ago. He has been unable to tolerate p.o. intake secondary to nausea and vomiting. He denies any documented fever, lightheadedness but does admit to dizziness. He further denies any chest pain, palpitations, hemoptysis, hematemesis, melena, hematochezia, dysuria, increased urgency or frequency with urination, hematuria. He does admit to a few episodes of loose stool yesterday along with shortness of breath when he coughs. He is a chronic 1 pack/day smoker. He denies any decrease in urine production. He denies any sick contacts with covid 19. Lives at home with his girlfriend. Denies loss of taste/smell. In ED patient remained hemodynamically stable. Lab work notable for leukocytosis 13.7, H&H 13.5 and 36.3, platelet 146, d-dimer 2490, sodium 122, K3.7, chloride 87, CO2 14, AG 21, BUN 81, creatinine 12, lactate 1.0, CK 122, lipase 23,630. CT scan abdomen pelvis concerning for moderate pancreatitis. ETOH level WNL. UA + rbc, protein, granular cast. He received 2L of IV while in ED along with 1mg IV ativan, reglan. Admission Exam Per Admitting Provider General: Dehydrated, tremulous, no acute distress Eyes: PERRL, conjunctivae normal, not pale, anicteric sclerae, EOM intact bilaterally ENMT: Had tissue paper in both ears which he stated he put in to reduce sound sensitivity Respiratory: Normal respiratory effort, no respiratory distress, lungs clear to auscultation, no crackles and no wheezes Cardiovascular: Pulse is RRR.S1-2; no murmurs, no pedal edema Chest (Breasts): Chest: normal inspection of chest Gastrointestinal (Abdomen): Abdomen is not distended, soft,+epigastric te nderness, no guarding, no palpable hepatosplenomegaly, normal bowel sounds Musculoskeletal: No cyanosis or clubbing, all extremities motor strength 5/5 Skin: Some bruise over right shoulder blade and right knee (reported that was from fall when he blacked out at home. Denied any head trauma) Neurologic: Alert and oriented x 3, +Tremors, no focal motor or sensory deficits Psychiatric: Alert and oriented x 3, +mild anxiety Principal Diagnosis Acute renal failure: ACUTE DECOMPENSATION OF CHF /DIASTOLIC HEART FAILURE ( HFpEF) CONFUSION /METABOLIC ENCEPHALOPATHY : Pancreatitis: High anion gap metabolic acidosis: Alcohol withdrawal: Diabetes mellitus Urinary hesitancy CAD (coronary artery disease): Hypertension: Esophagitis: Dyslipidemia: Tobacco abuse: Discharge Exam General- No acute distress Head- atraumatic Eyes- PERRL, EOMI, ENT- oropharynx clear Neck- supple, no JVD Lungs- clear to auscultation Heart- regular rhythm; no murmur Abdomen- normal bowel sounds, soft, nontender Extremities- no calf tenderness Neuro- alert, oriented x 3; PERRL, EOMI; no facial palsy; no dysarthria Skin- warm & dry Discharge Data Allergies Allergy/AdvReac Type Severity Reaction Status Date / Time naproxen Allergy Unknown Hives Verified 03/25/20 11:22 tramadol Allergy Unknown Unknown Verified 03/25/20 11:22 moxifloxacin [From Avelox] AdvReac Unknown Verified 03/25/20 15:53 ramipril AdvReac Unknown Verified 03/25/20 15:53 Consultations 03/25/20 14:26 ED Decision to Admit Stat 03/25/20 14:44 Consult Nephrology Routine 03/25/20 15:33 Consult Gastroenterology Routine 03/25/20 15:55 Consult Nephrology Routine 03/25/20 18:06 Consult Case Management - Discharge Planning Routine Ordered Studies 03/25/20 12:43 CT abd pelvis wo con Stat 03/27/20 10:00 US venous doppler LE BI Routine CHEST AND ABDOMEN 2 VIEWS HISTORY: epigastric pain. Vomiting. COMPARISON: Chest 02/28/2020. Abdomen and pelvis CT 02/28/2020. FINDINGS: The lungs are clear. The heart is normal in size. No pleural effusions. No pneumothorax. Old, healed left lower rib fractures. No pneumop eritoneum. No pneumatosis. A few nondilated gas-filled loops of large and small bowel are seen throughout the abdomen. No evidence for bowel obstruction. Calcifications within the left deep pelvis favor phleboliths. There are 2 calcifications within the right upper quadrant measuring 3 mm. These are consistent with gallstones. No definite renal or ureteral calculi. IMPRESSION: No acute cardiopulmonary process. No evidence for bowel obstruction. Cholelithiasis. ACT 112: Negative or not required by law. Electronically signed by: Baldemar Jorge M.D. 03/25/2020 12:33 PM Dictated: 03/25/20 1226 Transcribed: 03/25/[address] WITHOUT CONTRAST CT DOSE: 841.25 mGycm HISTORY: Acute kidney injury with difficulty urinating tong difficulty urinating TECHNIQUE: Multiaxial CT images of the abdomen and pelvis were performed without contrast. A dose lowering technique was utilized adhering to the principles of ALARA. COMPARISON STUDY: CT abdomen and pelvis 02/28/2020 FINDINGS: Clear lung bases. No pneumatosis or pneumoperitoneum. The imaged inferior cardiac chambers are unremarkable. The spleen and right adrenal gland are unremarkable. Unchanged 1.3 center left adrenal gland lesion with Hounsfield unit of 19. Unremarkable appearance of the liver. Gallbladder distention with cholelithiasis. No definite biliary ductal dilation. Unchanged 8 mm linear ca lcification within the pancreatic head. There is moderate interstitial and peripancreatic edema with trace free fluid. No drainable fluid collection. No significant pancreatic ductal dilation. There is a prominent 1.4 x 0.9 cm lymph node within the abdominal right upper quadrant inferior to the gallbladder, image 183 of series 3. Mildly enlarged periportal lymph nodes measure up to 11 mm in short axis. Mild nonspecific bilateral perinephric stranding. Prostamegaly. Urinary bladder wall thickening suggestive of chronic bladder outlet obstruction. Calcified plaque of the abdominal aorta. Mild wall thickening of the duodenum. Fatty attenuating focus involves the third portion of the duodenum, 1.3 cm suggestive of a lipoma versus ingested material. No bowel obstruction. Mild wall thickening of the ascending colon is likely reactive. Normal appendix. Degenerative changes of the spine and pelvis. IMPRESSION: 1. Findings compatible with moderate acute pancreatitis. No acute peripancreatic fluid collection. 2. Cholelithiasis with gallbladder distention. No biliary ductal dilation or choledocholithiasis identified. There is an unchanged linear calcification within the pancreatic head. 3. Mild wall thickening of the duodenum and ascending colon is likely on a reactive basis. No bowel obstruction. 4. Additional findings as above. ACT 112: Negative or not required by law. The above report was generated using voice recognition software. It may contain grammatical, syntax or spelling errors. Electronically signed by: Epifanio Ceron M.D. 03/25/2020 2:03 PM Dictated: 03/25/20 1344 Transcribed: 03/25/20 1344 NM pul perfusion CLINICAL HISTORY: elevated dimer cough. Hypertension. Shortness of breath. COMPARISON STUDY: Chest x-ray dated 03/25/2020 FINDINGS: The patient was injected with 5.7 mCi of technetium 99m MAA. Anterior posterior and oblique imaging was performed. Ventilation studies are not being performed at this time due to the Covid-19 pandemic. There are small perfusion defects within the right lung peripherally as well as within the left lower lobe posteriorly. This examination is indeterminate for pulmonary embolism given the lack of a ventilation study. CT angiography could be obtained in follow-up as deemed clinically appropriate. IMPRESSION: 1. Indeterminate study with small nonspecific perfusion defects. Correlation with leg ultrasonography, or CT angiography could be obtained as deemed clinically appropriate ACT 112: Negative or not required by law. Electronically signed by: Truong Joshi M.D. 03/26/2020 8:31 AM Dictated: 03/26/20 0825 Transcribed: 03/26/20 0825 XR chest 1V portable CLINICAL HISTORY: Shortness of breath COMPARISON STUDY: 03/25/2020 FINDINGS: The heart is enlarged. There are bibasilar airspace opacities which were not present on the prior study. Trace pleural effusions are suspected.[ IMPRESSION: 1. Interval development of bilateral pulmonary airspace opacities. This could be secondary to a bilateral pneumonia, atelectasis, or pulmonary infarction. Clinical and radiographic follow-up is recommended. ACT 112: Negative or not required by law. Electronically signed by: Truong Joshi M.D. 03/27/2020 10:25 AM Dictated: 03/27/20 1022 Transcribed: 03/27/20 1022 BILATERAL LOWER EXTREMITY VENOUS DOPPLER CLINICAL HISTORY: elevated D dimer COMPARISON STUDY: No previous studies for comparison. TECHNIQUE: Sonography of the deep venous system of the bilateral lower extremities was performed. Compression and augmentation were evaluated. FINDINGS: The bilateral common femoral, superficial femoral and popliteal veins were compressible. Augmentation was normal. Flow was shown within the deep calf vessels. IMPRESSION: No evidence of deep venous thrombus within the bilateral lower extremities. ACT 112: Negative or not required by law. Electronically signed by: Jh Park M.D. 03/27/2020 11:23 AM Dictated: 03/27/20 1123 Transcribed: 03/27/20 1123 Hospital Course (1) Acute renal failure: Mostly due to vomiting and poor oral intake Creatinine on admission 12 nephrology on board Continue IVF as per nephrology recommendation Creatinine continue to trend down 3.27 today Case discussed with nephrology that recommended to continue to hold losartan Ok from Nephrology to discharge home today Check BMP weekly x 4 Follow up with nephrology in 4 to 6 weeks Avoid nephrotoxic agents ACUTE DECOMPENSATION OF CHF /DIASTOLIC HEART FAILURE ( HFpEF) CXR showed Interval development of bilateral pulmonary airspace opacities. ProBNP on admission above 15K ECHO showed subtle hypokinesis of the posterior wall base with otherwise normal LV wall motion and systolic function. EF 60 to 65 % Good urinary output Clinically improved significantly CONFUSION /METABOLIC ENCEPHALOPATHY : metabolic encephalopathy due to combination of ATN , uremia , ETOH abuse Resolved (2) Pancreatitis: ETOH induced pancreatitis Lipase level > 23 K on admission Lipase trending down with IVF GI eval appreciated tolerating solid diet Counseling on alcohol cessation Will need outpatient EUS stable (3) High anion gap metabolic acidosis: due to ATN from vomiting metabolic acidosis resolved ,Hco3: 21 high AG : 16 due to to hyponatremia/hypochloremia Resolved (4) Alcohol withdrawal: Completed gabapentin alcohol withdrawal protocol No signs of alcohol withdrawal or DT Counseling on smoking cessation Refused to go to alcohol rehab therapy Stable (5) DM type 1 (diabetes mellitus, type 1): Most recent Hba1c 6 Had few episodes of Hypoglycemic noted due to ATN pharmacy on board for glycemic management case discussed with pharmacy that recommended to decrease Lantus to 14 units on discharge Continue monitor BS (6) CAD (coronary artery disease): History of BMS to left circumflex in 2009 Continue beta beni and aspirin Statin resume on discharge Losartan on hold due to ARF (7) Hypertension: BP stable Continue Hydralazine 25mg QID Metoprolol increased to 75mg BID Continue Norvac 5 mg daily Continue to hold losartan given TONG Continue monitor BP (8) Esophagitis: Continue PPI twice daily (9) Dyslipidemia: Statin and fibrate resume on discharge CK WNL (10) Tobacco abuse: Nicotine patch ordered Counseling on smoking cessation Urinary Hesitancy Possible related to recent santamaria cath Continue flomax for now Clinically improves (11) DVT prophylaxis: On SCDs due to low platelet Disposition: Discharge home today Total Time Total Time Spent Total Time Spent (In Minutes): 35 minutes Total Time Includes: Examination of the Patient, Discharge Planning, Medication Reconciliation, Communication With Other Providers and Other Discharge Plan Discharge Items Patient Disposition: Home - Self-Care Reason For Visit: ACUTE PANCREATITIS,TONG,HYPONATREMIA Discharge Diagnosis: Acute renal failure: ACUTE DECOMPENSATION OF CHF /DIASTOLIC HEART FAILURE ( HFpEF) CONFUSION /METABOLIC ENCEPHALOPATHY : Pancreatitis: High anion gap metabolic acidosis: Alcohol withdrawal: Diabetes mellitus Urinary hesitancy CAD (coronary artery disease): Hypertension: Esophagitis: Dyslipidemia: Tobacco abuse: Activity: Resume your previous activity Non-emergency contact: Primary Care Provider and Spot Man Call non-emergency contact if: you have any medication questions Follow-up/Referrals: Jennifer Monroe MD [Primary Care Provider] - 04/10/20 10:20 am (04/10/2020 10:20 AM Provider Dotty Freire MD Department Internal Medicine [facility] ) Diet: Carb Count or DM1 and Heart Healthy Addtl Attending Provider Instructions: Follow up with your primary care provider Dr. Monroe on 04/10/20 @ 10:20 AM Follow up with nephrology Dr. Robin or physician assistant Trejo in 4 to 6 weeks ( Office will call you for the appointment ) Check BMP and Magnesium weekly for 4 weeks to monitor your renal function and electrolytes (Your physician will order it) Counseling on alcohol cessation Counseling on tobacco cessation Continue monitor your blood pressure and bring blood pressure log at your next appointment with your physician Continue monitor your blood sugar and bring your blood sugar log at your next appointment with your physician Follow a healthy diet and limited concentrated sweet intake Will need to arrange for an endoscopy ultrasound with Gastro as an outpatient Continue to hold Losartan on discharge Advised patient to avoid any NSAIDs such as Motrin, Aleve, Naproxen, Advil, Ibuprofen, .... Addtl Front Office Attendant Provider Instructions: -discharge on magnesium oxide 400 mg po daily -for blood pressure medications at discharge, recommend 5 mg amlodipine hs, hydralazine 25 mg qid, metoprolol 75 mg po bid -continue to hold losartan at discharge -needs bmp and mag check weekly x 4 weeks which nephrology will order -needs to see Dr Robin or BLANCA Trejo w/in 4-6 wks in kidney clinic in [facility]; possible that this may be a telemedicine visit Pending Studies at Discharge: No Stand-Alone Forms: [facility] [employer], Smoking Cessation Medications and DC Order Prescriptions: New amlodipine [Norvasc] 5 mg Tablet 5 mg PO QPM Qty: 30 RF: 0 tamsulosin 0.4 mg Capsule 0.4 mg PO HS Qty: 30 RF: 0 magnesium oxide 400 mg (241.3 mg magnesium) tablet 400 mg PO DAILY Qty: 30 RF: 0 Continued ondansetron HCl 4 mg tablet 4 mg PO UD PRN (Reason: Nausea) RF: 0 benzonatate 100 mg capsule 100 mg PO TID PRN (Reason: Cough) RF: 0 hydralazine 25 mg Tablet 25 mg PO QID RF: 0 aspirin 81 mg Tablet,Delayed Release (Dr/Ec) 81 mg PO QAM RF: 0 gemfibrozil 600 mg Tablet 600 mg PO BID RF: 0 albuterol sulfate [ProAir HFA] 90 mcg/actuation Hfa Aerosol Inhaler 2 puff INHALATION Q4H PRN (Reason: Wheezing) RF: 0 insulin aspart U-100 [Novolog Flexpen U-100 Insulin] 100 unit/mL (3 mL) Insulin Pen 1 unit subcut DIRECTED RF: 0 rosuvastatin 40 mg Tablet 40 mg PO PM RF: 0 Changed metoprolol tartrate 50 mg Tablet 75 mg PO BID 30 Days Qty: 90 RF: 0 Lantus Solostar U-100 Insulin 100 unit/mL (3 mL) Insulin Pen 14 unit SUBCUT DAILY Qty: 0 RF: 0 Discontinued losartan 100 mg Tablet 100 mg PO QAM RF: 0 Discharge Orders: Discharge Order (Routine); Ordered 04/04/20 Ordered By: Mio Kumar Admission Data Admit Date/Time: 03/25/20 15:01 Attending Provider: Mio Kumar Admit Provider: Vivi Schilling I. Primary Care Provider: Jennifer Monroe Other Providers: Zane Sousa ; Vivi Schilling I. ; Madelin Alcocer Other Interventions: Discharge Summary Assessment (RN) Last Done: 04/04/20 12:58 DC Date/Time DO NOT enter until pt leaves facility: 04/04/20 13:40
== END 2020-04-04 13:40 | disposition home or self-care (01) | DRG 438 ==
LOC: ED 10:33 → SUATTDRO 15:01 → 2S 15:01 → 2N 03-29 19:07

== ENCOUNTER 2025-04-27 00:03 | Inpatient (IN) ==
[2025-04-27] MEDS: FAMOTIDINE 20MG IV PUSH 20 MG/5 ML SYR IV STA (00:23)
[2025-04-27] MEDS: ONDANSETRON INJ 2 MG/ML 2 ML VIAL IV STA (00:23)
[2025-04-27] MEDS: SODIUM CHLORIDE 0.9% 1,000 ML IV ONE (00:24)
[2025-04-27] MEDS: OPTIRAY 320 100ml IV ONE (00:33)
[2025-04-27 00:34] LABS: Hematocrit (blood only) 36.4 % (42.0-52.0); Hemoglobin 12.4 g/dl (14.0-18.0); Immature Granulocytes # (auto) 0.10 K/uL (0.01-0.20); Immature Granulocytes % (auto) 0.7 %; Mean Corpuscular Hemoglobin 30.0 pg (25.0-34.0); Mean Corpuscular Volume 87.9 fL (80.0-100.0); Platelet Count 221 K/uL (130-400); RDW Standard Deviation 41.1 fL (36.4-46.3); Red Blood Count 4.14 M/uL (4.70-6.10); White Blood Count 14.02 K/ul (4.8-10.8)
[2025-04-27] MEDS: SODIUM CHLORIDE 0.9% 1,000 ML IV SCH (00:39)
--- NOTE | 2025-04-27 00:39 | Emergency Department Note ---
History of Present Illness General Chief complaint: Vomiting Stated complaint: Hematemesis, Lump in Throat History of Present Illness This 59-year-old male who has significant PMH of type 1 diabetes mellitus, CAD with history of stent, HTN, HLD, history of pancreatitis, alcohol abuse, SATYA on CPAP, depression with anxiety presents ER for 3 episodes of hematemesis tonight. Patient states he has abstained from alcohol for the past 5 years. No known esophageal varices. No known liver disease. Patient states he felt fine today but then felt tired and went to bed early. He had dinner at 1600. He states he woke up at 1900 and had an episode of emesis that was all blood. 2 more episodes en route here by EMS. Patient complains of an upset stomach. Patient denies chest pain, dyspnea, fevers, black or blood in the stool. No history of GI bleeding in the past per patient. He is on a baby aspirin. Home Medications Medication Instructions Recorded Confirmed Type aspirin 81 mg tablet,delayed 81 mg PO QAM 10/24/19 04/27/25 History release gemfibrozil 600 mg tablet 600 mg PO BID 10/24/19 04/27/25 History insulin aspart U-100 100 unit/mL 1 unit subcut TIDM 10/24/19 04/27/25 History (3 mL) subcutaneous pen (Novolog FlexPen U-100 Insulin aspart) rosuvastatin 40 mg tablet 40 mg PO PM 10/24/19 04/27/25 History amlodipine 5 mg tablet (Norvasc) 5 mg PO DAILY 04/27/25 04/27/25 History brexpiprazole 2 mg tablet (Rexulti) 2 mg PO QAM 04/27/25 04/27/25 History bupropion HCl 150 mg 24 hr tablet, 150 mg PO QAM 04/27/25 04/27/25 History extended release escitalopram oxalate 20 mg tablet 20 mg PO DAILY 04/27/25 04/27/25 History (Lexapro) insulin glargine 100 unit/mL (3 29 unit subcut BID 04/27/25 04/27/25 History mL) subcutaneous pen (Lantus Solostar U-100 Insulin) melatonin 10 mg capsule 10 mg PO HS PRN Sleep 04/27/25 04/27/25 History metoprolol tartrate 50 mg tablet 50 mg PO BID 04/27/25 04/27/25 History multivitamin with minerals 1 tab PO DAILY 04/27/25 04/27/25 History tadalafil 5 mg tablet 5 mg PO DAILY PRN Sexual Activity 04/27/25 04/27/25 History tamsulosin 0.4 mg capsule 0.8 mg PO QAM 04/27/25 04/27/25 History trazodone 50 mg tablet 50 mg PO HS 04/27/25 04/27/25 History Allergies Allergy/AdvReac Type Severity Reaction Status Date / Time naproxen Allergy Severe TONGUE Verified 04/27/25 00:13 SWELLS/ITCHY tramadol Allergy Severe EDEMA Verified 04/27/25 00:13 AIRWAY FACE/LIPS/TONGUE ramipril Allergy Intermediate Hives Verified 04/27/25 00:13 moxifloxacin [From Avelox] AdvReac Severe EDEMA Verified 04/27/25 00:13 AIRWAY FACE/LIPS/TONGUE Past Med/Surg History Problem List (Updated 04/27/25 @ 00:39 by Jennifer Walker PA-C) Acute upper gastrointestinal bleeding (Acute) Hypomagnesemia ARF (acute renal failure) Hypoglycemia (Acute) TONG (acute kidney injury) (Acute) Prolonged QT interval (Acute) Cough Acute renal failure Elevated d-dimer High anion gap metabolic acidosis GERD (gastroesophageal reflux disease) Alcohol withdrawal (Acute) Acute alcoholic gastritis (Acute) Metabolic acidosis (Acute) Dehydration (Acute) Acute renal insufficiency (Acute) Ketosis (Acute) DVT prophylaxis Bronchitis Esophagitis Tobacco abuse Anxiety Alcohol abuse (Acute) Hypertension CAD (coronary artery disease) 2009-stenting to left circumflex Hypertriglyceridemia Dyslipidemia DM type 1 (diabetes mellitus, type 1) Pancreatitis (Acute) Medical History (Updated 04/27/25 @ 00:39 by Jennfier Wlaker PA-C) Chronic pancreatitis SATYA (obstructive sleep apnea) Depression GERD (gastroesophageal reflux disease) Surgical History H/O shoulder surgery S/P rotator cuff repair H/O hernia repair History of nasal septoplasty Family History Mother Heart disease Social History Smoking Status: Current every day smoker Tobacco Type: Cigarettes Cigarettes Per Day: 20; Second Hand Exposure: Yes; Do You Dip or Chew Tobacco: No; Hx Alcohol Use: Yes Alcohol type: beer, wine and hard liquor Alcohol type Comment: 6 beers/day Hx Substance Use: No Preferred Language: Czech Communication Ability: Effective Manager Mental Health Required: No Beliefs That Will Affect Care: None Current Living Situation: Significant Other Feels Safe at Home: Yes Assistive Devices: None Review of Systems A total of 10 systems reviewed and were otherwise negative Physical Exam Vital Signs Vital Signs - 24 hr 04/27/25 00:10 04/27/25 00:10 04/27/25 00:17 Temperature 36.8 C Temperature Source Oral Pulse Rate 77 77 Pulse Rate [Apical] 77 Pulse Rhythm Regular Regular Pulse Rhythm [Apical] Regular Pulse Strength Normal Pulse Strength [Apical] Normal Respiratory Rate 12 12 12 Respiratory Effort / Characteristics Non-Labored Spontaneous Non-Labored Spontaneous Respiratory Depth Normal Normal Respiratory Pattern Regular Regular Blood Pressure 122/74 Blood Pressure [Right Arm] 122/74 Blood Pressure Mean 90 Blood Pressure Mean [Right Arm] 90 Pulse Oximetry 99 99 99 Oxygen Delivery Method Nasal Cannula Nasal Cannula Nasal Cannula Oxygen Flow Rate 4 4 4 Sepsis Recent Fever Within 48 Hours No Sepsis New/Unexplained Change in Mental Status No Sepsis Action Taken by Nursing No Action Required 04/27/25 01:00 04/27/25 01:03 04/27/25 02:00 Temperature Temperature Source Pulse Rate 77 74 82 Pulse Rate [Apical] Pulse Rhythm Pulse Rhythm [Apical] Pulse Strength Pulse Strength [Apical] Respiratory Rate 19 22 19 Respiratory Effort / Characteristics Respiratory Depth Respiratory Pattern Blood Pressure 121/37 L 134/81 119/76 Blood Pressure [Right Arm] Blood Pressure Mean 65 98 90 Blood Pressure Mean [Right Arm] Pulse Oximetry 99 96 96 Oxygen Delivery Method Oxygen Flow Rate Sepsis Recent Fever Within 48 Hours Sepsis New/Unexplained Change in Mental Status Sepsis Action Taken by Nursing 04/27/25 02:36 Temperature Temperature Source Pulse Rate 74 Pulse Rate [Apical] Pulse Rhythm Pulse Rhythm [Apical] Pulse Strength Pulse Strength [Apical] Respiratory Rate 25 H Respiratory Effort / Characteristics Respiratory Depth Respiratory Pattern Blood Pressure 135/78 Blood Pressure [Right Arm] Blood Pressure Mean 97 Blood Pressure Mean [Right Arm] Pulse Oximetry 96 Oxygen Delivery Method Oxygen Flow Rate Sepsis Recent Fever Within 48 Hours Sepsis New/Unexplained Change in Mental Status Sepsis Action Taken by Nursing VITALS: Vitals are noted on the nurse's note and reviewed by myself. Vital signs stable. GENERAL: White male pale, in no acute distress, nondiaphoretic, well-developed well-nourished. SKIN: Capillary reflex less than 2 seconds. HEENT: Normocephalic. PERRLA. EOMI. Nares patent. Mucous membranes moist. Neck is supple without nuchal rigidity. HEART: Regular rate and rhythm LUNGS: Clear to auscultation bilaterally without wheezes, rales or rhonchi. No retractions or accessory muscle use. ABDOMEN: Positive bowel sounds x 4. Normal tympanic percussion. Soft, tender epigastric region, without masses or organomegaly. Martin sign negative. No guarding or rebound tenderness. no CVA tenderness Rectal exam: Dark stool, guaiac negative. Nurse Jacquelin present as a office technology instructor MUSCULOSKELETAL: No gross musculoskeletal defects. NEURO: Patient was alert and oriented to person place and time. No focal neurological deficits. Course Administered Medications Octreotide Acetate 500 mcg/ (Sodium Chloride) 100.5 mls @ 10.05 mls/hr IV .Q10H ROSALES Stop: 05/27/25 00:29 Last Admin: 04/27/25 00:40 Dose: 50 mcg/hr, 10.1 mls/hr Documented By: CONTRERAS Discontinued Medications Sodium Chloride (Nss) 1,000 mls @ 999 mls/hr IV .Q1H1M ROSALES Stop: 04/27/25 01:15 Last Infusion: 04/27/25 01:47 Dose: Infused Documented By: Admin: 04/27/25 00:39 Dose: 999 mls/hr Documented By: CONTRERAS Famotidine (Pepcid 20mg Iv Push) 20 mg in 5 mls @ 2.5 mls/min IV NOW STA Stop: 04/27/25 00:16 Last Admin: 04/27/25 00:23 Dose: 2.5 mls/min Documented By: CONTRERAS Pantoprazole Sodium 80 mg/ (Dextrose) 120 mls @ 480 mls/hr IV ONE STA Stop: 04/27/25 00:29 Last Infusion: 04/27/25 00:55 Dose: Infused Documented By: Admin: 04/27/25 00:39 Dose: 480 mls/hr Documented By: CONTRERAS Octreotide Acetate 50 mcg/ (Syringe) 10 mls @ 3 mls/min IV ONE STA Stop: 04/27/25 00:22 Last Admin: 04/27/25 00:40 Dose: 3 mls/min Documented By: CONTRERAS Ceftriaxone Sodium (Rocephin) 2,000 mg in 50 mls @ 100 mls/hr IV NOW STA Stop: 04/27/25 00:48 Last Infusion: 04/27/25 01:29 Dose: Infused Documented By: Admin: 04/27/25 00:53 Dose: 100 mls/hr Documented By: CONTRERAS Sodium Chloride (Nss) 1,000 mls @ 999 mls/hr IV .Q1H1M ONE Stop: 04/27/25 01:21 Last Infusion: 04/27/25 01:47 Dose: Infused Documented By: Admin: 04/27/25 00:24 Dose: 999 mls/hr Documented By: CONTRERAS Ioversol (Optiray 320 100ml) 94 ml IV ONCE ONE Stop: 04/27/25 00:33 Last Admin: 04/27/25 00:33 Dose: 94 ml Documented By: AGGIE Lorazepam (Lorazepam 2 Mg/1 Ml Vial) 0.5 mg IV NOW STA Stop: 04/27/25 00:16 Last Admin: 04/27/25 00:23 Dose: 0.5 mg Documented By: CONTRERAS Miscellaneous (Stat Iv/Im) 1 each N/A NOW STA Stop: 04/27/25 00:20 Last Admin: 04/27/25 01:08 Dose: Not Given Documented By: CONTRERAS Ondansetron HCl (Ondansetron Inj 2 Mg/Ml 2 Ml Vial) 4 mg IV ONE STA Stop: 04/27/25 00:16 Last Admin: 04/27/25 00:23 Dose: 4 mg Documented By: CONTRERAS Critical Care Time Critical Care Time: Yes Total Critical Care Time: 35 I have personally spent 35 minutes of critical care time in the direct management of this patient. This includes bedside care, interpretation of diagnostic studies, and testing, discussion with consultants, patient, and family members, and other required patient management activities. This 35 minutes is in excess of all separately billable procedures. Medical Decision Making Medical Records Attestation: I reviewed the patient's medical records. Home Medications Current Medication List: was personally reviewed by nd Laboratory Data Attestation: I reviewed the patient's lab results. 04/27/25 02:22 04/27/25 02:22 Lab Results 04/27/25 04/27/25 04/27/25 Range/Units 00:10 00:13 00:16 WBC 14.02 H (4.8-10.8) K/ul RBC 4.14 L (4.70-6.10) M/uL Hgb 12.4 L (14.0-18.0) g/dl POC Hgb 11.6 L (14.0-18.0) g/dl Hct 36.4 L (42.0-52.0) % POC Hct 34 L (42-52) % MCV 87.9 (80.0-100.0) fL MCH 30.0 (25.0-34.0) pg MCHC 34.1 (32.0-36.0) g/dL RDW Std Deviation 41.1 (36.4-46.3) fL RDW Coeff of Sonia 12.8 (11.5-14.5) % Plt Count 221 (130-400) K/uL MPV 10.2 (9.4-12.4) fL Immature Gran % (Auto) 0.7 % Neut % (Auto) 82.4 % Lymph % (Auto) 10.3 % [place] % (Auto) 5.0 % Eos % (Auto) 1.1 % Baso % (Auto) 0.5 % Neut # (Auto) 11.54 H (1.40-6.50) K/uL Lymph # (Auto) 1.45 (1.20-3.40) K/uL [place] # (Auto) 0.70 H (0.11-0.59) K/uL Eos # (Auto) 0.16 (0.00-0.50) K/uL Baso # (Auto) 0.07 (0.00-0.20) K/uL Immature Gran # (Auto) 0.10 (0.01-0.20) K/uL PT 10.7 (9.0-12.0) Seconds INR 1.0 (0.9-1.1) APTT 25 (21-31) Seconds PTT Ratio 0.9 POC Sodium 136 (135-144) mmol/L Sodium 135 L (136-145) mmol/L POC Potassium 5.1 H (3.3-5.0) mmol/L Potassium 5.0 (3.5-5.1) mmol/L POC Chloride 101 (101-112) mmol/L Chloride 102 (98-107) mmol/L Carbon Dioxide 27 (21-32) mmol/L POC Total CO2 24 (24-31) mmol/L Anion Gap 6 (3-11) POC Anion Gap 18.0 (16-25) mmol/L POC BUN 32 H (7-18) mg/dl BUN 32 H (6-23) mg/dl Creatinine 1.27 (0.6-1.4) mg/dl POC Creatinine 1.3 (0.6-1.3) mg/dl Est Cr Clr Drug Dosing 57.8 ml/min eGFR 64.68 BUN/Creatinine Ratio 25.2 H (10-20) Glucose 454 H* (70-99(Fasting)) mg/dl POC Glucose (70-99) mg/dl POC Glucose (other) 420 H* (70-99) mg/dl Calcium 8.5 L (8.6-10.3) mg/dl POC Ioniz Calcium Christian 1.15 (1.12-1.32) mmol/l Total Bilirubin 0.3 (0.2-1.0) mg/dl AST 9 L (13-39) U/L ALT 9 (7-52) U/L Alkaline Phosphatase 103 (34-104) U/L Troponin I High Sens 6.3 (0-20) pg/ml Total Protein 6.1 (6.0-8.3) gm/dl Albumin 3.5 (3.4-5.0) gm/dl Globulin 2.6 (2.5-4.0) gm/dl Albumin/Globulin Ratio 1.3 (0.9-2) Lipase 18 (11-82) U/L POC Stool Occult Blood Negative (Negative) Ethyl Alcohol mg/dL (<10.0) mg/dl Blood Type A Negative Antibody Screen NEGATIVE 04/27/25 04/27/25 04/27/25 Range/Units 00:52 01:46 02:22 WBC (4.8-10.8) K/ul RBC (4.70-6.10) M/uL Hgb 10.6 L (14.0-18.0) g/dl POC Hgb (14.0-18.0) g/dl Hct 31.8 L (42.0-52.0) % POC Hct (42-52) % MCV (80.0-100.0) fL MCH (25.0-34.0) pg MCHC (32.0-36.0) g/dL RDW Std Deviation (36.4-46.3) fL RDW Coeff of Sonia (11.5-14.5) % Plt Count (130-400) K/uL MPV (9.4-12.4) fL Immature Gran % (Auto) % Neut % (Auto) % Lymph % (Auto) % [place] % (Auto) % Eos % (Auto) % Baso % (Auto) % Neut # (Auto) (1.40-6.50) K/uL Lymph # (Auto) (1.20-3.40) K/uL [place] # (Auto) (0.11-0.59) K/uL Eos # (Auto) (0.00-0.50) K/uL Baso # (Auto) (0.00-0.20) K/uL Immature Gran # (Auto) (0.01-0.20) K/uL PT (9.0-12.0) Seconds INR (0.9-1.1) APTT (21-31) Seconds PTT Ratio POC Sodium (135-144) mmol/L Sodium 135 L (136-145) mmol/L POC Potassium (3.3-5.0) mmol/L Potassium 5.8 H (3.5-5.1) mmol/L POC Chloride (101-112) mmol/L Chloride 107 (98-107) mmol/L Carbon Dioxide 24 (21-32) mmol/L POC Total CO2 (24-31) mmol/L Anion Gap 4 (3-11) POC Anion Gap (16-25) mmol/L POC BUN (7-18) mg/dl BUN 34 H (6-23) mg/dl Creatinine 1.11 (0.6-1.4) mg/dl POC Creatinine (0.6-1.3) mg/dl Est Cr Clr Drug Dosing 66.2 ml/min eGFR 76.02 BUN/Creatinine Ratio 30.6 H (10-20) Glucose 387 H* (70-99(Fasting)) mg/dl POC Glucose 370 H* (70-99) mg/dl POC Glucose (other) (70-99) mg/dl Calcium 7.7 L (8.6-10.3) mg/dl POC Ioniz Calcium Christian (1.12-1.32) mmol/l Total Bilirubin (0.2-1.0) mg/dl AST (13-39) U/L ALT (7-52) U/L Alkaline Phosphatase (34-104) U/L Troponin I High Sens (0-20) pg/ml Total Protein (6.0-8.3) gm/dl Albumin (3.4-5.0) gm/dl Globulin (2.5-4.0) gm/dl Albumin/Globulin Ratio (0.9-2) Lipase (11-82) U/L POC Stool Occult Blood (Negative) Ethyl Alcohol mg/dL < 10.0 (<10.0) mg/dl Blood Type Antibody Screen Imaging Data Attestation: I personally reviewed and interpreted this imaging study as follows: Radiologist's Impression: Abdomen/Pelvis CT 04/27/25 00:15 EXAM: CT abd pelvis IV con only CLINICAL HISTORY: gi bleeding, vomit TECHNIQUE: Multiple contiguous axial images were obtained from the level of diaphragm to the pubis symphysis. This study was acquired after the IV administration of iodinated contrast material, given the patients indications for the examination. If IV contrast material had not been administered, the likelihood of detecting abnormalities relevant to the patients condition would have been substantially decreased. Coronal and sagittal reformatted images were generated and reviewed to improve anatomic localization and optimize lesion detection. CT scan was performed according to ALARA (as low as reasonable achievable). COMPARISON: non contrast CT FINDINGS: The visualized lung bases are clear. ABDOMEN/PELVIS: The liver is normal in size and attenuation. No focal liver lesions are seen. There is no intra or extrahepatic biliary ductal dilatation. Hepatic vasculature is patent. The gall bladder is partially distended with few radiodense calculi within, largest measuring ~ 3.8mm. Normal wall thickness. No pericholecystic fat stranding or collections. The spleen, pancreas, and adrenal glands are unremarkable. The kidneys are normal in size and attenuation. There is no hydronephrosis or perinephric fat stranding. No renal calculi or renal masses are identified. The ureters are normal in caliber and no ureteral calculi are seen. Moderate fecal content in large bowel loops. Prostatomegaly with diffuse urinary bladder wall thickening - interval progression. No evidence of focal or diffuse bowel wall thickening or evidence of bowel obstruction is seen. The appendix is visualized in the right lower quadrant and appears within normal limits. No adenopathy or fluid collections are seen. The aorta is normal in caliber. No aggressive appearing osseous lesions are identified. IMPRESSION: Interval resolution of peripancreatic fat stranding and features of pancreatitis Uncomplicated cholithiasis-stable Moderate fecal content in large bowel loops- likely constipation related changes Prostatomegaly with diffuse urinary bladder wall thickening - interval progression. Rest unchanged Electronically signed by Alexander Lindo 04-27-2025 02:21 AM Chest X-Ray 04/27/25 00:15 EXAM: XR chest 1V portable CLINICAL HISTORY: GI bleed TECHNIQUE: X-ray image of the chest is obtained in AP projection. 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 FINDINGS: Pulmonary Parenchyma: Bilateral lung osborne are clear. No evidence of consolidation, collapse, or focal opacities. No pulmonary nodules are identified. No evidence of pleural effusion or pleural thickening. Heart and Mediastinum: Heart size and shape are normal. No mediastinal widening or masses. No hilar or mediastinal lymphadenopathy. Bony Thorax: A focal widening of the contour of the 9th left rib is identified along the posterolateral aspect, possibly due to an old healed fracture. Focal sclerosis is identified along the greater tuberosity of the left humerus, possibly signifying osteoarthritis changes. Age-appropriate marginal osteophytes are identified along the right lateral aspect of the visualized thoracic spine. Bony thorax appears intact without acute fractures or deformities. Soft Tissues: Soft tissues overlying the chest wall are unremarkable. IMPRESSION: No acute cardiopulmonary abnormalities are identified. Electronically signed by Rickie Vázquez 04-27-2025 02:56 AM [facility] Narrative Prior records/ancillary studies reviewed. Triage Nursing notes reviewed. Additional history obtained from the EMS. The patient's history was concerning for possible gastrointestinal bleeding. Differential diagnosis: Etiologies such as diverticulosis, AVM, coagulopathy, colitis, inflammatory bowel disease, malignancy, Jolly-Bhardwaj tear, esophagitis, peptic ulcer disease, variceal bleed, gastritis, epistaxis, fissure, hemorrhoids, as well as others were entertained. Physical exam: As above. The patients vital signs were stable. ER treatment provided: An order was placed for continuous cardiac monitoring. The monitor shows a rate of 60-100 with a sinus rhythm per my interpretation. Protonix, Pepcid, Zofran, IV fluids, Ativan Octreotide and Rocephin were ordered for history of alcohol use for possible esophageal varices that could be bleeding Blood consent was filled out and patient was consented to blood if warranted. On reassessment the patient felt better. Diagnostics interpreted by me: ECG: Ordered for GI bleed EKG: Normal sinus, Q waves in the inferior leads, incomplete right bundle, left anterior fascicular block, rate of 75. Impression normal sinus rhythm with a left anterior fascicular block incomplete right bundle branch block independently interpreted by myself The labs Independently Interpreted by myself revealed mild anemia, hyperglycemia without DKA, negative alcohol Blood bank A negative Imaging studies: Imaging was reviewed and read by radiology Consultation: A consultation was placed with the hospitalist. The case was discussed and diagnostics were reviewed. The patient was evaluated in the ER for further treatment. This appears to be consistent with upper GI bleeding with hyperglycemia without DKA. Patient was medicated as above. He was reassessed multiple times. 2 lines were placed. Repeat H&H was slightly lower. Type and screen was sent. No more episodes of hematemesis while in the ER. Hemoccult was negative. Medicine is consulted case discussed. He will be admitted to the medical service. By the evaluation outlined above emergent etiologies such as esophageal perforation, coagulopathy, epistaxis, inflammatory bowel disease, as well as others were deemed relatively unlikely. The pt informed about the findings as listed above. All questions were answered and pleased with the treatment. The chart was completed utilizing [employer] Speech voice recognition software. Grammatical errors, random word insertions, pronoun errors, and incomplete sentences are an occassional consequence of this system due to software limitations, ambient noise, and hardware issues. Any formal questions or concerns about the content, text, or information contained within the body of this dictation should be directly addressed to the physician engineering assistant for clarification. Impression & Plan Acute upper gastrointestinal bleeding Discharge Plan Visit Data Chief Complaint: Vomiting Stated Complaint: Hematemesis, Lump in Throat ED Provider: Pheasant,Chayo S. ED Midlevel Provider: Jennifer Walker Discharge Problem: Acute upper gastrointestinal bleeding Patient Disposition: Admitted As Inpatient Condition: Fair Forms Stand Alone Forms: My [facility] Prescriptions Prescriptions: No Action aspirin 81 mg Tablet,Delayed Release (Dr/Ec) 81 mg PO QAM gemfibrozil 600 mg Tablet 600 mg PO BID insulin aspart U-100 [Novolog FlexPen U-100 Insulin] 100 unit/mL (3 mL) Insulin Pen 1 unit subcut TIDM MDD 25 UNITS DAILY Rx Instructions: 0 UNITS W/BREAKFAST, 4 UNITS W/LUNCH, & 8 UNITS W/SUPPER. PLUS CF 1:50 > 150 (MAX = 25 UNITS DAILY) rosuvastatin 40 mg Tablet 40 mg PO PM trazodone 50 mg tablet 50 mg PO HS tamsulosin 0.4 mg capsule 0.8 mg PO QAM Men's One Daily Tablet 1 tab PO DAILY escitalopram oxalate [Lexapro] 20 mg tablet 20 mg PO DAILY bupropion HCl 150 mg tablet extended release 24 hr 150 mg PO QAM tadalafil 5 mg tablet 5 mg PO DAILY PRN (Reason: Sexual Activity) melatonin 10 mg Capsule 10 mg PO HS PRN (Reason: Sleep) Rexulti 2 mg tablet 2 mg PO QAM amlodipine [Norvasc] 5 mg tablet 5 mg PO DAILY metoprolol tartrate 50 mg tablet 50 mg PO BID insulin glargine [Lantus Solostar U-100 Insulin] 100 unit/mL (3 mL) insulin pen 29 unit SUBCUT BID Referrals Referrals: Jennifer Monroe MD [Primary Care Provider] -
[2025-04-27] MEDS: OCTREOTIDE ACETATE 500 MCG in SODIUM CHLORIDE 0.9% 100 ML IV SCH (00:40)
[2025-04-27] MEDS: OCTREOTIDE ACETATE 50 MCG in SYRINGE 9.5 ML IV STA (00:40)
[2025-04-27] MEDS: cefTRIAXone SODIUM 2,000 MG/50 ML BAG IV STA (00:53)
[2025-04-27 00:59] LABS: Alanine Aminotransferase 9.0 U/L (7-52); Albumin Globulin Ratio 1.3 (0.9-2); Alkaline Phosphatase 103.0 U/L (34-104); Anion Gap 6.0 (3-11); Bilirubin,Total 0.3 mg/dl (0.2-1.0); Blood Urea Nitrogen 32.0 mg/dl (6-23); Calcium 8.5 mg/dl (8.6-10.3); Carbon Dioxide 27.0 mmol/L (21-32); Chloride 102.0 mmol/L (98-107); Creatinine Clr Calc Pharmacy 57.8 ml/min; Globulin 2.6 gm/dl (2.5-4.0); Glucose 454.0 mg/dl (70-99(Fasting)); Lipase 18.0 U/L (11-82); Potassium 5.0 mmol/L (3.5-5.1); Sodium 135.0 mmol/L (136-145); Total Protein 6.1 gm/dl (6.0-8.3)
[2025-04-27 01:01] LABS: INR 1.0 (0.9-1.1); Partial Thromboplastin Time 25 Seconds (21-31); Prothrombin Time 10.7 Seconds (9.0-12.0)
[2025-04-27] MEDS: STAT IV/IM STA (01:08)
--- NOTE | 2025-04-27 02:23 | CT Scan Report ---
EXAM: CT abd pelvis IV con only CLINICAL HISTORY: gi bleeding, vomit TECHNIQUE: Multiple contiguous axial images were obtained from the level of diaphragm to the pubis symphysis. This study was acquired after the IV administration of iodinated contrast material, given the patients indications for the examination. If IV contrast material had not been administered, the likelihood of detecting abnormalities relevant to the patients condition would have been substantially decreased. Coronal and sagittal reformatted images were generated and reviewed to improve anatomic localization and optimize lesion detection. CT scan was performed according to ALARA (as low as reasonable achievable). COMPARISON: non contrast CT FINDINGS: The visualized lung bases are clear. ABDOMEN/PELVIS: The liver is normal in size and attenuation. No focal liver lesions are seen. There is no intra or extrahepatic biliary ductal dilatation. Hepatic vasculature is patent. The gall bladder is partially distended with few radiodense calculi within, largest measuring ~ 3.8mm. Normal wall thickness. No pericholecystic fat stranding or collections. The spleen, pancreas, and adrenal glands are unremarkable. The kidneys are normal in size and attenuation. There is no hydronephrosis or perinephric fat stranding. No renal calculi or renal masses are identified. The ureters are normal in caliber and no ureteral calculi are seen. Moderate fecal content in large bowel loops. Prostatomegaly with diffuse urinary bladder wall thickening - interval progression. No evidence of focal or diffuse bowel wall thickening or evidence of bowel obstruction is seen. The appendix is visualized in the right lower quadrant and appears within normal limits. No adenopathy or fluid collections are seen. The aorta is normal in caliber. No aggressive appearing osseous lesions are identified. IMPRESSION: Interval resolution of peripancreatic fat stranding and features of pancreatitis Uncomplicated cholithiasis-stable Moderate fecal content in large bowel loops- likely constipation related changes Prostatomegaly with diffuse urinary bladder wall thickening - interval progression. Rest unchanged Electronically signed by Alexander Lindo 04-27-2025 02:21 AM
[2025-04-27 02:33] LABS: Hematocrit (blood only) 31.8 % (42.0-52.0); Hemoglobin 10.6 g/dl (14.0-18.0)
[2025-04-27 02:51] LABS: Anion Gap 4.0 (3-11); Blood Urea Nitrogen 34.0 mg/dl (6-23); Calcium 7.7 mg/dl (8.6-10.3); Carbon Dioxide 24.0 mmol/L (21-32); Chloride 107.0 mmol/L (98-107); Creatinine Clr Calc Pharmacy 66.2 ml/min; Glucose 387.0 mg/dl (70-99(Fasting)); Potassium 5.8 mmol/L (3.5-5.1); Sodium 135.0 mmol/L (136-145)
--- NOTE | 2025-04-27 02:56 | XRay Report ---
EXAM: XR chest 1V portable CLINICAL HISTORY: GI bleed TECHNIQUE: X-ray image of the chest is obtained in AP projection. 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 FINDINGS: Pulmonary Parenchyma: Bilateral lung osborne are clear. No evidence of consolidation, collapse, or focal opacities. No pulmonary nodules are identified. No evidence of pleural effusion or pleural thickening. Heart and Mediastinum: Heart size and shape are normal. No mediastinal widening or masses. No hilar or mediastinal lymphadenopathy. Bony Thorax: A focal widening of the contour of the 9th left rib is identified along the posterolateral aspect, possibly due to an old healed fracture. Focal sclerosis is identified along the greater tuberosity of the left humerus, possibly signifying osteoarthritis changes. Age-appropriate marginal osteophytes are identified along the right lateral aspect of the visualized thoracic spine. Bony thorax appears intact without acute fractures or deformities. Soft Tissues: Soft tissues overlying the chest wall are unremarkable. IMPRESSION: No acute cardiopulmonary abnormalities are identified. Electronically signed by Rickie Vázquez 04-27-2025 02:56 AM
[2025-04-27] MEDS: SODIUM CHLORIDE 0.9% 1,000 ML IV STA (03:20)
[2025-04-27] MEDS: NovoLIN-R INSULIN PER UNIT CHARGE IV STA (03:20)
[2025-04-27] MEDS: CALCIUM GLUCONATE 1,000 MG/60 ML BAG IV STA (03:20)
[2025-04-27 03:31] LABS: Magnesium 1.7 mg/dl (1.7-2.4)
[2025-04-27] MEDS: ACETAMINOPHEN 1,000 MG/100 ML VIAL IV STA (04:12)
--- NOTE | 2025-04-27 04:53 | History & Physical Report ---
Date of Service April 27, 2025 Assessment & Plan (1) UGIB (upper gastrointestinal bleed): Plan: Assessment and plan below following discussion of case with ED provider and reviewing patient history/pertinent normal/abnormal diagnostic test results. UGIB Anemia secondary to above chronic diastolic heart failure (EF 60%, TTE 2019), patient on the dry side Marked hyperglycemia, DM1, suboptimal control as of recent hemoglobin A1c of 13.16 January 2025, medical noncompliance as per records Hyperkalemia hx CAD status post stent mild MR hypertension, stable hyperlipidemia, on statin Rx SATYA on CPAP anxiety/mood disorder, at baseline past alcohol abuse ongoing tobacco abuse Admit to med/tele IV PPI Hold aspirin for now given UGIB causing anemia GI consult re: UGIB N.p.o. until patient seen in anticipation of endoscopy IV insulin, calcium gluconate for hyperkalemia Patient counseled regarding adverse effects of NSAIDs on GI mucosa with hyperkalemia as a potential side effect. Basal bolus insulin adjusted for n.p.o. status, ISS BG goal 110-140, update he moglobin A1c Nicotine patch DVT prophylaxis. SCDs re: GI bleed Full code Text document was generated using [employer] voice recognition software. It may contain grammatical or spelling errors. Kindly contact undersigned for clarification of any documentation item in question. History of Present Illness Chief Complaint: Hematemesis Primary Care Provider: Jennifer Monroe MD History obtained from patient and records. Medical history significant for chronic diastolic heart failure (EF 60%, TTE 2019), CAD status post stent, mild MR, hypertension, hyperlipidemia, SATYA on CPAP, DM1, history of pancreatitis, anxiety/mood disorder, past alcohol abuse, ongoing tobacco abuse, medical noncompliance as per records. Last confinement March 2020 decompensated heart failure. 1 month history of progressive dysphagia symptoms mostly on solids. Patient seen at PCPs office 3 days ago. Possible left cervical adenopathy on provider exam. Outpatient GI referral contemplated for EGD. Outpatient CBC noted to be normal. Patient felt tired yesterday. Patient woke up last night with hematemesis. Upset stomach. No black/bloody stools. Denies chest pain, SOB. Usual dry cough symptoms which he attributes to smoking. Denies inordinate OTC NSAID intake. IV Protonix and octreotide infusions initiated at the ER. Medical History as above Surgical History : Hernia repair, left ankle surgery, cataract surgery, shoulder surgery, trigger finger release Family History : Heart disease Personal/Social history : 1 pack daily, past alcohol abuse as per patient, [employer] employee Allergies Allergy/AdvReac Type Severity Reaction Status Date / Time naproxen Allergy Severe TONGUE Verified 04/27/25 00:13 SWELLS/ITCHY tramadol Allergy Severe EDEMA Verified 04/27/25 00:13 AIRWAY FACE/LIPS/TONGUE ramipril Allergy Intermediate Hives Verified 04/27/25 00:13 moxifloxacin [From Avelox] AdvReac Severe EDEMA Verified 04/27/25 00:13 AIRWAY FACE/LIPS/TONGUE Home Medications Medication Instructions Recorded Confirmed Type aspirin 81 mg tablet,delayed 81 mg PO QAM 10/24/19 04/27/25 History release gemfibrozil 600 mg tablet 600 mg PO BID 10/24/19 04/27/25 History insulin aspart U-100 100 unit/mL 1 unit subcut TIDM 10/24/19 04/27/25 History (3 mL) subcutaneous pen (Novolog FlexPen U-100 Insulin aspart) rosuvastatin 40 mg tablet 40 mg PO PM 10/24/19 04/27/25 History amlodipine 5 mg tablet (Norvasc) 5 mg PO DAILY 04/27/25 04/27/25 History brexpiprazole 2 mg tablet (Rexulti) 2 mg PO QAM 04/27/25 04/27/25 History bupropion HCl 150 mg 24 hr tablet, 150 mg PO QAM 04/27/25 04/27/25 History extended release escitalopram oxalate 20 mg tablet 20 mg PO DAILY 04/27/25 04/27/25 History (Lexapro) insulin glargine 100 unit/mL (3 29 unit subcut BID 04/27/25 04/27/25 History mL) subcutaneous pen (Lantus Solostar U-100 Insulin) melatonin 10 mg capsule 10 mg PO HS PRN Sleep 04/27/25 04/27/25 History metoprolol tartrate 50 mg tablet 50 mg PO BID 04/27/25 04/27/25 History multivitamin with minerals 1 tab PO DAILY 04/27/25 04/27/25 History tadalafil 5 mg tablet 5 mg PO DAILY PRN Sexual Activity 04/27/25 04/27/25 History tamsulosin 0.4 mg capsule 0.8 mg PO QAM 04/27/25 04/27/25 History trazodone 50 mg tablet 50 mg PO HS 04/27/25 04/27/25 History Past Med/Surg History Problem List (Updated 04/27/25 @ 10:42 by Gregory Daniel Jr, MD) Hematemesis UGIB (upper gastrointestinal bleed) Acute upper gastrointestinal bleeding (Acute) Hypomagnesemia ARF (acute renal failure) Hypoglycemia (Acute) TONG (acute kidney injury) (Acute) Prolonged QT interval (Acute) Cough Acute renal failure Elevated d-dimer High anion gap metabolic acidosis GERD (gastroesophageal reflux disease) Alcohol withdrawal (Acute) Acute alcoholic gastritis (Acute) Metabolic acidosis (Acute) Dehydration (Acute) Acute renal insufficiency (Acute) Ketosis (Acute) DVT prophylaxis Bronchitis Esophagitis Tobacco abuse Anxiety Alcohol abuse (Acute) Hypertension CAD (coronary artery disease) 2009-stenting to left circumflex Hypertriglyceridemia Dyslipidemia DM type 1 (diabetes mellitus, type 1) Pancreatitis (Acute) Medical History (Updated 04/27/25 @ 10:42 by Gregory Daniel Jr, MD) Chronic pancreatitis SATYA (obstructive sleep apnea) Depression GERD (gastroesophageal reflux disease) Surgical History H/O shoulder surgery S/P rotator cuff repair H/O hernia repair History of nasal septoplasty Family History Mother Heart disease Social History Smoking Status: Current every day smoker Tobacco Type: Cigarettes Cigarettes Per Day: 1 ppd; Second Hand Exposure: Yes; Do You Dip or Chew Tobacco: No; Hx Alcohol Use: Yes Alcohol type: beer, wine and hard liquor Alcohol type Comment: 6 beers/day Hx Substance Use: No Preferred Language: Macanese Communication Ability: Effective 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: No Beliefs That Will Affect Care: None Current Living Situation: Significant Other Feels Safe at Home: Yes Assistive Devices: None Review of Systems Review of Systems: As per HPI, all other systems reviewed and negative Physical Exam Physical Exam: GENERAL: Comfortable, psych anxious, no respiratory distress SKIN: Pallor, warm HEENT: Bespectacled, pale palpebral conjunctivae, no ptosis, dry buccal mucosa NECK : Supple, no tenderness CHEST : CTA, no tenderness HEART : RRR, no obvious murmurs ABDOMEN: Some distention, minimal epigastric tenderness EXTREMITIES : No LE swelling/tenderness, palpable pulses, no other conspicuous deformities noted NEUROLOGIC : Coherent, no facial asymmetry, no other gross focality Results & Data Results & Data Vital Signs (Past 12 Hours) Vital Signs Temp Pulse Pulse Resp BP BP Pulse Ox 04/27/25 04:30 76 22 132/79 99 04/27/25 04:00 83 24 133/81 95 04/27/25 03:42 82 21 125/74 97 04/27/25 03:03 73 21 148/81 H 96 04/27/25 02:36 74 25 H 135/78 96 04/27/25 02:00 82 19 119/76 96 04/27/25 01:03 74 22 134/81 96 04/27/25 01:00 77 19 121/37 L 99 04/27/25 00:17 77 12 99 04/27/25 00:10 77 12 122/74 99 04/27/25 00:10 36.8 C 77 12 122/74 99 O2 Del Method O2 Flow Rate 04/27/25 04:30 04/27/25 04:00 04/27/25 03:42 04/27/25 03:03 04/27/25 02:36 04/27/25 02:00 04/27/25 01:03 04/27/25 01:00 04/27/25 00:17 Nasal Cannula 4 04/27/25 00:10 Nasal Cannula 4 04/27/25 00:10 Nasal Cannula 4 Laboratory Results Laboratory Results WBC 14.02 K/ul (4.8-10.8) H 04/27/25 00:10 RBC 4.14 M/uL (4.70-6.10) L 04/27/25 00:10 Hgb 10.6 g/dl (14.0-18.0) L 04/27/25 02:22 POC Hgb 11.6 g/dl (14.0-18.0) L 04/27/25 00:13 Hct 31.8 % (42.0-52.0) L 04/27/25 02:22 POC Hct 34 % (42-52) L 04/27/25 00:13 MCV 87.9 fL (80.0-100.0) 04/27/25 00:10 MCH 30.0 pg (25.0-34.0) 04/27/25 00:10 MCHC 34.1 g/dL (32.0-36.0) 04/27/25 00:10 RDW Std Deviation 41.1 fL (36.4-46.3) 04/27/25 00:10 RDW Coeff of Sonia 12.8 % (11.5-14.5) 04/27/25 00:10 Plt Count 221 K/uL (130-400) 04/27/25 00:10 MPV 10.2 fL (9.4-12.4) 04/27/25 00:10 Immature Gran % (Auto) 0.7 % 04/27/25 00:10 Neut % (Auto) 82.4 % 04/27/25 00:10 Lymph % (Auto) 10.3 % 04/27/25 00:10 Blount % (Auto) 5.0 % 04/27/25 00:10 Eos % (Auto) 1.1 % 04/27/25 00:10 Baso % (Auto) 0.5 % 04/27/25 00:10 Neut # (Auto) 11.54 K/uL (1.40-6.50) H 04/27/25 00:10 Lymph # (Auto) 1.45 K/uL (1.20-3.40) 04/27/25 00:10 Blount # (Auto) 0.70 K/uL (0.11-0.59) H 04/27/25 00:10 Eos # (Auto) 0.16 K/uL (0.00-0.50) 04/27/25 00:10 Baso # (Auto) 0.07 K/uL (0.00-0.20) 04/27/25 00:10 Immature Gran # (Auto) 0.10 K/uL (0.01-0.20) 04/27/25 00:10 PT 10.7 Seconds (9.0-12.0) 04/27/25 00:10 INR 1.0 (0.9-1.1) 04/27/25 00:10 APTT 25 Seconds (21-31) 04/27/25 00:10 PTT Ratio 0.9 04/27/25 00:10 POC Sodium 136 mmol/L (135-144) 04/27/25 00:13 Sodium 135 mmol/L (136-145) L 04/27/25 02:22 POC Potassium 5.1 mmol/L (3.3-5.0) H 04/27/25 00:13 Potassium 5.8 mmol/L (3.5-5.1) H 04/27/25 02:22 POC Chloride 101 mmol/L (101-112) 04/27/25 00:13 Chloride 107 mmol/L (98-107) 04/27/25 02:22 Carbon Dioxide 24 mmol/L (21-32) 04/27/25 02:22 POC Total CO2 24 mmol/L (24-31) 04/27/25 00:13 Anion Gap 4 (3-11) 04/27/25 02:22 POC Anion Gap 18.0 mmol/L (16-25) 04/27/25 00:13 POC BUN 32 mg/dl (7-18) H 04/27/25 00:13 BUN 34 mg/dl (6-23) H 04/27/25 02:22 Creatinine 1.11 mg/dl (0.6-1.4) 04/27/25 02:22 POC Creatinine 1.3 mg/dl (0.6-1.3) 04/27/25 00:13 Est Cr Clr Drug Dosing 66.2 ml/min 04/27/25 02:22 eGFR 76.02 04/27/25 02:22 BUN/Creatinine Ratio 30.6 (10-20) H 04/27/25 02:22 Glucose 387 mg/dl (70-99(Fasting)) H* 04/27/25 02:22 POC Glucose 202 mg/dl (70-99) H 04/27/25 04:15 POC Glucose (other) 420 mg/dl (70-99) H* 04/27/25 00:13 Calcium 7.7 mg/dl (8.6-10.3) L 04/27/25 02:22 POC Ioniz Calcium Christian 1.15 mmol/l (1.12-1.32) 04/27/25 00:13 Magnesium 1.7 mg/dl (1.7-2.4) 04/27/25 02:22 Total Bilirubin 0.3 mg/dl (0.2-1.0) 04/27/25 00:10 AST 9 U/L (13-39) L 04/27/25 00:10 ALT 9 U/L (7-52) 04/27/25 00:10 Alkaline Phosphatase 103 U/L (34-104) 04/27/25 00:10 Troponin I High Sens 6.3 pg/ml (0-20) 04/27/25 00:10 Total Protein 6.1 gm/dl (6.0-8.3) 04/27/25 00:10 Albumin 3.5 gm/dl (3.4-5.0) 04/27/25 00:10 Globulin 2.6 gm/dl (2.5-4.0) 04/27/25 00:10 Albumin/Globulin Ratio 1.3 (0.9-2) 04/27/25 00:10 Lipase 18 U/L (11-82) 04/27/25 00:10 POC Stool Occult Blood Negative (Negative) 04/27/25 00:16 Ethyl Alcohol mg/dL < 10.0 mg/dl (<10.0) 04/27/25 00:52 Blood Type A Negative 04/27/25 00:10 Antibody Screen NEGATIVE 04/27/25 00:10 Impressions Abdomen/Pelvis CT 04/27/25 00:15 EXAM: CT abd pelvis IV con only CLINICAL HISTORY: gi bleeding, vomit TECHNIQUE: Multiple contiguous axial images were obtained from the level of diaphragm to the pubis symphysis. This study was acquired after the IV administration of iodinated contrast material, given the patients indications for the examination. If IV contrast material had not been administered, the likelihood of detecting abnormalities relevant to the patients condition would have been substantially decreased. Coronal and sagittal reformatted images were generated and reviewed to improve anatomic localization and optimize lesion detection. CT scan was performed according to ALARA (as low as reasonable achievable). COMPARISON: non contrast CT FINDINGS: The visualized lung bases are clear. ABDOMEN/PELVIS: The liver is normal in size and attenuation. No focal liver lesions are seen. There is no intra or extrahepatic biliary ductal dilatation. Hepatic vasculature is patent. The gall bladder is partially distended with few radiodense calculi within, largest measuring ~ 3.8mm. Normal wall thickness. No pericholecystic fat stranding or collections. The spleen, pancreas, and adrenal glands are unremarkable. The kidneys are normal in size and attenuation. There is no hydronephrosis or perinephric fat stranding. No renal calculi or renal masses are identified. The ureters are normal in caliber and no ureteral calculi are seen. Moderate fecal content in large bowel loops. Prostatomegaly with diffuse urinary bladder wall thickening - interval progression. No evidence of focal or diffuse bowel wall thickening or evidence of bowel obstruction is seen. The appendix is visualized in the right lower quadrant and appears within normal limits. No adenopathy or fluid collections are seen. The aorta is normal in caliber. No aggressive appearing osseous lesions are identified. IMPRESSION: Interval resolution of peripancreatic fat stranding and features of pancreatitis Uncomplicated cholithiasis-stable Moderate fecal content in large bowel loops- likely constipation related changes Prostatomegaly with diffuse urinary bladder wall thickening - interval progression. Rest unchanged Electronically signed by Alexander Lindo 04-27-2025 02:21 AM Chest X-Ray 04/27/25 00:15 EXAM: XR chest 1V portable CLINICAL HISTORY: GI bleed TECHNIQUE: X-ray image of the chest is obtained in AP projection. 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 FINDINGS: Pulmonary Parenchyma: Bilateral lung osborne are clear. No evidence of consolidation, collapse, or focal opacities. No pulmonary nodules are identified. No evidence of pleural effusion or pleural thickening. Heart and Mediastinum: Heart size and shape are normal. No mediastinal widening or masses. No hilar or mediastinal lymphadenopathy. Bony Thorax: A focal widening of the contour of the 9th left rib is identified along the posterolateral aspect, possibly due to an old healed fracture. Focal sclerosis is identified along the greater tuberosity of the left humerus, possibly signifying osteoarthritis changes. Age-appropriate marginal osteophytes are identified along the right lateral aspect of the visualized thoracic spine. Bony thorax appears intact without acute fractures or deformities. Soft Tissues: Soft tissues overlying the chest wall are unremarkable. IMPRESSION: No acute cardiopulmonary abnormalities are identified. Electronically signed by Rickie Vázquez 04-27-2025 02:56 AM Diagnostic Findings EKG as per my interpretation :Rate 75, NSR, LAD, LAFB, incomplete RBBB, inferior infarct, no ischemia
[2025-04-27] MEDS ORDERED: PROMETHAZINE 6.25 MG/50.25 ML BAG IV PRN (05:07)
[2025-04-27] MEDS ORDERED: ACETAMINOPHEN 325 MG TAB PO PRN (05:07)
[2025-04-27] MEDS ORDERED: CARBOHYDRATES FOR HYPOGLYCEMIA PO PRN (05:10)
[2025-04-27] MEDS ORDERED: DEXTROSE 50% 50 ML SYRINGE IV PRN (05:10)
[2025-04-27] MEDS ORDERED: GLUCOSE 10 TAB/TUBE PO PRN (05:10)
[2025-04-27] MEDS ORDERED: GLUCAGON FOR INJ 1 MG VIAL SQ PRN (05:10)
[2025-04-27] MEDS ORDERED: GLUCOSE 40% GEL 15 GM TUBE PO PRN (05:10)
[2025-04-27] MEDS: THIAMINE HCL 100 MG in SYRINGE 9 ML IV STA (05:32)
[2025-04-27] MEDS: PANTOprazole 40 MG in DEXTROSE 5% MINI-B 100 ML IV SCH (05:33)
[2025-04-27] MEDS: LANTUS PER UNIT CHARGE SQ SCH (05:35)
[2025-04-27] MEDS: INSULIN ASPART PER UNIT CHARGE SC SCH ×2 (05:35→17:23)
[2025-04-27 06:01] LABS: Hematocrit (blood only) 30.1 % (42.0-52.0); Hemoglobin 10.2 g/dl (14.0-18.0)
[2025-04-27] MEDS: LORazepam 0.5 MG TAB PO PRN (06:14)
[2025-04-27 07:27] LABS: Hemoglobin A1C 10.8 % (4.5-5.6)
[2025-04-27] MEDS: NICOTINE 21 MG/24 HR TDSY TD SCH (08:04)
[2025-04-27] MEDS: MULTIVITAMIN TAB PO SCH (08:09)
[2025-04-27] MEDS: ESCITALOPRAM OXALATE 20 MG TAB PO SCH (08:09)
[2025-04-27] MEDS: TAMSULOSIN HCL 0.4 MG CAP PO SCH (08:09)
[2025-04-27] MEDS: METOPROLOL TARTRATE 50 MG TAB PO SCH (09:49)
--- NOTE | 2025-04-27 10:44 | Gastrointestinal Consultation ---
Date of Consultation April 27, 2025 Assessment & Plan (1) Hematemesis: Pleasant man with three episodes of hematemesis albeit small amounts by history. This started after an episode of coughing so I suspect this is a devon brunner tear. It seems to have stopped at least historically and he is not having melena (had brown stool this morning). He has never had this before and has never had an EGD before. If he is here tomorrow we will plan upper endoscopy--he agrees. We can do it more urgently if he bleeds again but he seems to have stopped. Certainly there are other possible etiologies for his hematemesis but his history suggests a devon brunner tear. History of Present Illness Reason for Consultation: hematemesis Attending Physician: Kendy Soto MD History of Present Illness 59 year old man who said he was feeling like he had a lump in the back of his throat. Then he had a coughing spell and after that he vomited and there was some blood in it. He describes red blood with clot about the size of "half of a medicine cup". On the way to the hospital he vomited two more times, both with similar clots but smaller amounts. He has had no further bleeding or vomiting. He did have a bowel movement this morning that was solid and brown. He has never vomited blood before. He does not take PPI or meds for his stomach. He has had pancreatitis in the past related to alcohol abuse but he has not had any alcohol in the last five years. He had a colonoscopy last year at [facility] but he has never had an upper endoscopy. He has had a stent placed but he does not take antiplatelet drugs or aspirin. Allergies Allergy/AdvReac Type Severity Reaction Status Date / Time naproxen Allergy Severe TONGUE Verified 04/27/25 00:13 SWELLS/ITCHY tramadol Allergy Severe EDEMA Verified 04/27/25 00:13 AIRWAY FACE/LIPS/TONGUE ramipril Allergy Intermediate Hives Verified 04/27/25 00:13 moxifloxacin [From Avelox] AdvReac Severe EDEMA Verified 04/27/25 00:13 AIRWAY FACE/LIPS/TONGUE Home Medications Medication Instructions Recorded Confirmed Type aspirin 81 mg tablet,delayed 81 mg PO QAM 10/24/19 04/27/25 History release gemfibrozil 600 mg tablet 600 mg PO BID 10/24/19 04/27/25 History insulin aspart U-100 100 unit/mL 1 unit subcut TIDM 10/24/19 04/27/25 History (3 mL) subcutaneous pen (Novolog FlexPen U-100 Insulin aspart) rosuvastatin 40 mg tablet 40 mg PO PM 10/24/19 04/27/25 History amlodipine 5 mg tablet (Norvasc) 5 mg PO DAILY 04/27/25 04/27/25 History brexpiprazole 2 mg tablet (Rexulti) 2 mg PO QAM 04/27/25 04/27/25 History bupropion HCl 150 mg 24 hr tablet, 150 mg PO QAM 04/27/25 04/27/25 History extended release escitalopram oxalate 20 mg tablet 20 mg PO DAILY 04/27/25 04/27/25 History (Lexapro) insulin glargine 100 unit/mL (3 29 unit subcut BID 04/27/25 04/27/25 History mL) subcutaneous pen (Lantus Solostar U-100 Insulin) melatonin 10 mg capsule 10 mg PO HS PRN Sleep 04/27/25 04/27/25 History metoprolol tartrate 50 mg tablet 50 mg PO BID 04/27/25 04/27/25 History multivitamin with minerals 1 tab PO DAILY 04/27/25 04/27/25 History tadalafil 5 mg tablet 5 mg PO DAILY PRN Sexual Activity 04/27/25 04/27/25 History tamsulosin 0.4 mg capsule 0.8 mg PO QAM 04/27/25 04/27/25 History trazodone 50 mg tablet 50 mg PO HS 04/27/25 04/27/25 History Patient History Medical History (Updated 04/27/25 @ 10:42 by Gregory Daniel Jr, MD) Chronic pancreatitis SATYA (obstructive sleep apnea) Depression GERD (gastroesophageal reflux disease) Surgical History H/O shoulder surgery S/P rotator cuff repair H/O hernia repair History of nasal septoplasty Family History Mother Heart disease Social History Smoking Status: Current every day smoker Tobacco Type: Cigarettes Cigarettes Per Day: 1 ppd; Second Hand Exposure: Yes; Do You Dip or Chew Tobacco: No; Hx Alcohol Use: Yes Alcohol type: beer, wine and hard liquor Alcohol type Comment: 6 beers/day Hx Substance Use: No Preferred Language: Icelandic Communication Ability: Effective Museum Curator Required: No Beliefs That Will Affect Care: None Current Living Situation: Significant Other Feels Safe at Home: Yes Assistive Devices: None Review of Systems Review of Systems: All systems reviewed & are unremarkable except as noted in HPI & below Physical Exam Physical Exam: Healthy appearing man in no distress Constitutional: WD/WN, vitals as above Neck: trachea midline, no thyromegaly Respiratory: normal respiratory effort, lungs clear to auscultation Cardiovascular: RRR, no murmur, no edema Gastrointestinal (Abdomen): normal bowel sounds, soft, nontender, no hepatosplenomegaly Results & Data Vital Signs (Past 12 Hours) Vital Signs Temp Pulse Pulse Resp BP BP Pulse Ox 04/27/25 07:59 36.9 C 80 16 123/69 96 04/27/25 06:09 36.9 C 71 18 126/77 94 04/27/25 05:39 73 19 126/73 98 04/27/25 05:12 70 17 121/76 97 04/27/25 05:00 76 22 110/68 96 04/27/25 04:54 72 14 121/76 98 04/27/25 04:30 76 22 132/79 99 04/27/25 04:14 79 04/27/25 04:00 83 24 133/81 95 04/27/25 03:42 82 21 125/74 97 04/27/25 03:03 73 21 148/81 H 96 04/27/25 02:36 74 25 H 135/78 96 04/27/25 02:00 82 19 119/76 96 04/27/25 01:03 74 22 134/81 96 04/27/25 01:00 77 19 121/37 L 99 04/27/25 00:17 77 12 99 04/27/25 00:14 74 04/27/25 00:10 77 12 122/74 99 04/27/25 00:10 36.8 C 77 12 122/74 99 O2 Del Method O2 Flow Rate 04/27/25 07:59 Room Air 04/27/25 06:09 Room Air 04/27/25 05:39 04/27/25 05:12 04/27/25 05:00 Room Air 04/27/25 04:54 04/27/25 04:30 04/27/25 04:14 04/27/25 04:00 04/27/25 03:42 04/27/25 03:03 04/27/25 02:36 04/27/25 02:00 04/27/25 01:03 04/27/25 01:00 04/27/25 00:17 Nasal Cannula 4 04/27/25 00:14 04/27/25 00:10 Nasal Cannula 4 04/27/25 00:10 Nasal Cannula 4 Laboratory Results 04/27/25 04/27/25 04/27/25 Range/Units 05:32 05:24 04:15 WBC (4.8-10.8) K/ul RBC (4.70-6.10) M/uL Hgb 10.2 L (14.0-18.0) g/dl POC Hgb (14.0-18.0) g/dl Hct 30.1 L (42.0-52.0) % POC Hct (42-52) % MCV (80.0-100.0) fL MCH (25.0-34.0) pg MCHC (32.0-36.0) g/dL RDW Std Deviation (36.4-46.3) fL RDW Coeff of Sonia (11.5-14.5) % Plt Count (130-400) K/uL MPV (9.4-12.4) fL Immature Gran % (Auto) % Neut % (Auto) % Lymph % (Auto) % Otero % (Auto) % Eos % (Auto) % Baso % (Auto) % Neut # (Auto) (1.40-6.50) K/uL Lymph # (Auto) (1.20-3.40) K/uL Otero # (Auto) (0.11-0.59) K/uL Eos # (Auto) (0.00-0.50) K/uL Baso # (Auto) (0.00-0.20) K/uL Immature Gran # (Auto) (0.01-0.20) K/uL PT (9.0-12.0) Seconds INR (0.9-1.1) APTT (21-31) Seconds PTT Ratio POC Sodium (135-144) mmol/L Sodium (136-145) mmol/L POC Potassium (3.3-5.0) mmol/L Potassium 4.6 D (3.5-5.1) mmol/L POC Chloride (101-112) mmol/L Chloride (98-107) mmol/L Carbon Dioxide (21-32) mmol/L POC Total CO2 (24-31) mmol/L Anion Gap (3-11) POC Anion Gap (16-25) mmol/L POC BUN (7-18) mg/dl BUN (6-23) mg/dl Creatinine (0.6-1.4) mg/dl POC Creatinine (0.6-1.3) mg/dl Est Cr Clr Drug Dosing ml/min eGFR BUN/Creatinine Ratio (10-20) Glucose (70-99(Fasting)) mg/dl POC Glucose 160 H 202 H (70-99) mg/dl POC Glucose (other) (70-99) mg/dl Estimat Average Glucose mg/dl Hemoglobin A1c (4.5-5.6) % Lactate 0.8 (0.4-2.0) mmol/L Calcium (8.6-10.3) mg/dl POC Ioniz Calcium Christian (1.12-1.32) mmol/l Magnesium (1.7-2.4) mg/dl Total Bilirubin (0.2-1.0) mg/dl AST (13-39) U/L ALT (7-52) U/L Alkaline Phosphatase (34-104) U/L Troponin I High Sens (0-20) pg/ml Total Protein (6.0-8.3) gm/dl Albumin (3.4-5.0) gm/dl Globulin (2.5-4.0) gm/dl Albumin/Globulin Ratio (0.9-2) Lipase (11-82) U/L POC Stool Occult Blood (Negative) Ethyl Alcohol mg/dL (<10.0) mg/dl Blood Type Antibody Screen 04/27/25 04/27/25 04/27/25 Range/Units 02:22 01:46 00:52 WBC (4.8-10.8) K/ul RBC (4.70-6.10) M/uL Hgb 10.6 L (14.0-18.0) g/dl POC Hgb (14.0-18.0) g/dl Hct 31.8 L (42.0-52.0) % POC Hct (42-52) % MCV (80.0-100.0) fL MCH (25.0-34.0) pg MCHC (32.0-36.0) g/dL RDW Std Deviation (36.4-46.3) fL RDW Coeff of Sonia (11.5-14.5) % Plt Count (130-400) K/uL MPV (9.4-12.4) fL Immature Gran % (Auto) % Neut % (Auto) % Lymph % (Auto) % Otero % (Auto) % Eos % (Auto) % Baso % (Auto) % Neut # (Auto) (1.40-6.50) K/uL Lymph # (Auto) (1.20-3.40) K/uL Otero # (Auto) (0.11-0.59) K/uL Eos # (Auto) (0.00-0.50) K/uL Baso # (Auto) (0.00-0.20) K/uL Immature Gran # (Auto) (0.01-0.20) K/uL PT (9.0-12.0) Seconds INR (0.9-1.1) APTT (21-31) Seconds PTT Ratio POC Sodium (135-144) mmol/L Sodium 135 L (136-145) mmol/L POC Potassium (3.3-5.0) mmol/L Potassium 5.8 H (3.5-5.1) mmol/L POC Chloride (101-112) mmol/L Chloride 107 (98-107) mmol/L Carbon Dioxide 24 (21-32) mmol/L POC Total CO2 (24-31) mmol/L Anion Gap 4 (3-11) POC Anion Gap (16-25) mmol/L POC BUN (7-18) mg/dl BUN 34 H (6-23) mg/dl Creatinine 1.11 (0.6-1.4) mg/dl POC Creatinine (0.6-1.3) mg/dl Est Cr Clr Drug Dosing 66.2 ml/min eGFR 76.02 BUN/Creatinine Ratio 30.6 H (10-20) Glucose 387 H* (70-99(Fasting)) mg/dl POC Glucose 370 H* (70-99) mg/dl POC Glucose (other) (70-99) mg/dl Estimat Average Glucose 263 mg/dl Hemoglobin A1c 10.8 H (4.5-5.6) % Lactate (0.4-2.0) mmol/L Calcium 7.7 L (8.6-10.3) mg/dl POC Ioniz Calcium Christian (1.12-1.32) mmol/l Magnesium 1.7 (1.7-2.4) mg/dl Total Bilirubin (0.2-1.0) mg/dl AST (13-39) U/L ALT (7-52) U/L Alkaline Phosphatase (34-104) U/L Troponin I High Sens (0-20) pg/ml Total Protein (6.0-8.3) gm/dl Albumin (3.4-5.0) gm/dl Globulin (2.5-4.0) gm/dl Albumin/Globulin Ratio (0.9-2) Lipase (11-82) U/L POC Stool Occult Blood (Negative) Ethyl Alcohol mg/dL < 10.0 (<10.0) mg/dl Blood Type Antibody Screen 04/27/25 04/27/25 04/27/25 Range/Units 00:16 00:13 00:10 WBC 14.02 H (4.8-10.8) K/ul RBC 4.14 L (4.70-6.10) M/uL Hgb 12.4 L (14.0-18.0) g/dl POC Hgb 11.6 L (14.0-18.0) g/dl Hct 36.4 L (42.0-52.0) % POC Hct 34 L (42-52) % MCV 87.9 (80.0-100.0) fL MCH 30.0 (25.0-34.0) pg MCHC 34.1 (32.0-36.0) g/dL RDW Std Deviation 41.1 (36.4-46.3) fL RDW Coeff of Sonia 12.8 (11.5-14.5) % Plt Count 221 (130-400) K/uL MPV 10.2 (9.4-12.4) fL Immature Gran % (Auto) 0.7 % Neut % (Auto) 82.4 % Lymph % (Auto) 10.3 % Otero % (Auto) 5.0 % Eos % (Auto) 1.1 % Baso % (Auto) 0.5 % Neut # (Auto) 11.54 H (1.40-6.50) K/uL Lymph # (Auto) 1.45 (1.20-3.40) K/uL Otero # (Auto) 0.70 H (0.11-0.59) K/uL Eos # (Auto) 0.16 (0.00-0.50) K/uL Baso # (Auto) 0.07 (0.00-0.20) K/uL Immature Gran # (Auto) 0.10 (0.01-0.20) K/uL PT 10.7 (9.0-12.0) Seconds INR 1.0 (0.9-1.1) APTT 25 (21-31) Seconds PTT Ratio 0.9 POC Sodium 136 (135-144) mmol/L Sodium 135 L (136-145) mmol/L POC Potassium 5.1 H (3.3-5.0) mmol/L Potassium 5.0 (3.5-5.1) mmol/L POC Chloride 101 (101-112) mmol/L Chloride 102 (98-107) mmol/L Carbon Dioxide 27 (21-32) mmol/L POC Total CO2 24 (24-31) mmol/L Anion Gap 6 (3-11) POC Anion Gap 18.0 (16-25) mmol/L POC BUN 32 H (7-18) mg/dl BUN 32 H (6-23) mg/dl Creatinine 1.27 (0.6-1.4) mg/dl POC Creatinine 1.3 (0.6-1.3) mg/dl Est Cr Clr Drug Dosing 57.8 ml/min eGFR 64.68 BUN/Creatinine Ratio 25.2 H (10-20) Glucose 454 H* (70-99(Fasting)) mg/dl POC Glucose (70-99) mg/dl POC Glucose (other) 420 H* (70-99) mg/dl Estimat Average Glucose mg/dl Hemoglobin A1c (4.5-5.6) % Lactate (0.4-2.0) mmol/L Calcium 8.5 L (8.6-10.3) mg/dl POC Ioniz Calcium Christian 1.15 (1.12-1.32) mmol/l Magnesium (1.7-2.4) mg/dl Total Bilirubin 0.3 (0.2-1.0) mg/dl AST 9 L (13-39) U/L ALT 9 (7-52) U/L Alkaline Phosphatase 103 (34-104) U/L Troponin I High Sens 6.3 (0-20) pg/ml Total Protein 6.1 (6.0-8.3) gm/dl Albumin 3.5 (3.4-5.0) gm/dl Globulin 2.6 (2.5-4.0) gm/dl Albumin/Globulin Ratio 1.3 (0.9-2) Lipase 18 (11-82) U/L POC Stool Occult Blood Negative (Negative) Ethyl Alcohol mg/dL (<10.0) mg/dl Blood Type A Negative Antibody Screen NEGATIVE Diagnostic Findings Abdomen/Pelvis CT 04/27/25 00:15 EXAM: CT abd pelvis IV con only CLINICAL HISTORY: gi bleeding, vomit TECHNIQUE: Multiple contiguous axial images were obtained from the level of diaphragm to the pubis symphysis. This study was acquired after the IV administration of iodinated contrast material, given the patients indications for the examination. If IV contrast material had not been administered, the likelihood of detecting abnormalities relevant to the patients condition would have been substantially decreased. Coronal and sagittal reformatted images were generated and reviewed to improve anatomic localization and optimize lesion detection. CT scan was performed according to ALARA (as low as reasonable achievable). COMPARISON: non contrast CT FINDINGS: The visualized lung bases are clear. ABDOMEN/PELVIS: The liver is normal in size and attenuation. No focal liver lesions are seen. There is no intra or extrahepatic biliary ductal dilatation. Hepatic vasculature is patent. The gall bladder is partially distended with few radiodense calculi within, largest measuring ~ 3.8mm. Normal wall thickness. No pericholecystic fat stranding or collections. The spleen, pancreas, and adrenal glands are unremarkable. The kidneys are normal in size and attenuation. There is no hydronephrosis or perinephric fat stranding. No renal calculi or renal masses are identified. The ureters are normal in caliber and no ureteral calculi are seen. Moderate fecal content in large bowel loops. Prostatomegaly with diffuse urinary bladder wall thickening - interval progression. No evidence of focal or diffuse bowel wall thickening or evidence of bowel obstruction is seen. The appendix is visualized in the right lower quadrant and appears within normal limits. No adenopathy or fluid collections are seen. The aorta is normal in caliber. No aggressive appearing osseous lesions are identified. IMPRESSION: Interval resolution of peripancreatic fat stranding and features of pancreatitis Uncomplicated cholithiasis-stable Moderate fecal content in large bowel loops- likely constipation related changes Prostatomegaly with diffuse urinary bladder wall thickening - interval progression. Rest unchanged Electronically signed by Alexander Lindo 04-27-2025 02:21 AM Chest X-Ray 04/27/25 00:15 EXAM: XR chest 1V portable CLINICAL HISTORY: GI bleed TECHNIQUE: X-ray image of the chest is obtained in AP projection. 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 FINDINGS: Pulmonary Parenchyma: Bilateral lung osborne are clear. No evidence of consolidation, collapse, or focal opacities. No pulmonary nodules are identified. No evidence of pleural effusion or pleural thickening. Heart and Mediastinum: Heart size and shape are normal. No mediastinal widening or masses. No hilar or mediastinal lymphadenopathy. Bony Thorax: A focal widening of the contour of the 9th left rib is identified along the posterolateral aspect, possibly due to an old healed fracture. Focal sclerosis is identified along the greater tuberosity of the left humerus, possibly signifying osteoarthritis changes. Age-appropriate marginal osteophytes are identified along the right lateral aspect of the visualized thoracic spine. Bony thorax appears intact without acute fractures or deformities. Soft Tissues: Soft tissues overlying the chest wall are unremarkable. IMPRESSION: No acute cardiopulmonary abnormalities are identified. Electronically signed by Rickie Vázquez 04-27-2025 02:56 AM
[2025-04-27 12:16] LABS: Hematocrit (blood only) 29.4 % (42.0-52.0); Hemoglobin 10.1 g/dl (14.0-18.0)
[2025-04-27] MEDS ORDERED: PHARMACY GLYCEMIC MGMT CONSULT PRN (15:26)
[2025-04-27 15:35] LABS: Hematocrit (blood only) 27.4 % (42.0-52.0); Hemoglobin 9.4 g/dl (14.0-18.0)
--- NOTE | 2025-04-27 16:12 | Communication Note ---
Date of Service: April 27, 2025 evaluated at bedside reports some mild soreness in his throat, but over a month of dysphagia prior to presenting with the hematemesis tolerating liquids at this time with no further hematemesis when asked about his insulin control, he notes that he was unable to pay for his novolog and his pcp is working on a plan for him to get insulin at a cheaper p rice Patient also reports issues with his bph, noting still some hesitancy thats bother some, agreeable to trial of finasteride and verbalizing understanding this may take some time to work EXAM notable for gentleman not in acute distress, resting supine in bed. CV with RRR, lung CTABL #Hematemesis #Chronic normocytic anemia baseline anemia in ~9-10 over last few years plan for anemia studies trend h/h q 12 IV PPI CLD for now NPO midnight for possible scope per review of GI recommendations #hyperglycemia *controlled #Uncontrolled DMTI financial issues posed barrier to obtaining insulin for over a month A1C 10.8% today fitness services manager to discuss and finalize temporary plan to ensure patient leaves with plan for insulin glycemic pharmacy consult #relative hyotension #HTN hold amlodipine, continue bb #BPH continue tamsulosin start finasteride rest of plan per hp
[2025-04-27 17:18] LABS: Anion Gap 6.0 (3-11); Blood Urea Nitrogen 40.0 mg/dl (6-23); Calcium 8.1 mg/dl (8.6-10.3); Carbon Dioxide 24.0 mmol/L (21-32); Chloride 112.0 mmol/L (98-107); Creatinine Clr Calc Pharmacy 76.5 ml/min; Glucose 134.0 mg/dl (70-99(Fasting)); Potassium 4.6 mmol/L (3.5-5.1); Sodium 142.0 mmol/L (136-145)
[2025-04-27] MEDS: FINASTERIDE 5 MG TAB PO SCH (17:19)
[2025-04-27] MEDS: ROSUVASTATIN CALCIUM 20 MG TAB PO SCH (20:49)
[2025-04-27] MEDS: MELATONIN 3 MG TAB PO PRN (21:12)
[2025-04-27] MEDS: LANTUS PER UNIT CHARGE SC SCH (21:57)
[2025-04-28] MEDS: INSULIN ASPART PER UNIT CHARGE SC SCH (00:18)
[2025-04-28 06:50] LABS: Hematocrit (blood only) 30.0 % (42.0-52.0); Hemoglobin 10.0 g/dl (14.0-18.0); Immature Granulocytes # (auto) 0.07 K/uL (0.01-0.20); Immature Granulocytes % (auto) 0.6 %; Mean Corpuscular Hemoglobin 29.3 pg (25.0-34.0); Mean Corpuscular Volume 88.0 fL (80.0-100.0); Platelet Count 209 K/uL (130-400); RDW Standard Deviation 42.0 fL (36.4-46.3); Red Blood Count 3.41 M/uL (4.70-6.10); White Blood Count 11.36 K/ul (4.8-10.8)
[2025-04-28 07:06] LABS: Anion Gap 7.0 (3-11); Blood Urea Nitrogen 43.0 mg/dl (6-23); Calcium 8.4 mg/dl (8.6-10.3); Carbon Dioxide 24.0 mmol/L (21-32); Chloride 110.0 mmol/L (98-107); Creatinine Clr Calc Pharmacy 75.7 ml/min; Glucose 131.0 mg/dl (70-99(Fasting)); Magnesium 1.9 mg/dl (1.7-2.4); Potassium 3.9 mmol/L (3.5-5.1); Sodium 141.0 mmol/L (136-145)
[2025-04-28] MEDS: REMOVE NICODERM PATCH SCH (08:45)
[2025-04-28] MEDS: LANTUS PER UNIT CHARGE SC SCH (09:26)
--- NOTE | 2025-04-28 10:07 | History & Physical Bridge Note ---
Date of Service April 28, 2025 History & Physical Bridge Note I have examined the patient, reviewed the History & Physical and in the interval since the performance of the History & Physical I have noted the following changes of clinical significance: no changes noted Patient has had no further episodes of melena overnight. H/H 10.0/30.0. Keep NPO & proceed with EGD today. Supervising Physician Co-Signing Physician Notes Agree with TERRIE Ramos as above Abd: Soft, NT, ND, +BS Will proceed with EGD now and make further recommendations as needed.
--- NOTE | 2025-04-28 10:34 | Electrocardiogram Report ---
Test Reason : Blood Pressure : */* mmHG Vent. 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 lead placement vs. LVH Abnormal ECG When compared with ECG of 27-Mar-2020 08:44, Left anterior fascicular block is now Present Incomplete right bundle branch block has replaced Right bundle branch block Questionable change in initial forces of Anteroseptal leads Confirmed by Jayme Orellana ([id number]) on 04/28/2025 10:34:31 AM Referred By: REFERRED SELF Confirmed By: Jayme Orellana
[2025-04-28] MEDS: SODIUM CHLORIDE 0.9% 500 ML IV SCH (10:54)
--- NOTE | 2025-04-28 11:02 | Anesthesiology Consultation ---
Date of Service April 28, 2025 Assessment & Plan ASA ASA3 Proposed Anesthesia Anesthesia Type: MAC Risk / Benefits Reviewed With: PT / POA / Parent / Guardian, Accepts Plan and Informed Consent Obtained History Surgery Operation Date: 04/28/25 17:10 Proposed Procedures p Esophagogastroduodenoscopy Dr Lino - Jacob Ny Case, DO Height/Weight Height: 5 ft 7 in Weight: 67 kg Allergies Allergy/AdvReac Type Severity Reaction Status Date / Time naproxen Allergy Severe TONGUE Verified 04/27/25 00:13 SWELLS/ITCHY tramadol Allergy Severe EDEMA Verified 04/27/25 00:13 AIRWAY FACE/LIPS/TONGUE ramipril Allergy Intermediate Hives Verified 04/27/25 00:13 moxifloxacin [From Avelox] AdvReac Severe EDEMA Verified 04/27/25 00:13 AIRWAY FACE/LIPS/TONGUE Medications Home Medications Medication Instructions Recorded Confirmed Last Taken aspirin 81 mg tablet,delayed 81 mg PO QAM 10/24/19 04/27/25 04/26/25 release gemfibrozil 600 mg tablet 600 mg PO BID 10/24/19 04/27/25 04/26/25 insulin aspart U-100 100 unit/mL 1 unit subcut TIDM 10/24/19 04/27/25 04/26/25 (3 mL) subcutaneous pen (Novolog FlexPen U-100 Insulin aspart) rosuvastatin 40 mg tablet 40 mg PO PM 10/24/19 04/27/25 04/26/25 amlodipine 5 mg tablet (Norvasc) 5 mg PO DAILY 04/27/25 04/27/25 04/26/25 brexpiprazole 2 mg tablet (Rexulti) 2 mg PO QAM 04/27/25 04/27/25 04/26/25 bupropion HCl 150 mg 24 hr tablet, 150 mg PO QAM 04/27/25 04/27/25 04/26/25 extended release escitalopram oxalate 20 mg tablet 20 mg PO DAILY 04/27/25 04/27/25 04/26/25 (Lexapro) insulin glargine 100 unit/mL (3 29 unit subcut BID 04/27/25 04/27/25 04/26/25 08:00 mL) subcutaneous pen (Lantus Solostar U-100 Insulin) melatonin 10 mg capsule 10 mg PO HS PRN Sleep 04/27/25 04/27/25 Unknown metoprolol tartrate 50 mg tablet 50 mg PO BID 04/27/25 04/27/25 04/26/25 multivitamin with minerals 1 tab PO DAILY 04/27/25 04/27/25 04/26/25 tadalafil 5 mg tablet 5 mg PO DAILY PRN Sexual Activity 04/27/25 04/27/25 Unknown tamsulosin 0.4 mg capsule 0.8 mg PO QAM 04/27/25 04/27/25 04/26/25 trazodone 50 mg tablet 50 mg PO HS 04/27/25 04/27/25 Unknown Active Medications Generic Name Dose Route Start Last Admin Trade Name Freq PRN Reason Stop Dose Admin Amlodipine Besylate 5 mg 04/27/25 09:00 04/27/25 09:52 Amlodipine Besylate 5 Mg Tab PO 05/27/25 08:59 Not Given DAILY ROSALES Bupropion HCl 150 mg 04/27/25 09:00 04/27/25 08:09 Bupropion Xl 150 Mg Tabcr PO 05/27/25 08:59 150 mg QAM ROSALES Administration Escitalopram Oxalate 20 mg 04/27/25 09:00 04/27/25 08:09 Escitalopram Oxalate 20 Mg Tab PO 05/27/25 08:59 20 mg DAILY ROSALES Administration Finasteride 5 mg 04/27/25 16:30 04/27/25 17:19 Finasteride 5 Mg Tab PO 05/27/25 16:29 5 mg QAM ROSALES Administration Gemfibrozil 600 mg 04/27/25 09:00 04/27/25 20:48 Gemfibrozil 600 Mg Tab PO 05/27/25 08:59 600 mg BID ROSALES Administration Pantoprazole Sodium 40 mg/ 100 mls @ 20 mls/hr 04/27/25 05:15 04/28/25 10:34 Dextrose IV 05/27/25 05:14 0 mg/hr Q5H ROSALES 0 mls/hr Infusion 8 MG/HR Sodium Chloride 500 mls @ 15 mls/hr 04/28/25 07:30 04/28/25 10:54 Nss IV 04/29/25 07:29 15 mls/hr .Q24H ROSALES Administration Insulin Aspart 0 units 04/27/25 16:30 04/28/25 08:48 Insulin Aspart Per Unit Charge SC 05/27/25 16:29 1 units ACHS ROSALES Administration Insulin Glargine 15 units 04/28/25 09:00 04/28/25 09:26 Lantus Per Unit Charge SC 05/28/25 08:59 Not Given QAM ROSALES Insulin Glargine 15 units 04/27/25 21:30 04/27/25 21:57 Lantus Per Unit Charge SC 05/27/25 21:29 15 units HS ROSALES Administration Lorazepam 0.5 mg 04/27/25 05:08 04/28/25 00:10 Lorazepam 0.5 Mg Tab PO 05/27/25 05:07 0.5 mg TID PRN Administration Anxiety Melatonin 9 mg 04/27/25 05:12 04/27/25 21:12 Melatonin 3 Mg Tab PO 05/27/25 05:11 9 mg HS PRN Administration Sleep Metoprolol Tartrate 50 mg 04/27/25 09:00 04/27/25 20:48 Metoprolol Tartrate 50 Mg Tab PO 05/27/25 08:59 50 mg BID ROSALES Administration Miscellaneous 1 each 04/27/25 08:00 04/28/25 08:20 (Brexpiprazole [Rexulti] 2 Mg Tablet)~Order Awaiting Action N/A 05/27/25 07:59 Not Given QS ROSALES Miscellaneous 1 each 04/28/25 08:59 04/28/25 08:45 Remove Nicoderm Patch N/A 05/28/25 08:58 1 each DAILY@0859 ROSALES Administration Multivitamins 1 tab 04/27/25 09:00 04/27/25 08:09 Multivitamin Tab PO 05/27/25 08:59 1 tab QAM ROSALES Administration Nicotine 1 patch 04/27/25 06:30 04/28/25 08:44 Nicotine 21 Mg/24 Hr Tdsy TD 05/27/25 06:29 1 patch QAM ROSALES Administration Rosuvastatin Calcium 40 mg 04/27/25 21:00 04/27/25 20:49 Rosuvastatin Calcium 20 Mg Tab PO 05/27/25 20:59 40 mg PM ROSALES Administration Tamsulosin HCl 0.8 mg 04/27/25 09:00 04/27/25 08:09 Tamsulosin Hcl 0.4 Mg Cap PO 05/27/25 08:59 0.8 mg QAM ROSALES Administration Trazodone HCl 50 mg 04/27/25 21:00 04/27/25 20:48 Trazodone Hcl 50 Mg Tab PO 05/27/25 20:59 50 mg HS ROSALES Administration NPO Date Last Intake of Fluids: 04/27/25 Time Last Intake of Fluids: 17:00 Date Last Intake of Solids: 04/27/25 Time Last Intake of Solids: 17:00 Past Medical History Medical History (Updated 04/27/25 @ 10:42 by Gregory Daniel Jr, MD) Chronic pancreatitis SATYA (obstructive sleep apnea) Depression GERD (gastroesophageal reflux disease) Exercise / Class Metabolic Activity III < 4 Walking/Shop/Light housework Past Family History Family History Mother Heart disease Past Surgical History Surgical History H/O shoulder surgery S/P rotator cuff repair H/O hernia repair History of nasal septoplasty Past Anesthesia History No Hx of Anesthesia Complications and No Family Hx of Anesthesia Complications History of PONV No Hx of PONV and No Hx of Motion Sickness Social History Smoking Status: Current every day smoker tobacco type: cigarettes Smoking cigarettes per day: 1 ppd Do You Dip or Chew Tobacco: No Hx Alcohol Use: Yes Alcohol type: beer, wine and hard liquor alcohol intake frequency: 3 or more drinks per day Hx Substance Use: No Physical Exam Vital Signs Last Vital Signs Temp 37.1 C 04/28/25 10:44 Pulse 71 04/28/25 10:44 Resp 16 04/28/25 10:44 BP 113/68 04/28/25 10:44 Pulse Ox 100 04/28/25 10:44 O2 Del Method Room Air 04/28/25 10:44 O2 Flow Rate 4 04/27/25 00:17 Constitutional no acute distress ENMT Mouth: + poor dentition and + chipped teeth; no TMJ abnormality Thyromental Distance: > or= 3.5 Finger Breadths Mallampati Class: I Neck normal visual inspection Respiratory normal respiratory effort; no respiratory distress Auscultation: lungs clear to auscultation bilaterally Cardiovascular Rate/Rhythm: regular rate and regular rhythm Psychiatric Orientation: alert and oriented x 3 Testing Laboratory Results 04/28/25 06:16 04/28/25 06:16 PT 10.7 Seconds (9.0-12.0) 04/27/25 00:10 INR 1.0 (0.9-1.1) 04/27/25 00:10 APTT 25 Seconds (21-31) 04/27/25 00:10 Hemoglobin A1c 10.8 % (4.5-5.6) H 04/27/25 02:22 Blood Type A Negative 04/27/25 00:10 Antibody Screen NEGATIVE 04/27/25 00:10 04/28/25 04/28/25 04/28/25 07:34 04:04 00:08 POC Glucose 155 H 130 H 124 H Electrocardiogram Date: 04/27/25 SR, LAFB, incomplete RBBB Chest X-Ray Date: 04/27/25 Findings: + NAD Echocardiogram Date: 03/27/20 EF: 60% LV Function: normal RWMA: + none
--- NOTE | 2025-04-28 11:49 | Hospitalist Progress Note ---
Date of Service April 28, 2025 Assessment & Plan (1) UGIB (upper gastrointestinal bleed): Plan: UGIB IV PPI Hold aspirin N.p.o GI consult, for EGD today Anemia Acute blood loss anemia Chronic diastolic heart failure (EF 60%, TTE 2019) Monitor I's and O Daily weights and indications Patient is euvolemic at present since DM 1 Poor control and noncompliance SSI Basal bolus insulin adjusted for n.p.o. status, ISS BG goal 110-140, updated hemoglobin A1c---> 10.8 Hyperkalemia IV insulin, calcium gluconate given CAD Status post stent Hold Asa due to GI bleed ongoing tobacco abuse--->Nicotine patch Hypertension Follow BPs Hyperlipidemia Cont on statin Rx SATYA Cont on CPAP DVT prophylaxis. SCDs re: GI bleed Full code I spent a total of 57 minutes coordinating, documenting and providing care for this patient excluding time spent in the performance of separately billable services Admission and Anticipated Discharge Date Admission Date: April 27, 2025 Subjective Chart, data vital signs reviewed. Patient seen in the telemetry unit at bedside. No further vomiting or hematemesis. He denies melena or dark stools. Review of Systems Review of Systems: Constitutional- no fever; no weight loss Eyes- no acute visual changes ENT- no sinus drainage; no pharyngitis Pulmonary- no cough, no wheezing, no shortness of breath Cardiac- no chest pain, no palpitations, no orthopnea, no dependent edema GI- no nausea, no vomiting, no diarrhea, no melena, no hematochezia - no dysuria, no hematuria Musculoskeletal- no arthralgias, no myalgias Derm- no rashes, no new skin lesions, no changing skin lesions Hematologic- no unusual bruising, no unusual bleeding Lymphatics- no adenopathy Endocrine- no polyuria or polydipsia; no heat or cold intolerance Neuro- no headaches, no focal neurologic symptoms Psych- no anxiety, no depression Physical Exam Physical Exam: General- adult male seen at bedside Head- atraumatic Eyes- PERRL, EOMI, anicteric ENT- oropharynx clear Neck- supple, no JVD, no adenopathy, no thyromegaly; carotids +2/2, no bruits appreciated Lungs- clear to auscultation and percussion Heart- regular rhythm; no murmur, no gallop, no rub appreciated Abdomen- normal bowel sounds, soft, nontender, no masses or hepatosplenomegaly Extremities- no pretibial edema, no calf tenderness; peripheral pulses intact Neuro- alert, oriented x 3; PERRL, EOMI; no focal findings Skin- warm & dry Results & Data Results & Data Vital Signs (Past 12 Hours) Vital Signs Temp Pulse Pulse Resp BP Pulse Ox O2 Del Method 04/28/25 10:44 37.1 C 71 16 113/68 100 Room Air 04/28/25 07:48 36.8 C 71 18 109/55 L 95 Room Air 04/28/25 07:45 68 04/28/25 04:00 36.9 C 70 16 96/54 L 94 Room Air 04/28/25 00:16 36.9 C 75 18 121/71 98 Room Air Diagnostic Findings Laboratory Results WBC 11.36 K/ul (4.8-10.8) H 04/28/25 06:16 RBC 3.41 M/uL (4.70-6.10) L 04/28/25 06:16 Hgb 10.0 g/dl (14.0-18.0) L 04/28/25 06:16 POC Hgb 11.6 g/dl (14.0-18.0) L 04/27/25 00:13 Hct 30.0 % (42.0-52.0) L 04/28/25 06:16 POC Hct 34 % (42-52) L 04/27/25 00:13 MCV 88.0 fL (80.0-100.0) 04/28/25 06:16 MCH 29.3 pg (25.0-34.0) 04/28/25 06:16 MCHC 33.3 g/dL (32.0-36.0) 04/28/25 06:16 RDW Std Deviation 42.0 fL (36.4-46.3) 04/28/25 06:16 RDW Coeff of Sonia 13.2 % (11.5-14.5) 04/28/25 06:16 Plt Count 209 K/uL (130-400) 04/28/25 06:16 MPV 10.2 fL (9.4-12.4) 04/28/25 06:16 Immature Gran % (Auto) 0.6 % 04/28/25 06:16 Neut % (Auto) 77.9 % 04/28/25 06:16 Lymph % (Auto) 15.6 % 04/28/25 06:16 [place] % (Auto) 4.6 % 04/28/25 06:16 Eos % (Auto) 1.0 % 04/28/25 06:16 Baso % (Auto) 0.3 % 04/28/25 06:16 Neut # (Auto) 8.86 K/uL (1.40-6.50) H 04/28/25 06:16 Lymph # (Auto) 1.77 K/uL (1.20-3.40) 04/28/25 06:16 [place] # (Auto) 0.52 K/uL (0.11-0.59) 04/28/25 06:16 Eos # (Auto) 0.11 K/uL (0.00-0.50) 04/28/25 06:16 Baso # (Auto) 0.03 K/uL (0.00-0.20) 04/28/25 06:16 Immature Gran # (Auto) 0.07 K/uL (0.01-0.20) 04/28/25 06:16 PT 10.7 Seconds (9.0-12.0) 04/27/25 00:10 INR 1.0 (0.9-1.1) 04/27/25 00:10 APTT 25 Seconds (21-31) 04/27/25 00:10 PTT Ratio 0.9 04/27/25 00:10 POC Sodium 136 mmol/L (135-144) 04/27/25 00:13 Sodium 141 mmol/L (136-145) 04/28/25 06:16 POC Potassium 5.1 mmol/L (3.3-5.0) H 04/27/25 00:13 Potassium 3.9 mmol/L (3.5-5.1) 04/28/25 06:16 POC Chloride 101 mmol/L (101-112) 04/27/25 00:13 Chloride 110 mmol/L (98-107) H 04/28/25 06:16 Carbon Dioxide 24 mmol/L (21-32) 04/28/25 06:16 POC Total CO2 24 mmol/L (24-31) 04/27/25 00:13 Anion Gap 7 (3-11) 04/28/25 06:16 POC Anion Gap 18.0 mmol/L (16-25) 04/27/25 00:13 POC BUN 32 mg/dl (7-18) H 04/27/25 00:13 BUN 43 mg/dl (6-23) H 04/28/25 06:16 Creatinine 0.97 mg/dl (0.6-1.4) 04/28/25 06:16 POC Creatinine 1.3 mg/dl (0.6-1.3) 04/27/25 00:13 Est Cr Clr Drug Dosing 75.7 ml/min 04/28/25 06:16 eGFR 89.37 04/28/25 06:16 BUN/Creatinine Ratio 44.3 (10-20) H 04/28/25 06:16 Glucose 131 mg/dl (70-99(Fasting)) H 04/28/25 06:16 POC Glucose 155 mg/dl (70-99) H 04/28/25 07:34 POC Glucose (other) 420 mg/dl (70-99) H* 04/27/25 00:13 Estimat Average Glucose 263 mg/dl 04/27/25 02:22 Hemoglobin A1c 10.8 % (4.5-5.6) H 04/27/25 02:22 Lactate 0.8 mmol/L (0.4-2.0) 04/27/25 05:32 Calcium 8.4 mg/dl (8.6-10.3) L 04/28/25 06:16 POC Ioniz Calcium Christian 1.15 mmol/l (1.12-1.32) 04/27/25 00:13 Phosphorus 3.3 mg/dl (2.5-4.9) 04/28/25 06:16 Magnesium 1.9 mg/dl (1.7-2.4) 04/28/25 06:16 Total Bilirubin 0.3 mg/dl (0.2-1.0) 04/27/25 00:10 AST 9 U/L (13-39) L 04/27/25 00:10 ALT 9 U/L (7-52) 04/27/25 00:10 Alkaline Phosphatase 103 U/L (34-104) 04/27/25 00:10 Troponin I High Sens 6.3 pg/ml (0-20) 04/27/25 00:10 Total Protein 6.1 gm/dl (6.0-8.3) 04/27/25 00:10 Albumin 3.5 gm/dl (3.4-5.0) 04/27/25 00:10 Globulin 2.6 gm/dl (2.5-4.0) 04/27/25 00:10 Albumin/Globulin Ratio 1.3 (0.9-2) 04/27/25 00:10 Lipase 18 U/L (11-82) 04/27/25 00:10 POC Stool Occult Blood Negative (Negative) 04/27/25 00:16 Ethyl Alcohol mg/dL < 10.0 mg/dl (<10.0) 04/27/25 00:52 Blood Type A Negative 04/27/25 00:10 Antibody Screen NEGATIVE 04/27/25 00:10 Impressions Abdomen/Pelvis CT 04/27/25 00:15 EXAM: CT abd pelvis IV con only CLINICAL HISTORY: gi bleeding, vomit TECHNIQUE: Multiple contiguous axial images were obtained from the level of diaphragm to the pubis symphysis. This study was acquired after the IV administration of iodinated contrast material, given the patients indications for the examination. If IV contrast material had not been administered, the likelihood of detecting abnormalities relevant to the patients condition would have been substantially decreased. Coronal and sagittal reformatted images were generated and reviewed to improve anatomic localization and optimize lesion detection. CT scan was performed according to ALARA (as low as reasonable achievable). COMPARISON: non contrast CT FINDINGS: The visualized lung bases are clear. ABDOMEN/PELVIS: The liver is normal in size and attenuation. No focal liver lesions are seen. There is no intra or extrahepatic biliary ductal dilatation. Hepatic vasculature is patent. The gall bladder is partially distended with few radiodense calculi within, largest measuring ~ 3.8mm. Normal wall thickness. No pericholecystic fat stranding or collections. The spleen, pancreas, and adrenal glands are unremarkable. The kidneys are normal in size and attenuation. There is no hydronephrosis or perinephric fat stranding. No renal calculi or renal masses are identified. The ureters are normal in caliber and no ureteral calculi are seen. Moderate fecal content in large bowel loops. Prostatomegaly with diffuse urinary bladder wall thickening - interval progression. No evidence of focal or diffuse bowel wall thickening or evidence of bowel obstruction is seen. The appendix is visualized in the right lower quadrant and appears within normal limits. No adenopathy or fluid collections are seen. The aorta is normal in caliber. No aggressive appearing osseous lesions are identified. IMPRESSION: Interval resolution of peripancreatic fat stranding and features of pancreatitis Uncomplicated cholithiasis-stable Moderate fecal content in large bowel loops- likely constipation related changes Prostatomegaly with diffuse urinary bladder wall thickening - interval progression. Rest unchanged Electronically signed by Alexander Lindo 04-27-2025 02:21 AM Chest X-Ray 04/27/25 00:15 EXAM: XR chest 1V portable CLINICAL HISTORY: GI bleed TECHNIQUE: X-ray image of the chest is obtained in AP projection. 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 FINDINGS: Pulmonary Parenchyma: Bilateral lung osborne are clear. No evidence of consolidation, collapse, or focal opacities. No pulmonary nodules are identified. No evidence of pleural effusion or pleural thickening. Heart and Mediastinum: Heart size and shape are normal. No mediastinal widening or masses. No hilar or mediastinal lymphadenopathy. Bony Thorax: A focal widening of the contour of the 9th left rib is identified along the posterolateral aspect, possibly due to an old healed fracture. Focal sclerosis is identified along the greater tuberosity of the left humerus, possibly signifying osteoarthritis changes. Age-appropriate marginal osteophytes are identified along the right lateral aspect of the visualized thoracic spine. Bony thorax appears intact without acute fractures or deformities. Soft Tissues: Soft tissues overlying the chest wall are unremarkable. IMPRESSION: No acute cardiopulmonary abnormalities are identified. Electronically signed by Rickie Vázquez 04-27-2025 02:56 AM
--- NOTE | 2025-04-28 12:07 | GI REPORT ---
[facility] Patient: VARGAS FITZPATRICK : 1965 Sex at : Male Age: 59 Years Procedure: Upper GI endoscopy Date: 04/28/2025 Attending Physician: Jacob Lino DO Referring MD: Jennifer Monroe Indications: - Hematemesis Medications: - Monitored Anesthesia Care Complications: - No immediate complications. Estimated Blood Loss: - Estimated blood loss: None. Procedure: - Prior to the procedure, a History and Physical was performed, and patient medications and allergies were reviewed. The patient's tolerance of previous anesthesia was also reviewed. The risks and benefits of the procedure and the sedation options and risks were discussed with the patient. All questions were answered, and informed consent was obtained. Prior Anticoagulants: The patient has taken no anticoagulant or antiplatelet agents except for aspirin, last dose was 2 days prior to procedure. ASA Grade Assessment: III - A patient with severe systemic disease. After reviewing the risks and benefits, the patient was deemed in satisfactory condition to undergo the procedure. - The egd scope was introduced through the mouth and advanced to the second part of the duodenum. - The upper GI endoscopy was accomplished without difficulty. - The patient tolerated the procedure well. Findings: - A medium-sized, ulcerating mass with bleeding and stigmata of recent bleeding was found in the middle third of the esophagus, 29 to 34 cm from the incisors. The mass was partially obstructing and partially circumferential (involving two thirds of the lumen circumference). Biopsies were taken with a cold forceps for histology. For hemostasis, two hemostatic clips were successfully placed. Clip door paneler: SCHEDit. There was no bleeding at the end of the procedure. Area was successfully injected with 3 mL of a 0.1 mg/mL solution of epinephrine for hemostasis. - A small hiatal hernia was present. - The examined duodenum was normal. 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 Biopsied. Clips were placed. Clip door paneler: SCHEDit. Injected. - Small hiatal hernia. - Normal examined duodenum. Recommendation: - Return patient to hospital [facility] for ongoing care. - Soft diet. - Continue present medications. - Await pathology results. - Return to primary care physician as previously scheduled. - Patient has a contact number available for emergencies. The signs and symptoms of potential delayed complications were discussed with the patient. Return to normal activities tomorrow. Written discharge instructions were provided to the patient. Procedure Code(s): - 97341-68, Esophagogastroduodenoscopy, flexible, transoral; with control of bleeding, any method - 83718, Esophagogastroduodenoscopy, flexible, transoral; with biopsy, single or multiple Diagnosis Code(s): - K92.0, Hematemesis - C15.4, Malignant neoplasm of middle third of esophagus - K44.9, Diaphragmatic hernia without obstruction or gangrene CPT(R) - 202 copyright [employer]. All Rights Reserved. The CPT codes, CCI edits and ICD codes generated are intended as suggestions and were generated based on input data. These codes are preliminary and upon vein pumper review may be revised to meet current compliance and payer requirements. The provider is responsible for the final determination of appropriate codes, and modifiers. Dr. Jacob Lino, This document has been electronically signed. Note Initiated:04/28/2025 Note Completed:04/28/2025 12:06 PM [id number]
--- NOTE | 2025-04-28 12:21 | Communication Note ---
Date of Service: April 28, 2025 Patient underwent an EGD that indicated a partially obstructing esophageal mass. Discussed plan of care with Dr. Lino. Would advise a CT Chest/Abdomen/Pelvis with po/IV contrast for further evaluation. Oncology consulted. Will need surgical evaluation; would recommend evaluation at [facility] in [place] with Dr. Shore of thoracic surgery. Our office will begin the referral process for this. He must eat a soft diet.
--- NOTE | 2025-04-28 12:47 | Anesthesiology Progress Note ---
Date of Service April 28, 2025 Anesthesia Post Procedure Vital Signs Vital Signs: Temp Pulse Pulse Pulse Resp BP Pulse Ox 04/28/25 12:44 72 14 118/62 98 04/28/25 12:30 70 16 115/60 99 04/28/25 12:15 90 18 89/49 L 96 04/28/25 10:44 37.1 C 71 16 113/68 100 04/28/25 07:48 36.8 C 71 18 109/55 L 95 04/28/25 07:45 68 04/28/25 04:00 36.9 C 70 16 96/54 L 94 04/28/25 00:16 36.9 C 75 18 121/71 98 04/27/25 21:45 67 04/27/25 20:24 36.5 C 76 17 124/67 98 04/27/25 16:00 36.5 C 69 16 125/62 98 04/27/25 13:24 66 O2 Del Method 04/28/25 12:44 Room Air 04/28/25 12:30 Room Air 04/28/25 12:15 Room Air 04/28/25 10:44 Room Air 04/28/25 07:48 Room Air 04/28/25 07:45 04/28/25 04:00 Room Air 04/28/25 00:16 Room Air 04/27/25 21:45 04/27/25 20:24 Room Air 04/27/25 16:00 Room Air 04/27/25 13:24 Transfer of Care Handoff Completed per policy Notes Mental Status: alert / awake / arousable Patient Amnestic to Procedure: Yes Nausea / Vomiting: adequately controlled Pain: adequately controlled Airway Patency, RR, SpO2: stable & adequate BP & HR: stable & adequate Hydration State: stable & adequate Anesthetic Complications: no major complications apparent and Pt Satisfied with anesthetic care
--- NOTE | 2025-04-28 13:11 | Pharmacy Report ---
Pharmacy Glycemic Short Note 2 - Date of Service April 28, 2025 - Glycemic Short BSG Results (Last 24 hours): 04/27/25 04/27/25 04/27/25 16:14 16:34 20:22 Glucose 134 H POC Glucose 90 206 H 04/28/25 04/28/25 04/28/25 00:08 04:04 06:16 Glucose 131 H POC Glucose 124 H 130 H 04/28/25 07:34 Glucose POC Glucose 155 H OUTPATIENT ANTIDIABETIC REGIMEN: * Lantus 29 units BID - adjusts dose based on BG (holds dose BG < 120, ~25 units if BG ~150) * Novolog 0 units with breakfast - 4 units with lunch - 8 units with supper + CF:50 for BG > 150 *Adjusts Novolog dose according to food/BG values- holds dose if BG is < 120, 2 units for small meal/high BG and 5 units for large meal * A1c 10.8% 04/27/25 ASSESSMENT: * Patient with history of type 1 diabetes, admitted with GIB, NPO this morning for endoscopy. * Initially ordered 15 units of lantus BID, AM dose held this morning per provider. BSG 155 mg/dL. * Reviewed manager building note- patient often withholding doses/fear of hypoglycemia, outpatient 30 day average 322 mg/dL on freestyle [place] * Unclear baseline needs d/t reports of missing/holding doses and high baseline BSG. Home regimen is basal heavy. Will continue with current novolog order as this is ~ moderate stress weight dose/balanced home dose. Will adjust goal range. * Continue with 15 units BID of lantus for now PLAN FOR INPATIENT GLYCEMIC CONTROL: * Hold outpatient oral diabetes medications * Basal insulin * Lantus 15 units SQ BID * Bolus insulin * NovoLog per scale ACHS or Q6hrs while NPO * Goal Range: Low 120 mg/dL - High 160 mg/dL * Correction Factor: 30 mg/dL/unit * Nutritional / Prandial insulin per carb ratio of 1 unit per 12 grams CHO consumed
[2025-04-28] MEDS: PROPOFOL IV EMULSION 10 MG/ML 20 ML VIAL IV ONE (13:27)
[2025-04-28] MEDS: LIDOCAINE 2% 2 ML VIAL/AMP(20MG/ML) INFIL ONE (13:27)
[2025-04-28] MEDS: EPINEPHrine INJ 1 MG/ML AMP ONE (13:28)
[2025-04-28] MEDS: OPTIRAY 320 100ml IV ONE (15:00)
--- NOTE | 2025-04-28 20:04 | CT Scan Report ---
EXAM: CT abd pelvis oral and IV con CLINICAL HISTORY: Esophageal mass, need contrast study per Dr. Lino TECHNIQUE: Contrast-enhanced CT of the abdomen and pelvis was performed, with the following protocol: axial images with, and reconstructed coronal and sagittal images. 92 ML OPTI 320 intravenous contrast was administered. Oral contrast also given. One of the following dose reduction techniques was utilized for this exam: Automated exposure control, adjustment of the mA and/or kV according to patient size, and use of iterative reconstruction. DLP: 1180.14 mGy.cm COMPARISON: 04/26/2025 CT FINDINGS: Abdomen: Liver: Normal in size, shape, and density. No focal lesions, cysts, or masses were identified. Hepatic vasculature and biliary ducts are unremarkable. Gallbladder and Biliary System: The gallbladder is normal in size and shape. No wall thickening or pericholecystic fluid. Unchanged few small gallbladder stones. The common bile duct is normal in caliber without dilation. Pancreas: Pancreatic head, body, and tail are visualized and appear normal in size and density. No pancreatic masses or calcifications were noted. The pancreatic duct is not dilated. Spleen: Normal in size, shape, and density. No splenic lesions or masses were identified. Appendix: The appendix is normal in size without ever appendiceal fat stranding, and without an appendicolith. No evidence of appendiceal abscess or perforation. Kidneys and Adrenal Glands: Both kidneys are normal in size, shape, and position. Cortical thickness is within normal limits. No renal calculi or hydronephrosis. Unchnaged left adrenal nodule measuring 1.5 x 1.5 cm right adrenal gland is unremarkable with no evidence of masses or hyperplasia. Pelvis: Urinary Bladder: Unchanged mild diffuse wall thickening measuring 6 mm at its maximum thickness No intraluminal lesions identified. Prostate: Unchanged enlarged prostate with calcific foci Seminal Vesicles: Normal in size and appearance. No abnormalities noted. Rectum and Sigmoid Colon: Normal wall thickness and no evidence of mass. Peritoneal and Retroperitoneal Structures: No free fluid or abnormal fluid collections were identified within the abdomen or pelvis. No lymphadenopathy was noted. Diffuse atherosclerotic changes are seen involving the aorta and its main branches. Bowel: The visualized bowel loops are normal in caliber and appearance. No evidence of bowel obstruction or wall thickening. Bones and Soft Tissues: Pelvic bones and soft tissues are unremarkable. No fractures or abnormal masses were identified. Spondylodegenerative changes of the lumbar spine. Diffuse osteopenic texture of the examined bones. Unchanged mild anterior wedging of T11 vertebra Clear scanned lung bases IMPRESSION: 1. No CT evidence of acute intra-abdominal pathology. 2. Redemonstration of cholelithiasis without definite evidence of acute cholecystitis. 3. No other gross interval changes. 4. Details as above. Electronically signed by Rickie Vázquez 04-28-2025 7:59 PM
--- NOTE | 2025-04-28 20:13 | CT Scan Report ---
EXAM: CT chest diagnostic w con CLINICAL HISTORY: Esophageal mass TECHNIQUE: Contiguous axial CT images of the chest were acquired with administration of intravenous contrast. Coronal and sagittal reconstructions were obtained. 92 ML OPTI 320 intravenous contrast was administered for post-contrast images. One of the following dose reduction techniques were utilized for this exam: Automated exposure control, adjustment of the mA and/or kV according to patient size, use of iterative reconstruction. DLP: 1180.14 mGy.cm COMPARISON: none FINDINGS: Lungs: Clear, no evidence of consolidation, collapse, or focal lesions. No ground-glass opacities or interstitial changes. No pleural effusion or pleural thickening. Mediastinum: Enlarged anterior mediastinal lymph node is seen measuring 15 mm. Normal appearance of the thymus. Hilar Structures: Normal size and configuration, no enlargement. Heart and Great Vessels: Normal heart size and configuration. No pericardial effusion. Normal caliber and course of the thoracic aorta. Atherosclerotic changes of the aorta and coronary arteries are noted. No evidence of pulmonary embolism. Normal size and course of the pulmonary arteries. Bones: No fractures or lytic/sclerotic lesions. Normal bone density and alignment. No evidence of rib fractures. Chest Wall: No masses or soft tissue abnormalities. Spondylodegenerative changes of the thoracic spine are noted. Thyroid: Normal size and morphology. No nodules or masses. Esophagus: Diffuse irregular mural thickening is seen involving long segment of esophagus measuring 16 cm in length. it measures 20.3 mm at its maximum thickness with cystic area seen within likely representing malignant neoplastic process for further histopathological assessment. No clear line of separation seen between it and descending aorta. IMPRESSION: 1. Diffuse irregular mural thickening is seen involving long segment of the esophagus measuring 16 cm in length. it measures 20.3 mm at its maximum thickness with cystic area seen within, further evaluation by endoscopy is suggested. 2. No clear line of separation seen between it and descending aorta. 3. Enlarged anterior mediastinal lymph node. Electronically signed by Rickie Vázquez 04-28-2025 8:13 PM
[2025-04-29] MEDS: ACETAMINOPHEN 325 MG TAB PO PRN (05:29)
[2025-04-29 06:11] LABS: Hematocrit (blood only) 26.2 % (42.0-52.0); Hemoglobin 8.9 g/dl (14.0-18.0); Mean Corpuscular Hemoglobin 29.7 pg (25.0-34.0); Mean Corpuscular Volume 87.3 fL (80.0-100.0); Platelet Count 176 K/uL (130-400); RDW Standard Deviation 40.8 fL (36.4-46.3); Red Blood Count 3.00 M/uL (4.70-6.10); White Blood Count 8.92 K/ul (4.8-10.8)
[2025-04-29 06:28] LABS: Anion Gap 7.0 (3-11); Blood Urea Nitrogen 33.0 mg/dl (6-23); Calcium 8.2 mg/dl (8.6-10.3); Carbon Dioxide 23.0 mmol/L (21-32); Chloride 109.0 mmol/L (98-107); Creatinine Clr Calc Pharmacy 65.0 ml/min; Glucose 159.0 mg/dl (70-99(Fasting)); Potassium 3.9 mmol/L (3.5-5.1); Sodium 139.0 mmol/L (136-145)
--- NOTE | 2025-04-29 11:28 | Pharmacy Report ---
Pharmacy Glycemic Short Note 2 - Date of Service April 29, 2025 - Glycemic Short BSG Results (Last 24 hours): 04/28/25 04/28/25 04/28/25 13:23 16:20 20:00 Glucose POC Glucose 132 H 226 H 297 H 04/29/25 04/29/25 05:51 07:30 Glucose 159 H POC Glucose 160 H OUTPATIENT ANTIDIABETIC REGIMEN: * Lantus 29 units BID - adjusts dose based on BG (holds dose BG < 120, ~25 units if BG ~150) * Novolog 0 units with breakfast - 4 units with lunch - 8 units with supper + CF:50 for BG > 150 *Adjusts Novolog dose according to food/BG values- holds dose if BG is < 120, 2 units for small meal/high BG and 5 units for large meal * A1c 10.8% 04/27/25 ASSESSMENT: 04/29 * Diet resumed yesterday. Patient remains on pantoprazole drip (in D5W) at 20 mL/hr * BSG's increased prior to dinner yesterday. Question if patient consumed CHO at transition back to diet that went uncovered. Some other charted and covered PO intake later in day - insufficient to determine appropriateness of CHO ratio. Will leave as-is for now and trend/monitor. * Will scale Lantus BID and trend. Still unclear what inpatient basal needs may be, but likely less than reported home dose. Therefore will have varying doses based on BSG. 04/28 * Patient with history of type 1 diabetes, admitted with GIB, NPO this morning for endoscopy. * Initially ordered 15 units of lantus BID, AM dose held this morning per provider. BSG 155 mg/dL. * Reviewed telehealth nurse educator note- patient often withholding doses/fear of hypoglycemia, outpatient 30 day average 322 mg/dL on freestyle [place] * Unclear baseline needs d/t reports of missing/holding doses and high baseline BSG. Home regimen is basal heavy. Will continue with current novolog order as this is ~ moderate stress weight dose/balanced home dose. Will adjust goal range. * Continue with 15 units BID of lantus for now PLAN FOR INPATIENT GLYCEMIC CONTROL: * Basal insulin * Lantus 0-20 units SQ BID. See MAR for details * Bolus insulin * NovoLog per scale ACHS or Q6hrs while NPO * Goal Range: Low 110 mg/dL - High 140 mg/dL * Correction Factor: 30 mg/dL/unit * Nutritional / Prandial insulin per carb ratio of 1 unit per 12 grams CHO consumed
--- NOTE | 2025-04-29 16:55 | Hospitalist Progress Note ---
Date of Service April 29, 2025 Assessment & Plan (1) UGIB (upper gastrointestinal bleed): Plan: 59-year-old male with a history of chronic diastolic heart failure, diabetes mellitus type 1, coronary artery disease status post stent, hypertension, hyperlipidemia and obstructive sleep apnea admitted with GI bleed. 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 UGIB IV PPI converted to oral Protonix 40 mg twice daily Continue to hold aspirin Advance diet as per GI recommendations Appreciate GI help. GI is arranging for outpatient follow-up with oncology and thoracic surgery Anemia Acute blood loss anemia Follow H&H Patient had a drop of hemoglobin to 8.9 this a.m. Chronic diastolic heart failure (EF 60%, TTE 2019) Monitor I's and O Daily weights Patient is euvolemic at present DM 1 Poor control and noncompliance SSI Basal bolus insulin ISS BG goal 110-140, updated hemoglobin A1c---> 10.8 Hyperkalemia IV insulin, calcium gluconate given at admission Stable at present Continue to trend labs CAD Status post stent Hold Asa due to GI bleed ongoing tobacco abuse--->Nicotine patch Hypertension Follow BPs Hyperlipidemia Cont on statin Rx SATYA Cont on CPAP DVT prophylaxis. SCDs re: GI bleed Full code Anticipate possible discharge tomorrow if the patient is clinically stable and H&H remained stable. I spent a total of 52 minutes coordinating, documenting and providing care for this patient excluding time spent in the performance of separately billable services Admission and Anticipated Discharge Date Admission Date: April 27, 2025 Subjective Chart, data vital signs reviewed. Patient seen in the telemetry unit at bedside. No further vomiting or hematemesis. He denies melena or dark stools. No CP or SOB. EGD unfortunately shows partially obstructing malignant looking lesion in the mid esophagus. Patient has been informed of this finding. Physical Exam Physical Exam: General- adult male seen at bedside Eyes- PERRL, EOMI, anicteric ENT- oropharynx clear Neck- supple, no JVD, no adenopathy, no thyromegaly; carotids +2/2, no bruits appreciated Lungs- clear to auscultation and percussion Heart- regular rhythm; no murmur, no gallop, no rub appreciated Abdomen- normal bowel sounds, soft, nontender, no masses or hepatosplenomegaly Extremities- no pretibial edema, no calf tenderness; peripheral pulses intact Neuro- alert, oriented x 3; PERRL, EOMI; no gross focal findings Skin- warm & dry Results & Data Results & Data Vital Signs (Past 12 Hours) Vital Signs Temp Pulse Pulse Resp BP Pulse Ox O2 Del Method 04/29/25 14:08 65 04/29/25 10:38 37.3 C 63 17 116/60 97 Room Air 04/29/25 07:57 36.7 C 65 17 118/59 L 97 Room Air Diagnostic Findings Laboratory Results WBC 8.92 K/ul (4.8-10.8) 04/29/25 05:51 RBC 3.00 M/uL (4.70-6.10) L 04/29/25 05:51 Hgb 8.9 g/dl (14.0-18.0) L 04/29/25 05:51 POC Hgb 11.6 g/dl (14.0-18.0) L 04/27/25 00:13 Hct 26.2 % (42.0-52.0) L 04/29/25 05:51 POC Hct 34 % (42-52) L 04/27/25 00:13 MCV 87.3 fL (80.0-100.0) 04/29/25 05:51 MCH 29.7 pg (25.0-34.0) 04/29/25 05:51 MCHC 34.0 g/dL (32.0-36.0) 04/29/25 05:51 RDW Std Deviation 40.8 fL (36.4-46.3) 04/29/25 05:51 RDW Coeff of Sonia 13.0 % (11.5-14.5) 04/29/25 05:51 Plt Count 176 K/uL (130-400) 04/29/25 05:51 MPV 9.8 fL (9.4-12.4) 04/29/25 05:51 Immature Gran % (Auto) 0.6 % 04/28/25 06:16 Neut % (Auto) 77.9 % 04/28/25 06:16 Lymph % (Auto) 15.6 % 04/28/25 06:16 Petroleum % (Auto) 4.6 % 04/28/25 06:16 Eos % (Auto) 1.0 % 04/28/25 06:16 Baso % (Auto) 0.3 % 04/28/25 06:16 Neut # (Auto) 8.86 K/uL (1.40-6.50) H 04/28/25 06:16 Lymph # (Auto) 1.77 K/uL (1.20-3.40) 04/28/25 06:16 Petroleum # (Auto) 0.52 K/uL (0.11-0.59) 04/28/25 06:16 Eos # (Auto) 0.11 K/uL (0.00-0.50) 04/28/25 06:16 Baso # (Auto) 0.03 K/uL (0.00-0.20) 04/28/25 06:16 Immature Gran # (Auto) 0.07 K/uL (0.01-0.20) 04/28/25 06:16 PT 10.7 Seconds (9.0-12.0) 04/27/25 00:10 INR 1.0 (0.9-1.1) 04/27/25 00:10 APTT 25 Seconds (21-31) 04/27/25 00:10 PTT Ratio 0.9 04/27/25 00:10 POC Sodium 136 mmol/L (135-144) 04/27/25 00:13 Sodium 139 mmol/L (136-145) 04/29/25 05:51 POC Potassium 5.1 mmol/L (3.3-5.0) H 04/27/25 00:13 Potassium 3.9 mmol/L (3.5-5.1) 04/29/25 05:51 POC Chloride 101 mmol/L (101-112) 04/27/25 00:13 Chloride 109 mmol/L (98-107) H 04/29/25 05:51 Carbon Dioxide 23 mmol/L (21-32) 04/29/25 05:51 POC Total CO2 24 mmol/L (24-31) 04/27/25 00:13 Anion Gap 7 (3-11) 04/29/25 05:51 POC Anion Gap 18.0 mmol/L (16-25) 04/27/25 00:13 POC BUN 32 mg/dl (7-18) H 04/27/25 00:13 BUN 33 mg/dl (6-23) H 04/29/25 05:51 Creatinine 1.13 mg/dl (0.6-1.4) 04/29/25 05:51 POC Creatinine 1.3 mg/dl (0.6-1.3) 04/27/25 00:13 Est Cr Clr Drug Dosing 65.0 ml/min 04/29/25 05:51 eGFR 74.41 04/29/25 05:51 BUN/Creatinine Ratio 29.2 (10-20) H 04/29/25 05:51 Glucose 159 mg/dl (70-99(Fasting)) H 04/29/25 05:51 POC Glucose 155 mg/dl (70-99) H 04/29/25 16:23 POC Glucose (other) 420 mg/dl (70-99) H* 04/27/25 00:13 Estimat Average Glucose 263 mg/dl 04/27/25 02:22 Hemoglobin A1c 10.8 % (4.5-5.6) H 04/27/25 02:22 Lactate 0.8 mmol/L (0.4-2.0) 04/27/25 05:32 Calcium 8.2 mg/dl (8.6-10.3) L 04/29/25 05:51 POC Ioniz Calcium Christian 1.15 mmol/l (1.12-1.32) 04/27/25 00:13 Phosphorus 3.3 mg/dl (2.5-4.9) 04/28/25 06:16 Magnesium 1.9 mg/dl (1.7-2.4) 04/28/25 06:16 Total Bilirubin 0.3 mg/dl (0.2-1.0) 04/27/25 00:10 AST 9 U/L (13-39) L 04/27/25 00:10 ALT 9 U/L (7-52) 04/27/25 00:10 Alkaline Phosphatase 103 U/L (34-104) 04/27/25 00:10 Troponin I High Sens 6.3 pg/ml (0-20) 04/27/25 00:10 Total Protein 6.1 gm/dl (6.0-8.3) 04/27/25 00:10 Albumin 3.5 gm/dl (3.4-5.0) 04/27/25 00:10 Globulin 2.6 gm/dl (2.5-4.0) 04/27/25 00:10 Albumin/Globulin Ratio 1.3 (0.9-2) 04/27/25 00:10 Lipase 18 U/L (11-82) 04/27/25 00:10 POC Stool Occult Blood Negative (Negative) 04/27/25 00:16 Ethyl Alcohol mg/dL < 10.0 mg/dl (<10.0) 04/27/25 00:52 Blood Type A Negative 04/27/25 00:10 Antibody Screen NEGATIVE 04/27/25 00:10 Impressions Chest X-Ray 04/27/25 00:15 EXAM: XR chest 1V portable CLINICAL HISTORY: GI bleed TECHNIQUE: X-ray image of the chest is obtained in AP projection. COMPARISON: Visualized parts of the thorax on the CT scan of the abdomen pelvis dated 04/26/2025 23:31:23 [employer]. FINDINGS: Pulmonary Parenchyma: Bilateral lung osborne are clear. No evidence of consolidation, collapse, or focal opacities. No pulmonary nodules are identified. No evidence of pleural effusion or pleural thickening. Heart and Mediastinum: Heart size and shape are normal. No mediastinal widening or masses. No hilar or mediastinal lymphadenopathy. Bony Thorax: A focal widening of the contour of the 9th left rib is identified along the posterolateral aspect, possibly due to an old healed fracture. Focal sclerosis is identified along the greater tuberosity of the left humerus, possibly signifying osteoarthritis changes. Age-appropriate marginal osteophytes are identified along the right lateral aspect of the visualized thoracic spine. Bony thorax appears intact without acute fractures or deformities. Soft Tissues: Soft tissues overlying the chest wall are unremarkable. IMPRESSION: No acute cardiopulmonary abnormalities are identified. Electronically signed by Rickie Vázquez 04-27-2025 02:56 AM Abdomen/Pelvis CT 04/28/25 12:15 EXAM: CT abd pelvis oral and IV con CLINICAL HISTORY: Esophageal mass, need contrast study per Dr. Lino TECHNIQUE: Contrast-enhanced CT of the abdomen and pelvis was performed, with the following protocol: axial images with, and reconstructed coronal and sagittal images. 92 ML OPTI 320 intravenous contrast was administered. Oral contrast also given. One of the following dose reduction techniques was utilized for this exam: Automated exposure control, adjustment of the mA and/or kV according to patient size, and use of iterative reconstruction. DLP: 1180.14 mGy.cm COMPARISON: 04/26/2025 CT FINDINGS: Abdomen: Liver: Normal in size, shape, and density. No focal lesions, cysts, or masses were identified. Hepatic vasculature and biliary ducts are unremarkable. Gallbladder and Biliary System: The gallbladder is normal in size and shape. No wall thickening or pericholecystic fluid. Unchanged few small gallbladder stones. The common bile duct is normal in caliber without dilation. Pancreas: Pancreatic head, body, and tail are visualized and appear normal in size and density. No pancreatic masses or calcifications were noted. The pancreatic duct is not dilated. Spleen: Normal in size, shape, and density. No splenic lesions or masses were identified. Appendix: The appendix is normal in size without ever appendiceal fat stranding, and without an appendicolith. No evidence of appendiceal abscess or perforation. Kidneys and Adrenal Glands: Both kidneys are normal in size, shape, and position. Cortical thickness is within normal limits. No renal calculi or hydronephrosis. Unchnaged left adrenal nodule measuring 1.5 x 1.5 cm right adrenal gland is unremarkable with no evidence of masses or hyperplasia. Pelvis: Urinary Bladder: Unchanged mild diffuse wall thickening measuring 6 mm at its maximum thickness No intraluminal lesions identified. Prostate: Unchanged enlarged prostate with calcific foci Seminal Vesicles: Normal in size and appearance. No abnormalities noted. Rectum and Sigmoid Colon: Normal wall thickness and no evidence of mass. Peritoneal and Retroperitoneal Structures: No free fluid or abnormal fluid collections were identified within the abdomen or pelvis. No lymphadenopathy was noted. Diffuse atherosclerotic changes are seen involving the aorta and its main branches. Bowel: The visualized bowel loops are normal in caliber and appearance. No evidence of bowel obstruction or wall thickening. Bones and Soft Tissues: Pelvic bones and soft tissues are unremarkable. No fractures or abnormal masses were identified. Spondylodegenerative changes of the lumbar spine. Diffuse osteopenic texture of the examined bones. Unchanged mild anterior wedging of T11 vertebra Clear scanned lung bases IMPRESSION: 1. No CT evidence of acute intra-abdominal pathology. 2. Redemonstration of cholelithiasis without definite evidence of acute cholecystitis. 3. No other gross interval changes. 4. Details as above. Electronically signed by Rickie Vázquez 04-28-2025 7:[address] 04/28/25 12:15 EXAM: CT chest diagnostic w con CLINICAL HISTORY: Esophageal mass TECHNIQUE: Contiguous axial CT images of the chest were acquired with administration of intravenous contrast. Coronal and sagittal reconstructions were obtained. 92 ML OPTI 320 intravenous contrast was administered for post-contrast images. One of the following dose reduction techniques were utilized for this exam: Automated exposure control, adjustment of the mA and/or kV according to patient size, use of iterative reconstruction. DLP: 1180.14 mGy.cm COMPARISON: none FINDINGS: Lungs: Clear, no evidence of consolidation, collapse, or focal lesions. No ground-glass opacities or interstitial changes. No pleural effusion or pleural thickening. Mediastinum: Enlarged anterior mediastinal lymph node is seen measuring 15 mm. Normal appearance of the thymus. Hilar Structures: Normal size and configuration, no enlargement. Heart and Great Vessels: Normal heart size and configuration. No pericardial effusion. Normal caliber and course of the thoracic aorta. Atherosclerotic changes of the aorta and coronary arteries are noted. No evidence of pulmonary embolism. Normal size and course of the pulmonary arteries. Bones: No fractures or lytic/sclerotic lesions. Normal bone density and alignment. No evidence of rib fractures. Chest Wall: No masses or soft tissue abnormalities. Spondylodegenerative changes of the thoracic spine are noted. Thyroid: Normal size and morphology. No nodules or masses. Esophagus: Diffuse irregular mural thickening is seen involving long segment of esophagus measuring 16 cm in length. it measures 20.3 mm at its maximum thickness with cystic area seen within likely representing malignant neoplastic process for further histopathological assessment. No clear line of separation seen between it and descending aorta. IMPRESSION: 1. Diffuse irregular mural thickening is seen involving long segment of the esophagus measuring 16 cm in length. it measures 20.3 mm at its maximum thickness with cystic area seen within, further evaluation by endoscopy is suggested. 2. No clear line of separation seen between it and descending aorta. 3. Enlarged anterior mediastinal lymph node. Electronically signed by Rickie Vázquez 04-28-2025 8:13 PM
[2025-04-29] MEDS: LANTUS PER UNIT CHARGE SC SCH (20:21)
--- NOTE | 2025-04-30 07:23 | Oncology Consultation ---
Date of Consultation April 30, 2025 Assessment & Plan (1) Squamous cell carcinoma, esophagus: given that this is squamous cell carcinoma of the esophagus, this is medically inoperable. CT of the chest abdomen pelvis revealed a anterior mediastinal lymph node however there was no evidence of distant metastatic disease. I will recommend an outpatient PET CT scan. The patient will most likely need either palliative systemic chemotherapy or definitive chemoradiation depending upon the results of the PET scan. Keeping this in mind I would recommend placement of a Mediport which can be done on an outpatient basis. While the patient is hospitalized no urgent oncological intervention would be warranted however we will coordinate with our outpatient staff to get a PET scan, Mediport placement, consultation with radiation oncology to consider concurrent chemoradiation. Plan Thank you for this interesting oncological consult, medical oncology will continue to follow the patient make appropriate recommendations. History of Present Illness Reason for Consultation: squamous cell carcinoma of the esophagus upper GI bleeding malignant GI mass Attending Physician: Hernando Melendez MD History of Present Illness the patient is a very pleasant 59-year-old man who initially presented to the hospital on 04/28/2025 with upper GI bleeding. He underwent an upper GI endoscopy on 04/28/2025 which revealed a partially obstructing, malignant esophageal tumor in the middle third of the esophagus. This was biopsied. And the biopsy was consistent with squamous cell cancer of the esophagus. He underwent a CT of the chest abdomen pelvis on 04/28/2025 which revealed diffuse irregular mural thickening involving the long segment of the esophagus, measuring 16 cm in length. There was enlarged anterior mediastinal lymph node. CT of the abdomen pelvis performed on 04/28/[address] evidence of acute intra-abdominal pathology. There was redemonstration of cholelithiasis without definitive evidence of acute cholecystitis. Medical oncology has been assessed called to assist in management of this patient with squamous cell carcinoma of the esophagus. Allergies Allergy/AdvReac Type Severity Reaction Status Date / Time naproxen Allergy Severe TONGUE Verified 04/27/25 00:13 SWELLS/ITCHY tramadol Allergy Severe EDEMA Verified 04/27/25 00:13 AIRWAY FACE/LIPS/TONGUE ramipril Allergy Intermediate Hives Verified 04/27/25 00:13 moxifloxacin [From Avelox] AdvReac Severe EDEMA Verified 04/27/25 00:13 AIRWAY FACE/LIPS/TONGUE Home Medications Medication Instructions Recorded Confirmed Type aspirin 81 mg tablet,delayed 81 mg PO QAM 10/24/19 04/27/25 History release gemfibrozil 600 mg tablet 600 mg PO BID 10/24/19 04/27/25 History insulin aspart U-100 100 unit/mL 1 unit subcut TIDM 10/24/19 04/27/25 History (3 mL) subcutaneous pen (Novolog FlexPen U-100 Insulin aspart) rosuvastatin 40 mg tablet 40 mg PO PM 10/24/19 04/27/25 History amlodipine 5 mg tablet (Norvasc) 5 mg PO DAILY 04/27/25 04/27/25 History brexpiprazole 2 mg tablet (Rexulti) 2 mg PO QAM 04/27/25 04/27/25 History bupropion HCl 150 mg 24 hr tablet, 150 mg PO QAM 04/27/25 04/27/25 History extended release escitalopram oxalate 20 mg tablet 20 mg PO DAILY 04/27/25 04/27/25 History (Lexapro) insulin glargine 100 unit/mL (3 29 unit subcut BID 04/27/25 04/27/25 History mL) subcutaneous pen (Lantus Solostar U-100 Insulin) melatonin 10 mg capsule 10 mg PO HS PRN Sleep 04/27/25 04/27/25 History metoprolol tartrate 50 mg tablet 50 mg PO BID 04/27/25 04/27/25 History multivitamin with minerals 1 tab PO DAILY 04/27/25 04/27/25 History tadalafil 5 mg tablet 5 mg PO DAILY PRN Sexual Activity 04/27/25 04/27/25 History tamsulosin 0.4 mg capsule 0.8 mg PO QAM 04/27/25 04/27/25 History trazodone 50 mg tablet 50 mg PO HS 04/27/25 04/27/25 History Patient History Medical History (Updated 04/30/25 @ 07:44 by Clint Rodriguez MD) Chronic pancreatitis SATYA (obstructive sleep apnea) Depression GERD (gastroesophageal reflux disease) Surgical History H/O shoulder surgery S/P rotator cuff repair H/O hernia repair History of nasal septoplasty Family History Mother Heart disease Social History Smoking Status: Current every day smoker Tobacco Type: Cigarettes Cigarettes Per Day: 1 ppd; Second Hand Exposure: Yes; Do You Dip or Chew Tobacco: No; Hx Alcohol Use: Yes Alcohol type: beer, wine and hard liquor Alcohol type Comment: 6 beers/day Hx Substance Use: No Preferred Language: Indonesian Communication Ability: Effective Machine Hose Cutter Required: No Beliefs That Will Affect Care: None Current Living Situation: Significant Other Feels Safe at Home: Yes Assistive Devices: None Review of Systems Review of Systems: All systems reviewed & are unremarkable except as noted in HPI & below Upper GI bleeding Constitutional: as per Subjective / HPI Eyes: as per Subjective / HPI Ear, Nose, Mouth, Throat: as per Subjective / HPI Respiratory: as per Subjective / HPI Cardiovascular: as per Subjective / HPI Gastrointestinal: as per Subjective / HPI Genitourinary: + as per Subjective / HPI Musculoskeletal: as per Subjective / HPI Integumentary: as per Subjective / HPI Neurologic: as per Subjective / HPI Psychiatric: as per Subjective / HPI Endocrine: as per Subjective / HPI Allergy / Immunological: as per Subjective / HPI Physical Exam Constitutional: WD/WN, vitals as above Eyes: PERRL, conjunctivae normal, anicteric sclerae ENMT: external ear and nose normal, oropharynx normal Neck: trachea midline, no thyromegaly Respiratory: normal respiratory effort, lungs clear to auscultation Cardiovascular: RRR, no murmur, no edema Gastrointestinal (Abdomen): normal bowel sounds, soft, nontender, no hepatosplenomegaly Musculoskeletal: no cyanosis or clubbing, extremities motor strength 5/5 Skin: no rashes, warm and dry Neurologic: patellar DTR's 2+ bilat, sensation intact Psychiatric: A+Ox3, euthymic affect Genitourinary: no testicular masses, no penis abnormality Results & Data Vital Signs (Past 12 Hours) Vital Signs Temp Pulse Pulse Resp BP Pulse Ox Pulse Ox 04/30/25 06:00 96 04/30/25 05:30 71 04/30/25 02:54 36.9 C 65 20 123/65 97 04/29/25 22:33 36.8 C 63 18 116/65 94 04/29/25 21:00 64 04/29/25 19:31 04/29/25 19:31 36.8 C 70 20 116/63 97 O2 Del Method O2 Del Method 04/30/25 06:00 Room Air 04/30/25 05:30 04/30/25 02:54 Room Air 04/29/25 22:33 Room Air 04/29/25 21:00 04/29/25 19:31 Room Air 04/29/25 19:31 Room Air
[2025-04-30 07:33] LABS: Hematocrit (blood only) 26.1 % (42.0-52.0); Hemoglobin 9.0 g/dl (14.0-18.0); Mean Corpuscular Hemoglobin 30.1 pg (25.0-34.0); Mean Corpuscular Volume 87.3 fL (80.0-100.0); Platelet Count 181 K/uL (130-400); RDW Standard Deviation 39.9 fL (36.4-46.3); Red Blood Count 2.99 M/uL (4.70-6.10); White Blood Count 9.12 K/ul (4.8-10.8)
[2025-04-30 07:47] LABS: Anion Gap 6.0 (3-11); Blood Urea Nitrogen 23.0 mg/dl (6-23); Calcium 8.5 mg/dl (8.6-10.3); Carbon Dioxide 26.0 mmol/L (21-32); Chloride 109.0 mmol/L (98-107); Creatinine Clr Calc Pharmacy 62.7 ml/min; Glucose 139.0 mg/dl (70-99(Fasting)); Potassium 4.1 mmol/L (3.5-5.1); Sodium 141.0 mmol/L (136-145)
[2025-04-30] MEDS: LANTUS PER UNIT CHARGE SC ONE (08:13)
--- NOTE | 2025-04-30 08:48 | Gastroenterology Progress Note ---
Date of Service April 30, 2025 Assessment & Plan (1) UGIB (upper gastrointestinal bleed): (2) Squamous cell carcinoma, esophagus: Plan 59yowm with h/o CAD, T1DM, DL, Tobacco use, anxiety, DVT prophylaxis, Pancreatitis, GERD, UGIB is seen today for daily GI rounds in hospital. P resenting Hgb 12.4 g/dl. Dropped to lou of 8.9g/dl. Hgb 9.0g/dl today. Unfortunately imaging revealed thickening of esophagus and EGD confirmed an ulcerating mass with bleeding that was biopsied on 04/28/25. Pathology returned as poorly differentiated squamous cell carcinoma. (1) Esophageal Squamous Cell Carcinoma. - Reviewed diagnosis with patient and plans for further follow up with PET/CT a nd oncology to learn more about treatment options in ghosh details. Understanding voiced. - Continue with Pantoprazole as ordered by primary team for esophagitis. - Okay to advance diet as tolerated from GI perspective. - Continue to monitor for s/s of recurrent bleeding/anemia. Recommend f/u of CBC in outpatient with PCP to confirm stability. - Please feel free to reach out with any concerns. - Further recommendations to come with Supervising GI provider on medical rounds. Please see co-signature comments. Admission and Anticipated Discharge Date Admission Date: April 27, 2025 Subjective 59yowm with h/o CAD, T1DM, DL, Tobacco use, anxiety, DVT prophylaxis, Pancreatitis, GERD, UGIB is seen today for daily GI rounds in hospital. He was initially admitted with UGIB. Presenting Hgb 12.4 g/dl. Dropped to lou of 8.9g/dl. Hgb 9.0g/dl today. Unfortunately imaging revealed thickening of esophagus and EGD confirmed an ulcerating mass with bleeding that was biopsied on 04/28/25. Pathology returned as poorly differentiated squamous cell carcinoma. Case was reviewed by Oncology today with recommendations for PET/CT for consideration of palliative chemotherapy vs. definitive chemoradiation. Clinically patient feels well. He is able to drink without any issues. He denies any fevers, chills, abdominal pain, N/V/D, melena or hematochezia. Family history - Denies any history of CA. CT chest 04/28/25 IMPRESSION: 1. Diffuse irregular mural thickening is seen involving long segment of the esophagus measuring 16 cm in length. it measures 20.3 mm at its maximum thickness with cystic area seen within, further evaluation by endoscopy is suggested. 2. No clear line of separation seen between it and descending aorta. 3. Enlarged anterior mediastinal lymph node. EGD 04/28/25 Findings: - A medium-sized, ulcerating mass with bleeding and stigmata of recent bleeding was found in the middle third of the esophagus, 29 to 34 cm from the incisors. The mass was partially obstructing and partially circumferential (involving two thirds of the lumen circumference). Biopsies were taken with a cold forceps for histology. For hemostasis, two hemostatic clips were successfully placed. Clip trains service conductor: basestone. There was no bleeding at the end of the procedure. Area was successfully injected with 3 mL of a 0.1 mg/mL solution of epinephrine for hemostasis. - A small hiatal hernia was present. - The examined duodenum was normal. 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 Biopsied. Clips were placed. Clip trains service conductor: basestone. Injected. - Small hiatal hernia. - Normal examined duodenum. Recommendation: - Return patient to hospital [facility] for ongoing care. - Soft diet. - Continue present medications. - Await pathology results. - Return to primary care physician as previously scheduled. - Patient has a contact number available for emergencies. The signs and symptoms of potential delayed complications were discussed with the patient. Return to normal activities tomorrow. Written discharge instructions were provided to the patient. Pathology Esophagus, mass, biopsy: - Poorly differentiated squamous cell carcinoma with focal keratinization. - See comment. Comment: If needed there should be enough tumor present for additional ancillary testing Review of Systems Review of Systems: See HPI Physical Exam Physical Exam: Constitutional: NAD. Alert. Answering questions appropriately. Respiratory: Breathing is even, non-labored. Lungs osborne are clear to auscultation anteriorly. Cardiovascular: Regular Rate and Rhythm, no murmurs, rubs or gallops appreciated. Gastrointestinal (Abdomen): Normoactive bowel sounds x4, soft, non-distended, non-tender. Musculoskeletal: Lying in bed comfortably. No peripheral edema. Results & Data Results & Data Vital Signs (Past 12 Hours) Vital Signs Temp Pulse Pulse Resp BP Pulse Ox Pulse Ox 04/30/25 08:25 117/64 04/30/25 06:00 96 04/30/25 05:30 71 04/30/25 02:54 98.4 F 65 20 123/65 97 04/29/25 22:33 98.2 F 63 18 116/65 94 04/29/25 21:00 64 O2 Del Method O2 Del Method 04/30/25 08:25 04/30/25 06:00 Room Air 04/30/25 05:30 04/30/25 02:54 Room Air 04/29/25 22:33 Room Air 04/29/25 21:00 PG Care Time/CCT Total # of Minutes Spent Total Time Spent with Patient: Total time spent is greater than 50% in coordination of care (as documented) at patient's floor/unit and/or counseling patient: Coding Level of Care Code 68535 SUB INP/OBS CARE 2/35MIN Diagnoses UGIB (upper gastrointestinal bleed) K92.2 Squamous cell carcinoma, esophagus C15.9
[2025-04-30 11:24] VITALS: BP 134/71; PULSE 56; RESP 18; TEMP 98.1; O2SAT 100
--- NOTE | 2025-04-30 12:32 | Discharge Summary ---
Date of Service April 30, 2025 Admission HPI Per Admitting Provider History obtained from patient and records. Medical history significant for chronic diastolic heart failure (EF 60%, TTE 2019), CAD status post stent, mild MR, hypertension, hyperlipidemia, SATYA on CPAP, DM1, history of pancreatitis, anxiety/mood disorder, past alcohol abuse, ongoing tobacco abuse, medical noncompliance as per records. Last confinement March 2020 decompensated heart failure. 1 month history of progressive dysphagia symptoms mostly on solids. Patient seen at PCPs office 3 days ago. Possible left cervical adenopathy on provider exam. Outpatient GI referral contemplated for EGD. Outpatient CBC noted to be normal. Patient felt tired yesterday. Patient woke up last night with hematemesis. Upset stomach. No black/bloody stools. Denies chest pain, SOB. Usual dry cough symptoms which he attributes to smoking. Denies inordinate OTC NSAID intake. IV Protonix and octreotide infusions initiated at the ER. Medical History as above Surgical History : Hernia repair, left ankle surgery, cataract surgery, shoulder surgery, trigger finger release Family History : Heart disease Personal/Social history : 1 pack daily, past alcohol abuse as per patient, Nitt any [employer] employee Admission Exam Per Admitting Provider GENERAL: Comfortable, psych anxious, no respiratory distress SKIN: Pallor, warm HEENT: Bespectacled, pale palpebral conjunctivae, no ptosis, dry buccal mucosa NECK : Supple, no tenderness CHEST : CTA, no tenderness HEART : RRR, no obvious murmurs ABDOMEN: Some distention, minimal epigastric tenderness EXTREMITIES : No LE swelling/tenderness, palpable pulses, no other conspicuous deformities noted NEUROLOGIC : Coherent, no facial asymmetry, no other gross focality Principal Diagnosis Upper GI bleed, new diagnosis of esophageal cancer Discharge Exam General- adult male slim in NAD Eyes- PERRL, EOMI, anicteric Neck- supple, no JVD, no adenopathy, no thyromegaly Lungs- clear to auscultation b/l Heart- regular rhythm; no murmur Abdomen- normal bowel sounds, soft, nontender Extremities- no pretibial edema, no calf tenderness, moves extremities Neuro- alert, oriented x 3; PERRL, EOMI; answers appropriately, moves extremities Skin- warm & dry Discharge Data Allergies Allergy/AdvReac Type Severity Reaction Status Date / Time naproxen Allergy Severe TONGUE Verified 04/27/25 00:13 SWELLS/ITCHY tramadol Allergy Severe EDEMA Verified 04/27/25 00:13 AIRWAY FACE/LIPS/TONGUE ramipril Allergy Intermediate Hives Verified 04/27/25 00:13 moxifloxacin [From Avelox] AdvReac Severe EDEMA Verified 04/27/25 00:13 AIRWAY FACE/LIPS/TONGUE Consultations 04/27/25 03:47 ED Decision to Admit Stat 04/27/25 05:08 Consult Gastroenterology Routine 04/28/25 12:17 Consult Oncology Routine Procedures Performed Operation Date: 04/28/25 17:10 Actual Procedures p EGD Biopsy Cytology - Jacob G. Case, DO s EGD Hemostasis - Jacob G. Case, DO Ordered Studies 04/27/25 00:15 CT abd pelvis IV con only Stat FINDINGS: The visualized lung bases are clear. ABDOMEN/PELVIS: The liver is normal in size and attenuation. No focal liver lesions are seen. There is no intra or extrahepatic biliary ductal dilatation. Hepatic vasculature is patent. The gall bladder is partially distended with few radiodense calculi within, largest measuring ~ 3.8mm. Normal wall thickness. No pericholecystic fat stranding or collections. The spleen, pancreas, and adrenal glands are unremarkable. The kidneys are normal in size and attenuation. There is no hydronephrosis or perinephric fat stranding. No renal calculi or renal masses are identified. The ureters are normal in caliber and no ureteral calculi are seen. Moderate fecal content in large bowel loops. Prostatomegaly with diffuse urinary bladder wall thickening - interval progression. No evidence of focal or diffuse bowel wall thickening or evidence of bowel obstruction is seen. The appendix is visualized in the right lower quadrant and appears within normal limits. No adenopathy or fluid collections are seen. The aorta is normal in caliber. No aggressive appearing osseous lesions are identified. IMPRESSION: Interval resolution of peripancreatic fat stranding and features of pancreatitis Uncomplicated cholithiasis-stable Moderate fecal content in large bowel loops- likely constipation related changes Prostatomegaly with diffuse urinary bladder wall thickening - interval progression. Rest unchanged Electronically signed by Alexander Lindo 04-27-2025 02:21 AM 04/28/25 12:15 CT Abd and Pelvis [CT abd pelvis oral and IV con] Routine FINDINGS: Abdomen: Liver: Normal in size, shape, and density. No focal lesions, cysts, or masses were identified. Hepatic vasculature and biliary ducts are unremarkable. Gallbladder and Biliary System: The gallbladder is normal in size and shape. No wall thickening or pericholecystic fluid. Unchanged few small gallbladder stones. The common bile duct is normal in caliber without dilation. Pancreas: Pancreatic head, body, and tail are visualized and appear normal in size and density. No pancreatic masses or calcifications were noted. The pancreatic duct is not dilated. Spleen: Normal in size, shape, and density. No splenic lesions or masses were identified. Appendix: The appendix is normal in size without ever appendiceal fat stranding, and without an appendicolith. No evidence of appendiceal abscess or perforation. Kidneys and Adrenal Glands: Both kidneys are normal in size, shape, and position. Cortical thickness is within normal limits. No renal calculi or hydronephrosis. Unchnaged left adrenal nodule measuring 1.5 x 1.5 cm right adrenal gland is unremarkable with no evidence of masses or hyperplasia. Pelvis: Urinary Bladder: Unchanged mild diffuse wall thickening measuring 6 mm at its maximum thickness No intraluminal lesions identified. Prostate: Unchanged enlarged prostate with calcific foci Seminal Vesicles: Normal in size and appearance. No abnormalities noted. Rectum and Sigmoid Colon: Normal wall thickness and no evidence of mass. Peritoneal and Retroperitoneal Structures: No free fluid or abnormal fluid collections were identified within the abdomen or pelvis. No lymphadenopathy was noted. Diffuse atherosclerotic changes are seen involving the aorta and its main branches. Bowel: The visualized bowel loops are normal in caliber and appearance. No evidence of bowel obstruction or wall thickening. Bones and Soft Tissues: Pelvic bones and soft tissues are unremarkable. No fractures or abnormal masses were identified. Spondylodegenerative changes of the lumbar spine. Diffuse osteopenic texture of the examined bones. Unchanged mild anterior wedging of T11 vertebra Clear scanned lung bases IMPRESSION: 1. No CT evidence of acute intra-abdominal pathology. 2. Redemonstration of cholelithiasis without definite evidence of acute cholecystitis. 3. No other gross interval changes. 4. Details as above. Electronically signed by Rickie Vázquez 04-28-2025 7:[address] chest diagnostic w con Routine FINDINGS: Lungs: Clear, no evidence of consolidation, collapse, or focal lesions. No ground-glass opacities or interstitial changes. No pleural effusion or pleural thickening. Mediastinum: Enlarged anterior mediastinal lymph node is seen measuring 15 mm. Normal appearance of the thymus. Hilar Structures: Normal size and configuration, no enlargement. Heart and Great Vessels: Normal heart size and configuration. No pericardial effusion. Normal caliber and course of the thoracic aorta. Atherosclerotic changes of the aorta and coronary arteries are noted. No evidence of pulmonary embolism. Normal size and course of the pulmonary arteries. Bones: No fractures or lytic/sclerotic lesions. Normal bone density and alignment. No evidence of rib fractures. Chest Wall: No masses or soft tissue abnormalities. Spondylodegenerative changes of the thoracic spine are noted. Thyroid: Normal size and morphology. No nodules or masses. Esophagus: Diffuse irregular mural thickening is seen involving long segment of esophagus measuring 16 cm in length. it measures 20.3 mm at its maximum thickness with cystic area seen within likely representing malignant neoplastic process for further histopathological assessment. No clear line of separation seen between it and descending aorta. IMPRESSION: 1. Diffuse irregular mural thickening is seen involving long segment of the esophagus measuring 16 cm in length. it measures 20.3 mm at its maximum thickness with cystic area seen within, further evaluation by endoscopy is suggested. 2. No clear line of separation seen between it and descending aorta. 3. Enlarged anterior mediastinal lymph node. Electronically signed by Rickie Vázquez 04-28-2025 8:13 PM Diabetes Follow up Diabetes Follow-up Needed for HgbA1c >9% Hospital Course (1) UGIB (upper gastrointestinal bleed): 59-year-old male with a history of chronic diastolic heart failure, diabetes mellitus type 1, coronary artery disease status post stent, hypertension, hyperlipidemia and obstructive sleep apnea admitted with GI bleed. 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 UGIB IV PPI converted to oral Protonix 40 mg twice daily Continue to hold aspirin Advance diet as per GI recommendations Appreciate GI help. 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 - See comment. Comment: If needed there should be enough tumor present for additional ancillary testing. at 0701. Gross Description ESOPHAGEAL MASS BIOPSY The specimen is received in a container labeled esophageal mass BX with the patient name. The specimen consists of multiple pink and red irregular fragments of soft tissue and possible blood clot. The fragments range from 0.1 to 0.7 cm in greatest dimension. The specimen is submitted entirely in a single cassette for [place]. Microscopic Description Sections show a poorly differentiated carcinoma. The vast majority of the lesion does not show any differentiation. Very focal squamous differentiation is present. The tumor shows positive staining with p40 and CK5/6. It is negative with CK7, CDX2, chromogranin and synaptophysin. Current Procedural Terminology [id number] Surgical Pathology Report Page 1 of 1 Oncology consulted while inpt (Dr. Rodriguez) (1) Squamous cell carcinoma, esophagus: given that this is squamous cell carcinoma of the esophagus, this is medically inoperable. CT of the chest abdomen pelvis revealed a anterior mediastinal lymph node however there was no evidence of distant metastatic disease. I will recommend an outpatient PET CT scan. The patient will most likely need either palliative systemic chemotherapy or definitive chemoradiation depending upon the results of the PET scan. Keeping this in mind I would recommend placement of a Mediport which can be done on an outpatient basis. While the patient is hospitalized no urgent oncological intervention would be warranted however we will coordinate with our outpatient staff to get a PET scan, Mediport placement, consultation with radiation oncology to consider concurrent chemoradiation. Anemia Acute blood loss anemia Follow H&H Patient had a drop of hemoglobin to 8.9 yesterday AM Current Hgb 9 (stable from yesterday) Chronic diastolic heart failure (EF 60%, TTE 2019) Monitor I's and O Daily weights Patient is euvolemic at present DM 1 Poor control and noncompliance SSI Basal bolus insulin ISS BG goal 110-140, updated hemoglobin A1c---> 10.8% informatics educator consulted and discussed with - provided pt w/ coupon to help with affordability of insulin Close follow up w/ pcp also scheduled Hyperkalemia IV insulin, calcium gluconate given at admission Stable at present Continue to trend labs CAD Status post stent Hold Asa due to GI bleed ongoing tobacco abuse-->Nicotine patch Hypertension Follow BPs amlodipine on hold for now Hyperlipidemia Cont on statin Rx SATYA Cont on CPAP Total Time Total Time Spent Total Time Spent (In Minutes): 40 Discharge Plan Discharge Items Patient Disposition: Home - Self-Care Reason For Visit: UGIB Discharge Diagnosis: Upper GI bleed, new diagnosis of esophageal cancer Condition on Discharge: Fair Activity: Per Instructions section Non-emergency contact: Primary Care Provider, Specialist and Oncologist Call non-emergency contact if: you have any medication questions and your symptoms worsen Follow-up/Referrals: Jennifer Monroe MD [Primary Care Provider] - (Date & Time 05/06/2025 2:20 PM Provider: Jennifer Monroe MD Family [facility]) Clint Rodriguez MD [Physician] - 05/02/25 1:40 pm (The office is at the back of the [facility]. ) Diet: Carb Consistent or DM2 Diet Texture: Dental soft (bite-sized) Addtl Attending Provider Instructions: Follow up with your primary care doctor and oncologist. Take pantoprazole 40 mg bid, as prescribed. Review recommendations from ict educator below. Currently you are using lantus 15 units twice a day. Addtl Electric Meter Installer Provider Instructions: DIABETES RECOMMENDATIONS: 1.) Lifestyle changes. - Discontinue sugar-sweetened beverages, juices, milk to drink. - Aim for regular/balanced meals with protein/vegetables. - Be mindful of portion sizes of carbs/starches. 2.) Lantus. - Take the same dose of Lantus every day. - Adjusting the dose of Lantus from day to day can cause unintentional fluctuations in blood sugar levels. - If your blood sugar is reasonable and you want to keep it reasonable, you need to continue doing what you just did. - Instead your Lantus dose should be gradually adjusted overtime based on trends in your blood sugar levels. 3.) Novolog. - Focus on taking your Novolog immediately before every meal. - Do not hold Novolog dose if blood sugar level is reasonable. - You need Novolog to cover the food you are eating regardless of the before meal blood sugar level. - You may need a little less Novolog if your blood sugar is lower; however, you still need to take it to cover the food you are eating. - Only hold dose if skipping a meal. 4.) To help lower the cost of your insulin, you were given a savings card for each insulin. The cards are good for 12 months. You can get a new one online thereafter. Give these to your pharmacist to help lower the cost of your insulin. Sometimes you may need to remind them that you have a savings card so that they use this every month. 5.) Continue to follow-up with the diabetes clinic for ongoing education/support and insulin dose adjustments, as needed. Pending Studies at Discharge: No Stand-Alone Forms: My [facility] [employer] IDE, Smoking Cessation Medications and DC Order Prescriptions: New oxycodone 5 mg Tablet 5 mg PO Q4H PRN (Reason: pain) Qty: 7 0RF pantoprazole 40 mg Tablet,Delayed Release (Dr/Ec) 40 mg PO BID Qty: 60 0RF finasteride 5 mg Tablet 5 mg PO QAM Qty: 30 0RF Continued gemfibrozil 600 mg Tablet 600 mg PO BID insulin aspart U-100 [Novolog FlexPen U-100 Insulin] 100 unit/mL (3 mL) Insulin Pen 1 unit subcut TIDM MDD 25 UNITS DAILY Rx Instructions: 0 UNITS W/BREAKFAST, 4 UNITS W/LUNCH, & 8 UNITS W/SUPPER. PLUS CF 1:50 > 150 (MAX = 25 UNITS DAILY) rosuvastatin 40 mg Tablet 40 mg PO PM trazodone 50 mg tablet 50 mg PO HS tamsulosin 0.4 mg capsule 0.8 mg PO QAM Men's One Daily Tablet 1 tab PO DAILY escitalopram oxalate [Lexapro] 20 mg tablet 20 mg PO DAILY bupropion HCl 150 mg tablet extended release 24 hr 150 mg PO QAM tadalafil 5 mg tablet 5 mg PO DAILY PRN (Reason: Sexual Activity) melatonin 10 mg Capsule 10 mg PO HS PRN (Reason: Sleep) Rexulti 2 mg tablet 2 mg PO QAM metoprolol tartrate 50 mg tablet 50 mg PO BID insulin glargine [Lantus Solostar U-100 Insulin] 100 unit/mL (3 mL) insulin pen 29 unit SUBCUT BID Held aspirin 81 mg Tablet,Delayed Release (Dr/Ec) 81 mg PO QAM Hold Instructions: Resume on 05/04/25. discuss with your primary care doctor when to resume amlodipine [Norvasc] 5 mg tablet 5 mg PO DAILY Hold Instructions: Resume on 05/05/25. discuss with your primary care doctor when to resume Discharge Orders: Discharge Order (Routine); Ordered 04/30/25 Ordered By: Hernando Melendez Admission Data Admit Date/Time: 04/27/25 04:54 Attending Provider: Hernando Melendez Admit Provider: Zheng Choudhury Primary Care Provider: Jennifer Monroe Other Providers: Zheng Choudhury; Tukcer De La Torre; Jacob Lino; Adriane Kuhn; Amy Hay; Debra Henriquez; Natalie Cobb; Jack Peng; Marlen Jo; Preston Ly; Santiago Johnson; Lizbeth Marion; Madelin Alcocer; Geri Martinez; Dana Bauer; Susie Stevens; Marcellus Wilson; Isaias Cain; Sarah Negron; Gregory Daniel Jr; Heriberto Chamorro; Alex Quesada; Iggy Kinsey; Jesus Alberto Patino; Indigo Camilo; Armando Patrick I; Olive Ward; Denver Reyes; Wong Yoon; Jimmy Dorado; Clint Rodriguez; Cristi Pruett
[2025-04-30] MEDS ORDERED: LANTUS PER UNIT CHARGE SC ONE (21:00)
== END 2025-04-30 14:09 | disposition home or self-care (01) | DRG 375 ==
LOC: ED 00:03 → SUATTDRO 04:54 → 2E 04:54